=== PATIENT | male | born 1945 | race Caucasian/White ===

== ENCOUNTER 2022-12-10 18:39 | Inpatient (IN) ==
--- NOTE | 2022-12-10 18:48 | ED Triage Note ---
Date of Service December 10, 2022 History of Present Illness This patient was briefly evaluated while in triage. An abbreviated physical exam was performed. This patient is a 77-year-old Male who presents to the ED for evaluation of. neuro symptoms in right arm x 4 weeks-, pain, N/T, weakness. Had cervical spine MRI today showing mass sent for admission, evaluation of primary source had full panel of labs earlier today which are pending chest and abd CTs ordered by PCP Physical Exam GENERAL: NAD CARDIOVASCULAR: RRR RESPIRATORY: CTA ABDOMEN: BS x 4. Nontender to palpation. Labs obtained earlier today are in process, reviewed. PCP wanted admission and CTs, which were ordered. Initial orders for labs and / or imaging were placed and patient was placed in the waiting area until a bed is available. Please see further documentation for the full ED course.
[2022-12-10] MEDS ORDERED: OPTIRAY 350 100ml IV ONE (19:38)
[2022-12-10 19:42] LABS: iSTAT Hemoglobin 16.3 g/dl (14.0-18.0); iSTAT Ionized Calcium 1.18 mmol/l (1.12-1.32); iSTAT Potassium 4.5 mmol/L (3.3-5.0)
--- NOTE | 2022-12-10 20:00 | Emergency Department Note ---
Impression & Plan Pulmonary embolism, Metastatic cancer ED Provider Note NAME: NATALY UNDERWOOD AGE: 77 SEX: M : 1945 ARRIVES VIA: Walk-In INFORMANT: Patient, ED PROVIDER(S): Rene Art DO CHIEF COMPLAINT: Right upper extremity weakness HPI: The patient is a 77-year-old male who presented to the emergency department for an evaluation of right upper extremity weakness. The patient has been experiencing symptoms for approximately 4 weeks. Apparently the patient has a history of prostatectomy in the past for prostate cancer. He had no chemothera py or radiation following this and this was felt to be not metastatic at that time. He started having symptoms of a pinching sensation and dysesthesia in his right upper extremity. He was placed on steroids. He had outpatient studies including an MRI of the neck. The MRI appears to be consistent with possible metastatic disease. He was sent to the emergency department for admission for further work-up for search for a primary cancer. The patient denies having any chest pain. He denies having any difficulty breathing. ROS: See above HPI for pertinent positives & negatives. A total of 10 systems reviewed and were otherwise negative. PAST MEDICAL HISTORY: See Below PAST SURGICAL HISTORY: See Below FAMILY HISTORY: See Below SOCIAL HISTORY: See Below HOME MEDICATIONS: See Below ALLERGIES: See Below VITALS: See Below PHYSICAL EXAMINATION: GENERAL: Patient is awake alert in no acute distress patient is resting comfortably and showing no signs of anxiety EYES: The conjunctivae are clear. The pupils are round and reactive. EARS, NOSE, MOUTH AND THROAT: The nose is without any evidence of any deformity. NECK: The neck is nontender and supple. RESPIRATORY: Normal respiratory effort is noted there is no evidence of wheezing rhonchi or rales CARDIOVASCULAR: Regular rate and rhythm noted there no murmurs rubs or gallops normal S1 normal S2. GASTROINTESTINAL: The abdomen is soft. Abdomen is nontender. MUSCULOSKELETAL/EXTREMITIES: There is no evidence of gross deformity full range of motion is noted in the hips and shoulders. SKIN: There is no obvious evidence of any rash. There are no petechiae, pallor or cyanosis noted. NEUROLOGIC: Patient is awake alert and oriented x3 strength is symmetric patellar reflexes are 2+ bilaterally. Fur Stretcher strength is diminished in the right upper extremity. There was no facial droop. MEDICAL DECISION MAKING: The patient is a 77-year-old male who presented to the emergency department for an evaluation of metastatic cancer without a source. The patient has been having right upper extremity problems over the course the last few weeks. He had an MRI obtained which showed areas of possible metastatic disease to the bone. He was sent to the emergency department for further evaluation as well as possible inpatient work-up to determine the primary carcinoma. The patient has a history of prostate cancer in the past. I discussed the patient's laboratory and radiographic studies with him. He was found to have signs of pulmonary embolism on CT of the chest but also signs of metastatic disease throughout his chest abdomen and pelvis. The patient was started on heparin in the emergency department. I discussed the patient's condition with the on-call [facility]. They have agreed to evaluate the patient in the emergency department for further management and disposition. Triage Nursing notes reviewed. Prior medical records reviewed Vital Signs: reviewed and remarkable for tachycardia. Differential diagnosis: Infection, dehydration, metabolic abnormality, hypo/hyperglycemia, electrolyte disturbance, anemia, hypoxia, cardiac sources, intracerebral event, toxicologic, neurologic, as well as other pathologies. ER treatment provided: See below Diagnostics interpreted by me: ECG: EKG was obtained in the emergency department. My interpretation is normal sinus rhythm at 96 bpm. There was no ectopy. Nonspecific ST segment abnormalities were noted. No previous tracing was available. Cardiac Monitoring: An order was placed for continuous cardiac monitoring. The monitor shows a rate of 100 bpm with sinus rhythm. Laboratory studies: As stated above and show below. Imaging studies: See below. Radiographic imaging was reviewed by myself Consultation(s): Discussed this case with Dr. Sagastume who is on-call for the [facility] group ED COURSE: Procedures: none Critical Care: I have personally spent greater than 40 minutes of critical care time in the direct management of this patient. This includes bedside care, interpretation of diagnostic studies, and testing, discussion with consultants, patient, and family members, and other required patient management activities. This 40 minutes is in excess of all separately billable procedures. Past Med/Surg History Medical History Diabetes mellitus, type 2 DIET CONTROLLED Hearing difficulty History of colon polyps History of prostate cancer 2010--sx only Hyperlipidemia Hypertension Osteoarthritis Restless leg syndrome Sleep apnea BIPAP Temporomandibular joint disorder Trigger finger, left ring finger Surgical History History of carpal tunnel surgery of right wrist History of cataract surgery RT/LEFT Hx of colonoscopy 01/2021 repeat 3 yrs Hx of prostatectomy 2010 - Hx of vasectomy Family History Father Malignant neoplasm of colon Hypertension Family hx of colon cancer Sister Malignant neoplasm of colon Family hx of colon cancer Grandfather Myocardial infarction paternal Lung cancer maternal Other No family history of adverse response to anesthesia Denies family history of Ovarian cancer Prostate cancer Breast cancer Social History Smoking Status: Never smoker Second Hand Exposure: No (father smoked); Hx Alcohol Use: Yes Alcohol type: beer, wine and hard liquor Alcohol Intake Frequency Comment: daily Hx Substance Use: No Preferred Language: Ethiopian Communication Ability: Effective Visual Impairment: Limited Hearing Ability: Use of Hearing Aid Acute Care Registered Nurse Required: No Beliefs That Will Affect Care: None marital status: Current Living Situation: Spouse current occupational status: retired How many Children do You have: 3 Feels Safe at Home: Yes Childhood Exposure to Second-Hand Smoke: Yes caffeine: Yes (rarely; drinks mostly decaf ) Dental Care, Regularly: No Physical Activity Frequency: 1-2 Times per Week Seatbelt Use: always Sunscreen Use: No Assistive Devices: BiPap, Glasses and Hearing Aid - Bilateral Allergies Allergies Allergy/AdvReac Type Severity Reaction Status Date / Time typhoid vaccine Allergy Intermediate shaking Verified 12/10/22 21:07 Home Meds Home Medications Medication Instructions Recorded Confirmed ibuprofen 200 mg capsule 400 - 600 mg PO Q6H PRN Pain 12/05/19 12/10/22 atorvastatin 40 mg tablet 40 mg PO HS 12/10/22 12/10/22 diclofenac sodium 1 % topical gel 4 g topical QID PRN Pain 12/10/22 12/10/22 (Voltaren Arthritis Pain) Previous Rx's Medication Instructions Recorded BiPap Machine #1 ea 02/22/20 BiPap Supplies #1 ea 03/17/22 metformin 1,000 mg tablet 1,000 mg PO BID #180 tabs 07/08/22 tadalafil 20 mg tablet 20 mg PO UD PRN sexual activity 10/27/22 #30 tabs blood sugar diagnostic (OneTouch #100 ea 08/18/22 Verio test strips) lancets 30 gauge (OneTouch Delica #100 ea 08/18/22 Lancets) lisinopril 10 1 tab PO HS #90 tabs 09/02/22 mg-hydrochlorothiazide 12.5 mg tablet duloxetine 30 mg capsule,delayed 30 mg PO DAILY #90 caps 10/08/22 release empagliflozin 25 mg tablet 25 mg PO DAILY #90 tabs 11/17/22 gabapentin 100 mg capsule 100 mg PO TID #90 caps 12/08/22 methocarbamol 750 mg tablet 750 mg PO Q8H PRN back spasm #15 12/08/22 tabs methylprednisolone 4 mg tablets in 4 mg PO DAILY #21 ea 12/08/22 a dose pack (Medrol (Tato)) Results & Data (ED) Vital Signs Vital Signs - 24 hr 12/10/22 18:45 12/10/22 19:54 12/10/22 20:49 Temperature 36.9 C Temperature Source Temporal Artery Scan Pulse Rate 119 H 100 H Respiratory Rate 18 Respiratory Effort / Characteristics Non-Labored Spontaneous Respiratory Depth Normal Respiratory Pattern Regular Blood Pressure 129/81 Blood Pressure Mean 97 Blood Pressure Position Sitting Pulse Oximetry 93 97 Oxygen Delivery Method Room Air Room Air Sepsis Recent Fever Within 48 Hours No Sepsis New/Unexplained Change in Mental Status No Sepsis Action Taken by Nursing No Action Required Home Medications Current Medication List: was personally reviewed by me Laboratory Data Attestation: I reviewed the patient's lab results. 12/10/22 19:27 12/10/22 19:27 Lab Results 12/10/22 12/10/22 12/10/22 Range/Units 19:27 19:27 19:27 WBC 14.09 H (4.8-10.8) K/ul RBC 4.54 L (4.70-6.10) M/uL Hgb 15.2 (14.0-18.0) g/dl POC Hgb (14.0-18.0) g/dl Hct 45.7 (42.0-52.0) % POC Hct (42-52) % MCV 100.7 H (80.0-100.0) fL MCH 33.5 (25.0-34.0) pg MCHC 33.3 (32.0-36.0) g/dL RDW Std Deviation 47.8 H (36.4-46.3) fL RDW Coeff of Micah 12.7 (11.5-14.5) % Plt Count 157 (130-400) K/uL MPV 9.7 (9.4-12.4) fL Immature Gran % (Auto) 0.7 % Neut % (Auto) 78.9 % Lymph % (Auto) 7.4 % [place] % (Auto) 10.8 % Eos % (Auto) 1.8 % Baso % (Auto) 0.4 % Neut # (Auto) 11.11 H (1.40-6.50) K/uL Lymph # (Auto) 1.04 L (1.2-3.4) K/uL [place] # (Auto) 1.52 H (0.11-0.59) K/uL Eos # (Auto) 0.26 (0-0.50) K/uL Baso # (Auto) 0.06 (0-0.2) K/uL Immature Gran # (Auto) 0.10 (0.01-0.20) K/uL PT 15.0 H (9.0-12.0) Seconds INR 1.4 H (0.9-1.1) APTT 26.5 (21.0-31.0) Seconds PTT Ratio 1.0 POC Sodium (135-144) mmol/L Sodium (136-145) mmol/L POC Potassium (3.3-5.0) mmol/L Potassium (3.5-5.1) mmol/L POC Chloride (101-112) mmol/L Chloride (98-107) mmol/L Carbon Dioxide (21-32) mmol/L POC Total CO2 (24-31) mmol/L Anion Gap (3-11) POC Anion Gap (16-25) mmol/L POC BUN (7-18) mg/dl BUN (6-23) mg/dl Creatinine (0.6-1.4) mg/dl POC Creatinine (0.6-1.3) mg/dl Est Cr Clr Drug Dosing ml/min Est GFR ( Amer) ml/min Est GFR (Non-Af Amer) ml/min BUN/Creatinine Ratio (10-20) Glucose (70-99(Fasting)) mg/dl POC Glucose (other) (70-99) mg/dl Calcium (8.5-10.1) mg/dl POC Ioniz Calcium Sheri (1.12-1.32) mmol/l Total Bilirubin (0.2-1.0) mg/dl AST (13-39) U/L ALT (7-52) U/L Alkaline Phosphatase (34-104) U/L Troponin I High Sens (0-20) pg/ml Total Protein (6.0-8.3) gm/dl Albumin (3.4-5.0) gm/dl Globulin (2.5-4.0) gm/dl Albumin/Globulin Ratio (0.9-2) Lipase (11-82) U/L SARS-CoV-2, RNA, NAAT NEGATIVE (NEGATIVE) 12/10/22 12/10/22 Range/Units 19:27 19:29 WBC (4.8-10.8) K/ul RBC (4.70-6.10) M/uL Hgb (14.0-18.0) g/dl POC Hgb 16.3 (14.0-18.0) g/dl Hct (42.0-52.0) % POC Hct 48 (42-52) % MCV (80.0-100.0) fL MCH (25.0-34.0) pg MCHC (32.0-36.0) g/dL RDW Std Deviation (36.4-46.3) fL RDW Coeff of Micah (11.5-14.5) % Plt Count (130-400) K/uL MPV (9.4-12.4) fL Immature Gran % (Auto) % Neut % (Auto) % Lymph % (Auto) % [place] % (Auto) % Eos % (Auto) % Baso % (Auto) % Neut # (Auto) (1.40-6.50) K/uL Lymph # (Auto) (1.2-3.4) K/uL [place] # (Auto) (0.11-0.59) K/uL Eos # (Auto) (0-0.50) K/uL Baso # (Auto) (0-0.2) K/uL Immature Gran # (Auto) (0.01-0.20) K/uL PT (9.0-12.0) Seconds INR (0.9-1.1) APTT (21.0-31.0) Seconds PTT Ratio POC Sodium 139 (135-144) mmol/L Sodium 139 (136-145) mmol/L POC Potassium 4.5 (3.3-5.0) mmol/L Potassium 4.5 (3.5-5.1) mmol/L POC Chloride 104 (101-112) mmol/L Chloride 103 (98-107) mmol/L Carbon Dioxide 23 (21-32) mmol/L POC Total CO2 22 L (24-31) mmol/L Anion Gap 13 H (3-11) POC Anion Gap 19.0 (16-25) mmol/L POC BUN 35 H (7-18) mg/dl BUN 37 H (6-23) mg/dl Creatinine 0.99 (0.6-1.4) mg/dl POC Creatinine 1.0 (0.6-1.3) mg/dl Est Cr Clr Drug Dosing 75.0 ml/min Est GFR ( Amer) 86.0 ml/min Est GFR (Non-Af Amer) 74.2 ml/min BUN/Creatinine Ratio 37.4 H (10-20) Glucose 273 H (70-99(Fasting)) mg/dl POC Glucose (other) 262 H (70-99) mg/dl Calcium 9.6 (8.5-10.1) mg/dl POC Ioniz Calcium Sheri 1.18 (1.12-1.32) mmol/l Total Bilirubin 0.7 (0.2-1.0) mg/dl AST 52 H (13-39) U/L ALT 76 H (7-52) U/L Alkaline Phosphatase 357 H (34-104) U/L Troponin I High Sens 13.3 (0-20) pg/ml Total Protein 8.0 (6.0-8.3) gm/dl Albumin 4.8 (3.4-5.0) gm/dl Globulin 3.2 (2.5-4.0) gm/dl Albumin/Globulin Ratio 1.5 (0.9-2) Lipase 28 (11-82) U/L SARS-CoV-2, RNA, NAAT (NEGATIVE) Administered Medications Heparin Sodium/Dextrose (Heparin Sodium/Dextrose) 25,000 units in 500 mls @ 31 mls/hr IV .[id number] SKIP; Protocol Stop: 01/09/23 20:29 Last Admin: 12/10/22 20:45 Dose: 1,550 units/hr, 31 mls/hr Documented By: DORA Co-signed By: CAMILO Discontinued Medications Ioversol (Optiray 350 100ml) 80 ml IV ONCE ONE Stop: 12/10/22 19:39 Last Admin: 12/10/22 19:39 Dose: 80 ml Documented By: BRIDGETTE Imaging Data Attestation: I personally reviewed and interpreted this imaging study as follows: My Impression: CT of the chest abdomen and pelvis were obtained in the emergency department. My interpretation is no bowel obstruction, no free air, final read is pending. Radiologist's Impression: Abdomen/Pelvis CT 12/10/22 18:[address] WITH CONTRAST, ABDOMEN AND PELVIS CT WITH INTRAVENOUS CONTRAST CT DOSE: 1035.36 mGy.cm HISTORY: ABNORMAL CERVICAL MRI-EVAL MALIGNANCY TECHNIQUE: Multiaxial CT images of the chest, abdomen, and pelvis were performed following the intravenous administration of contrast. A dose lowering technique was utilized adhering to the principles of ALARA. COMPARISON: Cervical spine MRI 12/09/2022. FINDINGS: Chest CT: The central airways are patent. No pneumothorax. No pleural effusions. There are numerable scattered subcentimeter pulmonary nodules which measure up to 8 mm in size. This is highly suspicious for pulmonary metastatic disease. Subtle right paravertebral soft tissue density at the C7 level corresponds to the recent cervical spine MRI. There is also concerning for metastatic disease. Normal esophagus. The thyroid gland enhances normally. Calcified right hilar and subcarinal lymph nodes. No mediastinal or hilar lymphadenopathy. No pericardial effusion. The heart is normal in size. Calcific granuloma within the right lower lobe. Small filling defect seen within the lower lobe subsegmental pulmonary arteries concerning for distal pulmonary emboli. The main pulmonary arteries are patent. There are a few subtle lytic lesions noted within the thoracic spine. Abdomen/pelvis CT: No pneumoperitoneum. No pneumatosis. A few subtle small lytic lesions seen within the lumbar spine and right iliac bone. Small fat-containing umbilical hernia. Small fat-containing right inguinal hernia. Innumerable scattered hypodense lesions seen throughout the liver consistent with metastatic disease. This includes a dominant hypodense lesion measuring 11 cm. The gallbladder is contracted. The main portal vein is patent. Partially necrotic and mildly enlarged periportal lymph nodes likely representing metastatic disease. Dominant lymph node measures 18 mm. The spleen and adrenal glands unremarkable. There is a 4 cm left renal cyst. No hydronephrosis. A cluster of hypodense/cystic lesions within the uncinate process of the pancreas measuring up to 5.2 cm. There is an additional multiloculated solid and cystic lesion within the tail the pancreas measuring 6 cm. The bladder is unremarkable. There is a single mildly enlarged right external iliac lymph node on image 316 measuring 10 mm. A few colonic diverticula. No evidence for acute diverticulitis. No bowel wall thickening or obstruction. Normal appendix. IMPRESSION: 1. Multiple scattered subcentimeter pulmonary nodules consistent with metastatic disease. 2. Multiple hypodense lesions seen throughout the liver with the largest measuring 11 cm. This also likely represents metastatic disease. 3. Subcentimeter scattered lytic lesions within the spine and pelvis which may represent metastatic disease. 4. Subtle right paravertebral soft tissue density at the C7 level which likely corresponds to the MRI finding and is concerning for metastatic disease. 5. Mildly enlarged and partially necrotic periportal and a right external iliac lymph node consistent with residual disease. 6. Cystic lesions within the uncinate process and tail of the pancreas . These are indeterminate but may represent separate cystic neoplasms of the pancreas rather than metastatic disease. 7. Probable small subsegmental bilateral lower lobe pulmonary emboli. ACT 112: Negative or not required by law. Electronically signed by: Garret Peters M.D. 12/10/2022 8:[address] 12/10/22 18:[address] WITH CONTRAST, ABDOMEN AND PELVIS CT WITH INTRAVENOUS CONTRAST CT DOSE: 1035.36 mGy.cm HISTORY: ABNORMAL CERVICAL MRI-EVAL MALIGNANCY TECHNIQUE: Multiaxial CT images of the chest, abdomen, and pelvis were performed following the intravenous administration of contrast. A dose lowering technique was utilized adhering to the principles of ALARA. COMPARISON: Cervical spine MRI 12/09/2022. FINDINGS: Chest CT: The central airways are patent. No pneumothorax. No pleural effusions. There are numerable scattered subcentimeter pulmonary nodules which measure up to 8 mm in size. This is highly suspicious for pulmonary metastatic disease. Subtle right paravertebral soft tissue density at the C7 level corresponds to the recent cervical spine MRI. There is also concerning for metastatic disease. Normal esophagus. The thyroid gland enhances normally. Calcified right hilar and subcarinal lymph nodes. No mediastinal or hilar lymphadenopathy. No pericardial effusion. The heart is normal in size. Calcific granuloma within the right lower lobe. Small filling defect seen within the lower lobe subsegmental pulmonary arteries concerning for distal pulmonary emboli. The main pulmonary arteries are patent. There are a few subtle lytic lesions noted within the thoracic spine. Abdomen/pelvis CT: No pneumoperitoneum. No pneumatosis. A few subtle small lytic lesions seen within the lumbar spine and right iliac bone. Small fat-containing umbilical hernia. Small fat-containing right inguinal hernia. Innumerable scattered hypodense lesions seen throughout the liver consistent with metastatic disease. This includes a dominant hypodense lesion measuring 11 cm. The gallbladder is contracted. The main portal vein is patent. Partially necrotic and mildly enlarged periportal lymph nodes likely representing metastatic disea se. Dominant lymph node measures 18 mm. The spleen and adrenal glands unremarkable. There is a 4 cm left renal cyst. No hydronephrosis. A cluster of hypodense/cystic lesions within the uncinate process of the pancreas measuring up to 5.2 cm. There is an additional multiloculated solid and cystic lesion within the tail the pancreas measuring 6 cm. The bladder is unremarkable. There is a single mildly enlarged right external iliac lymph node on image 316 measuring 10 mm. A few colonic diverticula. No evidence for acute diverticulitis. No bowel wall thickening or obstruction. Normal appendix. IMPRESSION: 1. Multiple scattered subcentimeter pulmonary nodules consistent with metastatic disease. 2. Multiple hypodense lesions seen throughout the liver with the largest measuring 11 cm. This also likely represents metastatic disease. 3. Subcentimeter scattered lytic lesions within the spine and pelvis which may represent metastatic disease. 4. Subtle right paravertebral soft tissue density at the C7 level which likely corresponds to the MRI finding and is concerning for metastatic disease. 5. Mildly enlarged and partially necrotic periportal and a right external iliac lymph node consistent with residual disease. 6. Cystic lesions within the uncinate process and tail of the pancreas . These are indeterminate but may represent separate cystic neoplasms of the pancreas rather than metastatic disease. 7. Probable small subsegmental bilateral lower lobe pulmonary emboli. ACT 112: Negative or not required by law. Electronically signed by: Garret Peters M.D. 12/10/2022 8:04 PM Discharge Plan Visit Data Chief Complaint: Referred by Doctor Stated Complaint: CT SCAN TO BE DONE IN THE MORNING, REF BY DOC ED Provider: Rene Art Discharge Problem: Pulmonary embolism, Metastatic cancer Patient Disposition: Being Evaluated by Hospitalist
--- NOTE | 2022-12-10 20:06 | CT Scan Report ---
CHEST CT WITH CONTRAST, ABDOMEN AND PELVIS CT WITH INTRAVENOUS CONTRAST CT DOSE: 1035.36 mGy.cm HISTORY: ABNORMAL CERVICAL MRI-EVAL MALIGNANCY TECHNIQUE: Multiaxial CT images of the chest, abdomen, and pelvis were performed following the intrav enous administration of contrast. A dose lowering technique was utilized adhering to the principles of ALARA. COMPARISON: Cervical spine MRI 12/09/2022. FINDINGS: Chest CT: The central airways are patent. No pneumothorax. No pleural effusions. There are numerable scattered subcentimeter pulmonary nodules which measure up to 8 mm in size. This is highly suspicious for pulmonary metastatic disease. Subtle right paravertebral soft tissue density at the C7 level cor responds to the recent cervical spine MRI. There is also concerning for metastatic disease. Normal es ophagus. The thyroid gland enhances normally. Calcified right hilar and subcarinal lymph nodes. No me diastinal or hilar lymphadenopathy. No pericardial effusion. The heart is normal in size. Calcific gr anuloma within the right lower lobe. Small filling defect seen within the lower lobe subsegmental pul monary arteries concerning for distal pulmonary emboli. The main pulmonary arteries are patent. There are a few subtle lytic lesions noted within the thoracic spine. Abdomen/pelvis CT: No pneumoperitoneum. No pneumatosis. A few subtle small lytic lesions seen within the lumbar spine and right iliac bone. Small fat-containing umbilical hernia. Small fat-containing ri ght inguinal hernia. Innumerable scattered hypodense lesions seen throughout the liver consistent wit h metastatic disease. This includes a dominant hypodense lesion measuring 11 cm. The gallbladder is c ontracted. The main portal vein is patent. Partially necrotic and mildly enlarged periportal lymph no melissa likely representing metastatic disease. Dominant lymph node measures 18 mm. The spleen and adrena l glands unremarkable. There is a 4 cm left renal cyst. No hydronephrosis. A cluster of hypodense/cys tic lesions within the uncinate process of the pancreas measuring up to 5.2 cm. There is an additiona l multiloculated solid and cystic lesion within the tail the pancreas measuring 6 cm. The bladder is unremarkable. There is a single mildly enlarged right external iliac lymph node on image 316 measurin g 10 mm. A few colonic diverticula. No evidence for acute diverticulitis. No bowel wall thickening or obstruction. Normal appendix. IMPRESSION: 1. Multiple scattered subcentimeter pulmonary nodules consistent with metastatic disease. 2. Multiple hypodense lesions seen throughout the liver with the largest measuring 11 cm. This also l ikely represents metastatic disease. 3. Subcentimeter scattered lytic lesions within the spine and pelvis which may represent metastatic d isease. 4. Subtle right paravertebral soft tissue density at the C7 level which likely corresponds to the MRI finding and is concerning for metastatic disease. 5. Mildly enlarged and partially necrotic periportal and a right external iliac lymph node consistent with residual disease. 6. Cystic lesions within the uncinate process and tail of the pancreas . These are indeterminate but may represent separate cystic neoplasms of the pancreas rather than metastatic disease. 7. Probable small subsegmental bilateral lower lobe pulmonary emboli. ACT 112: Negative or not required by law. Electronically signed by: Garret Peters M.D. 12/10/2022 8:04 PM
[2022-12-10] MEDS ORDERED: Heparin IV Adult Wt-Based Standard *NO* Bolus Protocol IV ONE (20:11)
[2022-12-10 20:29] LABS: Basophils # (auto) 0.06 K/uL (0-0.2); Basophils % (auto) 0.4 %; Eosinophils # (auto) 0.26 K/uL (0-0.50); Eosinophils % (auto) 1.8 %; Hematocrit (blood only) 45.7 % (42.0-52.0); Hemoglobin 15.2 g/dl (14.0-18.0); Immature Granulocytes % (auto) 0.7 %; Lymphocytes # (auto) 1.04 K/uL (1.2-3.4); Lymphocytes % (auto) 7.4 %; Mean Corpuscular Hemoglobin 33.5 pg (25.0-34.0); Mean Corpuscular Hgb Conc 33.3 g/dL (32.0-36.0); Mean Corpuscular Volume 100.7 fL (80.0-100.0); Mean Platelet Volume 9.7 fL (9.4-12.4); Monocytes # (auto) 1.52 K/uL (0.11-0.59); Monocytes % (auto) 10.8 %; Neutrophils # (auto) 11.11 K/uL (1.40-6.50); Neutrophils % (auto) 78.9 %; Platelet Count 157 K/uL (130-400); RDW Coefficient of Variation 12.7 % (11.5-14.5); RDW Standard Deviation 47.8 fL (36.4-46.3); Red Blood Count 4.54 M/uL (4.70-6.10); White Blood Count 14.09 K/ul (4.8-10.8)
[2022-12-10 20:44] LABS: Albumin Globulin Ratio 1.5 (0.9-2); Albumin Level 4.8 gm/dl (3.4-5.0); BUN Creatinine Ratio 37.4 (10-20); Bilirubin,Total 0.7 mg/dl (0.2-1.0); Calcium 9.6 mg/dl (8.5-10.1); Est GFR (Non-African American) 74.2 ml/min; Globulin 3.2 gm/dl (2.5-4.0); Potassium 4.5 mmol/L (3.5-5.1)
[2022-12-10] MEDS: HEPARIN SODIUM/DEXTROSE 25,000 UNITS/500 ML BAG IV SCH (20:45)
[2022-12-10 20:48] LABS: Troponin I High Sensitivity 13.3 pg/ml (0-20)
[2022-12-10 20:53] LABS: INR 1.4 (0.9-1.1); Partial Thromboplastin Time 26.5 Seconds (21.0-31.0)
--- NOTE | 2022-12-10 22:08 | History & Physical Report ---
Date of Service December 10, 2022 Assessment & Plan (1) Metastatic cancer: Plan: -Metastatic cancer of unknown source but potentially pancreas -Cervical spine MRI- marrow replacement of C7 and T3 concerning for metastatic disease, soft tissue density at C6-C7 with narrowing of right C6-C7 and C7-T1 neural foramen, epidural extension of tumor without significant central stenosis -CTAP and chest CT- evidence of metastatic disease to lungs, liver, lytic lesions of spine/pelvis, cystic lesions of pancreas concerning for potential separate neoplasms rather than metastatic disease -Outpatient SPEP/immunofixation studies pending -Pt is unsure about treatment goals at this time. I did have a long discussion with him and he is in agreement with continuing workup at this time. Unfortunately he does appear to have a poor prognosis but we are deferring palliative care consultation until further workup and goals of care discussion. -Oncology consulted. [facility] Dr. Manuel is aware of the case -Heparin infusion at present for cancer hypercoagulability. We are maintaining heparin at this time in anticipation of potential biopsy once evaluated by oncology. He would benefit from Lovenox -Pain management with morphine, Dilaudid PRN given extensive metastasis (2) Pulmonary embolism: Plan: -Chest CT with evidence of b/l subsegmental multiple pulmonary emboli -Currently saturating well on RA -Heparin infusion initiated. As above, he would ultimately benefit from Lovenox given his malignancy and can consider transition pending his clinical course and potential biopsy. -Venous duplex b/l ordered to r/o DVT (3) Right arm pain: Plan: -Cervical spine MRI results as above -Continue gabapentin, duloxetine for neuropathy -Dexamethasone 4mg IV x1 given for pain relief in setting of metastatic disease (4) Leukocytosis: Plan: -WBC 14 on admission -Low suspicion for infection, suspect leukocytosis due to malignancy -Trend CBC (5) History of prostate cancer: Plan: Patient noted to have AdenoCA of prostate GS (4+3=7) in 1/6 cores involving 10% in 2010 s/p Robotic Radical Prostatectomy and pelvic lymphadenectomy on 12/20/2010 at [facility]. Pathology reviewed from 12/20/22. Soft tissue and pelvic lymph nodes were negative for malignancy. Staged at T2aN0. No bone scan available for review in old records noted. He was followed by Dr. Chris Ar[facility], last office note from 12/2017. Here it was noted that his pre-treatment PSA 9.2. He reports that since 2018 he's been following with annual PSA which have been undetectable, last checked 12/2021. (6) Diabetes mellitus, type 2: Plan: -BSG 273 on admission -Holding home regimen of metformin and Jardiance -Given pt's weight loss in background of metastatic malignancy, regular diet ordered -SSI to be ordered if pt persistently hyperglycemic (7) Severe obstructive sleep apnea: Plan: BIPAP Hs (8) Hypertension: Plan: -BP stable -Holding lisinopril/HCTZ at present, resume if BP elevated during hospital course (9) Transaminitis: Plan: -AST/ALT elevations likely secondary to metastatic disease. Also noted elevations of coagulation studies including INR -Trend CMP Plan FENGI: Regular Code status: Pt is full code at present but he does express desire to possibly change this to DNR/DNI after formal goals of care discussion DVT ppx: Heparin Isolation: None Dispo: Telemetry History of Present Illness Chief Complaint: R arm pain Primary Care Provider: Kiel Rome, DO 77 yo M with PMH ZAID, HTN, DM2, prostate adenocarcinoma s/p prostatectomy with pelvic lymphadenectomy in 2010 presenting with RUE weakness. Pt notes for past 4 weeks he has had progressive pain of R neck with radiation to hand. Weakness, numbness and tingling have occurred as of last week and he is unable to extend his R 4th/5th fingers. Pt was prescribed gabapentin 100 mg TID for neuropathy but denies any relief. He did have some initial relief from NSAIDs but this waned. Flexeril also did not help and 2 PT sessions did not help either. He does report 20 lbs weight loss over last 6 months but states this was unintentional. He also reports intermittent chills/hot flashes and gradually worsening fatigue over past month along with exertional dyspnea. He was given oral steroid treatment for the pain and was ordered an MRI of cervical spine on 12/09. After the MRI result appeared to indicate possible metastatic cancer, he was sent to the ED for admission for workup. Several outpatient labs were drawn today as well as part of his cancer evaluation. In the ED, pt arrived tachycardic in 100s but otherwise stable. WBC 14, PT 15, INR 1.4, glucose 273, AST 52, ALT 76, ALP 357. CBC, CMP, UA, troponin, TSH otherwise unremarkable. CTAP and chest CT with findings of metastatic disease and b/l pulmonary emboli. Pt was started on heparin infusion in the ER. On my evaluation, I did inform the patient of his workup and evaluation thus far. He denies any new symptoms and continues to endorse unchanged RUE pain and tingling. He is admittedly shocked by this diagnosis and states his son in November 2022 from pancreatic cancer. He supposes he may want "fairly a ggressive" treatment but is understandably unsure about his treatment goals at this time in the immediacy of his diagnosis. Allergies Allergy/AdvReac Type Severity Reaction Status Date / Time typhoid vaccine Allergy Intermediate shaking Verified 12/10/22 21:07 Home Medications Medication Instructions Recorded Confirmed Type ibuprofen 200 mg capsule 400 - 600 mg PO Q6H PRN Pain 12/05/19 12/10/22 History BiPap Machine #1 ea 02/22/20 12/10/22 Rx BiPap Supplies #1 ea 03/17/22 12/10/22 Rx metformin 1,000 mg tablet 1,000 mg PO BID #180 tabs 07/08/22 12/10/22 Rx tadalafil 20 mg tablet 20 mg PO UD PRN sexual activity 08/07/22 12/10/22 Rx #30 tabs blood sugar diagnostic (OneTouch #100 ea 08/18/22 12/10/22 Rx Verio test strips) lancets 30 gauge (OneTouch Delica #100 ea 08/18/22 12/10/22 Rx Lancets) lisinopril 10 1 tab PO HS #90 tabs 09/02/22 12/10/22 Rx mg-hydrochlorothiazide 12.5 mg tablet duloxetine 30 mg capsule,delayed 30 mg PO DAILY #90 caps 10/08/22 12/10/22 Rx release empagliflozin 25 mg tablet 25 mg PO DAILY #90 tabs 11/17/22 12/10/22 Rx gabapentin 100 mg capsule 100 mg PO TID #90 caps 12/08/22 12/10/22 Rx methocarbamol 750 mg tablet 750 mg PO Q8H PRN back spasm #15 12/08/22 12/10/22 Rx tabs methylprednisolone 4 mg tablets in 4 mg PO DAILY #21 ea 12/08/22 12/10/22 Rx a dose pack (Medrol (Tato)) atorvastatin 40 mg tablet 40 mg PO HS 12/10/22 12/10/22 History diclofenac sodium 1 % topical gel 4 g topical QID PRN Pain 12/10/22 12/10/22 History (Voltaren Arthritis Pain) Past Med/Surg History Medical History Diabetes mellitus, type 2 DIET CONTROLLED Hearing difficulty History of colon polyps History of prostate cancer 2010--sx only Hyperlipidemia Hypertension Osteoarthritis Restless leg syndrome Sleep apnea BIPAP Temporomandibular joint disorder Trigger finger, left ring finger Surgical History History of carpal tunnel surgery of right wrist History of cataract surgery RT/LEFT Hx of colonoscopy 01/2021 repeat 3 yrs Hx of prostatectomy 2010 - Hx of vasectomy Family History Father Malignant neoplasm of colon Hypertension Family hx of colon cancer Sister Malignant neoplasm of colon Family hx of colon cancer Grandfather Myocardial infarction paternal Lung cancer maternal Other No family history of adverse response to anesthesia Denies family history of Ovarian cancer Prostate cancer Breast cancer Social History Smoking Status: Never smoker Second Hand Exposure: No (father smoked); Hx Alcohol Use: Yes Alcohol type: beer, wine and hard liquor Alcohol Intake Frequency Comment: daily Hx Substance Use: No Preferred Language: Welsh Communication Ability: Effective Visual Impairment: Limited Hearing Ability: Use of Hearing Aid Castings Trimmer Required: No Beliefs That Will Affect Care: None marital status: Current Living Situation: Spouse current occupational status: retired How many Children do You have: 3 Feels Safe at Home: Yes Safety Concerns: Feels Safe At This Time Childhood Exposure to Second-Hand Smoke: Yes caffeine: Yes (rarely; drinks mostly decaf ) Dental Care, Regularly: No Physical Activity Frequency: 1-2 Times per Week Seatbelt Use: always Sunscreen Use: No Assistive Devices: Glasses Review of Systems Review of Systems: Per HPI Physical Exam Physical Exam: Constitutional: Patient is pleasant, alert, answering questions appropriately and appears to be in no distress. EYES: PERRLA, EOMI, no conjunctivitis ENT: Head is NC/AT THROAT: Pharynx is pink, without exudate or erythema Neck: No cervical adenopathy. Trachea midline. There is an area of firmness beneath the skin along R neck, approximately 2x1 cm. Respiratory: CTAB, unlabored respirations Cardiovascular: RRR, normal S1 and S2, no murmurs Gastrointestinal: Normoactive bowel sounds x4, soft, non-distended, non-tender. Musculoskeletal: Reduced bulk of RUE compared to LUE. No cyanosis or clubbing is appreciated. No peripheral edema. No focal tenderness of spine or paraspinal musculature. No focal calf swelling or tenderness b/l Neuro: CN 2-12 intact. Noted decreased door manager strength of RUE, ROM limitation with inability to extend 4th/5th fingers of R hand. Strained ROM testing with RUE due to pain. Hyporeflexia of brachioradialis and triceps reflex. Mild decreased sensation to light touch along RUE compared to LUE. Vascular: No carotid bruits. No JVD. Skin: Warm, dry and intact. Psych: Pleasant affect. Speech fluent, organized, non-tangential. Well-groomed. Results & Data Results & Data ([facility]) Vital Signs (Past 12 Hours) Vital Signs Temp Pulse Resp BP Pulse Ox O2 Del Method 12/10/22 19:54 100 H 12/10/22 18:45 36.9 C 119 H 18 129/81 93 Room Air Supervising Physician Co-Signing Physician Notes Attending addendum: I have physically seen this patient, have supervised the medical residents activities, and agree with the H&P unless as otherwise noted. Assessment and Plan: Metastatic cancer of unknown primary to lung, liver and bone- Outpatient SPEP/immunofixation studies pending Consult medical oncology Dr. Manuel Anticipate radiation oncology consult as well Pulmonary embolism- Multiple segmental pulmonary emboli bilaterally noted on chest CTA Starting heparin infusion overnight, however, patient will do best with Lovenox subcu going forward Order bilateral lower extremity venous Dopplers Right arm and neck pain- On gabapentin and duloxetine for neuropathic pain Give dexamethasone 4 mg IV as noted this evening May benefit from radiation oncology Diabetes mellitus- Hold metformin Jardiance is being used for diabetic control as opposed to diabetic/CHF control, so it will be held Placed on Accu-Cheks with NovoLog SSI Remaining orders and notations as noted Resident Activity Tracking Resident Involvement: Resident Care Provided Care Provided: [facility] (1) Metastatic cancer Area of secondary neoplastic involvement: unspecified site Qualified Code(s): C79.9 - Secondary malignant neoplasm of unspecified site (8) Hypertension Hypertension type: essential hypertension Qualified Code(s): I10 - Essential (primary) hypertension
[2022-12-10] MEDS ORDERED: ONDANSETRON INJ 2 MG/ML 2 ML VIAL IV PRN (23:41)
[2022-12-10] MEDS ORDERED: GLUCAGON FOR INJ 1 MG VIAL SQ PRN (23:41)
[2022-12-10] MEDS ORDERED: MoRPHine SULFATE 4 MG/ML 1 ML CARP\\VIAL IV PRN (23:41)
[2022-12-10] MEDS ORDERED: GLUCOSE 10 TAB/TUBE PO PRN (23:41)
[2022-12-10] MEDS ORDERED: DEXTROSE 50% 50 ML SYRINGE IV PRN (23:41)
[2022-12-10] MEDS ORDERED: CARBOHYDRATES FOR HYPOGLYCEMIA PO PRN (23:41)
[2022-12-10] MEDS ORDERED: POLYETHYLENE (MIRALAX) 17 GM PACK PO PRN (23:41)
[2022-12-10] MEDS ORDERED: GLUCOSE 40% GEL 15 GM TUBE PO PRN (23:41)
[2022-12-11] MEDS ORDERED: dexAMETHasone 4 MG in SYRINGE 0 ML IV ONE
--- NOTE | 2022-12-11 00:02 | Ultrasound Report ---
Exam(s): US VENOUS BILATERAL LOWER EXTREMITIES EXAM: US Duplex Bilateral Lower Extremities Veins CLINICAL HISTORY: Reason for exam: b/l PE. TECHNIQUE: Real-time duplex ultrasound scan of the bilateral lower extremity veins integrating B-mode two-dimensional vascular structure, Doppler spectral analysis, color flow Doppler imaging and compression. COMPARISON: No relevant prior studies available. FINDINGS: Right deep veins: Positive for DVT in the right posterior tibial vein. Right superficial veins: Unremarkable. No thrombus in the visualized right great saphenous vein. Left deep veins: Positive for DVT in the left popliteal vein, anterior tibial vein, and posterior tibial vein. Left superficial veins: Unremarkable. No thrombus in the visualized left great saphenous vein. Soft tissues: Left knee Ortega cyst measures 3.6 x 4.0 cm. IMPRESSION: 1. Positive for DVT in the right posterior tibial vein. 2. Positive for DVT in the left popliteal vein, anterior tibial vein, and posterior tibial vein. Electronically signed by: Jens Raygoza MD 12/11/22 00:01 AM
[2022-12-11] MEDS: ACETAMINOPHEN 325 MG TAB PO PRN ×2 (00:49→07:52)
[2022-12-11 03:14] LABS: Basophils # (auto) 0.06 K/uL (0-0.2); Basophils % (auto) 0.5 %; Eosinophils # (auto) 0.44 K/uL (0-0.50); Eosinophils % (auto) 3.5 %; Hematocrit (blood only) 41.5 % (42.0-52.0); Hemoglobin 13.9 g/dl (14.0-18.0); Immature Granulocytes # (auto) 0.12 K/uL (0.01-0.20); Immature Granulocytes % (auto) 0.9 %; Lymphocytes # (auto) 0.77 K/uL (1.2-3.4); Lymphocytes % (auto) 6.1 %; Mean Corpuscular Hemoglobin 33.7 pg (25.0-34.0); Mean Corpuscular Hgb Conc 33.5 g/dL (32.0-36.0); Mean Corpuscular Volume 100.7 fL (80.0-100.0); Mean Platelet Volume 9.5 fL (9.4-12.4); Monocytes # (auto) 0.99 K/uL (0.11-0.59); Monocytes % (auto) 7.8 %; Neutrophils # (auto) 10.34 K/uL (1.40-6.50); Neutrophils % (auto) 81.2 %; Platelet Count 136 K/uL (130-400); RDW Coefficient of Variation 12.7 % (11.5-14.5); RDW Standard Deviation 47.5 fL (36.4-46.3); Red Blood Count 4.12 M/uL (4.70-6.10); White Blood Count 12.72 K/ul (4.8-10.8)
[2022-12-11 03:27] LABS: Albumin Globulin Ratio 1.6 (0.9-2); Albumin Level 4.4 gm/dl (3.4-5.0); BUN Creatinine Ratio 43.2 (10-20); Bilirubin,Total 0.7 mg/dl (0.2-1.0); Calcium 9.1 mg/dl (8.5-10.1); Creatinine Clr Calc Pharmacy 84.3 ml/min; Est GFR (African American) 97.4 ml/min; Globulin 2.7 gm/dl (2.5-4.0); Potassium 4.4 mmol/L (3.5-5.1); Total Protein 7.1 gm/dl (6.0-8.3)
[2022-12-11 04:03] LABS: INR 1.4 (0.9-1.1); Partial Thromboplastin Ratio 2.1; Prothrombin Time 15.1 Seconds (9.0-12.0)
[2022-12-11 04:07] LABS: Partial Thromboplastin Time 57.8 Seconds (21.0-31.0)
--- NOTE | 2022-12-11 07:33 | Consultation ---
Date of Consultation December 11, 2022 Assessment & Plan (1) Metastatic cancer: Although he has a history of prostate cancer, it seems unlikely that that is part of his current process. There is some discussion in the interpretation of the CT of the abdomen/pelvis and admission history physical about the possibility for metachronous primaries particularly with respect to the lesions in the pancreas. There is a family history of pancreas cancer in son but son had Peutz-Jeghers syndrome, a condition shared with our patient's , and thus it is unlikely that our patient has a particular predilection to pancreatic cancer indicated by his son's diagnosis. However patient does have a cluster of colon cancer in the family and certainly might have a Hanks syndrome or other process that could have some pancreas cancer risk as well. Nevertheless, Occam's Razor would suggest that the widespread metastatic process is most likely to have a unitary diagnosis and whether or not the specific lesions in the pancreas are part of that are not is probably not of immediate practical significance Should be able to get a good core biopsy of one of the liver lesions which should yield a soft tissue and generous sample giving us ample opportunity for making a diagnosis and for performing NGS studies. This would set the stage for appropriate prognosis and treatment option discussions. Radiology is reviewing those films to see if we can proceed with that here, we might usually wait for some time before proceeding with interventions requiring interruption of anticoagulation but getting an early diagnosis is paramount here so we will have to coordinate biopsy as soon as we can even though that will require brief interruption of his anticoagulation While this process will almost certainly not be curable, depending on the histology it may be very treatable. We frankly discussed that at this point he continues to have a very broad prognosis spectrum. We did discuss that there may be some diseases for which we cannot even find effective treatment and survival could be quite short especially given what has been an accelerated path of progression by symptoms just over the last several weeks. At the same time, aggressively dividing malignancies can sometimes be even more susceptible to chemotherapy and at least show good intermediate term response to treatment. All will hinge on the biopsy and NGS studies and he certainly wants to proceed with those though he is appropriately weighing the pros and cons of aggressive treatment longer-term in terms of quality of life and what is important him to achieve. 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 I would be hopeful that steroids and radiation will adequately stabilize that and we could certainly proceed empirically even before tissue diagnosis is made since we have plenty of other sites to accomplish the latter objective (2) Pulmonary embolism: Certainly could be a Trousseau's-like presentation with malignancy induced hypercoagulability. Absolutely need to proceed with anticoagulation, may be worthwhile to do an MRI of the brain to be sure there are no occult lesions there that might be at risk for bleeding. While we would usually defer any elective or semielective procedures until at least 6 weeks of anticoagulation, there is a tremendous urgency to making a tissue diagnosis here for both prognosis and potential treatment discussions and thus we will have to be prepared to briefly interrupt the anticoagulation at the time of biopsy can be performed. Anticipate indefinite anticoagulation given that he has an incurable process, once he is stabilized we can discuss appropriate options for transition to oral anticoagulation (3) History of prostate cancer: PSA was undetectable a year ago and barely registers currently. This would be a very unusual pattern for prostate cancer recurrence especially in the absence of rising PSA in this late after initial diagnosis without interim indications of relapse. Await tissue diagnosis but more likely we are dealing with a metachronous malignancy Plan 1. Continue anticoagulation but be prepared to briefly interrupt for liver biopsy. Agree with the hospitalist team that heparin makes the most sense for now 2. May want to consider an MRI of the brain without and with contrast to be keenan e there are no metastases therapeutically as we continue anticoagulation 3. I have messaged radiology to review for image guided core biopsy of one of the liver lesions 4. Would suggest dexamethasone 4 mg 4 times daily for now, can be given orally but will need to watch his blood sugar 5. Urgent consult to radiation oncology for palliative radiation to the cervical spine as we are making a diagnosis and discussing his broader prognosis and treatment options 6. He has a reasonable performance status and certainly would be a potential candidate for systemic therapy, options and there potential efficacy will be discussed once we have a biopsy. Palliaitive care consultation, however, would be completely appropriate in conjunction with the above to make sure we are addressing ongoing optimizing his physical and psychological comfort and as well aiding in best defining his parameters of care 7. While his son's pancreatic cancer more likely reflects the patient's 's genetics and not his, our patient does have a cluster of colon cancer in the family. Microsatellite stability assessment of his liver biopsy will be a start to determination as to whether there may be germline predilection's for cancer and depending on the ultimate tissue diagnosis we may want to extend that to broader germline testing as well but that would not impact immediate management decisions beyond any evidence of microsatellite instability suggesting a potential role for immune therapy as part of his systemic treatment possibilities History of Present Illness Reason for Consultation: Patient presenting with a radiology picture of widespread metastatic disease including a compression of neuropathy of the right upper extremity due to low cervical/upper thoracic spine metastasis. Attending Physician: Memo Sagastume MD History of Present Illness Patient was treated in 2010 for a localized prostate cancer with prostatectomy and pelvic lymphadenectomy but has been in PSA remission since that time. He was without major symptoms prior to the beginning of this calendar year the retrospectively he has had a 20 pound weight loss over several months. That was in part volitional as he started treatment for diabetes and was more cautious about his diet but the loss was probably out of proportion to his effort. He has had particular problems with right neck pain and involving neuropathy/weakness in the right upper extremity. C-spine imaging showed widespread metastasis and given the urgency of the right upper extremity dysfunction he has been admitted for full work-up. Other than the prostate cancer, he has himself had no history of malignancy. His son in November after an approximate 8-month kaiser with pancreatic cancer but his son had Peutz-Jeghers syndrome which he shared with his mother. And Mr. Wood's family itself there is a history of colon cancer in his father, sister, and several other relatives on his father side but all were apparently 50-year-old her at diagnosis. He has maternal grandfather had lung cancer but was a smoker. There is no other family history of cancer Mr. Wood is a never smoker and only modest alcohol drinker. 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 He did serve in the [employer] but this was after [place] and before the [place] conflicts. He served in [employer] to his knowledge had either radiation or other toxic exposures during the time of his service. He has had no workplace exposures subsequent to that as an junior staff accountant Other than the weakness in his right arm he continues with good strength in the left arm and both legs. He reports bowel and bladder function have been stable. Allergies Allergy/AdvReac Type Severity Reaction Status Date / Time typhoid vaccine Allergy Intermediate shaking Verified 12/10/22 21:07 Home Medications Medication Instructions Recorded Confirmed Type ibuprofen 200 mg capsule 400 - 600 mg PO Q6H PRN Pain 12/05/19 12/10/22 History BiPap Machine #1 ea 02/22/20 12/10/22 Rx BiPap Supplies #1 ea 03/17/22 12/10/22 Rx metformin 1,000 mg tablet 1,000 mg PO BID #180 tabs 07/08/22 12/10/22 Rx tadalafil 20 mg tablet 20 mg PO UD PRN sexual activity 08/07/22 12/10/22 Rx #30 tabs blood sugar diagnostic (OneTouch #100 ea 08/18/22 12/10/22 Rx Verio test strips) lancets 30 gauge (OneTouch Delica #100 ea 08/18/22 12/10/22 Rx Lancets) lisinopril 10 1 tab PO HS #90 tabs 09/02/22 12/10/22 Rx mg-hydrochlorothiazide 12.5 mg tablet duloxetine 30 mg capsule,delayed 30 mg PO DAILY #90 caps 10/08/22 12/10/22 Rx release empagliflozin 25 mg tablet 25 mg PO DAILY #90 tabs 11/17/22 12/10/22 Rx gabapentin 100 mg capsule 100 mg PO TID #90 caps 12/08/22 12/10/22 Rx methocarbamol 750 mg tablet 750 mg PO Q8H PRN back spasm #15 12/08/22 12/10/22 Rx tabs methylprednisolone 4 mg tablets in 4 mg PO DAILY #21 ea 12/08/22 12/10/22 Rx a dose pack (Medrol (Tato)) atorvastatin 40 mg tablet 40 mg PO HS 12/10/22 12/10/22 History diclofenac sodium 1 % topical gel 4 g topical QID PRN Pain 12/10/22 12/10/22 History (Voltaren Arthritis Pain) Patient History Medical History Diabetes mellitus, type 2 DIET CONTROLLED Hearing difficulty History of colon polyps History of prostate cancer 2010--sx only Hyperlipidemia Hypertension Osteoarthritis Restless leg syndrome Sleep apnea BIPAP Temporomandibular joint disorder Trigger finger, left ring finger Surgical History History of carpal tunnel surgery of right wrist History of cataract surgery RT/LEFT Hx of colonoscopy 01/2021 repeat 3 yrs Hx of prostatectomy 2010 - Hx of vasectomy Family History Father Malignant neoplasm of colon Hypertension Family hx of colon cancer Sister Malignant neoplasm of colon Family hx of colon cancer Grandfather Myocardial infarction paternal Lung cancer maternal Other No family history of adverse response to anesthesia Denies family history of Ovarian cancer Prostate cancer Breast cancer Social History Smoking Status: Never smoker Second Hand Exposure: No (father smoked); Hx Alcohol Use: Yes Alcohol type: beer, wine and hard liquor Alcohol Intake Frequency Comment: daily Hx Substance Use: No Preferred Language: Hungarian Communication Ability: Effective Visual Impairment: Limited Hearing Ability: Use of Hearing Aid Customer Sales Representative Required: No Beliefs That Will Affect Care: None marital status: Current Living Situation: Spouse current occupational status: retired How many Children do You have: 3 Feels Safe at Home: Yes Safety Concerns: Feels Safe At This Time Childhood Exposure to Second-Hand Smoke: Yes caffeine: Yes (rarely; drinks mostly decaf ) Dental Care, Regularly: No Physical Activity Frequency: 1-2 Times per Week Seatbelt Use: always Sunscreen Use: No Assistive Devices: BiPap Physical Exam Physical Exam: VSS He is alert, appropriate, and does not seem in any acute distress. There is no pathologic adenopathy in the submandibular, cervical, supraclavicular, or axillary region Neck seems supple without gross mass or bony deformity Lungs seem currently clear Cardiac rhythm is regular without gross rubs His abdomen is soft without mass. There is only minimal tenderness in the right upper quadrant. 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 He is able to lift against gravity with the right arm. Mental status is intact in the seems to have complete capacity for medical decision making Results & Data ([facility]) Vital Signs (Past 12 Hours) Vital Signs Temp Pulse Pulse Resp BP Pulse Ox O2 Del Method 12/11/22 04:00 35.8 C L 84 20 119/70 95 CPAP 12/11/22 01:38 94 H 12/11/22 01:38 94 H 12/11/22 00:13 36.6 C 92 H 16 151/87 H 96 Room Air 12/10/22 20:49 97 Room Air 12/10/22 19:54 100 H Laboratory Results Laboratory Results - last 24 hr 12/10/22 12/10/22 12/10/22 19:27 19:27 19:27 WBC 14.09 H RBC 4.54 L Hgb 15.2 POC Hgb Hct 45.7 POC Hct MCV 100.7 H MCH 33.5 MCHC 33.3 RDW Std Deviation 47.8 H RDW Coeff of Micah 12.7 Plt Count 157 MPV 9.7 Immature Gran % (Auto) 0.7 Neut % (Auto) 78.9 Lymph % (Auto) 7.4 [place] % (Auto) 10.8 Eos % (Auto) 1.8 Baso % (Auto) 0.4 Neut # (Auto) 11.11 H Lymph # (Auto) 1.04 L [place] # (Auto) 1.52 H Eos # (Auto) 0.26 Baso # (Auto) 0.06 Immature Gran # (Auto) 0.10 PT 15.0 H INR 1.4 H APTT 26.5 PTT Ratio 1.0 POC Sodium Sodium POC Potassium Potassium POC Chloride Chloride Carbon Dioxide POC Total CO2 Anion Gap POC Anion Gap POC BUN BUN Creatinine POC Creatinine Est Cr Clr Drug Dosing Est GFR ( Amer) Est GFR (Non-Af Amer) BUN/Creatinine Ratio Glucose POC Glucose POC Glucose (other) Calcium POC Ioniz Calcium Sheri Total Bilirubin AST ALT Alkaline Phosphatase Troponin I High Sens Total Protein Albumin Globulin Albumin/Globulin Ratio Lipase SARS-CoV-2, RNA, NAAT NEGATIVE 12/10/22 12/10/22 12/11/22 19:27 19:29 00:05 WBC RBC Hgb POC Hgb 16.3 Hct POC Hct 48 MCV MCH MCHC RDW Std Deviation RDW Coeff of Miach Plt Count MPV Immature Gran % (Auto) Neut % (Auto) Lymph % (Auto) [place] % (Auto) Eos % (Auto) Baso % (Auto) Neut # (Auto) Lymph # (Auto) [place] # (Auto) Eos # (Auto) Baso # (Auto) Immature Gran # (Auto) PT INR APTT PTT Ratio POC Sodium 139 Sodium 139 POC Potassium 4.5 Potassium 4.5 POC Chloride 104 Chloride 103 Carbon Dioxide 23 POC Total CO2 22 L Anion Gap 13 H POC Anion Gap 19.0 POC BUN 35 H BUN 37 H Creatinine 0.99 POC Creatinine 1.0 Est Cr Clr Drug Dosing 75.0 Est GFR ( Amer) 86.0 Est GFR (Non-Af Amer) 74.2 BUN/Creatinine Ratio 37.4 H Glucose 273 H POC Glucose 183 H POC Glucose (other) 262 H Calcium 9.6 POC Ioniz Calcium Sheri 1.18 Total Bilirubin 0.7 AST 52 H ALT 76 H Alkaline Phosphatase 357 H Troponin I High Sens 13.3 Total Protein 8.0 Albumin 4.8 Globulin 3.2 Albumin/Globulin Ratio 1.5 Lipase 28 SARS-CoV-2, RNA, NAAT 12/11/22 12/11/22 12/11/22 02:42 02:42 02:42 WBC 12.72 H RBC 4.12 L Hgb 13.9 L POC Hgb Hct 41.5 L POC Hct MCV 100.7 H MCH 33.7 MCHC 33.5 RDW Std Deviation 47.5 H RDW Coeff of Micah 12.7 Plt Count 136 MPV 9.5 Immature Gran % (Auto) 0.9 Neut % (Auto) 81.2 Lymph % (Auto) 6.1 [place] % (Auto) 7.8 Eos % (Auto) 3.5 Baso % (Auto) 0.5 Neut # (Auto) 10.34 H Lymph # (Auto) 0.77 L [place] # (Auto) 0.99 H Eos # (Auto) 0.44 Baso # (Auto) 0.06 Immature Gran # (Auto) 0.12 PT 15.1 H INR 1.4 H APTT 57.8 H* PTT Ratio 2.1 POC Sodium Sodium 138 POC Potassium Potassium 4.4 POC Chloride Chloride 104 Carbon Dioxide 23 POC Total CO2 Anion Gap 11 POC Anion Gap POC BUN BUN 38 H Creatinine 0.88 POC Creatinine Est Cr Clr Drug Dosing 84.3 Est GFR ( Amer) 97.4 Est GFR (Non-Af Amer) 84.0 BUN/Creatinine Ratio 43.2 H Glucose 227 H POC Glucose POC Glucose (other) Calcium 9.1 POC Ioniz Calcium Sheri Total Bilirubin 0.7 AST 46 H ALT 68 H Alkaline Phosphatase 312 H Troponin I High Sens Total Protein 7.1 Albumin 4.4 Globulin 2.7 Albumin/Globulin Ratio 1.6 Lipase SARS-CoV-2, RNA, NAAT 12/11/22 12/11/22 06:47 07:28 WBC RBC Hgb POC Hgb Hct POC Hct MCV MCH MCHC RDW Std Deviation RDW Coeff of Micah Plt Count MPV Immature Gran % (Auto) Neut % (Auto) Lymph % (Auto) [place] % (Auto) Eos % (Auto) Baso % (Auto) Neut # (Auto) Lymph # (Auto) [place] # (Auto) Eos # (Auto) Baso # (Auto) Immature Gran # (Auto) PT INR APTT Pending PTT Ratio Pending POC Sodium Sodium POC Potassium Potassium POC Chloride Chloride Carbon Dioxide POC Total CO2 Anion Gap POC Anion Gap POC BUN BUN Creatinine POC Creatinine Est Cr Clr Drug Dosing Est GFR ( Amer) Est GFR (Non-Af Amer) BUN/Creatinine Ratio Glucose POC Glucose 238 H POC Glucose (other) Calcium POC Ioniz Calcium Sheri Total Bilirubin AST ALT Alkaline Phosphatase Troponin I High Sens Total Protein Albumin Globulin Albumin/Globulin Ratio Lipase SARS-CoV-2, RNA, NAAT PSA undetectable 12/2021, 0.009 12/10/2022 Diagnostic Findings 12/09/2022 MR C-spine wo/w FINDINGS: Alignment of the cervical spine is anatomic. No cervical spine fracture is noted. Note is made of marrow replacement involving the right aspect of the C7 vertebral body and the left aspect of the T3 vertebral body. Specifically, T1 hypointensity and T2 hyperintensity is noted. Increased fluid signal within the C6-C7 disc. Associated right paravertebral enhancing soft tissue is noted at the C6-C7 level. This results in narrowing of the right C6 and to a lesser extent the right C7-T1 neural foramen. There is also minimal epidural extension of soft tissue. Cervical cord signal is normal. Visualized portions of the posterior fossa are unremarkable. C2-C3: The central canal and the neural foramen are patent. C3-C4: The central canal and left neural foramen are patent. There is moderate to severe narrowing of the right neural foramen due to uncovertebral hypertrophy and facet arthrosis. C4-C5: Posterior disc osteophyte complex with central distribution is noted. This contacts the ventral aspect of the cord. There is mild central canal stenosis. There is moderate bilateral neural foraminal stenosis. C5-C6: Mild posterior disc osteophyte complex effaces the ventral thecal sac. There is mild central canal stenosis. There is severe right and moderate to severe left neural foraminal stenosis due to uncovertebral hypertrophy and facet arthrosis. C6-C7: Enhancing soft tissue within the right neural foramen is noted. There is suspected severe narrowing of the right neural foramen due to the enhancing soft tissue with superimposed degenerative changes. There is also minimal enhancing epidural soft tissue within the right anterior epidural space. This does not result in significant central canal stenosis. Left neural foramen is patent. C7-T1: Central canal is patent. There is moderate to narrowing of the right neural foramen. Left neural foramen is patent. IMPRESSION: 1. Marrow replacement within the C7 and T3 vertebral bodies, as described above. This is suggestive of a neoplastic process and worrisome for metastatic disease. Multiple myeloma could appear similar although is considered less likely. Onc ology consultation is recommended. This finding will be called/faxed to the ordering provider at time of dictation. 2. Associated right vertebral soft tissue at the C6-C7 level results in severe narrowing of the right C6-C7 and to a lesser extent C7-T1 neural foramen and likely accounts for the patient's symptoms. Minimal epidural extension of suspected tumor at this level without significant central canal stenosis. 3. Multilevel degenerative changes, as described above. Abdomen/Pelvis CT 12/10/22 18:[address] WITH CONTRAST, ABDOMEN AND PELVIS CT WITH INTRAVENOUS CONTRAST CT DOSE: 1035.36 mGy.cm HISTORY: ABNORMAL CERVICAL MRI-EVAL MALIGNANCY TECHNIQUE: Multiaxial CT images of the chest, abdomen, and pelvis were performed following the intravenous administration of contrast. A dose lowering technique was utilized adhering to the principles of ALARA. COMPARISON: Cervical spine MRI 12/09/2022. FINDINGS: Chest CT: The central airways are patent. No pneumothorax. No pleural effusions. There are numerable scattered subcentimeter pulmonary nodules which measure up to 8 mm in size. This is highly suspicious for pulmonary metastatic disease. Subtle right paravertebral soft tissue density at the C7 level corresponds to the recent cervical spine MRI. There is also concerning for metastatic disease. Normal esophagus. The thyroid gland enhances normally. Calcified right hilar and subcarinal lymph nodes. No mediastinal or hilar lymphadenopathy. No pericardial effusion. The heart is normal in size. Calcific granuloma within the right lower lobe. Small filling defect seen within the lower lobe subsegmental pulmonary arteries concerning for distal pulmonary emboli. The main pulmonary arteries are patent. There are a few subtle lytic lesions noted within the thoracic spine. Abdomen/pelvis CT: No pneumoperitoneum. No pneumatosis. A few subtle small lytic lesions seen within the lumbar spine and right iliac bone. Small fat-containing umbilical hernia. Small fat-containing right inguinal hernia. Innumerable scattered hypodense lesions seen throughout the liver consistent with metastatic disease. This includes a dominant hypodense lesion measuring 11 cm. The gallbladder is contracted. The main portal vein is patent. Partially necrotic and mildly enlarged periportal lymph nodes likely representing metastatic disease. Dominant lymph node measures 18 mm. The spleen and adrenal glands unremarkable. There is a 4 cm left renal cyst. No hydronephrosis. A cluster of hypodense/cystic lesions within the uncinate process of the pancreas measuring up to 5.2 cm. There is an additional multiloculated solid and cystic lesion within the tail the pancreas measuring 6 cm. The bladder is unremarkable. There is a single mildly enlarged right external iliac lymph node on image 316 measuring 10 mm. A few colonic diverticula. No evidence for acute diverticulitis. No bowel wall thickening or obstruction. Normal appendix. IMPRESSION: 1. Multiple scattered subcentimeter pulmonary nodules consistent with metastatic disease. 2. Multiple hypodense lesions seen throughout the liver with the largest measuring 11 cm. This also likely represents metastatic disease. 3. Subcentimeter scattered lytic lesions within the spine and pelvis which may represent metastatic disease. 4. Subtle right paravertebral soft tissue density at the C7 level which likely corresponds to the MRI finding and is concerning for metastatic disease. 5. Mildly enlarged and partially necrotic periportal and a right external iliac lymph node consistent with residual disease. 6. Cystic lesions within the uncinate process and tail of the pancreas . These are indeterminate but may represent separate cystic neoplasms of the pancreas rather than metastatic disease. 7. Probable small subsegmental bilateral lower lobe pulmonary emboli. ACT 112: Negative or not required by law. Electronically signed by: Garret Peters M.D. 12/10/2022 8:[address] 12/10/22 18:[address] WITH CONTRAST, ABDOMEN AND PELVIS CT WITH INTRAVENOUS CONTRAST CT DOSE: 1035.36 mGy.cm HISTORY: ABNORMAL CERVICAL MRI-EVAL MALIGNANCY TECHNIQUE: Multiaxial CT images of the chest, abdomen, and pelvis were performed following the intravenous administration of contrast. A dose lowering technique was utilized adhering to the principles of ALARA. COMPARISON: Cervical spine MRI 12/09/2022. FINDINGS: Chest CT: The central airways are patent. No pneumothorax. No pleural effusions. There are numerable scattered subcentimeter pulmonary nodules which measure up to 8 mm in size. This is highly suspicious for pulmonary metastatic disease. Subtle right paravertebral soft tissue density at the C7 level corresponds to the recent cervical spine MRI. There is also concerning for metastatic disease. Normal esophagus. The thyroid gland enhances normally. Calcified right hilar and subcarinal lymph nodes. No mediastinal or hilar lymphadenopathy. No pericardial effusion. The heart is normal in size. Calcific granuloma within the right lower lobe. Small filling defect seen within the lower lobe subsegmental pulmonary arteries concerning for distal pulmonary emboli. The main pulmonary arteries are patent. There are a few subtle lytic lesions noted within the thoracic spine. Abdomen/pelvis CT: No pneumoperitoneum. No pneumatosis. A few subtle small lytic lesions seen within the lumbar spine and right iliac bone. Small fat-containing umbilical hernia. Small fat-containing right inguinal hernia. Innumerable scattered hypodense lesions seen throughout the liver consistent with metastatic disease. This includes a dominant hypodense lesion measuring 11 cm. The gallbladder is contracted. The main portal vein is patent. Partially necrotic and mildly enlarged periportal lymph nodes likely representing metastatic disease. Dominant lymph node measures 18 mm. The spleen and adrenal glands unremarkable. There is a 4 cm left renal cyst. No hydronephrosis. A cluster of hypodense/cystic lesions within the uncinate process of the pancreas measuring up to 5.2 cm. There is an additional multiloculated solid and cystic lesion wi thin the tail the pancreas measuring 6 cm. The bladder is unremarkable. There is a single mildly enlarged right external iliac lymph node on image 316 measuring 10 mm. A few colonic diverticula. No evidence for acute diverticulitis. No bowel wall thickening or obstruction. Normal appendix. IMPRESSION: 1. Multiple scattered subcentimeter pulmonary nodules consistent with metastatic disease. 2. Multiple hypodense lesions seen throughout the liver with the largest measuring 11 cm. This also likely represents metastatic disease. 3. Subcentimeter scattered lytic lesions within the spine and pelvis which may represent metastatic disease. 4. Subtle right paravertebral soft tissue density at the C7 level which likely corresponds to the MRI finding and is concerning for metastatic disease. 5. Mildly enlarged and partially necrotic periportal and a right external iliac lymph node consistent with residual disease. 6. Cystic lesions within the uncinate process and tail of the pancreas . These are indeterminate but may represent separate cystic neoplasms of the pancreas rather than metastatic disease. 7. Probable small subsegmental bilateral lower lobe pulmonary emboli. ACT 112: Negative or not required by law. Electronically signed by: Garret Peters M.D. 12/10/2022 8:04 PM Venous Doppler Study 12/10/22 21:24 Exam(s): US VENOUS BILATERAL LOWER EXTREMITIES EXAM: US Duplex Bilateral Lower Extremities Veins CLINICAL HISTORY: Reason for exam: b/l PE. TECHNIQUE: Real-time duplex ultrasound scan of the bilateral lower extremity veins integrating B-mode two-dimensional vascular structure, Doppler spectral analysis, color flow Doppler imaging and compression. COMPARISON: No relevant prior studies available. FINDINGS: Right deep veins: Positive for DVT in the right posterior tibial vein. Right superficial veins: Unremarkable. No thrombus in the visualized right great saphenous vein. Left deep veins: Positive for DVT in the left popliteal vein, anterior tibial vein, and posterior tibial vein. Left superficial veins: Unremarkable. No thrombus in the visualized left great saphenous vein. Soft tissues: Left knee Ortega cyst measures 3.6 x 4.0 cm. IMPRESSION: 1. Positive for DVT in the right posterior tibial vein. 2. Positive for DVT in the left popliteal vein, anterior tibial vein, and posterior tibial vein. Electronically signed by: Jens Raygoza MD 12/11/22 00:01 AM PG Care Time/CCT Total # of Minutes Spent Total Time Spent with Patient: Total time spent is greater than 50% in coordination of care (as documented) at patient's floor/unit and/or counseling patient: [place] [address] IN/OBS CONSULT LVL 5,80M Patient Type New History Expanded Problem Focused Exam Expanded Problem Focused Medical Decision Making High Complexity Diagnoses Metastatic cancer C79.9 Area of secondary neoplastic involvement: unspecified site Pulmonary embolism I26.99 Acute cor pulmonale presence: unspecified Chronicity: acute Pulmonary embolism type: unspecified History of prostate cancer Z85.46 (1) Metastatic cancer Area of secondary neoplastic involvement: unspecified site Qualified Code(s): C79.9 - Secondary malignant neoplasm of unspecified site (2) Pulmonary embolism Acute cor pulmonale presence: unspecified Chronicity: acute Pulmonary embolism type: unspecified Qualified Code(s): I26.99 - Other pulmonary embolism without acute cor pulmonale
--- NOTE | 2022-12-11 07:55 | Consultation ---
Date of Consultation December 11, 2022 History of Present Illness Attending Physician: Memo Sagastume MD Allergies Allergy/AdvReac Type Severity Reaction Status Date / Time typhoid vaccine Allergy Intermediate shaking Verified 12/10/22 21:07 Home Medications Medication Instructions Recorded Confirmed Type ibuprofen 200 mg capsule 400 - 600 mg PO Q6H PRN Pain 12/05/19 12/10/22 History BiPap Machine #1 ea 02/22/20 12/10/22 Rx BiPap Supplies #1 ea 03/17/22 12/10/22 Rx metformin 1,000 mg tablet 1,000 mg PO BID #180 tabs 07/08/22 12/10/22 Rx tadalafil 20 mg tablet 20 mg PO UD PRN sexual activity 08/07/22 12/10/22 Rx #30 tabs blood sugar diagnostic (OneTouch #100 ea 08/18/22 12/10/22 Rx Verio test strips) lancets 30 gauge (OneTouch Delica #100 ea 08/18/22 12/10/22 Rx Lancets) lisinopril 10 1 tab PO HS #90 tabs 09/02/22 12/10/22 Rx mg-hydrochlorothiazide 12.5 mg tablet duloxetine 30 mg capsule,delayed 30 mg PO DAILY #90 caps 10/08/22 12/10/22 Rx release empagliflozin 25 mg tablet 25 mg PO DAILY #90 tabs 11/17/22 12/10/22 Rx gabapentin 100 mg capsule 100 mg PO TID #90 caps 12/08/22 12/10/22 Rx methocarbamol 750 mg tablet 750 mg PO Q8H PRN back spasm #15 12/08/22 12/10/22 Rx tabs methylprednisolone 4 mg tablets in 4 mg PO DAILY #21 ea 12/08/22 12/10/22 Rx a dose pack (Medrol (Tato)) atorvastatin 40 mg tablet 40 mg PO HS 12/10/22 12/10/22 History diclofenac sodium 1 % topical gel 4 g topical QID PRN Pain 12/10/22 12/10/22 History (Voltaren Arthritis Pain) Patient History Medical History Diabetes mellitus, type 2 DIET CONTROLLED Hearing difficulty History of colon polyps History of prostate cancer 2010--sx only Hyperlipidemia Hypertension Osteoarthritis Restless leg syndrome Sleep apnea BIPAP Temporomandibular joint disorder Trigger finger, left ring finger Surgical History History of carpal tunnel surgery of right wrist History of cataract surgery RT/LEFT Hx of colonoscopy 01/2021 repeat 3 yrs Hx of prostatectomy 2010 - Hx of vasectomy Family History Father Malignant neoplasm of colon Hypertension Family hx of colon cancer Sister Malignant neoplasm of colon Family hx of colon cancer Grandfather Myocardial infarction paternal Lung cancer maternal Other No family history of adverse response to anesthesia Denies family history of Ovarian cancer Prostate cancer Breast cancer Social History Smoking Status: Never smoker Second Hand Exposure: No (father smoked); Hx Alcohol Use: Yes Alcohol type: beer, wine and hard liquor Alcohol Intake Frequency Comment: daily Hx Substance Use: No Preferred Language: Bengali Communication Ability: Effective Visual Impairment: Limited Hearing Ability: Use of Hearing Aid Lamp Assembler Required: No Beliefs That Will Affect Care: None marital status: Current Living Situation: Spouse current occupational status: retired How many Children do You have: 3 Feels Safe at Home: Yes Safety Concerns: Feels Safe At This Time Childhood Exposure to Second-Hand Smoke: Yes caffeine: Yes (rarely; drinks mostly decaf ) Dental Care, Regularly: No Physical Activity Frequency: 1-2 Times per Week Seatbelt Use: always Sunscreen Use: No Assistive Devices: BiPap Results & Data ([facility]) Vital Signs (Past 12 Hours) Vital Signs Temp Pulse Pulse Resp BP Pulse Ox O2 Del Method 12/11/22 04:00 35.8 C L 84 20 119/70 95 CPAP 12/11/22 01:38 94 H 12/11/22 01:38 94 H 12/11/22 00:13 36.6 C 92 H 16 151/87 H 96 Room Air 12/10/22 20:49 97 Room Air 12/10/22 19:54 100 H PG Care Time/CCT Total # of Minutes Spent Total Time Spent with Patient: Total time spent is greater than 50% in coordination of care (as documented) at patient's floor/unit and/or counseling patient: Coding Level of Care Code 34163 IN/OBS CONSULT LVL 5,80M Diagnoses
[2022-12-11] MEDS: DULoxetine HCL 30 MG CAP PO SCH (08:08)
[2022-12-11] MEDS: GABAPENTIN 100 MG CAP PO SCH ×3 (08:09→20:17)
[2022-12-11 08:23] LABS: Partial Thromboplastin Ratio 3.3
[2022-12-11] MEDS: INSULIN ASPART PER UNIT CHARGE SC SCH ×4 (08:24→20:17)
[2022-12-11] MEDS: dexAMETHasone 4 MG TAB PO SCH ×4 (08:52→20:17)
--- NOTE | 2022-12-11 09:38 | Radiation OncologyConsultation ---
Date of Consultation December 11, 2022 Assessment & Plan (1) Metastatic cancer: Area of secondary neoplastic involvement: unspecified site Qualified Code(s): C79.9 - Secondary malignant neoplasm of unspecified site Plan Assessment: Mr. Wood is a 77-year-old gentleman with a history of prostate cancer treated with radical prostatectomy in 2010 who now presents with a new diagnosis of metastatic cancer of unknown primary to multiple areas including bone, lung and liver. The patient currently presents with lower neck pain and right upper extremity weakness and numbness. The patient was admitted to the hospital for further work-up and evaluation. The patient was seen by Dr. Manuel from medical oncology who is recommending treatment for his multiple pulmonary emboli and a CT-guided biopsy of the liver to establish a tissue diagnosis. Dr. Manuel has also requested radiation oncology consultation for consideration of palliative radiation therapy to the cervical spine given the patient's current symptoms. The patient has been started on dexamethasone 4 mg 4 times a day. The patient continues to have pain at this point. I am now seeing the patient in consultation to discuss the role of radiation therapy. Recommendation: Palliative external beam radiation therapy to cervical spine. Plan for 10 fractions. Plan: 1. CT simulation for treatment planning for radiation therapy. Plan to start radiation therapy tomorrow. Consent obtained. 2. Continue patient on dexamethasone as per Dr. Manuel. 3. Continue current pain regimen as per primary medical team. 4. CT-guided liver biopsy is being potentially planned. 5. Palliative care consultation could be beneficial. 6. Appreciate further medical oncology input. 7. Patient and family encouraged to call us with any further questions or concerns. Rationale/Explanation of Treatment: I have explained the indications, alternatives, benefits, risks and side effects of radiation therapy. I have explained the most common side effects including but are not limited to skin erythema, skin break down, hair loss, fibrosis, adhesion development, heart failure and heart disease, esophagitis, esophageal stenosis, bowel obstruction, urinary symptoms, thyroid disorders, mucositis, nausea, vomiting, diarrhea, anemia, fatigue, carotid artery stenosis and development of secondary malignancy. Additionally, patients suffer may have xerostomia, stomatitis, glossitis, dysphagia, aspiration, mandibular osteoradionecrosis, mucocutaneous fistula formation, lymphedema in the neck, pharyngeal edema, mucositis, loss of taste. I have explained the CT simulation process and treatment planning. I explained what to expect before, during and after treatment on a regular basis. The patient had multiple questions which were answered to his full satisfaction. Thank you for allowing us to participate in the care of this patient. This chart was completed in part utilizing [employer] Speech Voice Recognition software. Attempts were made to minimize the grammatical errors, random word insertions, pronoun errors and incomplete sentences. Any formal questions or concerns about the content, text or information contained within the body of this dictation should be directly addressed to the provider for clarification. Luis Webster MD Department of Radiation Oncology [facility] History of Present Illness Reason for Consultation: Metastatic cancer Requesting Physician: Dr. Manuel Attending Physician: Addison Duff DO History of Present Illness 2010. History of radical prostatectomy at [facility]. Patient states he had continued surveillance by his primary care provider. 11/2022. Patient complains of increasing low neck pain. Patient also started to notice increased weakness involving right upper extremity and some numbness. 12/09/2022. MRI cervical spine. 1. Marrow replacement within the C7 and T3 vertebral bodies, as described above. This is suggestive of a neoplastic process and worrisome for metastatic disease. Multiple myeloma could appear similar although is considered less likely. Oncology consultation is recommended. This finding will be called/faxed to the ordering provider at time of dictation. 2. Associated right vertebral soft tissue at the C6-C7 level results in severe narrowing of the right C6-C7 and to a lesser extent C7-T1 neural foramen and likely accounts for the patient's symptoms. Minimal epidural extension of suspected tumor at this level without significant central canal stenosis. 3. Multilevel degenerative changes, as described above. Patient instructed to come to emergency room due to concerning symptoms and fin dings on MRI. 12/10/2022. Patient admitted to hospital. 12/10/2022. CT chest. 1. Multiple scattered subcentimeter pulmonary nodules consistent with metastatic disease. 2. Multiple hypodense lesions seen throughout the liver with the largest measuring 11 cm. This also likely represents metastatic disease. 3. Subcentimeter scattered lytic lesions within the spine and pelvis which may represent metastatic disease. 4. Subtle right paravertebral soft tissue density at the C7 level which likely corresponds to the MRI finding and is concerning for metastatic disease. 5. Mildly enlarged and partially necrotic periportal and a right external iliac lymph node consistent with residual disease. 6. Cystic lesions within the uncinate process and tail of the pancreas . These are indeterminate but may represent separate cystic neoplasms of the pancreas rather than metastatic disease. 7. Probable small subsegmental bilateral lower lobe pulmonary emboli. 12/10/2022. CT abdomen/pelvis. 1. Multiple scattered subcentimeter pulmonary nodules consistent with metastatic disease. 2. Multiple hypodense lesions seen throughout the liver with the largest measuring 11 cm. This also likely represents metastatic disease. 3. Subcentimeter scattered lytic lesions within the spine and pelvis which may represent metastatic disease. 4. Subtle right paravertebral soft tissue density at the C7 level which likely corresponds to the MRI finding and is concerning for metastatic disease. 5. Mildly enlarged and partially necrotic periportal and a right external iliac lymph node consistent with residual disease. 6. Cystic lesions within the uncinate process and tail of the pancreas . These are indeterminate but may represent separate cystic neoplasms of the pancreas rather than metastatic disease. 7. Probable small subsegmental bilateral lower lobe pulmonary emboli. 12/10/2022. PSA. 0.0090. 12/11/2022. Medical oncology consultation with Dr. Manuel. Inpatient setting. Recommendations include MRI of brain. Dexamethasone 4 mg 4 times a day. Radiation oncology consultation. Consideration for systemic therapy after tissue diagnosis. Allergies Allergy/AdvReac Type Severity Reaction Status Date / Time typhoid vaccine Allergy Intermediate shaking Verified 12/10/22 21:07 Home Medications Medication Instructions Recorded Confirmed Type ibuprofen 200 mg capsule 400 - 600 mg PO Q6H PRN Pain 12/05/19 12/10/22 History BiPap Machine #1 ea 02/22/20 12/10/22 Rx BiPap Supplies #1 ea 03/17/22 12/10/22 Rx metformin 1,000 mg tablet 1,000 mg PO BID #180 tabs 07/08/22 12/10/22 Rx tadalafil 20 mg tablet 20 mg PO UD PRN sexual activity 08/07/22 12/10/22 Rx #30 tabs blood sugar diagnostic (OneTouch #100 ea 08/18/22 12/10/22 Rx Verio test strips) lancets 30 gauge (OneTouch Delica #100 ea 08/18/22 12/10/22 Rx Lancets) lisinopril 10 1 tab PO HS #90 tabs 09/02/22 12/10/22 Rx mg-hydrochlorothiazide 12.5 mg tablet duloxetine 30 mg capsule,delayed 30 mg PO DAILY #90 caps 10/08/22 12/10/22 Rx release empagliflozin 25 mg tablet 25 mg PO DAILY #90 tabs 11/17/22 12/10/22 Rx gabapentin 100 mg capsule 100 mg PO TID #90 caps 12/08/22 12/10/22 Rx methocarbamol 750 mg tablet 750 mg PO Q8H PRN back spasm #15 12/08/22 12/10/22 Rx tabs methylprednisolone 4 mg tablets in 4 mg PO DAILY #21 ea 12/08/22 12/10/22 Rx a dose pack (Medrol (Tato)) atorvastatin 40 mg tablet 40 mg PO HS 12/10/22 12/10/22 History diclofenac sodium 1 % topical gel 4 g topical QID PRN Pain 12/10/22 12/10/22 History (Voltaren Arthritis Pain) Patient History Medical History Diabetes mellitus, type 2 DIET CONTROLLED Hearing difficulty History of colon polyps History of prostate cancer 2010--sx only Hyperlipidemia Hypertension Osteoarthritis Restless leg syndrome Sleep apnea BIPAP Temporomandibular joint disorder Trigger finger, left ring finger Surgical History History of carpal tunnel surgery of right wrist History of cataract surgery RT/LEFT Hx of colonoscopy 01/2021 repeat 3 yrs Hx of prostatectomy 2010 - Hx of vasectomy Family History Father Malignant neoplasm of colon Hypertension Family hx of colon cancer Sister Malignant neoplasm of colon Family hx of colon cancer Grandfather Myocardial infarction paternal Lung cancer maternal Other No family history of adverse response to anesthesia Denies family history of Ovarian cancer Prostate cancer Breast cancer Social History Smoking Status: Never smoker Second Hand Exposure: No (father smoked); Hx Alcohol Use: Yes Alcohol type: beer, wine and hard liquor Alcohol Intake Frequency Comment: daily Hx Substance Use: No Preferred Language: Spanish Communication Ability: Effective Visual Impairment: Limited Hearing Ability: Use of Hearing Aid Elementary Librarian Required: No Beliefs That Will Affect Care: None marital status: Current Living Situation: Spouse current occupational status: retired How many Children do You have: 3 Feels Safe at Home: Yes Safety Concerns: Feels Safe At This Time Childhood Exposure to Second-Hand Smoke: Yes caffeine: Yes (rarely; drinks mostly decaf ) Dental Care, Regularly: No Physical Activity Frequency: 1-2 Times per Week Seatbelt Use: always Sunscreen Use: No Assistive Devices: BiPap Physical Exam Constitutional: WD/WN, vitals as above Musculoskeletal: Discomfort involving the lower cervical spine and upper thoracic spine towards the right side. Neurologic: Weakness of the right upper extremity. 3 out of 5. Psychiatric: A+Ox3, euthymic affect
--- NOTE | 2022-12-11 10:18 | Hospitalist Progress Note ---
Date of Service December 11, 2022 Assessment & Plan (1) Metastatic cancer: (2) Pulmonary embolism: (3) Right arm pain: (4) Malignant neoplasm of spine: (5) Leukocytosis: (6) Severe obstructive sleep apnea: (7) Diabetes mellitus, type 2: (8) Hypertension: (9) Transaminitis: (10) History of prostate cancer: Plan 77 yo M with PMH of prostate cancer s/p prostatectomy, DM2, AZID, mixed incontinence, and HTN with 4 weeks of RUE numbness/weakness found to have metastatic cancer. Metastatic cancer without known primary tumor -Cervical spine MRI- marrow replacement of C7 and T3 concerning for metastatic disease, soft tissue density at C6-C7 with narrowing of right C6-C7 and C7-T1 neural foramen, epidural extension of tumor without significant central stenosis -CTAP and Chest CT- evidence of metastatic disease to lungs, liver, lytic lesions of spine/pelvis, cystic lesions of pancreas concerning for potential separate neoplasms rather than metastatic disease -Outpatient SPEP/immunofixation studies pending -Oncology consulted; appreciate recs from Dr. Manuel regarding biopsy and dexamethasone -/ Liver biopsy - Radiation Oncology consulted; appreciate recs for treatment with palliative external beam radiation to cervical spine. -Heparin infusion for cancer hypercoagulability -Pain management with morphine, Dilaudid PRN given extensive metastasis Pulmonary Embolism -Chest CT with evidence of b/l subsegmental multiple pulmonary emboli -Normal oxygen saturation on room air -Venous duplex b/l- "Positive for DVT in the right posterior tibial vein. Positive for DVT in the left popliteal vein, anterior tibial vein, and posterior tibial vein" -Continue Heparin infusion Right arm/hand pain and weakness -Cervical spine MRI as above -Continue gabapentin, duloxetine for neuropathy -Dexamethasone 4mg IV x1 given for pain relief in setting of metastatic disease Leukocytosis -WBC 14 on admission, decreased to 12.72 (3/2) -Low suspicion for infection, suspect leukocytosis due to malignancy -Trend RBC DM 2 -BSG 273 on admission -Holding home regimen of metformin and Jardiance -Given pt's weight loss in background of metastatic malignancy, regular diet ordered -SSI to be ordered if pt persistently hyperglycemic Severe ZAID - BIPAP Hs Hypertension -BP stable -Holding lisinopril/HCTZ at present, BP in the hospital has been 120-149 systolic over 78-89. Transaminitis -AST/ALT elevations likely secondary to metastatic disease. Also noted elevations of coagulation studies including INR -Trend CMP Plan FENGI: Regular Code status: Full Code DVT ppx: Heparin Isolation: None Dispo: Telemetry Admission and Anticipated Discharge Date Admission Date: December 10, 2022 Supervising Physician Co-Signing Physician Notes I personally examined the patient and verified all rivera points of history and exam, discussed case, and agree with decision making with Brent Robertson MS4 and Dr Raj chamberlain feeling OK. updated pt and family to the best of my ability and to their satisfaction vitals noted nad heent nc at mmm breathing unlabored no accessory muscles good effort skin no rashes no pallor or icterus neuro no focal deficits new metastatic malignancy - biopsy, start XRT, heme/onc input appreciated bilateral LE DVTs causing PE in setting of malignant primary metastatic neoplasms - anticoagulation severe calorie malnutrition - weight loss over last 6 months. likely from malignancy. will work on nutrition otheriwse as above Subjective Mr. Wood is feeling pretty good today. He says that his pain has decreased to about 4-5/10 and he is comfortable. He is not having any sob, chest pain, abd pain. Continues to have the numbness/weakness in his right hand and arm, but this has been about the same the past 4 weeks. Review of Systems Constitutional: no fever, chills, night sweats Respiratory: no sob Cardiovascular: Additional Comments: no chest pain, palpitations Gastrointestinal: +diarrhea recently, no hematochezia, melena Musculoskeletal: no hematuria, + mixed incontinence (stable) Neurologic: no other UE, LE weakness, +tingling intermittently in his feet b/l Physical Exam Constitutional: Gen- WN/WD, sitting comfortably in bed HEENT- NC/AT, PERRL. no scleral icterus. oral and pharyngeal mucosa moist. Pulm- CTABL, spontaneous non-labored breathing CV- normal s1 and s2, no m/r/g. brachial pulses symmetric. no JVD, LE edema Abd- normal-hyperactive bowel sounds. non-tender to palptation in all 4 quadrants, no rebound or guarding Neuro- CN II-XII grossly intact. Motor: 4/5 weakness in R arm with flexion. RUE extension, and abduction 5/5. R finger abduction 4/5. 5/5 L arm flexion, exten [place], abduction, L finger abduction 5/5. 5/5 strength LE b/l. Sensation grossly intact b/l UE and LE. Results & Data Results & Data ([facility]) Vital Signs (Past 12 Hours) Vital Signs Temp Pulse Pulse Resp BP Pulse Ox O2 Del Method 12/11/22 07:44 36.5 C 84 18 122/79 95 Room Air 12/11/22 04:00 35.8 C L 84 20 119/70 95 CPAP 12/11/22 01:38 94 H 12/11/22 01:38 94 H 12/11/22 00:13 36.6 C 92 H 16 151/87 H 96 Room Air (1) Metastatic cancer Area of secondary neoplastic involvement: unspecified site Qualified Code(s): C79.9 - Secondary malignant neoplasm of unspecified site (2) Pulmonary embolism Acute cor pulmonale presence: unspecified Chronicity: acute Pulmonary embolism type: unspecified Qualified Code(s): I26.99 - Other pulmonary embolism without acute cor pulmonale (8) Hypertension Hypertension type: essential hypertension Qualified Code(s): I10 - Essential (primary) hypertension
[2022-12-11] MEDS ORDERED: fentaNYL citrate PF 100 MCG/2 ML VIAL ONE (13:09)
[2022-12-11] MEDS ORDERED: GELATIN SPONGE 12-7MM ONE (13:09)
[2022-12-11] MEDS ORDERED: XYLOCAINE 1%/SOD BICARB 20 ML VIAL INFIL ONE (13:09)
--- NOTE | 2022-12-11 15:10 | Ultrasound Report ---
Ultrasound-guided right lobe liver lesion core biopsy INDICATION: Multiple hepatic lesions PROCEDURE: Procedure and risks were explained. Informed consent was obtained. A final timeout was com pleted. The right upper quadrant was prepped and draped in sterile fashion. 1% buffered lidocaine was utilized for skin anesthesia. Utilizing ultrasound guidance, a 17-gauge coaxial needle was advanced down to the level of the right lobe liver lesion. Ultrasound images were obtained. An 18-gauge core biopsy needle was then advanced, and 2 core samples were obtained and given to the pathologist. The coaxial needle was removed and Ba nd-Aid applied. The patient tolerated the procedure well. Vital signs will be monitored on the floor postprocedure. IMPRESSION: Right lobe liver lesion core biopsy as above. Performed, dictated, and signed by Nasim Shaw PA-C; to be co-signed by Dr. Maxim Kitchen. Electronically signed by: Maxim Kitchen M.D. 12/11/2022 4:21 PM
[2022-12-11 16:36] LABS: Partial Thromboplastin Ratio 0.9; Partial Thromboplastin Time 25.6 Seconds (21.0-31.0)
[2022-12-11] MEDS ORDERED: GADOBUTROL 65ML VIAL IV ONE (16:42)
--- NOTE | 2022-12-11 18:09 | Billing Data ---
Date of Service December 11, 2022 Coding Level of Care Code 04131 SUB INP/OBS CARE
--- NOTE | 2022-12-11 20:37 | Magnetic Resonance Report ---
MR brain wo/w con CLINICAL HISTORY: Metastatic Cancer TECHNIQUE: Multiplanar and multisequence MR images of the brain were obtained prior to and following administration of gadolinium contrast. Comparison: None available at the time of this dictation. FINDINGS: No abnormal restricted diffusion is identified. Foci of T2 and FLAIR hyperintensity are noted in the paraventricular areas consistent with chronic small vessel ischemic disease. Ex vacuo ventriculomegal y and sulcal enlargement is noted compatible with diffuse encephalomalacia. No mass or abnormal enhan cement is seen. There is no mass effect or midline shift. There is no evidence of acute intraparenchy mal hemorrhage. No extra axial fluid collections are seen. The corpus callosum, pituitary gland, and cerebellar tonsils appear grossly unremarkable. Flow voids of the major intracranial arterial vessels are identified. The imaged portions of the para nasal sinuses, mastoid air cells, and orbits are unremarkable. IMPRESSION: No acute abnormalities. ACT 112: Negative or not required by law. Electronically signed by: Ramirez Rojas M.D. 12/11/2022 8:34 PM
[2022-12-11] MEDS: HEPARIN SODIUM/DEXTROSE 25,000 UNITS/500 ML BAG IV SCH (21:08)
[2022-12-12 00:08] LABS: Partial Thromboplastin Ratio 1.8
[2022-12-12 00:10] LABS: Partial Thromboplastin Time 49.8 Seconds (21.0-31.0)
--- NOTE | 2022-12-12 04:22 | Billing Data ---
Date of Service December 12, 2022 Coding Level of Care Code 28277 INT INP/OBS CARE
--- NOTE | 2022-12-12 04:46 | Electrocardiogram Report ---
Test Reason : Blood Pressure : / mmHG Vent. Rate : 096 BPM Atrial Rate : 096 BPM P-R Int : 170 ms QRS Dur : 110 ms QT Int : 372 ms P-R-T Axes : 067 -65 011 degrees QTc Int : 469 ms Normal sinus rhythm Left axis deviation Incomplete right bundle branch block Possible Anterior infarct , age undetermined Abnormal ECG No previous ECGs available Confirmed by Imtiaz Ruiz ([id number]) on 12/12/2022 4:45:35 AM Referred By: Kiel Rome Confirmed By:Imtiaz Ruiz
[2022-12-12 07:08] LABS: Basophils # (auto) 0.01 K/uL (0-0.2); Basophils % (auto) 0.1 %; Eosinophils # (auto) 0.01 K/uL (0-0.50); Eosinophils % (auto) 0.1 %; Hemoglobin 14.2 g/dl (14.0-18.0); Immature Granulocytes # (auto) 0.12 K/uL (0.01-0.20); Immature Granulocytes % (auto) 1.1 %; Lymphocytes # (auto) 0.92 K/uL (1.2-3.4); Lymphocytes % (auto) 8.2 %; Mean Corpuscular Hemoglobin 33.3 pg (25.0-34.0); Mean Corpuscular Hgb Conc 33.8 g/dL (32.0-36.0); Mean Corpuscular Volume 98.4 fL (80.0-100.0); Mean Platelet Volume 9.9 fL (9.4-12.4); Monocytes # (auto) 1.11 K/uL (0.11-0.59); Monocytes % (auto) 9.9 %; Neutrophils # (auto) 9.02 K/uL (1.40-6.50); Neutrophils % (auto) 80.6 %; Platelet Count 146 K/uL (130-400); RDW Coefficient of Variation 12.6 % (11.5-14.5); RDW Standard Deviation 45.9 fL (36.4-46.3); Red Blood Count 4.27 M/uL (4.70-6.10); White Blood Count 11.19 K/ul (4.8-10.8)
[2022-12-12 07:49] LABS: Albumin Globulin Ratio 1.5 (0.9-2); Albumin Level 4.2 gm/dl (3.4-5.0); BUN Creatinine Ratio 44.4 (10-20); Bilirubin,Total 0.6 mg/dl (0.2-1.0); Calcium 9.3 mg/dl (8.5-10.1); Creatinine Clr Calc Pharmacy 82.5 ml/min; Est GFR (African American) 96.5 ml/min; Est GFR (Non-African American) 83.3 ml/min; Globulin 2.8 gm/dl (2.5-4.0); Partial Thromboplastin Ratio 2.7; Potassium 4.5 mmol/L (3.5-5.1)
[2022-12-12 08:01] LABS: Partial Thromboplastin Time 74.2 Seconds (21.0-31.0)
--- NOTE | 2022-12-12 08:06 | Hospitalist Progress Note ---
Date of Service December 12, 2022 Assessment & Plan (1) Pulmonary embolism: Plan: Only additional anticipated invasive procedure from an oncology standpoint in the foreseeable future would be potential placement of the Port-A-Cath. We should really await confirmation of his diagnosis and that he does want to proceed with treatment before placing that so we will defer until at least sometime next week if not later. If from the hospitalist team perspective no other invasive procedures are required, he could be converted to apixaban. With only 2 days of heparin on board, I would be tempted to give just 5 mg as the initial dose during the overlap with the tailing off of the heparin effect but then revert to a "loading" dose of 10 mg twice daily for 5 more days before going to the long-term 5 mg twice daily dose thereafter. (2) Metastatic cancer: Plan: Note that there were no lesions in the [employer] on MRI scan. Liver biopsy yielded a good tissue specimen that should give us a diagnosis by early next week. Immediate management will be focused on the radiation which is to start today to thecervical spine lesion. Anticipate that he will continue on the current dexamethasone dose during the initial phases of radiation but as we see clinical stability that can be tapered off. With the results of the biopsy next week will set up a discussion of prognosis and treatment options thereafter but those would likely more follow sequentially only after the radiation is complete. These can all be accomplished as an outpatient Plan If no other invasive procedures are anticipated, could convert to apixaban as above. Radiation is to start today, he should continue on the current dexamethasone doses for now but those can be tapered as we see hoped-for clinical stabilization I will plan to meet with him as an outpatient next week to review the biopsy results and determine our broader plan Once on apixaban and if otherwise stable he can be discharged for outpatient follow-up and ongoing radiation Admission and Anticipated Discharge Date Admission Date: December 10, 2022 Subjective Arm does feel somewhat better today after starting high-dose dexamethasone. No other new complaints Physical Exam Physical Exam: VSS Alert, cooperative, stable neurologic exam except for the right arm. That does seem to be somewhat stronger. No other new focal neurological changes Lungs heart and abdominal examination seem stable Results & Data Results & Data ([facility]) Vital Signs (Past 12 Hours) Vital Signs Temp Pulse Pulse Resp BP Pulse Ox O2 Del Method 12/12/22 03:35 36.6 C 92 H 18 116/71 96 Room Air, BiPAP 12/12/22 03:07 82 12/11/22 23:35 36.5 C 73 18 142/87 H 97 Room Air Laboratory Results Abnormal lab results 12/11/22 12/11/22 12/11/22 Range/Units 06:47 11:35 17:14 WBC (4.8-10.8) K/ul RBC (4.70-6.10) M/uL Neut # (Auto) (1.40-6.50) K/uL Lymph # (Auto) (1.2-3.4) K/uL [place] # (Auto) (0.11-0.59) K/uL APTT 90.0 H* (21.0-31.0) Seconds BUN (6-23) mg/dl BUN/Creatinine Ratio (10-20) Glucose (70-99(Fasting)) mg/dl POC Glucose 170 H 231 H (70-99) mg/dl AST (13-39) U/L ALT (7-52) U/L Alkaline Phosphatase (34-104) U/L 12/11/22 12/11/22 12/12/22 Range/Units 20:05 22:46 06:17 WBC (4.8-10.8) K/ul RBC (4.70-6.10) M/uL Neut # (Auto) (1.40-6.50) K/uL Lymph # (Auto) (1.2-3.4) K/uL [place] # (Auto) (0.11-0.59) K/uL APTT 49.8 H* 74.2 H* (21.0-31.0) Seconds BUN (6-23) mg/dl BUN/Creatinine Ratio (10-20) Glucose (70-99(Fasting)) mg/dl POC Glucose 273 H (70-99) mg/dl AST (13-39) U/L ALT (7-52) U/L Alkaline Phosphatase (34-104) U/L 12/12/22 12/12/22 12/12/22 Range/Units 06:17 06:17 07:47 WBC 11.19 H (4.8-10.8) K/ul RBC 4.27 L (4.70-6.10) M/uL Neut # (Auto) 9.02 H (1.40-6.50) K/uL Lymph # (Auto) 0.92 L (1.2-3.4) K/uL [place] # (Auto) 1.11 H (0.11-0.59) K/uL APTT (21.0-31.0) Seconds BUN 40 H (6-23) mg/dl BUN/Creatinine Ratio 44.4 H (10-20) Glucose 247 H (70-99(Fasting)) mg/dl POC Glucose 229 H (70-99) mg/dl AST 49 H (13-39) U/L ALT 72 H (7-52) U/L Alkaline Phosphatase 286 H (34-104) U/L Diagnostic Findings Brain MRI 12/11/22 13:02 MR brain wo/w con CLINICAL HISTORY: Metastatic Cancer TECHNIQUE: Multiplanar and multisequence MR images of the brain were obtained prior to and following administration of gadolinium contrast. Comparison: None available at the time of this dictation. FINDINGS: No abnormal restricted diffusion is identified. Foci of T2 and FLAIR hyperintensity are noted in the paraventricular areas consistent with chronic small vessel ischemic disease. Ex vacuo ventriculomegaly and sulcal enlargement is noted compatible with diffuse encephalomalacia. No mass or abnormal enhancement is seen. There is no mass effect or midline shift. There is no evidence of acute intraparenchymal hemorrhage. No extra axial fluid collections are seen. The corpus callosum, pituitary gland, and cerebellar tonsils appear grossly unremarkable. Flow voids of the major intracranial arterial vessels are identified. The imaged portions of the paranasal sinuses, mastoid air cells, and orbits are unremarkable. IMPRESSION: No acute abnormalities. ACT 112: Negative or not required by law. Electronically signed by: Ramirez Rojas M.D. 12/11/2022 8:34 PM PG Care Time/CCT Total # of Minutes Spent Total Time Spent with Patient: Total time spent is greater than 50% in coordination of care (as documented) at patient's floor/unit and/or counseling patient: C[place] [address] SUB INP/OBS CARE 2/35MIN Patient Type Established Medical Decision Making Moderate Complexity Diagnoses Pulmonary embolism I26.99 Acute cor pulmonale presence: unspecified Chronicity: acute Pulmonary embolism type: unspecified Metastatic cancer C79.9 Area of secondary neoplastic involvement: unspecified site (1) Pulmonary embolism Acute cor pulmonale presence: unspecified Chronicity: acute Pulmonary embolism type: unspecified Qualified Code(s): I26.99 - Other pulmonary embolism without acute cor pulmonale (2) Metastatic cancer Area of secondary neoplastic involvement: unspecified site Qualified Code(s): C79.9 - Secondary malignant neoplasm of unspecified site
[2022-12-12] MEDS: ACETAMINOPHEN 325 MG TAB PO PRN (08:22)
[2022-12-12] MEDS: dexAMETHasone 4 MG TAB PO SCH ×3 (08:23→18:17)
[2022-12-12] MEDS: GABAPENTIN 100 MG CAP PO SCH ×2 (08:23→12:39)
[2022-12-12] MEDS: INSULIN ASPART PER UNIT CHARGE SC SCH ×3 (08:23→17:41)
[2022-12-12] MEDS: DULoxetine HCL 30 MG CAP PO SCH (08:24)
--- NOTE | 2022-12-12 08:45 | Hospitalist Progress Note ---
Date of Service December 12, 2022 Assessment & Plan (1) Metastatic cancer: (2) Pulmonary embolism: (3) Right arm pain: (4) Malignant neoplasm of spine: (5) Leukocytosis: (6) Severe obstructive sleep apnea: (7) Diabetes mellitus, type 2: (8) Hypertension: (9) Transaminitis: (10) History of prostate cancer: Plan 77 yo M with PMH of prostate cancer s/p prostatectomy, DM2, ZAID, mixed incontinence, and HTN with 4 weeks of RUE numbness/weakness found to have metastatic cancer. Metastatic cancer without known primary tumor -Cervical spine MRI- marrow replacement of C7 and T3 concerning for metastatic disease, soft tissue density at C6-C7 with narrowing of right C6-C7 and C7-T1 neural foramen, epidural extension of tumor without significant central stenosis -CTAP and Chest CT- evidence of metastatic disease to lungs, liver, lytic lesions of spine/pelvis, cystic lesions of pancreas concerning for potential separate neoplasms rather than metastatic disease -Outpatient SPEP/immunofixation studies pending -Oncology consulted; appreciate recs from Dr. Manuel regarding biopsy and dexamethasone -/ Liver biopsy - Radiation Oncology consulted; appreciate recs for treatment with palliative external beam radiation to cervical spine. -Heparin infusion for cancer hypercoagulability -Pain management with morphine, Dilaudid PRN given extensive metastasis Pulmonary Embolism -Chest CT with evidence of b/l subsegmental multiple pulmonary emboli -Normal oxygen saturation on room air -Venous duplex b/l- "Positive for DVT in the right posterior tibial vein. Positive for DVT in the left popliteal vein, anterior tibial vein, and posterior tibial vein" -Continue Heparin infusion Right arm/hand pain and weakness -Cervical spine MRI as above -Continue gabapentin, duloxetine for neuropathy -Dexamethasone 4mg IV x1 given for pain relief in setting of metastatic disease Leukocytosis -WBC 14 on admission, decreased to 12.72 (3/2) -Low suspicion for infection, suspect leukocytosis due to malignancy -Trend RBC DM 2 -BSG 273 on admission -Holding home regimen of metformin and Jardiance -Given pt's weight loss in background of metastatic malignancy, regular diet ordered -SSI to be ordered if pt persistently hyperglycemic Severe ZAID - BIPAP Hs Hypertension -BP stable -Holding lisinopril/HCTZ at present, BP in the hospital has been 120-149 systolic over 78-89. Transaminitis -AST/ALT elevations likely secondary to metastatic disease. Also noted elevations of coagulation studies including INR -Trend CMP Plan FENGI: Regular Code status: Full Code DVT ppx: Heparin Isolation: None Dispo: Telemetry Admission and Anticipated Discharge Date Admission Date: December 10, 2022 Results & Data Results & Data ([facility]) Vital Signs (Past 12 Hours) Vital Signs Temp Pulse Pulse Resp BP Pulse Ox O2 Del Method 12/12/22 08:34 36.8 C 102 H 20 127/81 97 Room Air 12/12/22 03:35 36.6 C 92 H 18 116/71 96 Room Air, BiPAP 12/12/22 03:07 82 12/11/22 23:35 36.5 C 73 18 142/87 H 97 Room Air (1) Metastatic cancer Area of secondary neoplastic involvement: unspecified site Qualified Code(s): C79.9 - Secondary malignant neoplasm of unspecified site (2) Pulmonary embolism Acute cor pulmonale presence: unspecified Chronicity: acute Pulmonary embolism type: unspecified Qualified Code(s): I26.99 - Other pulmonary embolism without acute cor pulmonale (8) Hypertension Hypertension type: essential hypertension Qualified Code(s): I10 - Essential (primary) hypertension
[2022-12-12] MEDS: HYDROmorphone INJ 0.5 MG/0.5 ML SYR IV PRN ×2 (10:08→13:22)
--- NOTE | 2022-12-12 10:49 | Discharge Summary ---
Date of Service December 12, 2022 Admission HPI Per Admitting Provider 77 yo M with PMH ZAID, HTN, DM2, prostate adenocarcinoma s/p prostatectomy with pelvic lymphadenectomy in 2010 presenting with RUE weakness. Pt notes for past 4 weeks he has had progressive pain of R neck with radiation to hand. Weakness, numbness and tingling have occurred as of last week and he is unable to extend his R 4th/5th fingers. Pt was prescribed gabapentin 100 mg TID for neuropathy but denies any relief. He did have some initial relief from NSAIDs but this waned. Flexeril also did not help and 2 PT sessions did not help either. He does report 20 lbs weight loss over last 6 months but states this was unintentional. He also reports intermittent chills/hot flashes and gradually worsening fatigue over past month along with exertional dyspnea. He was given oral steroid treatment for the pain and was ordered an MRI of cervical spine on 12/09. After the MRI result appeared to indicate possible metastatic cancer, he was sent to the ED for admission for workup. Several outpatient labs were drawn today as well as part of his cancer evaluation. In the ED, pt arrived tachycardic in 100s but otherwise stable. WBC 14, PT 15, INR 1.4, glucose 273, AST 52, ALT 76, ALP 357. CBC, CMP, UA, troponin, TSH other valle unremarkable. CTAP and chest CT with findings of metastatic disease and b/l pulmonary emboli. Pt was started on heparin infusion in the ER. On my evaluation, I did inform the patient of his workup and evaluation thus far. He denies any new symptoms and continues to endorse unchanged RUE pain and tingling. He is admittedly shocked by this diagnosis and states his son in November 2022 from pancreatic cancer. He supposes he may want "fairly aggressive" treatment but is understandably unsure about his treatment goals at this time in the immediacy of his diagnosis. Admission Exam Per Admitting Provider Constitutional: Patient is pleasant, alert, answering questions appropriately and appears to be in no distress. EYES: PERRLA, EOMI, no conjunctivitis ENT: Head is NC/AT THROAT: Pharynx is pink, without exudate or erythema Neck: No cervical adenopathy. Trachea midline. There is an area of firmness beneath the skin along R neck, approximately 2x1 cm. Respiratory: CTAB, unlabored respirations Cardiovascular: RRR, normal S1 and S2, no murmurs Gastrointestinal: Normoactive bowel sounds x4, soft, non-distended, non-tender. Musculoskeletal: Reduced bulk of RUE compared to LUE. No cyanosis or clubbing is appreciated. No peripheral edema. No focal tenderness of spine or paraspinal musculature. No focal calf swelling or tenderness b/l Neuro: CN 2-12 intact. Noted decreased psychiatry physician strength of RUE, ROM limitation with inability to extend 4th/5th fingers of R hand. Strained ROM testing with RUE due to pain. Hyporeflexia of brachioradialis and triceps reflex. Mild decreased sensation to light touch along RUE compared to LUE. Vascular: No carotid bruits. No JVD. Skin: Warm, dry and intact. Psych: Pleasant affect. Speech fluent, organized, non-tangential. Well-groomed. Principal Diagnosis Metastatic Cancer Discharge Exam Gen- WN/WD, sitting comfortably in bed HEENT- NC/AT, PERRL, oral and pharyngeal mucosa moist Pulm- CTABL in all lung silverman, spontaneous, non-labored breathing CV- mildly tachycardic, no m/r/g, good capillary refill, no LE edema MSK- skin warm and dry, no erythema, rashes seen Neuro- AxOx4. 4/5 strength in R UE flexion, extension, 5/5 abduction. 4/5 strength R finger abduction. 5/5 LUE flexion, extension, abduction, finger abduction. 5/5 strength b/l LE. Sensation to b/l UE and LE intact. Psych- mood and affect appropriate, speech normal rate, goal-direct thinking Discharge Data Allergies Allergy/AdvReac Type Severity Reaction Status Date / Time typhoid vaccine Allergy Intermediate shaking Verified 12/10/22 21:07 Consultations 12/10/22 20:13 ED Decision to Admit Stat 12/10/22 21:24 Consult Oncology Routine 12/11/22 09:33 Consult Radiation Oncology Routine Ordered Studies 12/10/22 18:51 CT abd pelvis IV con only Stat CT chest diagnostic w con Stat 12/10/22 21:24 US venous doppler LE BI Routine 12/11/22 10:42 CT guide rad therapy neck Routine 12/11/22 12:28 IR biopsy liver US Stat 03/02/23 13:02 MRI Brain [MR brain wo/w con] Routine Hospital Course (1) Metastatic cancer: 77 yo M with PMH of prostate cancer s/p prostatectomy, DM2, ZAID, mixed incontinence, and HTN with 4 weeks of RUE numbness/weakness found to have metastatic cancer. Metastatic cancer without known primary tumor -Cervical spine MRI- marrow replacement of C7 and T3 concerning for metastatic disease, soft tissue density at C6-C7 with narrowing of right C6-C7 and C7-T1 neural foramen, epidural extension of tumor without significant central stenosis -CTAP and Chest CT- evidence of metastatic disease to lungs, liver, lytic lesions of spine/pelvis, cystic lesions of pancreas concerning for potential separate neoplasms rather than metastatic disease -Outpatient SPEP/immunofixation studies pending -Oncology consulted; appreciate recs from Dr. Manuel regarding biopsy, dexamethasone, and DVT treatment. Follow-up with Oncology outpt next week -12/11 Liver biopsy -Heparin infusion for cancer hypercoagulability -12/11 Discontinued heparin infusion for liver biopsy. 12/12: Per Oncology, transition from heparin to Eliquis beginning this PM - Radiation Oncology consulted; Palliative external beam radiation to cervical spine (starting 12/12) - 12/11 MRI brain w/wo contrast did not show any acute abnormalities -Pain management with morphine, Dilaudid PRN given extensive metastasis Pulmonary Embolism -Chest CT with evidence of b/l subsegmental multiple pulmonary emboli -Normal oxygen saturation on room air -Venous duplex b/l- "Positive for DVT in the right posterior tibial vein. Positive for DVT in the left popliteal vein, anterior tibial vein, and posterior tibial vein" -Heparin infusion; 12/12 transitioning to Eliquis indefinitely Right arm/hand pain and weakness -Cervical spine MRI as above -Continued gabapentin, duloxetine for neuropathy -Dexamethasone 4mg IV x1 given for pain relief in setting of metastatic disease Leukocytosis -WBC 14 on admission, decreased to 12.72 (12/11) -Low suspicion for infection, suspect leukocytosis due to malignancy DM 2 -BSG 273 on admission -Held home regimen of metformin and Jardiance while in hospital -Given pt's weight loss in background of metastatic malignancy, regular diet was ordered Severe ZAID - BIPAP Hs Hypertension -BP stable -Held lisinopril/HCTZ while in hospital, BP in the hospital has been 120-149 systolic over 78-89. Transaminitis -AST/ALT elevations likely secondary to metastatic disease. Also noted elevations of coagulation studies including INR (2) Pulmonary embolism: (3) Right arm pain: (4) Malignant neoplasm of spine: (5) Leukocytosis: (6) Severe obstructive sleep apnea: (7) Diabetes mellitus, type 2: (8) Hypertension: (9) Transaminitis: (10) History of prostate cancer: Total Time Total Time Spent Total Time Spent (In Minutes): >30 Discharge Plan Discharge Items Patient Disposition: Home - Self-Care Reason For Visit: CT SCAN TO BE DONE IN THE MORNING, REF BY DOC Discharge Diagnosis: Metatstatic cancer Activity: Per Instructions section Non-emergency contact: Primary Care Provider and Oncologist Call non-emergency contact if: you have any medication questions, your symptoms worsen, your pain is not controlled, your pain is worsening, your pain is concerning for you and your temperature is above 101 Follow-up/Referrals: Richard Manuel MD [Physician] - 12/17/22 4:00 pm Kiel Rome DO [Primary Care Provider] - 12/19/22 2:45 pm Diet: Heart Healthy Addtl Attending Provider Instructions: During your admission we did testing to try and figure out what the primary source of the metastatic disease. You had a liver biopsy. You will see Dr. Manuel in the office on 12/17/2022 at 4pm. He will follow up on those results with you and work on getting a plan moving forward. We saw evidence of a pulmonary embolism on your imaging. We starting you on anticoagulation. We sent a prescription to the pharmacy for Eliquis. Tomorrow morning we would like you to start taking 10mg twice a day for a total of 5 days. After 5 days (starting 12/18) you should take to take 5mg twice a day. You 'll want to take the Eliquis doses about 12 hours a part. We also starting you on dexamethasone, a steroid to help with inflammation. You should take this 4 times a day until you see Dr. Manuel next week. We sent a prescription for oxycodone to your pharmacy, you can take this need for severe pain. You also have an appointment scheduled with Dr. Rome on 12/29/2022 at 2:45pm. Pending Studies at Discharge: No Stand-Alone Forms: My [facility] Medications and DC Order Prescriptions: New dexamethasone 4 mg tablet 4 mg PO QID Qty: 120 0RF oxycodone 5 mg tablet 5 mg PO Q6H PRN (Reason: pain, severe) Qty: 30 0RF Eliquis 5 mg tablet 5 mg PO BID Qty: 70 0RF Rx Instructions: 10mg (2 pills) po bid x 5 days, then 1 po bid Continued (DME) BiPap Machine Misc See Rx Instructions .ROUTE .MEDSUPPLY Qty: 1 0RF Rx Instructions: BIPAP MACHINE AND SUPPLIES; 19/15 CM WATER PRESSURE; DX: G47.33 OBSTRUCTIVE SLEEP APNEA; LENGTH OF NEED: 99YEARS (DME) BiPap Supplies Misc See Rx Instructions .Route Qty: 1 0RF Rx Instructions: As directed with Bi pap machine tadalafil 20 mg tablet 20 mg PO UD PRN (Reason: sexual activity) Qty: 30 3RF lisinopril-hydrochlorothiazide 10-12.5 mg tablet 1 tab PO HS Qty: 90 3RF empagliflozin 25 mg tablet 25 mg PO DAILY Qty: 90 3RF metformin 1,000 mg tablet 1,000 mg PO BID Qty: 180 3RF duloxetine 30 mg capsule,delayed release(DR/EC) 30 mg PO DAILY Qty: 90 1RF (DME) lancets [OneTouch Delica Lancets] 30 gauge misc See Rx Instructions .Route Qty: 100 3RF Rx Instructions: TEST SUGAR ONCE DAILY; DX: E11.9 (DME) OneTouch Verio test strips Strip See Rx Instructions .Route Qty: 100 3RF Rx Instructions: TEST SUGAR ONCE DAILY; DX: E11.9 methocarbamol 750 mg tablet 750 mg PO Q8H PRN (Reason: back spasm) Qty: 15 1RF gabapentin 100 mg capsule 100 mg PO TID Qty: 90 2RF ibuprofen 200 mg Capsule 400 - 600 mg PO Q6H PRN (Reason: Pain) atorvastatin 40 mg tablet 40 mg PO HS diclofenac sodium [Voltaren Arthritis Pain] 1 % gel 4 g topical QID PRN (Reason: Pain) Discontinued methylprednisolone [Medrol (Tato)] 4 mg tablets,dose pack 4 mg PO DAILY Qty: 21 0RF Rx Instructions: STARTED 12/08/22---take 6 tabs x 1 d, 5 tab x1 , 4 tab x1 day, 3 tab x1 d, 2 tabs x 1 day, 1 tab x1 day Discharge Orders: Discharge Order (Routine); Ordered 12/12/22 Ordered By: Maria Eugenia Pate Admission Data Admit Date/Time: 12/10/22 22:28 Attending Provider: Addison Duff Admit Provider: Alfredo Barrios Primary Care Provider: Kiel Rome Other Providers: Riya Newton ; Memo Sagastume ; Luis Webster Other Interventions: Discharge Summary Assessment (RN) Last Done: 12/12/22 18:28 Supervising Physician Co-Signing Physician Notes I personally examined the patient and verified all rivera points of history and exam, discussed case, and agree with decision making with Brent Robertson MS4 and Dr Clay Feeling okay, after going home. Oncology input greatly appreciated. Updated as well. vitals noted nad heent nc at mmm breathing unlabored no accessory muscles good effort skin no rashes no pallor or icterus neuro no focal deficits new metastatic malignancy - biopsy now done, starting XRT, heme/onc and radiation oncology input appreciatedpipelines for outpatient follow-up bilateral LE DVTs causing PE in setting of malignant primary metastatic neoplasms - anticoagulationheparin drip transition to Eliquis tonight. Home on Eliquis. severe calorie malnutrition - weight loss over last 6 months. likely from malignancy. Extensive discussion on nutrition today Painradiation treatment hopefully will help, oxycodone for now as needed. Decadron as well. Safe/stable for home, otherwise as above
[2022-12-12 16:48] LABS: Partial Thromboplastin Time 54.1 Seconds (21.0-31.0)
[2022-12-12] MEDS: HEPARIN SODIUM/DEXTROSE 25,000 UNITS/500 ML BAG IV SCH (17:42)
[2022-12-12] MEDS ORDERED: APIXABAN 5 MG TABLET PO ONE (19:00)
--- NOTE | 2022-12-12 19:26 | Billing Data ---
Date of Service December 12, 2022 Coding Level of Care Code 29706 INP/OBS DISCH >30 MIN
--- NOTE | 2022-12-31 09:35 | Coding Query ---
PATHOLOGY To promote full compliance with coding requirements relating to patient care, physician participation is requested in all cases of edge plugger uncertainty. Please assist us with the question(s) below: Please review the Pathology report and please document any relevant diagnosis(es) below: Metastatic poorly differentiated carcinoma Diagnosis(es): Thank you Amy DRAKE
== END 2022-12-12 19:27 | disposition home or self-care (01) | DRG 843 ==
LOC: ED 18:39 → SUATTDRO 22:28 → 2N 22:28

== ENCOUNTER 2022-12-17 17:45 | Inpatient (IN) ==
--- NOTE | 2022-12-17 18:24 | Emergency Department Note ---
Impression & Plan Malignant neoplasm of spine, Acute hyperkalemia, DKA (diabetic ketoacidosis), BRIAN (acute kidney injury), Weakness ED Provider Note Provider: Avel Fischer MD DATE OF SERVICE: 12/17/2022 CHIEF COMPLAINT: Unsteady, increased oral intake HISTORY OF PRESENT ILLNESS: Patient is a 77-year-old gentleman history of type 2 diabetes, hypertension, and cervical neoplasm presenting here referred from his oncologist office today. Has been undergoing cervical spinal radiation. Over the last day or so has become increasingly unsteady but has not yet fallen. Reports he has been dizzy and maybe his speech is a little bit off. Denies any other numbness or tingling in the extremities. corroborates this. Was leaving the oncologist office and nearly fell over. Has been drinking a lot of water and states feels very thirsty as well as urinating a lot. States he has some dry mouth. I will just repeat imaging as well as blood work to exclude metabolic/electrolyte abnormality would be warranted and sent to the ER for further evaluation. Denies significant pain at this time with some mild baseline bilateral shoulder pain that been ongoing. PAST MEDICAL HISTORY: As noted above MEDICATIONS: Reviewed home medications includes Eliquis. SOCIAL HISTORY: lives at home PHYSICAL EXAM: GENERAL: alert and oriented in no acute distress on stretcher Head: normocephalic and atraumatic EYES: No injection, discharge or icterus. NECK: Trachea midline. Supple. ENT: Mucous membranes pink and moist. LUNGS: Airway patent. No retractions. Breath sounds clear with good air entry bilaterally. HEART: Regular rate and rhythm. No chest wall tenderness ABDOMEN: Soft and non-tender, without guarding or rebound. SKIN: Acyanotic, warm, dry, without rashes EXTREMITIES: Without swelling, tenderness or deformity NEUROLOGICAL: No focal deficits. No aphasia. No facial droop or slurred speech. Normal strength and tone in the extremities. Sensation to gross touch normal. EK beats. Normal sinus rhythm left axis. No PVC or PAC. No acute ST segment elevation or depression with QTc of 457. CONTINUOUS CARDIAC MONITORING: was ordered and showed a heart rate of 90s-110s bpm in normal sinus rhythm to sinus tachycardia Patient's laboratory studies and imaging reviewed. Differential includes Infection, dehydration, metabolic abnormality, hypo/hyperglycemia, electrolyte disturbance, anemia, hypoxia, cardiac sources, intracerebral event, toxicologic, neurologic, as well as other pathologies. IMPRESSION/MEDICAL DECISION MAKING: Patient reports history of some cervical neoplastic masses under radiation treatment. Currently anticoagulated for history of PE. No trauma. More unsteady possibly with a bit of speech issue but do not see obvious facial droop or significant aphasia at this time. Has been drinking quite a bit of water and feels very thirsty. Electrolytes and basic labs completed to exclude hyponatremia or other metabolic derangement. Does not sound infectious in nature. No trauma history again either. Completed an MRI of the brain as well as an MRI of the cervical spine with and without contrast to look for possible worsening of his cervical pathology as well as exclude stroke. Did have recent MR last week of the brain without evidence of brain mets and no feel we need contrast of the brain at this time given the short course. Is having cervical radiation may be contributing to some of his unsteadiness. Not having active chest pain. EKG without obvious ischemic changes. Troponin minimally elevated compared to previous at 44. Blood work otherwise with significant thrombocytopenia new. No significant anemia. Slight leukocytosis b ut on steroids. Blood sugar also severely elevated in the 800s. Hyperkalemia noted with some hyponatremia (large component of pseudohyponatremia). BRIAN noted. Some elevated uric acid and phosphate is noted as well as some slight elevation of LFTs slightly more than previous. Discussed with his oncologist via phone. In shared decision-making believe this explains why the patient is unsteady not feeling well. Likely dehydrated to some degree exacerbated by steroids and his hyperglycemia/diabetes. Given some insulin and started insulin drip after discussion. Will cancel MRIs at this point as feel this metabolic electrolyte arrangement explains his symptoms as opposed to acute worsening of his oncological masses or a stroke. Not having active bleeding. We will repeat blood work and add smear, B12, folate per oncology recommendations. I doubt this represents tumor lysis. Given some IV calcium and started on some IV fluids does have some pseudohyponatremia however. Discussed with the hospitalist as well as the patient. Discussed with the ICU nurse practitioner on-call tonight. Lactate and VBG ordered. Minimally acidotic. Patient clinically looks very well. DIAGNOSIS: Adenocarcinoma, unsteady/weakness, hyperkalemia, DKA, elevated troponin, dehydration/BRIAN DISPOSITION: Hospitalist will evaluate Patient was agreeable with this plan. Critical Care I have personally spent 55 minutes of critical care time in the direct management of this patient. This includes bedside care, interpretation of diagnostic studies, and testing, discussion with consultants, patient, and family members, and other required patient management activities. These 55 minutes is in excess of all separately billable procedures. Past Med/Surg History Medical History Diabetes mellitus, type 2 DIET CONTROLLED Hearing difficulty History of colon polyps History of prostate cancer 2010--sx only Hyperlipidemia Hypertension Osteoarthritis Restless leg syndrome Sleep apnea BIPAP Temporomandibular joint disorder Trigger finger, left ring finger Surgical History History of carpal tunnel surgery of right wrist History of cataract surgery RT/LEFT Hx of colonoscopy 01/2021 repeat 3 yrs Hx of prostatectomy 2010 - Hx of vasectomy Family History Father Malignant neoplasm of colon Hypertension Family hx of colon cancer Sister Malignant neoplasm of colon Family hx of colon cancer Grandfather Myocardial infarction paternal Lung cancer maternal Other No family history of adverse response to anesthesia Denies family history of Ovarian cancer Prostate cancer Breast cancer Social History Smoking Status: Never smoker Second Hand Exposure: No (father smoked); Hx Alcohol Use: Yes Alcohol type: beer, wine and hard liquor Alcohol Intake Frequency Comment: daily Hx Substance Use: No Preferred Language: Amharic Communication Ability: Effective Visual Impairment: Limited Hearing Ability: Use of Hearing Aid Engine Room Helper Required: No Beliefs That Will Affect Care: None marital status: Current Living Situation: Spouse current occupational status: retired How many Children do You have: 3 Feels Safe at Home: Yes Childhood Exposure to Second-Hand Smoke: Yes caffeine: Yes (rarely; drinks mostly decaf ) Dental Care, Regularly: No Physical Activity Frequency: 1-2 Times per Week Seatbelt Use: always Sunscreen Use: No Assistive Devices: Glasses Allergies Allergies Allergy/AdvReac Type Severity Reaction Status Date / Time typhoid vaccine Allergy Intermediate shaking Verified 12/17/22 18:59 Home Meds Home Medications Medication Instructions Recorded Confirmed ibuprofen 200 mg capsule 400 - 600 mg PO Q6H PRN Pain 02/24/20 03/08/23 atorvastatin 40 mg tablet 40 mg PO HS 12/10/22 12/17/22 diclofenac sodium 1 % topical gel 4 g topical QID PRN Pain 12/10/22 12/17/22 (Voltaren Arthritis Pain) Previous Rx's Medication Instructions Recorded BiPap Machine #1 ea 02/22/20 BiPap Supplies #1 ea 03/17/22 metformin 1,000 mg tablet 1,000 mg PO BID #180 tabs 07/08/22 tadalafil 20 mg tablet 20 mg PO UD PRN sexual activity 08/07/22 #30 tabs blood sugar diagnostic (OneTouch #100 ea 08/18/22 Verio test strips) lancets 30 gauge (OneTouch Delica #100 ea 08/18/22 Lancets) lisinopril 10 1 tab PO HS #90 tabs 09/02/22 mg-hydrochlorothiazide 12.5 mg tablet duloxetine 30 mg capsule,delayed 30 mg PO DAILY #90 caps 10/08/22 release empagliflozin 25 mg tablet 25 mg PO DAILY #90 tabs 11/17/22 gabapentin 100 mg capsule 100 mg PO TID #90 caps 12/08/22 methocarbamol 750 mg tablet 750 mg PO Q8H PRN back spasm #15 12/08/22 tabs apixaban 5 mg tablet (Eliquis) 5 mg PO BID #70 tabs 12/12/22 oxycodone 5 mg tablet 5 mg PO Q6H PRN pain, severe #30 12/12/22 tabs dexamethasone 4 mg tablet 4 mg PO TID #120 tabs 12/15/22 Results & Data (ED) Vital Signs Vital Signs - 24 hr 12/17/22 17:46 12/17/22 18:33 12/17/22 19:55 Temperature 36.8 C Temperature Source Temporal Artery Scan Pulse Rate 93 H 106 H Pulse Rate from SpO2 Sensor Respiratory Rate 20 Respiratory Effort / Characteristics Non-Labored Spontaneous Respiratory Depth Normal Blood Pressure 99/64 L Blood Pressure Mean 75 Pulse Oximetry 98 96 Oxygen Delivery Method Room Air Room Air Sepsis Recent Fever Within 48 Hours No Sepsis New/Unexplained Change in Mental Status No Sepsis Action Taken by Nursing No Action Required 12/17/22 19:44 12/17/22 19:44 12/17/22 19:50 Temperature Temperature Source Pulse Rate 105 H 98 H Pulse Rate from SpO2 Sensor 105 H 98 H Respiratory Rate 20 19 Respiratory Effort / Characteristics Respiratory Depth Blood Pressure 125/78 Blood Pressure Mean 93 Pulse Oximetry 96 94 Oxygen Delivery Method Sepsis Recent Fever Within 48 Hours Sepsis New/Unexplained Change in Mental Status Sepsis Action Taken by Nursing 12/17/22 20:00 12/17/22 20:01 12/17/22 20:01 Temperature Temperature Source Pulse Rate 102 H 107 H Pulse Rate from SpO2 Sensor 103 H 109 H Respiratory Rate 18 20 Respiratory Effort / Characteristics Respiratory Depth Blood Pressure 88/63 L Blood Pressure Mean 71 Pulse Oximetry 95 96 Oxygen Delivery Method Sepsis Recent Fever Within 48 Hours Sepsis New/Unexplained Change in Mental Status Sepsis Action Taken by Nursing 12/17/22 20:10 12/17/22 20:10 12/17/22 20:20 Temperature Temperature Source Pulse Rate 105 H 111 H Pulse Rate from SpO2 Sensor 105 H 110 H Respiratory Rate 21 22 Respiratory Effort / Characteristics Respiratory Depth Blood Pressure 112/66 Blood Pressure Mean 81 Pulse Oximetry 95 95 Oxygen Delivery Method Sepsis Recent Fever Within 48 Hours Sepsis New/Unexplained Change in Mental Status Sepsis Action Taken by Nursing 12/17/22 20:30 12/17/22 20:30 12/17/22 20:40 Temperature Temperature Source Pulse Rate 104 H 110 H Pulse Rate from SpO2 Sensor 105 H 110 H Respiratory Rate 22 11 L Respiratory Effort / Characteristics Respiratory Depth Blood Pressure 125/73 Blood Pressure Mean 90 Pulse Oximetry 96 96 Oxygen Delivery Method Sepsis Recent Fever Within 48 Hours Sepsis New/Unexplained Change in Mental Status Sepsis Action Taken by Nursing 12/17/22 20:50 12/17/22 21:00 12/17/22 21:00 Temperature Temperature Source Pulse Rate 108 H 114 H Pulse Rate from SpO2 Sensor 109 H 115 H Respiratory Rate 16 20 Respiratory Effort / Characteristics Respiratory Depth Blood Pressure 91/64 L Blood Pressure Mean 73 Pulse Oximetry 97 96 Oxygen Delivery Method Sepsis Recent Fever Within 48 Hours Sepsis New/Unexplained Change in Mental Status Sepsis Action Taken by Nursing 12/17/22 21:10 12/17/22 21:20 12/17/22 21:30 Temperature Temperature Source Pulse Rate 113 H 104 H Pulse Rate from SpO2 Sensor 114 H 105 H Respiratory Rate 20 26 H Respiratory Effort / Characteristics Respiratory Depth Blood Pressure 128/85 Blood Pressure Mean 99 Pulse Oximetry 97 97 Oxygen Delivery Method Sepsis Recent Fever Within 48 Hours Sepsis New/Unexplained Change in Mental Status Sepsis Action Taken by Nursing 12/17/22 21:30 12/17/22 21:40 12/17/22 21:50 Temperature Temperature Source Pulse Rate 101 H 103 H 102 H Pulse Rate from SpO2 Sensor 101 H 104 H 103 H Respiratory Rate 19 14 20 Respiratory Effort / Characteristics Respiratory Depth Blood Pressure Blood Pressure Mean Pulse Oximetry 97 96 94 Oxygen Delivery Method Sepsis Recent Fever Within 48 Hours Sepsis New/Unexplained Change in Mental Status Sepsis Action Taken by Nursing Laboratory Data 12/17/22 18:37 12/17/22 18:37 Lab Results 12/17/22 12/17/22 12/17/22 Range/Units 18:37 18:37 18:37 WBC 18.99 H (4.8-10.8) K/ul RBC 4.66 L (4.70-6.10) M/uL Hgb 15.3 (14.0-18.0) g/dl Hct 47.0 (42.0-52.0) % MCV 100.9 H (80.0-100.0) fL MCH 32.8 (25.0-34.0) pg MCHC 32.6 (32.0-36.0) g/dL RDW Std Deviation 49.4 H (36.4-46.3) fL RDW Coeff of Micah 13.2 (11.5-14.5) % Plt Count 14 L* (130-400) K/uL MPV 12.5 H (9.4-12.4) fL Immature Gran % (Auto) 1.7 % Neut % (Auto) 89.0 % Lymph % (Auto) 1.8 % [place] % (Auto) 7.3 % Eos % (Auto) 0.0 % Baso % (Auto) 0.2 % Neut # (Auto) 16.89 H (1.40-6.50) K/uL Lymph # (Auto) 0.34 L (1.2-3.4) K/uL [place] # (Auto) 1.39 H (0.11-0.59) K/uL Eos # (Auto) 0.00 (0-0.50) K/uL Baso # (Auto) 0.04 (0-0.2) K/uL Immature Gran # (Auto) 0.33 H (0.01-0.20) K/uL Absolute Nucleated RBC Nucleated RBC % (auto) Neutrophils % (Manual) Band Neutrophils % Lymphocytes % (Manual) Prolymphocyte % Reactive Lymphs % (Man) Monocytes % (Manual) Eosinophils % (Manual) Basophils % (Manual) Metamyelocytes % (Man) Myelocytes % (Man) Promyelocytes % (Man) Blast Cells % (Manual) Plasma Cell % (Manual) Other Cells % Nucleated RBC % Neutrophils # (Manual) Band Neutrophils # Total Absolute Neuts Lymphocytes # (Manual) Prolymphocyte # Reactive Lymphs # Total Abs Lymphocytes Monocytes # (Manual) Eosinophils # (Manual) Basophils # (Manual) Metamyelocytes # (Man) Myelocytes # (Manual) Promyelocytes # (Man) Blast Cells # (Man) Plasma Cell # (Manual) Other Cells # Nucleated RBCs # (Man) Hypersegmented Neuts Hyposegmented Neuts Hypogranular Neuts Large Granular Lymphs # Lrg Granular Lymphs Hairy Cells Smudge Cells Toxic Granulation Toxic Vacuolation Dohle Bodies Ava Rods Platelet Estimate Signific. Decreased L (Normal) Hypogranular Platelets Giant Platelets Platelet Satelliting RBC Morphology Polychromasia Hypochromasia Poikilocytosis Basophilic Stippling Anisocytosis Microcytosis Macrocytosis Spherocytes Pappenheimer Bodies Sickle Cells Target Cells Tear Drop Cells Ovalocytes Stomatocytes [place] Bodies Echinocytes Acanthocytes (Spur) Rouleaux RBC Agglutinates Schistocytes Peripher Smr Path Cons Sezary Cell VBG pH (7.36-7.41) VBG pCO2 (38-50) mmHg VBG pO2 mmHg VBG HCO3 mmol/L VBG O2 Saturation % VBG Base Excess mEq/L Sodium 123 L (136-145) mmol/L Potassium 6.4 H* (3.5-5.1) mmol/L Chloride 85 L (98-107) mmol/L Carbon Dioxide 16 L (21-32) mmol/L Anion Gap 22 H (3-11) BUN 97 H (6-23) mg/dl Creatinine 1.64 H (0.6-1.4) mg/dl Est Cr Clr Drug Dosing Not Reportable Est GFR ( Amer) 46.7 ml/min Est GFR (Non-Af Amer) 40.3 ml/min BUN/Creatinine Ratio 59.1 H (10-20) Glucose 807 H* (70-99(Fasting)) mg/dl POC Glucose (70-99) mg/dl Osmolality (280-300) mOsm/kg Lactate (0.4-2.0) mmol/L Uric Acid 12.8 H (2.6-7.2) mg/dl Calcium 8.9 (8.5-10.1) mg/dl Phosphorus 7.2 H (2.5-4.9) mg/dl Magnesium 3.9 H (1.7-2.4) mg/dl Total Bilirubin 1.3 H (0.2-1.0) mg/dl AST 65 H (13-39) U/L ALT 124 H (7-52) U/L Alkaline Phosphatase 583 H (34-104) U/L Troponin I High Sens 43.3 H (0-20) pg/ml Total Protein 6.8 (6.0-8.3) gm/dl Albumin 4.3 (3.4-5.0) gm/dl Globulin 2.5 (2.5-4.0) gm/dl Albumin/Globulin Ratio 1.7 (0.9-2) Vitamin B12 (180-914) pg/ml Folate (>5.38) ng/ml TSH 1.259 (0.300-4.500) uIu/ml Urine Color Urine Appearance (Clear) Urine pH (4.5-7.5) Ur Specific [place] (1.000-1.030) Urine Protein (Negative) Urine Glucose (UA) (Negative) Urine Ketones (Negative) Urine Blood (Negative) Urine Nitrite (Negative) Urine Bilirubin (Negative) Urine Urobilinogen (Negative) Ur Leukocyte Esterase (Negative) Urine WBC (Auto) (0-5) /hpf Urine RBC (Auto) (0-4) /hpf U Hyaline Cast (Auto) (0-5) /lpf U Epithel Cells (Auto) (0-5) /lpf Urine Bacteria (Auto) (Negative) Urine Osmolality (500-800) mOsm/kg SARS-CoV-2, RNA, NAAT (NEGATIVE) Blood Parasites ID 12/17/22 12/17/22 12/17/22 Range/Units 18:37 18:37 19:06 WBC (4.8-10.8) K/ul RBC (4.70-6.10) M/uL Hgb (14.0-18.0) g/dl Hct (42.0-52.0) % MCV (80.0-100.0) fL MCH (25.0-34.0) pg MCHC (32.0-36.0) g/dL RDW Std Deviation (36.4-46.3) fL RDW Coeff of Micah (11.5-14.5) % Plt Count (130-400) K/uL MPV (9.4-12.4) fL Immature Gran % (Auto) % Neut % (Auto) % Lymph % (Auto) % [place] % (Auto) % Eos % (Auto) % Baso % (Auto) % Neut # (Auto) (1.40-6.50) K/uL Lymph # (Auto) (1.2-3.4) K/uL [place] # (Auto) (0.11-0.59) K/uL Eos # (Auto) (0-0.50) K/uL Baso # (Auto) (0-0.2) K/uL Immature Gran # (Auto) (0.01-0.20) K/uL Absolute Nucleated RBC Nucleated RBC % (auto) Neutrophils % (Manual) Band Neutrophils % Lymphocytes % (Manual) Prolymphocyte % Reactive Lymphs % (Man) Monocytes % (Manual) Eosinophils % (Manual) Basophils % (Manual) Metamyelocytes % (Man) Myelocytes % (Man) Promyelocytes % (Man) Blast Cells % (Manual) Plasma Cell % (Manual) Other Cells % Nucleated RBC % Neutrophils # (Manual) Band Neutrophils # Total Absolute Neuts Lymphocytes # (Manual) Prolymphocyte # Reactive Lymphs # Total Abs Lymphocytes Monocytes # (Manual) Eosinophils # (Manual) Basophils # (Manual) Metamyelocytes # (Man) Myelocytes # (Manual) Promyelocytes # (Man) Blast Cells # (Man) Plasma Cell # (Manual) Other Cells # Nucleated RBCs # (Man) Hypersegmented Neuts Hyposegmented Neuts Hypogranular Neuts Large Granular Lymphs # Lrg Granular Lymphs Hairy Cells Smudge Cells Toxic Granulation Toxic Vacuolation Dohle Bodies Ava Rods Platelet Estimate (Normal) Hypogranular Platelets Giant Platelets Platelet Satelliting RBC Morphology Polychromasia Hypochromasia Poikilocytosis Basophilic Stippling Anisocytosis Microcytosis Macrocytosis Spherocytes Pappenheimer Bodies Sickle Cells Target Cells Tear Drop Cells Ovalocytes Stomatocytes [place] Bodies Echinocytes Acanthocytes (Spur) Rouleaux RBC Agglutinates Schistocytes Peripher Smr Path Cons Sezary Cell VBG pH (7.36-7.41) VBG pCO2 (38-50) mmHg VBG pO2 mmHg VBG HCO3 mmol/L VBG O2 Saturation % VBG Base Excess mEq/L Sodium (136-145) mmol/L Potassium (3.5-5.1) mmol/L Chloride (98-107) mmol/L Carbon Dioxide (21-32) mmol/L Anion Gap (3-11) BUN (6-23) mg/dl Creatinine (0.6-1.4) mg/dl Est Cr Clr Drug Dosing Est GFR ( Amer) ml/min Est GFR (Non-Af Amer) ml/min BUN/Creatinine Ratio (10-20) Glucose (70-99(Fasting)) mg/dl POC Glucose (70-99) mg/dl Osmolality 347 H (280-300) mOsm/kg Lactate (0.4-2.0) mmol/L Uric Acid (2.6-7.2) mg/dl Calcium (8.5-10.1) mg/dl Phosphorus (2.5-4.9) mg/dl Magnesium (1.7-2.4) mg/dl Total Bilirubin (0.2-1.0) mg/dl AST (13-39) U/L ALT (7-52) U/L Alkaline Phosphatase (34-104) U/L Troponin I High Sens (0-20) pg/ml Total Protein (6.0-8.3) gm/dl Albumin (3.4-5.0) gm/dl Globulin (2.5-4.0) gm/dl Albumin/Globulin Ratio (0.9-2) Vitamin B12 1276 H (180-914) pg/ml Folate 17.50 (>5.38) ng/ml TSH (0.300-4.500) uIu/ml Urine Color Yellow Urine Appearance Clear (Clear) Urine pH 5.0 (4.5-7.5) Ur Specific [place] 1.027 (1.000-1.030) Urine Protein Negative (Negative) Urine Glucose (UA) 3+ H (Negative) Urine Ketones 1+ H (Negative) Urine Blood 1+ H (Negative) Urine Nitrite Negative (Negative) Urine Bilirubin Negative (Negative) Urine Urobilinogen Negative (Negative) Ur Leukocyte Esterase Negative (Negative) Urine WBC (Auto) 1-5 (0-5) /hpf Urine RBC (Auto) 0-4 (0-4) /hpf U Hyaline Cast (Auto) 0 (0-5) /lpf U Epithel Cells (Auto) 0-5 (0-5) /lpf Urine Bacteria (Auto) Negative (Negative) Urine Osmolality (500-800) mOsm/kg SARS-CoV-2, RNA, NAAT (NEGATIVE) Blood Parasites ID 12/17/22 12/17/22 12/17/22 Range/Units 19:06 20:16 20:20 WBC (4.8-10.8) K/ul RBC (4.70-6.10) M/uL Hgb (14.0-18.0) g/dl Hct (42.0-52.0) % MCV (80.0-100.0) fL MCH (25.0-34.0) pg MCHC (32.0-36.0) g/dL RDW Std Deviation (36.4-46.3) fL RDW Coeff of Micah (11.5-14.5) % Plt Count (130-400) K/uL MPV (9.4-12.4) fL Immature Gran % (Auto) % Neut % (Auto) % Lymph % (Auto) % [place] % (Auto) % Eos % (Auto) % Baso % (Auto) % Neut # (Auto) (1.40-6.50) K/uL Lymph # (Auto) (1.2-3.4) K/uL [place] # (Auto) (0.11-0.59) K/uL Eos # (Auto) (0-0.50) K/uL Baso # (Auto) (0-0.2) K/uL Immature Gran # (Auto) (0.01-0.20) K/uL Absolute Nucleated RBC Nucleated RBC % (auto) Neutrophils % (Manual) Band Neutrophils % Lymphocytes % (Manual) Prolymphocyte % Reactive Lymphs % (Man) Monocytes % (Manual) Eosinophils % (Manual) Basophils % (Manual) Metamyelocytes % (Man) Myelocytes % (Man) Promyelocytes % (Man) Blast Cells % (Manual) Plasma Cell % (Manual) Other Cells % Nucleated RBC % Neutrophils # (Manual) Band Neutrophils # Total Absolute Neuts Lymphocytes # (Manual) Prolymphocyte # Reactive Lymphs # Total Abs Lymphocytes Monocytes # (Manual) Eosinophils # (Manual) Basophils # (Manual) Metamyelocytes # (Man) Myelocytes # (Manual) Promyelocytes # (Man) Blast Cells # (Man) Plasma Cell # (Manual) Other Cells # Nucleated RBCs # (Man) Hypersegmented Neuts Hyposegmented Neuts Hypogranular Neuts Large Granular Lymphs # Lrg Granular Lymphs Hairy Cells Smudge Cells Toxic Granulation Toxic Vacuolation Dohle Bodies Ava Rods Platelet Estimate (Normal) Hypogranular Platelets Giant Platelets Platelet Satelliting RBC Morphology Polychromasia Hypochromasia Poikilocytosis Basophilic Stippling Anisocytosis Microcytosis Macrocytosis Spherocytes Pappenheimer Bodies Sickle Cells Target Cells Tear Drop Cells Ovalocytes Stomatocytes [place] Bodies Echinocytes Acanthocytes (Spur) Rouleaux RBC Agglutinates Schistocytes Peripher Smr Path Cons Sezary Cell VBG pH (7.36-7.41) VBG pCO2 (38-50) mmHg VBG pO2 mmHg VBG HCO3 mmol/L VBG O2 Saturation % VBG Base Excess mEq/L Sodium (136-145) mmol/L Potassium (3.5-5.1) mmol/L Chloride (98-107) mmol/L Carbon Dioxide (21-32) mmol/L Anion Gap (3-11) BUN (6-23) mg/dl Creatinine (0.6-1.4) mg/dl Est Cr Clr Drug Dosing Est GFR ( Amer) ml/min Est GFR (Non-Af Amer) ml/min BUN/Creatinine Ratio (10-20) Glucose (70-99(Fasting)) mg/dl POC Glucose > 600 H* (70-99) mg/dl Osmolality (280-300) mOsm/kg Lactate (0.4-2.0) mmol/L Uric Acid (2.6-7.2) mg/dl Calcium (8.5-10.1) mg/dl Phosphorus (2.5-4.9) mg/dl Magnesium (1.7-2.4) mg/dl Total Bilirubin (0.2-1.0) mg/dl AST (13-39) U/L ALT (7-52) U/L Alkaline Phosphatase (34-104) U/L Troponin I High Sens (0-20) pg/ml Total Protein (6.0-8.3) gm/dl Albumin (3.4-5.0) gm/dl Globulin (2.5-4.0) gm/dl Albumin/Globulin Ratio (0.9-2) Vitamin B12 (180-914) pg/ml Folate (>5.38) ng/ml TSH (0.300-4.500) uIu/ml Urine Color Urine Appearance (Clear) Urine pH (4.5-7.5) Ur Specific [place] (1.000-1.030) Urine Protein (Negative) Urine Glucose (UA) (Negative) Urine Ketones (Negative) Urine Blood (Negative) Urine Nitrite (Negative) Urine Bilirubin (Negative) Urine Urobilinogen (Negative) Ur Leukocyte Esterase (Negative) Urine WBC (Auto) (0-5) /hpf Urine RBC (Auto) (0-4) /hpf U Hyaline Cast (Auto) (0-5) /lpf U Epithel Cells (Auto) (0-5) /lpf Urine Bacteria (Auto) (Negative) Urine Osmolality 542 (500-800) mOsm/kg SARS-CoV-2, RNA, NAAT NEGATIVE (NEGATIVE) Blood Parasites ID 12/17/22 12/17/22 12/17/22 Range/Units 20:43 20:43 21:09 WBC Cancelled (4.8-10.8) K/ul RBC Cancelled (4.70-6.10) M/uL Hgb Cancelled (14.0-18.0) g/dl Hct Cancelled (42.0-52.0) % MCV Cancelled (80.0-100.0) fL MCH Cancelled (25.0-34.0) pg MCHC Cancelled (32.0-36.0) g/dL RDW Std Deviation Cancelled (36.4-46.3) fL RDW Coeff of Micah Cancelled (11.5-14.5) % Plt Count Cancelled (130-400) K/uL MPV Cancelled (9.4-12.4) fL Immature Gran % (Auto) Cancelled % Neut % (Auto) Cancelled % Lymph % (Auto) Cancelled % [place] % (Auto) Cancelled % Eos % (Auto) Cancelled % Baso % (Auto) Cancelled % Neut # (Auto) Cancelled (1.40-6.50) K/uL Lymph # (Auto) Cancelled (1.2-3.4) K/uL [place] # (Auto) Cancelled (0.11-0.59) K/uL Eos # (Auto) Cancelled (0-0.50) K/uL Baso # (Auto) Cancelled (0-0.2) K/uL Immature Gran # (Auto) Cancelled (0.01-0.20) K/uL Absolute Nucleated RBC Cancelled Nucleated RBC % (auto) Cancelled Neutrophils % (Manual) Cancelled Band Neutrophils % Cancelled Lymphocytes % (Manual) Cancelled Prolymphocyte % Cancelled Reactive Lymphs % (Man) Cancelled Monocytes % (Manual) Cancelled Eosinophils % (Manual) Cancelled Basophils % (Manual) Cancelled Metamyelocytes % (Man) Cancelled Myelocytes % (Man) Cancelled Promyelocytes % (Man) Cancelled Blast Cells % (Manual) Cancelled Plasma Cell % (Manual) Cancelled Other Cells % Cancelled Nucleated RBC % Cancelled Neutrophils # (Manual) Cancelled Band Neutrophils # Cancelled Total Absolute Neuts Cancelled Lymphocytes # (Manual) Cancelled Prolymphocyte # Cancelled Reactive Lymphs # Cancelled Total Abs Lymphocytes Cancelled Monocytes # (Manual) Cancelled Eosinophils # (Manual) Cancelled Basophils # (Manual) Cancelled Metamyelocytes # (Man) Cancelled Myelocytes # (Manual) Cancelled Promyelocytes # (Man) Cancelled Blast Cells # (Man) Cancelled Plasma Cell # (Manual) Cancelled Other Cells # Cancelled Nucleated RBCs # (Man) Cancelled Hypersegmented Neuts Cancelled Hyposegmented Neuts Cancelled Hypogranular Neuts Cancelled Large Granular Lymphs Cancelled # Lrg Granular Lymphs Cancelled Hairy Cells Cancelled Smudge Cells Cancelled Toxic Granulation Cancelled Toxic Vacuolation Cancelled Dohle Bodies Cancelled Ava Rods Cancelled Platelet Estimate Cancelled (Normal) Hypogranular Platelets Cancelled Giant Platelets Cancelled Platelet Satelliting Cancelled RBC Morphology Cancelled Polychromasia Cancelled Hypochromasia Cancelled Poikilocytosis Cancelled Basophilic Stippling Cancelled Anisocytosis Cancelled Microcytosis Cancelled Macrocytosis Cancelled Spherocytes Cancelled Pappenheimer Bodies Cancelled Sickle Cells Cancelled Target Cells Cancelled Tear Drop Cells Cancelled Ovalocytes Cancelled Stomatocytes Cancelled [place] Bodies Cancelled Echinocytes Cancelled Acanthocytes (Spur) Cancelled Rouleaux Cancelled RBC Agglutinates Cancelled Schistocytes Cancelled Peripher Smr Path Cons Cancelled Sezary Cell Cancelled VBG pH (7.36-7.41) VBG pCO2 (38-50) mmHg VBG pO2 mmHg VBG HCO3 mmol/L VBG O2 Saturation % VBG Base Excess mEq/L Sodium 127 L (136-145) mmol/L Potassium 5.6 H (3.5-5.1) mmol/L Chloride 92 L (98-107) mmol/L Carbon Dioxide 14 L (21-32) mmol/L Anion Gap 21 H (3-11) BUN 97 H (6-23) mg/dl Creatinine 1.45 H (0.6-1.4) mg/dl Est Cr Clr Drug Dosing 51.2 Est GFR ( Amer) 54.2 ml/min Est GFR (Non-Af Amer) 46.8 ml/min BUN/Creatinine Ratio 66.9 H (10-20) Glucose 673 H* (70-99(Fasting)) mg/dl POC Glucose (70-99) mg/dl Osmolality (280-300) mOsm/kg Lactate 2.4 H* (0.4-2.0) mmol/L Uric Acid (2.6-7.2) mg/dl Calcium 9.1 (8.5-10.1) mg/dl Phosphorus (2.5-4.9) mg/dl Magnesium (1.7-2.4) mg/dl Total Bilirubin (0.2-1.0) mg/dl AST (13-39) U/L ALT (7-52) U/L Alkaline Phosphatase (34-104) U/L Troponin I High Sens (0-20) pg/ml Total Protein (6.0-8.3) gm/dl Albumin (3.4-5.0) gm/dl Globulin (2.5-4.0) gm/dl Albumin/Globulin Ratio (0.9-2) Vitamin B12 (180-914) pg/ml Folate (>5.38) ng/ml TSH (0.300-4.500) uIu/ml Urine Color Urine Appearance (Clear) Urine pH (4.5-7.5) Ur Specific Codorus (1.000-1.030) Urine Protein (Negative) Urine Glucose (UA) (Negative) Urine Ketones (Negative) Urine Blood (Negative) Urine Nitrite (Negative) Urine Bilirubin (Negative) Urine Urobilinogen (Negative) Ur Leukocyte Esterase (Negative) Urine WBC (Auto) (0-5) /hpf Urine RBC (Auto) (0-4) /hpf U Hyaline Cast (Auto) (0-5) /lpf U Epithel Cells (Auto) (0-5) /lpf Urine Bacteria (Auto) (Negative) Urine Osmolality (500-800) mOsm/kg SARS-CoV-2, RNA, NAAT (NEGATIVE) Blood Parasites ID Cancelled 12/17/22 12/17/22 Range/Units 21:09 21:30 WBC (4.8-10.8) K/ul RBC (4.70-6.10) M/uL Hgb (14.0-18.0) g/dl Hct (42.0-52.0) % MCV (80.0-100.0) fL MCH (25.0-34.0) pg MCHC (32.0-36.0) g/dL RDW Std Deviation (36.4-46.3) fL RDW Coeff of Micah (11.5-14.5) % Plt Count (130-400) K/uL MPV (9.4-12.4) fL Immature Gran % (Auto) % Neut % (Auto) % Lymph % (Auto) % [place] % (Auto) % Eos % (Auto) % Baso % (Auto) % Neut # (Auto) (1.40-6.50) K/uL Lymph # (Auto) (1.2-3.4) K/uL [place] # (Auto) (0.11-0.59) K/uL Eos # (Auto) (0-0.50) K/uL Baso # (Auto) (0-0.2) K/uL Immature Gran # (Auto) (0.01-0.20) K/uL Absolute Nucleated RBC Nucleated RBC % (auto) Neutrophils % (Manual) Band Neutrophils % Lymphocytes % (Manual) Prolymphocyte % Reactive Lymphs % (Man) Monocytes % (Manual) Eosinophils % (Manual) Basophils % (Manual) Metamyelocytes % (Man) Myelocytes % (Man) Promyelocytes % (Man) Blast Cells % (Manual) Plasma Cell % (Manual) Other Cells % Nucleated RBC % Neutrophils # (Manual) Band Neutrophils # Total Absolute Neuts Lymphocytes # (Manual) Prolymphocyte # Reactive Lymphs # Total Abs Lymphocytes Monocytes # (Manual) Eosinophils # (Manual) Basophils # (Manual) Metamyelocytes # (Man) Myelocytes # (Manual) Promyelocytes # (Man) Blast Cells # (Man) Plasma Cell # (Manual) Other Cells # Nucleated RBCs # (Man) Hypersegmented Neuts Hyposegmented Neuts Hypogranular Neuts Large Granular Lymphs # Lrg Granular Lymphs Hairy Cells Smudge Cells Toxic Granulation Toxic Vacuolation Dohle Bodies Ava Rods Platelet Estimate (Normal) Hypogranular Platelets Giant Platelets Platelet Satelliting RBC Morphology Polychromasia Hypochromasia Poikilocytosis Basophilic Stippling Anisocytosis Microcytosis Macrocytosis Spherocytes Pappenheimer Bodies Sickle Cells Target Cells Tear Drop Cells Ovalocytes Stomatocytes [place] Bodies Echinocytes Acanthocytes (Spur) Rouleaux RBC Agglutinates Schistocytes Peripher Smr Path Cons Sezary Cell VBG pH 7.32 L (7.36-7.41) VBG pCO2 32 L (38-50) mmHg VBG pO2 45 mmHg VBG HCO3 17 mmol/L VBG O2 Saturation 77.4 % VBG Base Excess -8.5 mEq/L Sodium (136-145) mmol/L Potassium (3.5-5.1) mmol/L Chloride (98-107) mmol/L Carbon Dioxide (21-32) mmol/L Anion Gap (3-11) BUN (6-23) mg/dl Creatinine (0.6-1.4) mg/dl Est Cr Clr Drug Dosing Est GFR ( Amer) ml/min Est GFR (Non-Af Amer) ml/min BUN/Creatinine Ratio (10-20) Glucose (70-99(Fasting)) mg/dl POC Glucose 526 H* (70-99) mg/dl Osmolality (280-300) mOsm/kg Lactate (0.4-2.0) mmol/L Uric Acid (2.6-7.2) mg/dl Calcium (8.5-10.1) mg/dl Phosphorus (2.5-4.9) mg/dl Magnesium (1.7-2.4) mg/dl Total Bilirubin (0.2-1.0) mg/dl AST (13-39) U/L ALT (7-52) U/L Alkaline Phosphatase (34-104) U/L Troponin I High Sens (0-20) pg/ml Total Protein (6.0-8.3) gm/dl Albumin (3.4-5.0) gm/dl Globulin (2.5-4.0) gm/dl Albumin/Globulin Ratio (0.9-2) Vitamin B12 (180-914) pg/ml Folate (>5.38) ng/ml TSH (0.300-4.500) uIu/ml Urine Color Urine Appearance (Clear) Urine pH (4.5-7.5) Ur Specific Codorus (1.000-1.030) Urine Protein (Negative) Urine Glucose (UA) (Negative) Urine Ketones (Negative) Urine Blood (Negative) Urine Nitrite (Negative) Urine Bilirubin (Negative) Urine Urobilinogen (Negative) Ur Leukocyte Esterase (Negative) Urine WBC (Auto) (0-5) /hpf Urine RBC (Auto) (0-4) /hpf U Hyaline Cast (Auto) (0-5) /lpf U Epithel Cells (Auto) (0-5) /lpf Urine Bacteria (Auto) (Negative) Urine Osmolality (500-800) mOsm/kg SARS-CoV-2, RNA, NAAT (NEGATIVE) Blood Parasites ID Administered Medications Sodium Chloride (Nss) 500 mls @ 80 mls/hr IV .Q6H15M [facility] Stop: 01/16/23 20:14 Last Infusion: 12/17/22 21:02 Dose: 0 mls/hr Documented By: Admin: 12/17/22 20:33 Dose: 80 mls/hr Documented By: RSL Insulin Human Regular 250 (units/ Sodium Chloride) 250 mls @ 9 mls/hr IV .Q24H [facility]; Protocol Stop: 01/16/23 20:14 Last Admin: 12/17/22 20:33 Dose: 9 unit/hr, 9 mls/hr Documented By: AZAR Co-signed By: CARL Insulin Aspart (Insulin Aspart Per Unit) 0 units SC ACHS SKIP Stop: 01/16/23 20:59 Last Admin: 12/17/22 21:04 Dose: Not Given Documented By: RSKirstin Discontinued Medications Calcium Gluconate () 1,000 mg in 60 mls @ 240 mls/hr IV NOW STA Stop: 12/17/22 19:50 Last Infusion: 12/17/22 20:20 Dose: 0 mls/hr Documented By: RSKirstin Admin: 12/17/22 20:01 Dose: 240 mls/hr Documented By: AZAR Sodium Chloride (Nss 1000ml) 250 mls @ 999 mls/hr IV .Q16M ONE Stop: 12/17/22 20:09 Last Infusion: 12/17/22 20:26 Dose: 0 mls/hr Documented By: Admin: 12/17/22 20:02 Dose: 999 mls/hr Documented By: AZAR Lactated Ringer's (Lr) 1,000 mls @ 999 mls/hr IV .Q1H1M ONE Stop: 12/17/22 21:41 Last Infusion: 12/17/22 21:56 Dose: 0 mls/hr Documented By: Admin: 12/17/22 21:02 Dose: 999 mls/hr Documented By: AZAR Lactated Ringer's (Lr) 1,000 mls @ 999 mls/hr IV .Q1H1M ONE Stop: 12/17/22 21:42 Last Admin: 12/17/22 21:56 Dose: 999 mls/hr Documented By: AZAR Insulin Human Regular (Novolin-R Insulin Per Unit Charge) 10 units IV NOW STA Stop: 12/17/22 19:37 Last Admin: 12/17/22 20:01 Dose: 10 units Documented By: AZAR Co-signed By: CARL Miscellaneous (Dka Goal Range 150-250 Mg/Dl) 1 each N/A ONE ONE Stop: 12/17/22 20:16 Last Admin: 12/17/22 21:03 Dose: Not Given Documented By: AZAR Discharge Plan Visit Data Chief Complaint: Leg Weakness, Bilateral Stated Complaint: LOSS OF BALANCE ED Provider: Avel Fischer Discharge Problem: Malignant neoplasm of spine, Acute hyperkalemia, DKA (diabetic ketoacidosis), BRIAN (acute kidney injury), Weakness Patient Disposition: Being Evaluated by Hospitalist Discharge Instructions Interventions: ED Discharge Assessment Last Done: 12/17/22 22:20 DKA (diabetic ketoacidosis) Qualifiers: Diabetes mellitus type: other specified (including SAL) Diabetes mellitus complication detail: without coma Qualified Code(s): E13.10 - Other specified diabetes mellitus with ketoacidosis without coma
[2022-12-17 19:24] LABS: Appearance Urine Clear (Clear); Bacteria Urine Automated Negative (Negative); Bilirubin Urine Negative (Negative); Blood Urine 1+ (Negative); Cast Urine Automated 0 /lpf (0-5); Color Urine Yellow; Epithelial Cell Urine Auto 0-5 /lpf (0-5); Glucose Urine UA 3+ (Negative); Ketones Urine 1+ (Negative); Leukocyte Esterase Urine Negative (Negative); Nitrite Urine Negative (Negative); Protein Urine Negative (Negative); RBC Urine Automated 0-4 /hpf (0-4); Specific Gravity Urine 1.027 (1.000-1.030); Urobilinogen Urine Negative (Negative)
[2022-12-17 19:26] LABS: Troponin I High Sensitivity 43.3 pg/ml (0-20)
[2022-12-17 19:35] LABS: Alanine Aminotransferase 124 U/L (7-52); Albumin Globulin Ratio 1.7 (0.9-2); Albumin Level 4.3 gm/dl (3.4-5.0); Alkaline Phosphatase 583 U/L (34-104); Anion Gap 22 (3-11); Aspartate Aminotransferase 65 U/L (13-39); BUN Creatinine Ratio 59.1 (10-20); Bilirubin,Total 1.3 mg/dl (0.2-1.0); Blood Urea Nitrogen 97 mg/dl (6-23); Calcium 8.9 mg/dl (8.5-10.1); Carbon Dioxide 16 mmol/L (21-32); Chloride 85 mmol/L (98-107); Est GFR (African American) 46.7 ml/min; Est GFR (Non-African American) 40.3 ml/min; Globulin 2.5 gm/dl (2.5-4.0); Glucose 807 mg/dl (70-99(Fasting)); Magnesium 3.9 mg/dl (1.7-2.4); Potassium 6.4 mmol/L (3.5-5.1); Sodium 123 mmol/L (136-145); Total Protein 6.8 gm/dl (6.0-8.3)
[2022-12-17] MEDS ORDERED: CALCIUM GLUCONATE 1,000 MG/60 ML BAG IV STA (19:36)
[2022-12-17] MEDS ORDERED: NovoLIN-R INSULIN PER UNIT CHARGE IV STA (19:36)
[2022-12-17 19:46] LABS: Basophils # (auto) 0.04 K/uL (0-0.2); Basophils % (auto) 0.2 %; Hemoglobin 15.3 g/dl (14.0-18.0); Immature Granulocytes # (auto) 0.33 K/uL (0.01-0.20); Immature Granulocytes % (auto) 1.7 %; Lymphocytes # (auto) 0.34 K/uL (1.2-3.4); Lymphocytes % (auto) 1.8 %; Mean Corpuscular Hemoglobin 32.8 pg (25.0-34.0); Mean Corpuscular Hgb Conc 32.6 g/dL (32.0-36.0); Mean Corpuscular Volume 100.9 fL (80.0-100.0); Mean Platelet Volume 12.5 fL (9.4-12.4); Monocytes # (auto) 1.39 K/uL (0.11-0.59); Monocytes % (auto) 7.3 %; Neutrophils # (auto) 16.89 K/uL (1.40-6.50); Platelet Count 14 K/uL (130-400); Platelet Estimate Signific. Decreased (Normal); RDW Coefficient of Variation 13.2 % (11.5-14.5); RDW Standard Deviation 49.4 fL (36.4-46.3); Red Blood Count 4.66 M/uL (4.70-6.10); White Blood Count 18.99 K/ul (4.8-10.8)
[2022-12-17] MEDS ORDERED: SODIUM CHLORIDE 0.9% 1000ML 250 ML IV ONE (19:54)
[2022-12-17 20:05] LABS: Phosphorus 7.2 mg/dl (2.5-4.9); Uric Acid 12.8 mg/dl (2.6-7.2)
[2022-12-17] MEDS ORDERED: DKA GOAL RANGE 150-250 mg/dl ONE (20:15)
[2022-12-17] MEDS ORDERED: SODIUM CHLORIDE 0.9% 500 ML IV SCH (20:15)
[2022-12-17] MEDS ORDERED: CARBOHYDRATES FOR HYPOGLYCEMIA PO PRN (20:15)
[2022-12-17] MEDS ORDERED: GLUCOSE 10 TAB/TUBE PO PRN (20:15)
[2022-12-17] MEDS ORDERED: GLUCAGON FOR INJ 1 MG VIAL SQ PRN (20:15)
[2022-12-17] MEDS ORDERED: GLUCOSE 40% GEL 15 GM TUBE PO PRN (20:15)
[2022-12-17] MEDS ORDERED: DEXTROSE 50% 50 ML SYRINGE IV PRN (20:15)
[2022-12-17] MEDS ORDERED: INSULIN REGULAR 250 UNITS in SODIUM CHLORIDE 0.9% 247.5 ML IV SCH (20:15)
[2022-12-17] MEDS ORDERED: Patient's HEIGHT &/or WEIGHT Needed SCH (20:30)
[2022-12-17] MEDS ORDERED: LACTATED RINGER'S 1,000 ML IV ONE ×2 (20:41→20:42)
[2022-12-17] MEDS: INSULIN ASPART PER UNIT CHARGE SC SCH (21:04)
--- NOTE | 2022-12-17 21:14 | History & Physical Report ---
Patient seen and examined. I agree with the history and physical and the plan as outlined in the resident's note. Date of Service December 17, 2022 Assessment & Plan (1) DKA (diabetic ketoacidosis): Plan: -Admission labs and clinical history consistent with DKA/HHS, likely triggered by steroid-induced hyperglycemia from recent IV + oral steroid therapy for metastatic cancer -Holding home steroid at present -Continue NSS IVF repletion, insulin infusion -BMP q4h -Glucose 800+ on admission, downtrending to 500s -NPO for now, initiate diet as BSG continues to downtrend -Switch IVF to D5+1/2 NSS once BSG < 250 -Transition to SQ insulin with AG gap closure- 22 on admission -Admitted to ICU (2) BRIAN (acute kidney injury): Plan: -Cr 1.64 on admission -Likely pre-renal cause- excessive volume depletion from urination 2/2 DKA -Continue IVF repletion -Trend BMP (3) Acute hyperkalemia: Plan: -K 6.4 on admission -EKG without significant ST change or arrhythmia- remains sinus on monitor -Likely secondary to DKA/HHS -Calcium gluconate given for cardioprotection in ER -Continue IVF + insulin as above -Trend BMP (4) Thrombocytopenia: Plan: -Plt 14 on admission -Coagulation panel including fibrinogen pending -Pt VSS with no signs of bleeding on exam- low suspicion for DIC. No associated anemia noted on ER labs -Peripheral smear, B12, folate and repeat CBC pending -Transfuse Plts < 10 -Hematology/oncology consult placed (5) Hyperphosphatemia: Plan: -Phosphorus 7.2 on admission -Likely secondary to DKA/HHS with associated BRIAN -Trend phosphorus (6) Hypermagnesemia: Plan: -Mg 3.9 on admission -Likely secondary to DKA/HHS with associated BRIAN -Pt currently without clinical signs of Mg toxicity -Trend Mg (7) Elevated troponin: Plan: -Troponin 43 on admission -EKG without acute ST change, pt without ACS symptoms -Likely demand ischemia from acute illness -Trend to peak (8) Hyponatremia: Plan: -Na 123 on admission -Likely pseudohyponatremia from hyperglycemia, serum osmolality 326 -Continue IVF repletion -Trend BMP (9) Leukocytosis: Plan: -WBC 19 on admission -Low suspicion for active infection at present as pt is afebrile. WBC elevation may be demargination from acute DKA/HHS in background of known cancer -MRSA nares, lactate pending -Trend CBC (10) Pulmonary embolism: Plan: -Noted evidence of b/l PE with LE DVTs on last admission, currently on Eliquis -Holding blood thinners in setting of profound thrombocytopenia (11) Metastatic cancer: Plan: -Extensive metastasis to liver and spine with unknown primary source though potentially pancreas per previous imaging from last hospitalization -Following with [facility] oncology- receiving radiation and chemotherapy as outpatient -Oncology consulted (12) Weakness: Plan: -Weakness in setting of extensive metastasis -PT/OT ordered (13) Severe obstructive sleep apnea: Plan: -BIPAP Hs (14) Hypertension: Plan: -Holding home antihypertensives for hypotension -Resume as able as BP tolerates (15) Diabetes mellitus, type 2: Plan: -A1c 7.3% in 09/2022 -As above, exacerbation from steroid therapy leading to DKA/HHS and treatment as above (16) Hyperlipidemia: Plan: -Holding home statin given thrombocytopenia (17) Transaminitis: Plan: -AST 65, ALT 124 on admission -Likely reactive to current acute illness/DKA in setting of known liver metastasis -Trend CMP Plan FENGI: NPO, IVF Code status: Full DVT ppx: SCDs, defer chemoprophylaxis in setting of thrombocytopenia Isolation: None Dispo: ICU History of Present Illness Chief Complaint: Ambulatory dysfunction Primary Care Provider: Kiel Rome, DO 77 yo M with PMH DM2, HTN, HLD, ZAID on CPAP, rostate cancer, pulmonary emboli with b/l LE DVTs on apixaban, recent diagnosis of 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 Pt was admitted at [facility] from 12/10 to 12/12 for workup of suspected metastatic cancer. He was started on IV steroids and treatment initiated with palliative radiation of cervical spine. Since discharge, pt has continued oral steroids. Over past few days he reports more frequent urination, thirst and increased water intake along with progressive ambulatory dysfunction and dizziness starting yesterday, denies falls. Earlier today after chemotherapy appointment he was leaving the office and nearly fell to the ground due to sudden dizziness. He was then referred to the ER. Pt arrived to ER with BP 90s-120s/60s-70s, HR 100s-110s, afebrile. Initial labs significant for WBC 19, Plts 14, Na 123, K 6.4, AG 22, BUN 97, Cr 1.64, glucose 807, serum osmolality 347, phosphate 7.2, magnesium 3.9, AST 65, ALT 124, ALP 583, troponin 43, UA with ketones and glucose. ER MD discussed case with oncologist who recommended repeat CBC, peripheral smear and B12, folate. ER interventions include IVF repletion, calcium gluconate, insulin infusion. On my evaluation, pt notes feeling thirsty and states he has had progressive fatigue over past few days. He is hoarse of voice and says this began after his radiation treatments. Currently denies abdominal pain, chest pain, dyspnea or dizziness, blurry vision, or other acute complaints. Allergies Allergy/AdvReac Type Severity Reaction Status Date / Time typhoid vaccine Allergy Intermediate shaking Verified 12/17/22 18:59 Home Medications Medication Instructions Recorded Confirmed Type ibuprofen 200 mg capsule 400 - 600 mg PO Q6H PRN Pain 12/05/19 12/17/22 History BiPap Machine #1 ea 02/22/20 12/17/22 Rx BiPap Supplies #1 ea 03/17/22 12/17/22 Rx metformin 1,000 mg tablet 1,000 mg PO BID #180 tabs 07/08/22 12/17/22 Rx tadalafil 20 mg tablet 20 mg PO UD PRN sexual activity 08/07/22 12/17/22 Rx #30 tabs blood sugar diagnostic ([employer] #100 ea 08/18/22 12/17/22 Rx Verio test strips) lancets 30 gauge ([employer] #100 ea 08/18/22 12/17/22 Rx Lancets) lisinopril 10 1 tab PO HS #90 tabs 09/02/22 12/17/22 Rx mg-hydrochlorothiazide 12.5 mg tablet duloxetine 30 mg capsule,delayed 30 mg PO DAILY #90 caps 10/08/22 12/17/22 Rx release empagliflozin 25 mg tablet 25 mg PO DAILY #90 tabs 11/17/22 12/17/22 Rx gabapentin 100 mg capsule 100 mg PO TID #90 caps 12/08/22 12/17/22 Rx methocarbamol 750 mg tablet 750 mg PO Q8H PRN back spasm #15 12/08/22 12/17/22 Rx tabs atorvastatin 40 mg tablet 40 mg PO HS 12/10/22 12/17/22 History diclofenac sodium 1 % topical gel 4 g topical QID PRN Pain 12/10/22 12/17/22 History (Voltaren Arthritis Pain) apixaban 5 mg tablet (Eliquis) 5 mg PO BID #70 tabs 12/12/22 12/17/22 Rx oxycodone 5 mg tablet 5 mg PO Q6H PRN pain, severe #30 12/12/22 12/17/22 Rx tabs dexamethasone 4 mg tablet 4 mg PO TID #120 tabs 12/15/22 12/17/22 Rx Past Med/Surg History Medical History Diabetes mellitus, type 2 DIET CONTROLLED Hearing difficulty History of colon polyps History of prostate cancer 2010--sx only Hyperlipidemia Hypertension Osteoarthritis Restless leg syndrome Sleep apnea BIPAP Temporomandibular joint disorder Trigger finger, left ring finger Surgical History History of carpal tunnel surgery of right wrist History of cataract surgery RT/LEFT Hx of colonoscopy 01/2021 repeat 3 yrs Hx of prostatectomy 2010 - Hx of vasectomy Family History Father Malignant neoplasm of colon Hypertension Family hx of colon cancer Sister Malignant neoplasm of colon Family hx of colon cancer Grandfather Myocardial infarction paternal Lung cancer maternal Other No family history of adverse response to anesthesia Denies family history of Ovarian cancer Prostate cancer Breast cancer Social History Smoking Status: Never smoker Second Hand Exposure: No (father smoked); Hx Alcohol Use: Yes Alcohol type: beer, wine and hard liquor Alcohol Intake Frequency Comment: daily Hx Substance Use: No Preferred Language: [place]serratian Communication Ability: Effective Visual Impairment: Limited Hearing Ability: Use of Hearing Aid Grant Administrator Required: No Beliefs That Will Affect Care: None marital status: Current Living Situation: Spouse current occupational status: retired How many Children do You have: 3 Feels Safe at Home: Yes Childhood Exposure to Second-Hand Smoke: Yes caffeine: Yes (rarely; drinks mostly decaf ) Dental Care, Regularly: No Physical Activity Frequency: 1-2 Times per Week Seatbelt Use: always Sunscreen Use: No Assistive Devices: Glasses Review of Systems Review of Systems: Per HPI Physical Exam Physical Exam: General: frail, tired-appearing elderly male, no acute distress, hoarse voice HEENT: PERRLA, EOMI, no JVD, dry mucous membranes, no conjunctival injection CV: Regular rhythm, tachycardic, normal S1 and S2, no murmurs Resp: CTAB, unlabored respirations Abd: soft, nontender, nondistended, no rebound or guarding MSK: frail, reduced muscle bulk of b/l UE and LE Neuro: AOx3, no focal motor or sensory deficits beyond baseline of RUE Skin: no rashes, warm and dry, no ecchymoses or easy bruising noted Ext: no peripheral edema, intact pedal pulses b/l Results & Data Results & Data ([facility]) Vital Signs (Past 12 Hours) Vital Signs Temp Pulse Resp BP Pulse Ox O2 Del Method 12/17/22 21:00 114 H 20 96 12/17/22 21:00 91/64 L 12/17/22 20:50 108 H 16 97 12/17/22 20:40 110 H 11 L 96 12/17/22 20:30 104 H 22 96 12/17/22 20:30 125/73 12/17/22 20:20 111 H 22 95 12/17/22 20:10 105 H 21 95 12/17/22 20:10 112/66 12/17/22 20:01 107 H 20 96 12/17/22 20:01 88/63 L 12/17/22 20:00 102 H 18 95 12/17/22 19:50 98 H 19 94 12/17/22 19:44 105 H 20 96 12/17/22 19:44 125/78 12/17/22 19:55 106 H 12/17/22 18:33 96 Room Air 12/17/22 17:46 36.8 C 93 H 20 99/64 L 98 Room Air Resident Activity Tracking Resident Involvement: Resident Care Provided Care Provided: Adult Hospital Medicine (1) DKA (diabetic ketoacidosis) Diabetes mellitus complication detail: without coma Diabetes mellitus type: other specified (including SAL) Qualified Code(s): E13.10 - Other specified diabetes mellitus with ketoacidosis without coma (10) Pulmonary embolism Acute cor pulmonale presence: unspecified Chronicity: acute Pulmonary embolism type: unspecified Qualified Code(s): I26.99 - Other pulmonary embolism without acute cor pulmonale (11) Metastatic cancer Area of secondary neoplastic involvement: unspecified site Qualified Code(s): C79.9 - Secondary malignant neoplasm of unspecified site (14) Hypertension Hypertension type: essential hypertension Qualified Code(s): I10 - Essential (primary) hypertension (16) Hyperlipidemia Hyperlipidemia type: pure hypercholesterolemia Qualified Code(s): E78.00 - Pure hypercholesterolemia, unspecified; E78.0 - Pure hypercholesterolemia
[2022-12-17 21:37] LABS: BUN Creatinine Ratio 66.9 (10-20); Calcium 9.1 mg/dl (8.5-10.1); Creatinine Clr Calc Pharmacy 51.2 ml/min; Est GFR (African American) 54.2 ml/min; Est GFR (Non-African American) 46.8 ml/min; Potassium 5.6 mmol/L (3.5-5.1)
--- NOTE | 2022-12-17 21:41 | Critical Care Consultation ---
Date of Consultation December 17, 2022 Assessment & Plan (1) DKA (diabetic ketoacidosis): (2) Elevated troponin: (3) Hypermagnesemia: (4) Thrombocytopenia: (5) Hyperphosphatemia: (6) Acute hyperkalemia: (7) Transaminitis: (8) Leukocytosis: (9) Pulmonary embolism: (10) Metastatic cancer: (11) Malignant neoplasm of spine: (12) Severe obstructive sleep apnea: (13) History of prostate cancer: Plan Reason Critically Ill: Patient presents with multiple electrolyte derrangments, mild DKA, and thrombocytopenia. Correct electrolyte derangements, Insulin infusion for DKA, volume replete. Neuro - Metastatic cervical cancer [facility] ICU: Negative - noted contraction of fingers- chronic- likely related to cervical lesions - MRI perfored earlier this month noteablly negative for metastatic disease - No nuerological deficits at this time and without headache- although platelet count is low will hold on head CT Cardiac -Hypovolemia, elevated HScTNI, Tachycardia - hypovolemia secondary to increased glucose level - tachycardia resolved following 2 liter crystalloid - continue with ringers solution - no acute ischemic changes- likely type II demand trend ECG and HScTNI - no ECG changes with hyperkalemia - supportive care Respiratory - Severe ZAID, HX of PE - Continue home BIPAP - CXR reviewed no opacities, no fevers, no sputum and afebrile- don't feel at this time any infectious pulmonary process - hold DOAC GI - Metastatic carcinoma- liver, poss. pancreas - unknown primary - defer to hematology/oncology RENAL/LYTES - AGAP Metabolic Acidosis, BRIAN, multiple electrolyte derangements - AGAP acidosis secondary to DKA- trend lactate - Electrolytes with hyperkalemia, hyper mag, hyperphosphatemia, and normal calcium- as calcium is normal unlikely any component of TLS- follow with volume resuscitation - Metabolic acidosis - IVF, Insulin infusion - correction of this will lower potassium- patient making urine - Renal function improving following his hydration - Elevated LFTS, HX of prostate adenocarcinoma - no hematuria, follow strict MILLIE - Liver metas known had biopsy- may indicate worsening of disease vs. acute phase reactant- resuscitate and follow- consider RUQUS in am if needed ENDO - DKA - DKA in the setting of likely steroid use- Hold Decadron - Mild at this time- likely will correct with IVF resuscitation and minimal insulin requirement - no infectious cause noted at this time - replace intravascular volume, replete electrolytes, add glucose to IVF when BG at 250 - q4 hour BMP and PH HEME - Luekocytosis, Thrombocytopenia, Chronic anticoagulation - Leukocytosis has been present since his discharge last week- likely with some component of hypovolemia as well- follow - Thrombocytopenia- unsure of etiology at this time- however he is without a nemia making MAHA unlikely, no shcistos reported on manual- peripheral smear pending - INR is elevated to 1.4- with history of Liver mets - Fibrinogen- low- likely at this time a picture of possibly chronic DIC in setting of cancer- as he is actively not bleeding will not administer any cryo or platelets- if further decrease in am admin 6pack of platelets ID - No acute needs LINES/IV ACCESS - PIV Continue use of these lines DVT PROPHYLAXIS - SCDS - hold DOAC and other agents in setting of thrombocytopenia DISPO - ICU until GAP closes and insulin drip off I have personally spent 45 minutes of critical care time in the direct management of this patient. This is a life/limb threatening event. This includes time spent evaluating patient, direct bedside care, chart review, placing order s, interpretation of diagnostic studies, discussion with consultants, patient, and family members, as well as other required patient management activities. This time is exclusive of all separately billable procedures, and separate from and in addition to any other critical care service time. Thank you for allowing us to participate in the care of this patient. Please refer to my attending physician's documentation for any further recommendations. History of Present Illness Reason for Consultation: DKA, thrombocytopenia Requesting Physician: Juan Miguel Beavers Attending Physician: Juan Miguel Beavers History of Present Illness 77 YOM with medical history of: DMII, HLD, HTN, RLS, ZAID, PE (on Apixaban), prostate cancer. Patient is currently undergoing workup and palliative radiation to cervical for metastatic cancer with unknown primary. Metastatic disease to spine and liver. MRI brain 12/11/22 Patient was initiated on Decadron therapy during previous admission this week. Patient presents to EMD today following oncology appointment where he was noted to be having difficulty ambulating. Patient states that he has been urinating allot over the past few days and trying to keep hydrated but was just too much to keep up with. He also notes that yesterday into today he was walking like "he was drunk". He reports that he has been feeling well other than the weakness and urination. Denies any fevers/chills or cough with sputum production. No abdominal pain or n/v. His urine is negative for infection in [facility]. In the [facility] the patient had routine labs drawn which reveal hyperglycemia, multiple electrolyte derangements, AGAP, and HCO3 16, as well as thrombocytopenia. He was initially given 250ml of saline and initiated on insulin infusion. [facility] Dr. Fischer did discuss case with his Oncologist regarding his thrombocytopenia, no current recs to transfuse, repeat and send peripheral smear. His electrolyte derangements are notable however he is with normal calcium, so unlikely any TLS. His Thrombocytopenia is without anemia so as well unlikely any component of a MAHA. Awaiting COAGS as well as PH and lactate. Discussed case with [facility] phsyician and admitting Medicine team. Will admit to ICU for electrolyte derangements and hyperglycemia/DKA therapy. Requested 2L of crystalloid and recheck labs. COVID: NEGATIVE on admission Patient is Full CODE. CONSULTATIONS: HEME/ONC Allergies Allergy/AdvReac Type Severity Reaction Status Date / Time typhoid vaccine Allergy Intermediate shaking Verified 12/17/22 18:59 Home Medications Medication Instructions Recorded Confirmed Type ibuprofen 200 mg capsule 400 - 600 mg PO Q6H PRN Pain 12/05/19 12/17/22 History BiPap Machine #1 ea 02/22/20 12/17/22 Rx BiPap Supplies #1 ea 03/17/22 12/17/22 Rx metformin 1,000 mg tablet 1,000 mg PO BID #180 tabs 07/08/22 12/17/22 Rx tadalafil 20 mg tablet 20 mg PO UD PRN sexual activity 08/07/22 12/17/22 Rx #30 tabs blood sugar diagnostic (OneTouch #100 ea 08/18/22 12/17/22 Rx Verio test strips) lancets 30 gauge (OneTouch Delica #100 ea 08/18/22 12/17/22 Rx Lancets) lisinopril 10 1 tab PO HS #90 tabs 09/02/22 12/17/22 Rx mg-hydrochlorothiazide 12.5 mg tablet duloxetine 30 mg capsule,delayed 30 mg PO DAILY #90 caps 10/08/22 12/17/22 Rx release empagliflozin 25 mg tablet 25 mg PO DAILY #90 tabs 11/17/22 12/17/22 Rx gabapentin 100 mg capsule 100 mg PO TID #90 caps 12/08/22 12/17/22 Rx methocarbamol 750 mg tablet 750 mg PO Q8H PRN back spasm #15 12/08/22 12/17/22 Rx tabs atorvastatin 40 mg tablet 40 mg PO HS 12/10/22 12/17/22 History diclofenac sodium 1 % topical gel 4 g topical QID PRN Pain 12/10/22 12/17/22 History (Voltaren Arthritis Pain) apixaban 5 mg tablet (Eliquis) 5 mg PO BID #70 tabs 12/12/22 12/17/22 Rx oxycodone 5 mg tablet 5 mg PO Q6H PRN pain, severe #30 12/12/22 12/17/22 Rx tabs dexamethasone 4 mg tablet 4 mg PO TID #120 tabs 12/15/22 12/17/22 Rx Patient History Medical History Diabetes mellitus, type 2 DIET CONTROLLED Hearing difficulty History of colon polyps History of prostate cancer 2010--sx only Hyperlipidemia Hypertension Osteoarthritis Restless leg syndrome Sleep apnea BIPAP Temporomandibular joint disorder Trigger finger, left ring finger Surgical History History of carpal tunnel surgery of right wrist History of cataract surgery RT/LEFT Hx of colonoscopy 01/2021 repeat 3 yrs Hx of prostatectomy 2010 - Hx of vasectomy Family History Father Malignant neoplasm of colon Hypertension Family hx of colon cancer Sister Malignant neoplasm of colon Family hx of colon cancer Grandfather Myocardial infarction paternal Lung cancer maternal Other No family history of adverse response to anesthesia Denies family history of Ovarian cancer Prostate cancer Breast cancer Social History Smoking Status: Never smoker Second Hand Exposure: No (father smoked); Hx Alcohol Use: Yes Alcohol type: beer, wine and hard liquor Alcohol Intake Frequency Comment: daily Hx Substance Use: No Preferred Language: Yemeni Communication Ability: Effective Visual Impairment: Limited Hearing Ability: Use of Hearing Aid 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 Beliefs That Will Affect Care: None marital status: Current Living Situation: Spouse current occupational status: retired How many Children do You have: 3 Feels Safe at Home: Yes Safety Concerns: Feels Safe At This Time Childhood Exposure to Second-Hand Smoke: Yes caffeine: Yes (rarely; drinks mostly decaf ) Dental Care, Regularly: No Physical Activity Frequency: 1-2 Times per Week Seatbelt Use: always Sunscreen Use: No Assistive Devices: BiPap Review of Systems Review of Systems: REVIEW OF SYSTEMS: Constitutional: No fever, sweats or chills Eyes: No diplopia, no worsening or blurred vision ENT: normal hearing, no trouble swallowing Respiratory: No cough, sputum, dyspnea at rest or on exertion Cardiovascular: No chest pain, tightness or palpitations Abdomen: (+) urinary frequency, No pain, nausea, vomiting, diarrhea or constipation, Denies any dark stools, bleeding gums, easy bruising, or hematuria Musculoskeletal: (+) joint pain, abnormal flexion of fingers, calf pain, swelling Neurologic: (+) weakness, and balance problems, Psychiatric: No anxiety or depression Skin: No rash or itch Physical Exam Physical Exam: PHYSICAL EXAM: General: awake, alert, no apparent distress Head: Normocephalic, atraumatic ENT: PERRLA, EOMI, no pharyngeal exudate, mucous membranes dry Neuro: AAO x 3, speech clear and appropriate, strength intact bilaterally 5/5, sensation intact and equal all extremities and dermatomes, no pronator drift, has to manually extend his 4th/5th fingers which has been ongoing prior to admission 12/12, Chest: equal rise and fall of the chest, no accessory muscle use, no heaves or thrills, Clear to auscultation, on room air, Cardiac: Regular rate and rhythm, telemetry reviewed- sinus tachycardia, skin warm dry, cap refill <3 seconds, peripheral pulses +2 no JVD, no murmur, no edema GI: NABS x 4 quadrants, soft, nontender to palpation, no rebound, guarding or tenderness : Spontaneously voiding, no pain, no CVA tenderness, Extremities: Normal inspection, no peripheral edema or erythema, calfs nontender to palpation Psych: Normal mood and affect Skin: no rash or erythema Results & Data Results & Data ([facility]) Vital Signs (Past 12 Hours) Vital Signs Temp Pulse Resp BP Pulse Ox O2 Del Method 12/17/22 21:00 114 H 20 96 12/17/22 21:00 91/64 L 12/17/22 20:50 108 H 16 97 12/17/22 20:40 110 H 11 L 96 12/17/22 20:30 104 H 22 96 12/17/22 20:30 125/73 12/17/22 20:20 111 H 22 95 12/17/22 20:10 105 H 21 95 12/17/22 20:10 112/66 12/17/22 20:01 107 H 20 96 12/17/22 20:01 88/63 L 12/17/22 20:00 102 H 18 95 12/17/22 19:50 98 H 19 94 12/17/22 19:44 105 H 20 96 12/17/22 19:44 125/78 12/17/22 19:55 106 H 12/17/22 18:33 96 Room Air 12/17/22 17:46 36.8 C 93 H 20 99/64 L 98 Room Air Laboratory Results Abnormal lab results 12/17/22 12/17/22 12/17/22 Range/Units 18:37 18:37 18:37 WBC 18.99 H (4.8-10.8) K/ul RBC 4.66 L (4.70-6.10) M/uL MCV 100.9 H (80.0-100.0) fL RDW Std Deviation 49.4 H (36.4-46.3) fL Plt Count 14 L* (130-400) K/uL MPV 12.5 H (9.4-12.4) fL Neut # (Auto) 16.89 H (1.40-6.50) K/uL Lymph # (Auto) 0.34 L (1.2-3.4) K/uL [place] # (Auto) 1.39 H (0.11-0.59) K/uL Immature Gran # (Auto) 0.33 H (0.01-0.20) K/uL Platelet Estimate Signific. Decreased L (Normal) VBG pH (7.36-7.41) VBG pCO2 (38-50) mmHg Sodium 123 L (136-145) mmol/L Potassium 6.4 H* (3.5-5.1) mmol/L Chloride 85 L (98-107) mmol/L Carbon Dioxide 16 L (21-32) mmol/L Anion Gap 22 H (3-11) BUN 97 H (6-23) mg/dl Creatinine 1.64 H (0.6-1.4) mg/dl BUN/Creatinine Ratio 59.1 H (10-20) Glucose 807 H* (70-99(Fasting)) mg/dl POC Glucose (70-99) mg/dl Osmolality 347 H (280-300) mOsm/kg Lactate (0.4-2.0) mmol/L Uric Acid 12.8 H (2.6-7.2) mg/dl Phosphorus 7.2 H (2.5-4.9) mg/dl Magnesium 3.9 H (1.7-2.4) mg/dl Total Bilirubin 1.3 H (0.2-1.0) mg/dl AST 65 H (13-39) U/L ALT 124 H (7-52) U/L Alkaline Phosphatase 583 H (34-104) U/L Troponin I High Sens 43.3 H (0-20) pg/ml Vitamin B12 (180-914) pg/ml Urine Glucose (UA) (Negative) Urine Ketones (Negative) Urine Blood (Negative) 12/17/22 12/17/22 12/17/22 Range/Units 18:37 19:06 20:20 WBC (4.8-10.8) K/ul RBC (4.70-6.10) M/uL MCV (80.0-100.0) fL RDW Std Deviation (36.4-46.3) fL Plt Count (130-400) K/uL MPV (9.4-12.4) fL Neut # (Auto) (1.40-6.50) K/uL Lymph # (Auto) (1.2-3.4) K/uL [place] # (Auto) (0.11-0.59) K/uL Immature Gran # (Auto) (0.01-0.20) K/uL Platelet Estimate (Normal) VBG pH (7.36-7.41) VBG pCO2 (38-50) mmHg Sodium (136-145) mmol/L Potassium (3.5-5.1) mmol/L Chloride (98-107) mmol/L Carbon Dioxide (21-32) mmol/L Anion Gap (3-11) BUN (6-23) mg/dl Creatinine (0.6-1.4) mg/dl BUN/Creatinine Ratio (10-20) Glucose (70-99(Fasting)) mg/dl POC Glucose > 600 H* (70-99) mg/dl Osmolality (280-300) mOsm/kg Lactate (0.4-2.0) mmol/L Uric Acid (2.6-7.2) mg/dl Phosphorus (2.5-4.9) mg/dl Magnesium (1.7-2.4) mg/dl Total Bilirubin (0.2-1.0) mg/dl AST (13-39) U/L ALT (7-52) U/L Alkaline Phosphatase (34-104) U/L Troponin I High Sens (0-20) pg/ml Vitamin B12 1276 H (180-914) pg/ml Urine Glucose (UA) 3+ H (Negative) Urine Ketones 1+ H (Negative) Urine Blood 1+ H (Negative) 12/17/22 12/17/22 12/17/22 Range/Units 20:43 21:09 21:09 WBC (4.8-10.8) K/ul RBC (4.70-6.10) M/uL MCV (80.0-100.0) fL RDW Std Deviation (36.4-46.3) fL Plt Count (130-400) K/uL MPV (9.4-12.4) fL Neut # (Auto) (1.40-6.50) K/uL Lymph # (Auto) (1.2-3.4) K/uL [place] # (Auto) (0.11-0.59) K/uL Immature Gran # (Auto) (0.01-0.20) K/uL Platelet Estimate (Normal) VBG pH 7.32 L (7.36-7.41) VBG pCO2 32 L (38-50) mmHg Sodium 127 L (136-145) mmol/L Potassium 5.6 H (3.5-5.1) mmol/L Chloride 92 L (98-107) mmol/L Carbon Dioxide 14 L (21-32) mmol/L Anion Gap 21 H (3-11) BUN 97 H (6-23) mg/dl Creatinine 1.45 H (0.6-1.4) mg/dl BUN/Creatinine Ratio 66.9 H (10-20) Glucose 673 H* (70-99(Fasting)) mg/dl POC Glucose (70-99) mg/dl Osmolality (280-300) mOsm/kg Lactate 2.4 H* (0.4-2.0) mmol/L Uric Acid (2.6-7.2) mg/dl Phosphorus (2.5-4.9) mg/dl Magnesium (1.7-2.4) mg/dl Total Bilirubin (0.2-1.0) mg/dl AST (13-39) U/L ALT (7-52) U/L Alkaline Phosphatase (34-104) U/L Troponin I High Sens (0-20) pg/ml Vitamin B12 (180-914) pg/ml Urine Glucose (UA) (Negative) Urine Ketones (Negative) Urine Blood (Negative) 12/17/22 Range/Units 21:30 WBC (4.8-10.8) K/ul RBC (4.70-6.10) M/uL MCV (80.0-100.0) fL RDW Std Deviation (36.4-46.3) fL Plt Count (130-400) K/uL MPV (9.4-12.4) fL Neut # (Auto) (1.40-6.50) K/uL Lymph # (Auto) (1.2-3.4) K/uL [place] # (Auto) (0.11-0.59) K/uL Immature Gran # (Auto) (0.01-0.20) K/uL Platelet Estimate (Normal) VBG pH (7.36-7.41) VBG pCO2 (38-50) mmHg Sodium (136-145) mmol/L Potassium (3.5-5.1) mmol/L Chloride (98-107) mmol/L Carbon Dioxide (21-32) mmol/L Anion Gap (3-11) BUN (6-23) mg/dl Creatinine (0.6-1.4) mg/dl BUN/Creatinine Ratio (10-20) Glucose (70-99(Fasting)) mg/dl POC Glucose 526 H* (70-99) mg/dl Osmolality (280-300) mOsm/kg Lactate (0.4-2.0) mmol/L Uric Acid (2.6-7.2) mg/dl Phosphorus (2.5-4.9) mg/dl Magnesium (1.7-2.4) mg/dl Total Bilirubin (0.2-1.0) mg/dl AST (13-39) U/L ALT (7-52) U/L Alkaline Phosphatase (34-104) U/L Troponin I High Sens (0-20) pg/ml Vitamin B12 (180-914) pg/ml Urine Glucose (UA) (Negative) Urine Ketones (Negative) Urine Blood (Negative) Medications Administered Sodium Chloride (Nss) 500 mls @ 80 mls/hr IV .Q6H15M [facility] Stop: 01/16/23 20:14 Last Infusion: 12/17/22 21:02 Dose: 0 mls/hr Documented By: Admin: 12/17/22 20:33 Dose: 80 mls/hr Documented By: AZAR Insulin Human Regular 250 (units/ Sodium Chloride) 250 mls @ 9 mls/hr IV .Q24H [facility]; Protocol Stop: 01/16/23 20:14 Last Admin: 12/17/22 20:33 Dose: 9 unit/hr, 9 mls/hr Documented By: AZAR Co-signed By: CARL Insulin Aspart (Insulin Aspart Per Unit) 0 units SC ACHS [facility] Stop: 01/16/23 20:59 Last Admin: 12/17/22 21:04 Dose: Not Given Documented By: AZAR Discontinued Medications Calcium Gluconate () 1,000 mg in 60 mls @ 240 mls/hr IV NOW STA Stop: 12/17/22 19:50 Last Infusion: 12/17/22 20:20 Dose: 0 mls/hr Documented By: Admin: 12/17/22 20:01 Dose: 240 mls/hr Documented By: AZAR Sodium Chloride (Nss 1000ml) 250 mls @ 999 mls/hr IV .Q16M ONE Stop: 12/17/22 20:09 Last Infusion: 12/17/22 20:26 Dose: 0 mls/hr Documented By: Admin: 12/17/22 20:02 Dose: 999 mls/hr Documented By: AZAR Lactated Ringer's (Lr) 1,000 mls @ 999 mls/hr IV .Q1H1M ONE Stop: 12/17/22 21:41 Last Infusion: 12/17/22 21:56 Dose: 0 mls/hr Documented By: Admin: 12/17/22 21:02 Dose: 999 mls/hr Documented By: AZAR Lactated Ringer's (Lr) 1,000 mls @ 999 mls/hr IV .Q1H1M ONE Stop: 12/17/22 21:42 Last Admin: 12/17/22 21:56 Dose: 999 mls/hr Documented By: AZAR Insulin Human Regular (Novolin-R Insulin Per Unit Charge) 10 units IV NOW STA Stop: 12/17/22 19:37 Last Admin: 12/17/22 20:01 Dose: 10 units Documented By: AZAR Co-signed By: CARL Miscellaneous (Dka Goal Range 150-250 Mg/Dl) 1 each N/A ONE ONE Stop: 12/17/22 20:16 Last Admin: 12/17/22 21:03 Dose: Not Given Documented By: AZAR ECG Additional Comments: Normal sinus rhythm Left axis deviation Pulmonary disease pattern Abnormal ECG When compared with ECG of 10-DEC-2022 20:39, Right bundle branch block is no longer Present Borderline criteria for Anterior infarct are no longer Present Coding Level of Care Code 59500 CRITICAL CARE 1ST 30-74M Diagnoses DKA (diabetic ketoacidosis) E13.10 Diabetes mellitus complication detail: without coma Diabetes mellitus type: other specified (including SAL) Elevated troponin R77.8 Hypermagnesemia E83.41 Thrombocytopenia D69.6 Hyperphosphatemia E83.39 Acute hyperkalemia E87.5 Transaminitis R74.01 Leukocytosis D72.829 Pulmonary embolism I26.99 Acute cor pulmonale presence: unspecified Chronicity: acute Pulmonary embolism type: unspecified Metastatic cancer C79.9 Area of secondary neoplastic involvement: unspecified site Malignant neoplasm of spine C41.2 Severe obstructive sleep apnea G47.33 History of prostate cancer Z85.46 (1) DKA (diabetic ketoacidosis) Diabetes mellitus complication detail: without coma Diabetes mellitus type: other specified (including SAL) Qualified Code(s): E13.10 - Other specified diabetes mellitus with ketoacidosis without coma (9) Pulmonary embolism Acute cor pulmonale presence: unspecified Chronicity: acute Pulmonary embolism type: unspecified Qualified Code(s): I26.99 - Other pulmonary embolism without acute cor pulmonale (10) Metastatic cancer Area of secondary neoplastic involvement: unspecified site Qualified Code(s): C79.9 - Secondary malignant neoplasm of unspecified site
[2022-12-17 21:52] LABS: Base Excess VBG -8.5 mEq/L; HCO3 VBG 17 mmol/L; Oxygen Saturation VBG 77.4 %; PCO2 VBG 32 mmHg (38-50); PO2 VBG 45 mmHg; pH VBG 7.32 (7.36-7.41)
[2022-12-17] MEDS ORDERED: SODIUM CHLORIDE 0.9% 1000ML 1,000 ML IV SCH (22:42)
[2022-12-17] MEDS ORDERED: PHARMACY GLYCEMIC MGMT CONSULT PRN (22:58)
[2022-12-17] MEDS ORDERED: LACTATED RINGER'S 1,000 ML IV SCH (23:00)
[2022-12-17 23:34] LABS: Fibrinogen 136 mg/dl (184-400); INR 1.4 (0.9-1.1); Partial Thromboplastin Ratio 0.9; Partial Thromboplastin Time 25.5 Seconds (21.0-31.0); Prothrombin Time 14.6 Seconds (9.0-12.0)
[2022-12-18] MEDS: D5W AND 1/2NSS + 20MEQ KCL 20 MEQ/1,000 ML BAG IV SCH ×2 (00:24→12:44)
[2022-12-18 00:40] LABS: Base Excess VBG 0.5 mEq/L; HCO3 VBG 25 mmol/L; Oxygen Saturation VBG 77.4 %; PCO2 VBG 37 mmHg (38-50); PO2 VBG 42 mmHg; pH VBG 7.43 (7.36-7.41)
[2022-12-18 01:02] LABS: BUN Creatinine Ratio 70.1 (10-20); Calcium 8.9 mg/dl (8.5-10.1); Creatinine Clr Calc Pharmacy 63.4 ml/min; Est GFR (African American) 70.3 ml/min; Est GFR (Non-African American) 60.6 ml/min; Magnesium 3.3 mg/dl (1.7-2.4); Phosphorus 4.3 mg/dl (2.5-4.9); Potassium 4.9 mmol/L (3.5-5.1)
[2022-12-18 01:08] LABS: Fibrinogen 138 mg/dl (184-400)
[2022-12-18 01:26] LABS: Basophils # (auto) 0.03 K/uL (0-0.2); Basophils % (auto) 0.2 %; Eosinophils # (auto) 0.02 K/uL (0-0.50); Eosinophils % (auto) 0.1 %; Hematocrit (blood only) 39.5 % (42.0-52.0); Hemoglobin 14.1 g/dl (14.0-18.0); Immature Granulocytes # (auto) 0.28 K/uL (0.01-0.20); Immature Granulocytes % (auto) 1.5 %; Lymphocytes # (auto) 0.48 K/uL (1.2-3.4); Lymphocytes % (auto) 2.6 %; Mean Corpuscular Hemoglobin 34.2 pg (25.0-34.0); Mean Corpuscular Hgb Conc 35.7 g/dL (32.0-36.0); Mean Corpuscular Volume 95.9 fL (80.0-100.0); Monocytes # (auto) 1.99 K/uL (0.11-0.59); Neutrophils # (auto) 15.34 K/uL (1.40-6.50); Neutrophils % (auto) 84.6 %; Platelet Count 11 K/uL (130-400); Platelet Estimate Signific. Decreased (Normal); RDW Coefficient of Variation 12.8 % (11.5-14.5); RDW Standard Deviation 44.8 fL (36.4-46.3); Red Blood Count 4.12 M/uL (4.70-6.10); White Blood Count 18.14 K/ul (4.8-10.8)
[2022-12-18] MEDS ORDERED: PENDING D5 1/2NS+20mEq KCL IVF SCH (02:00)
--- NOTE | 2022-12-18 05:56 | Consultation ---
Date of Consultation December 18, 2022 Assessment & Plan (1) Thrombocytopenia: Abrupt onset of thrombocytopenia suggests against marrow infiltration with his malignancy. Folate B12 levels are stable and he still has more than adequate red cell and white cell production and thus no suggestions of any long marrow dysfunction. He does not appear to be septic though certainly has some potential indicators of DIC like picture. Primary differential would be between a malignancy induced TTP/DIC like picture versus heparin-induced thrombocytopenia. The improvement in renal function is quite encouraging and while it does not exclude a TTP like microangiopathic process, certainly moves this little bit further down on the differential. I would also wonder why with a malignancy that has almost certainly been present for some weeks we are only just now seeing this occur and in such abrupt fashion if there is a specific [id number] relationship. With regards to the possibility of heparin-induced thrombocytopenia, he is 7 days out from the administration of that agent and certainly within the appropr iate time window, the fall in platelet count is more than what we would typically see but does not exclude the diagnosis, he has no new thrombosis so far as we can see, but there is only an intermediate alternative suggestion of other possibilities. This would give him 2 points based on the timing, one- point based on the degree of fall, and one-point on the equivocal presence of another cause with an overall "4T" score of 4. This does put him in the intermediate range of probability. Usual approach for 4T score of 4 above would be empiric nonheparin anticoagulation pending laboratory confirmation. Obviously that is somewhat problematic with a platelet count of less than 20,000. We also generally avoid platelet transfusions in the specific context of HIT although BLADE guidelines suggest that platelets may be considered "with active bleeding or at high bleeding risk." While I cannot offer that it is strictly evidence-based, I would suggest we consider very low-dose argatroban (initial dose 0.25 mcg/kg/min) monitoring his PTT and targeting only a modest bump from his baseline to approximately 30. I do not believe that we have in-house capability for HIT testing but will see if we can facilitate rapid turnaround. If he does develop any signs of bleeding, would give platelet transfusions try to get platelet counts up to 20-25,000 at least, if platelet transfusions are given it would be critical to check a platelet count 30 to 45 minutes after the infusion to assess immediate response. I explicitly and at length spoke with the patient about his current situation. I discussed that there may be several possibilities for the following platelet counts in the pursuing the strategy of anticoagulation even at low-dose could result in life-threatening bleeding. 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 Even if he does not have HIT, low-dose argatroban suggested with respect to that potential diagnosis at least gives us some hedge against additional episodes of thrombosis albeit with a not insignificant bleeding risk concomitantly. We will need to reassess and update our approach to pulmonary embolism treatment as we see what his platelet counts do and get results back with regards to the poss ible HIT (3) Metastatic cancer: Await formal more specific definition of the origin of his cancer. At this time supportive therapy to improve his acute hyperglycemia/BRIAN and as well to specifically approach the above issues will take precedence. As soon as he is recently clinically stable it would be important to resume the radiation to his spine so that we can complete that in anticipation of transition to systemic treatment Plan 1. Suggest starting low-dose argatroban for potential diagnosis of HIT pending laboratory confirmation. Dose of 0.25 mcg/kg/min with a target PTT of approximately 30-35 for now. Agatroban has rapid offset and if there is any bleeding can suspend infusion and consider platelet transfusions for support. Severe bleeding might also warrant cryoprecipitate and fresh frozen plasma infusion. 2. We will work with the laboratory to see if we can facilitate a rapid turnaround HIT screen 3. Ongoing acute management of BRIAN and hyperglycemia as per the hospitalist and intensive care teams 4. As his acute situation stabilizes can hopefully resume his palliative cervical spine radiation 5. May be worthwhile to modulate the steroid dosing down further to lessen the exacerbation of his hyperglycemia but we will need to watch for rebound inflammation and discomfort in his right upper extremity/cervical spine areas. 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 This led to a 12/10/2022 admission where he was found to have widespread skeletal, pulmonary, and liver metastases and pulmonary emboli. 12/09/2022 MR C-spine 1. Marrow replacement within the C7 and T3 vertebral bodies, as described above. This is suggestive of a neoplastic process and worrisome for metastatic disease. Multiple myeloma could appear similar although is considered less likely. Oncology consultation is recommended. This finding will be called/faxed to the ordering provider at time of dictation. 2. Associated right vertebral soft tissue at the C6-C7 level results in severe narrowing of the right C6-C7 and to a lesser extent C7-T1 neural foramen and likely accounts for the patient's symptoms. Minimal epidural extension of suspected tumor at this level without significant central canal stenosis. 3. Multilevel degenerative changes, as described above. 12/10/2022 CT C/A/P 1. Multiple scattered subcentimeter pulmonary nodules [up to 8 mm] consistent with metastatic disease. 2. Multiple hypodense lesions seen throughout the liver with the largest measuring 11 cm. This also likely represents metastatic disease. 3. Subcentimeter scattered lytic lesions within the spine and pelvis which may represent metastatic disease. 4. Subtle right paravertebral soft tissue density at the C7 level which likely corresponds to the MRI finding and is concerning for metastatic disease. 5. Mildly enlarged and partially necrotic periportal and a right external iliac lymph node [18 mm]consistent with residual disease. 6. Cystic lesions within the uncinate process and tail of the pancreas [cluster 5.2 cm]. These are indeterminate but may represent separate cystic neoplasms of the pancreas rather than metastatic disease. 7. Probable small subsegmental bilateral lower lobe pulmonary emboli. 12/11/2022 MR brain No acute abnormalities. He was treated with heparin transitioning to apixaban during that hospitalization. He was discharged on Decadron 4 mg 4 times daily which had been decreased to 3 times daily by radiation oncology earlier this week. Liver biopsy was performed on 12/11/2022 with final report pending but preliminary report does indicate an aggressive adenocarcinoma, not prostate cancer, most consistent with gastric, biliary, or pancreatic origin. He has been receiving acute radiation to the cervical spine lesion with some stabilization of his discomfort and function in that arm We note that his platelet count was normal during the previous admission Allergies Allergy/AdvReac Type Severity Reaction Status Date / Time typhoid vaccine Allergy Intermediate shaking Verified 12/17/22 18:59 Home Medications Medication Instructions Recorded Confirmed Type ibuprofen 200 mg capsule 400 - 600 mg PO Q6H PRN Pain 12/05/19 12/17/22 History BiPap Machine #1 ea 02/22/20 12/17/22 Rx BiPap Supplies #1 ea 03/17/22 12/17/22 Rx metformin 1,000 mg tablet 1,000 mg PO BID #180 tabs 07/08/22 12/17/22 Rx tadalafil 20 mg tablet 20 mg PO UD PRN sexual activity 08/07/22 12/17/22 Rx #30 tabs blood sugar diagnostic (OneTouch #100 ea 08/18/22 12/17/22 Rx Verio test strips) lancets 30 gauge (OneTouch Delica #100 ea 08/18/22 12/17/22 Rx Lancets) lisinopril 10 1 tab PO HS #90 tabs 09/02/22 12/17/22 Rx mg-hydrochlorothiazide 12.5 mg tablet duloxetine 30 mg capsule,delayed 30 mg PO DAILY #90 caps 10/08/22 12/17/22 Rx release empagliflozin 25 mg tablet 25 mg PO DAILY #90 tabs 11/17/22 12/17/22 Rx gabapentin 100 mg capsule 100 mg PO TID #90 caps 12/08/22 12/17/22 Rx methocarbamol 750 mg tablet 750 mg PO Q8H PRN back spasm #15 12/08/22 12/17/22 Rx tabs atorvastatin 40 mg tablet 40 mg PO HS 12/10/22 12/17/22 History diclofenac sodium 1 % topical gel 4 g topical QID PRN Pain 12/10/22 12/17/22 History (Voltaren Arthritis Pain) apixaban 5 mg tablet (Eliquis) 5 mg PO BID #70 tabs 12/12/22 12/17/22 Rx oxycodone 5 mg tablet 5 mg PO Q6H PRN pain, severe #30 12/12/22 12/17/22 Rx tabs dexamethasone 4 mg tablet 4 mg PO TID #120 tabs 12/15/22 12/17/22 Rx Patient History Medical History Diabetes mellitus, type 2 DIET CONTROLLED Hearing difficulty History of colon polyps History of prostate cancer 2010--sx only Hyperlipidemia Hypertension Osteoarthritis Restless leg syndrome Sleep apnea BIPAP Temporomandibular joint disorder Trigger finger, left ring finger Surgical History History of carpal tunnel surgery of right wrist History of cataract surgery RT/LEFT Hx of colonoscopy 01/2021 repeat 3 yrs Hx of prostatectomy 2010 - Hx of vasectomy Family History Father Malignant neoplasm of colon Hypertension Family hx of colon cancer Sister Malignant neoplasm of colon Family hx of colon cancer Grandfather Myocardial infarction paternal Lung cancer maternal Other No family history of adverse response to anesthesia Denies family history of Ovarian cancer Prostate cancer Breast cancer Social History Smoking Status: Never smoker Second Hand Exposure: No (father smoked); Hx Alcohol Use: Yes Alcohol type: beer, wine and hard liquor Alcohol Intake Frequency Comment: daily Hx Substance Use: No Preferred Language: [place]an Communication Ability: Effective Visual Impairment: Limited Hearing Ability: Use of Hearing Aid Mortgage Accounting Clerk Required: No Beliefs That Will Affect Care: None marital status: Current Living Situation: Spouse current occupational status: retired How many Children do You have: 3 Feels Safe at Home: Yes Safety Concerns: Feels Safe At This Time Childhood Exposure to Second-Hand Smoke: Yes caffeine: Yes (rarely; drinks mostly decaf ) Dental Care, Regularly: No Physical Activity Frequency: 1-2 Times per Week Seatbelt Use: always Sunscreen Use: No Assistive Devices: BiPap Physical Exam Physical Exam: VSS Patient is alert and appropriate. Speech is fluent, cognitive function seems completely intact and he is capable of good medical decision-making No icterus, no dramatic peripheral pathologic adenopathy Lungs seem currently clear Heart rhythm is regular and not tachycardic, he has no pathological murmur Abdomen is soft with minimal epigastric tenderness but no clear mass organomegaly. No dramatic bruising or petechiae Neurologic status seems stable. He has some mild persistent weakness in all 4 extremities somewhat more marked in the right upper extremity but still with good community health specialist strength there. No dramatic cerebellar signs, cranial nerves seem intact. There is no meningismus Results & Data ([facility]) Vital Signs (Past 12 Hours) Vital Signs Temp Pulse Pulse Resp BP BP Pulse Ox 12/18/22 03:50 92 H 18 12/18/22 03:40 93 H 20 12/18/22 03:30 91 H 0 L 12/18/22 03:20 87 0 L 12/18/22 03:10 89 22 12/18/22 03:00 90 21 12/18/22 03:00 107/58 L 12/18/22 02:50 90 21 12/18/22 02:40 90 22 12/18/22 02:30 115 H 17 12/18/22 02:20 104 H 18 12/18/22 02:10 101 H 28 H 12/18/22 02:00 100 H 20 12/18/22 01:50 96 H 19 12/18/22 01:40 102 H 19 12/18/22 01:30 100 H 17 12/18/22 01:20 99 H 19 12/18/22 01:10 96 H 20 12/18/22 01:00 93 H 18 12/18/22 00:50 90 21 12/18/22 00:40 88 14 12/18/22 00:30 101 H 11 L 12/18/22 00:20 100 H 21 12/18/22 00:10 93 H 15 12/18/22 00:00 91 H 26 H 12/18/22 00:00 123/64 12/17/22 23:50 89 19 12/17/22 23:40 86 12 12/17/22 23:30 89 15 97 12/17/22 23:20 85 14 94 12/17/22 23:10 91 H 23 96 12/17/22 23:00 90 17 96 12/17/22 23:00 112/81 12/18/22 03:00 36.6 C 12/18/22 02:44 22 98 12/17/22 22:42 99 H 12/18/22 00:45 93 H 21 97 12/17/22 23:00 36.6 C 87 16 112/81 96 12/17/22 23:01 12/17/22 22:50 92 H 15 90 12/17/22 22:40 86 13 92 12/17/22 22:39 123/64 12/17/22 22:39 86 14 92 12/17/22 22:10 91 H 17 98 12/17/22 22:00 88 22 99 12/17/22 21:50 102 H 20 94 12/17/22 21:40 103 H 14 96 12/17/22 21:30 101 H 19 97 12/17/22 21:30 128/85 12/17/22 21:20 104 H 26 H 97 12/17/22 21:10 113 H 20 97 12/17/22 21:00 114 H 20 96 12/17/22 21:00 91/64 L 12/17/22 20:50 108 H 16 97 12/17/22 20:40 110 H 11 L 96 12/17/22 20:30 104 H 22 96 12/17/22 20:30 125/73 12/17/22 20:20 111 H 22 95 12/17/22 20:10 105 H 21 95 12/17/22 20:10 112/66 12/17/22 20:01 107 H 20 96 12/17/22 20:01 88/63 L 12/17/22 20:00 102 H 18 95 12/17/22 19:50 98 H 19 94 12/17/22 19:44 105 H 20 96 12/17/22 19:44 125/78 12/17/22 19:55 106 H 12/17/22 18:33 96 O2 Del Method FiO2 12/18/22 03:50 12/18/22 03:40 12/18/22 03:30 12/18/22 03:20 12/18/22 03:10 12/18/22 03:00 12/18/22 03:00 12/18/22 02:50 12/18/22 02:40 12/18/22 02:30 12/18/22 02:20 12/18/22 02:10 12/18/22 02:00 12/18/22 01:50 12/18/22 01:40 12/18/22 01:30 12/18/22 01:20 12/18/22 01:10 12/18/22 01:00 12/18/22 00:50 12/18/22 00:40 12/18/22 00:30 12/18/22 00:20 12/18/22 00:10 12/18/22 00:00 12/18/22 00:00 12/17/22 23:50 12/17/22 23:40 12/17/22 23:30 12/17/22 23:20 12/17/22 23:10 12/17/22 23:00 12/17/22 23:00 12/18/22 03:00 12/18/22 02:44 30 12/17/22 22:42 12/18/22 00:45 30 12/17/22 23:00 Room Air 12/17/22 23:01 30 12/17/22 22:50 12/17/22 22:40 12/17/22 22:39 12/17/22 22:39 12/17/22 22:10 12/17/22 22:00 12/17/22 21:50 12/17/22 21:40 12/17/22 21:30 12/17/22 21:30 12/17/22 21:20 12/17/22 21:10 12/17/22 21:00 12/17/22 21:00 12/17/22 20:50 12/17/22 20:40 12/17/22 20:30 12/17/22 20:30 12/17/22 20:20 12/17/22 20:10 12/17/22 20:10 12/17/22 20:01 12/17/22 20:01 12/17/22 20:00 12/17/22 19:50 12/17/22 19:44 12/17/22 19:44 12/17/22 19:55 12/17/22 18:33 Room Air Laboratory Results Laboratory Results - last 24 hr 12/17/22 12/17/22 12/17/22 18:37 18:37 18:37 WBC 18.99 H RBC 4.66 L Hgb 15.3 Hct 47.0 MCV 100.9 H MCH 32.8 MCHC 32.6 RDW Std Deviation 49.4 H RDW Coeff of Micah 13.2 Plt Count 14 L* MPV 12.5 H Immature Gran % (Auto) 1.7 Neut % (Auto) 89.0 Lymph % (Auto) 1.8 [place] % (Auto) 7.3 Eos % (Auto) 0.0 Baso % (Auto) 0.2 Neut # (Auto) 16.89 H Lymph # (Auto) 0.34 L [place] # (Auto) 1.39 H Eos # (Auto) 0.00 Baso # (Auto) 0.04 Immature Gran # (Auto) 0.33 H Absolute Nucleated RBC Nucleated RBC % (auto) Neutrophils % (Manual) Band Neutrophils % Lymphocytes % (Manual) Prolymphocyte % Reactive Lymphs % (Man) Monocytes % (Manual) Eosinophils % (Manual) Basophils % (Manual) Metamyelocytes % (Man) Myelocytes % (Man) Promyelocytes % (Man) Blast Cells % (Manual) Plasma Cell % (Manual) Other Cells % Nucleated RBC % Neutrophils # (Manual) Band Neutrophils # Total Absolute Neuts Lymphocytes # (Manual) Prolymphocyte # Reactive Lymphs # Total Abs Lymphocytes Monocytes # (Manual) Eosinophils # (Manual) Basophils # (Manual) Metamyelocytes # (Man) Myelocytes # (Manual) Promyelocytes # (Man) Blast Cells # (Man) Plasma Cell # (Manual) Other Cells # Nucleated RBCs # (Man) Hypersegmented Neuts Hyposegmented Neuts Hypogranular Neuts Large Granular Lymphs # Lrg Granular Lymphs Hairy Cells Smudge Cells Toxic Granulation Toxic Vacuolation Dohle Bodies Ava Rods Platelet Estimate Signific. Decreased L Hypogranular Platelets Giant Platelets Platelet Satelliting RBC Morphology Polychromasia Hypochromasia Poikilocytosis Basophilic Stippling Anisocytosis Microcytosis Macrocytosis Spherocytes Pappenheimer Bodies Sickle Cells Target Cells Tear Drop Cells Ovalocytes Stomatocytes De Souza-[place] Bodies Echinocytes Acanthocytes (Spur) Rouleaux RBC Agglutinates Schistocytes Peripher Smr Path Cons Pending Sezary Cell PT INR APTT PTT Ratio Fibrinogen VBG pH VBG pCO2 VBG pO2 VBG HCO3 VBG O2 Saturation VBG Base Excess Sodium 123 L Potassium 6.4 H* Chloride 85 L Carbon Dioxide 16 L Anion Gap 22 H BUN 97 H Creatinine 1.64 H Est Cr Clr Drug Dosing Not Reportable Est GFR ( Amer) 46.7 Est GFR (Non-Af Amer) 40.3 BUN/Creatinine Ratio 59.1 H Glucose 807 H* POC Glucose Osmolality Lactate Uric Acid 12.8 H Calcium 8.9 Phosphorus 7.2 H Magnesium 3.9 H Total Bilirubin 1.3 H AST 65 H ALT 124 H Alkaline Phosphatase 583 H Troponin I High Sens 43.3 H Total Protein 6.8 Albumin 4.3 Globulin 2.5 Albumin/Globulin Ratio 1.7 Vitamin B12 Folate TSH 1.259 Urine Color Urine Appearance Urine pH Ur Specific [place] Urine Protein Urine Glucose (UA) Urine Ketones Urine Blood Urine Nitrite Urine Bilirubin Urine Urobilinogen Ur Leukocyte Esterase Urine WBC (Auto) Urine RBC (Auto) U Hyaline Cast (Auto) U Epithel Cells (Auto) Urine Bacteria (Auto) Urine Osmolality Nasal Screen MRSA (PCR) SARS-CoV-2, RNA, NAAT Blood Parasites ID 12/17/22 12/17/22 12/17/22 18:37 18:37 19:06 WBC RBC Hgb Hct MCV MCH MCHC RDW Std Deviation RDW Coeff of Micah Plt Count MPV Immature Gran % (Auto) Neut % (Auto) Lymph % (Auto) [place] % (Auto) Eos % (Auto) Baso % (Auto) Neut # (Auto) Lymph # (Auto) [place] # (Auto) Eos # (Auto) Baso # (Auto) Immature Gran # (Auto) Absolute Nucleated RBC Nucleated RBC % (auto) Neutrophils % (Manual) Band Neutrophils % Lymphocytes % (Manual) Prolymphocyte % Reactive Lymphs % (Man) Monocytes % (Manual) Eosinophils % (Manual) Basophils % (Manual) Metamyelocytes % (Man) Myelocytes % (Man) Promyelocytes % (Man) Blast Cells % (Manual) Plasma Cell % (Manual) Other Cells % Nucleated RBC % Neutrophils # (Manual) Band Neutrophils # Total Absolute Neuts Lymphocytes # (Manual) Prolymphocyte # Reactive Lymphs # Total Abs Lymphocytes Monocytes # (Manual) Eosinophils # (Manual) Basophils # (Manual) Metamyelocytes # (Man) Myelocytes # (Manual) Promyelocytes # (Man) Blast Cells # (Man) Plasma Cell # (Manual) Other Cells # Nucleated RBCs # (Man) Hypersegmented Neuts Hyposegmented Neuts Hypogranular Neuts Large Granular Lymphs # Lrg Granular Lymphs Hairy Cells Smudge Cells Toxic Granulation Toxic Vacuolation Dohle Bodies Ava Rods Platelet Estimate Hypogranular Platelets Giant Platelets Platelet Satelliting RBC Morphology Polychromasia Hypochromasia Poikilocytosis Basophilic Stippling Anisocytosis Microcytosis Macrocytosis Spherocytes Pappenheimer Bodies Sickle Cells Target Cells Tear Drop Cells Ovalocytes Stomatocytes De Souza-[place] Bodies Echinocytes Acanthocytes (Spur) Rouleaux RBC Agglutinates Schistocytes Peripher Smr Path Cons Sezary Cell PT INR APTT PTT Ratio Fibrinogen VBG pH VBG pCO2 VBG pO2 VBG HCO3 VBG O2 Saturation VBG Base Excess Sodium Potassium Chloride Carbon Dioxide Anion Gap BUN Creatinine Est Cr Clr Drug Dosing Est GFR ( Amer) Est GFR (Non-Af Amer) BUN/Creatinine Ratio Glucose POC Glucose Osmolality 347 H Lactate Uric Acid Calcium Phosphorus Magnesium Total Bilirubin AST ALT Alkaline Phosphatase Troponin I High Sens Total Protein Albumin Globulin Albumin/Globulin Ratio Vitamin B12 1276 H Folate 17.50 TSH Urine Color Yellow Urine Appearance Clear Urine pH 5.0 Ur Specific [place] 1.027 Urine Protein Negative Urine Glucose (UA) 3+ H Urine Ketones 1+ H Urine Blood 1+ H Urine Nitrite Negative Urine Bilirubin Negative Urine Urobilinogen Negative Ur Leukocyte Esterase Negative Urine WBC (Auto) 1-5 Urine RBC (Auto) 0-4 U Hyaline Cast (Auto) 0 U Epithel Cells (Auto) 0-5 Urine Bacteria (Auto) Negative Urine Osmolality Nasal Screen MRSA (PCR) SARS-CoV-2, RNA, NAAT Blood Parasites ID 12/17/22 12/17/22 12/17/22 19:06 20:16 20:20 WBC RBC Hgb Hct MCV MCH MCHC RDW Std Deviation RDW Coeff of Micah Plt Count MPV Immature Gran % (Auto) Neut % (Auto) Lymph % (Auto) [place] % (Auto) Eos % (Auto) Baso % (Auto) Neut # (Auto) Lymph # (Auto) [place] # (Auto) Eos # (Auto) Baso # (Auto) Immature Gran # (Auto) Absolute Nucleated RBC Nucleated RBC % (auto) Neutrophils % (Manual) Band Neutrophils % Lymphocytes % (Manual) Prolymphocyte % Reactive Lymphs % (Man) Monocytes % (Manual) Eosinophils % (Manual) Basophils % (Manual) Metamyelocytes % (Man) Myelocytes % (Man) Promyelocytes % (Man) Blast Cells % (Manual) Plasma Cell % (Manual) Other Cells % Nucleated RBC % Neutrophils # (Manual) Band Neutrophils # Total Absolute Neuts Lymphocytes # (Manual) Prolymphocyte # Reactive Lymphs # Total Abs Lymphocytes Monocytes # (Manual) Eosinophils # (Manual) Basophils # (Manual) Metamyelocytes # (Man) Myelocytes # (Manual) Promyelocytes # (Man) Blast Cells # (Man) Plasma Cell # (Manual) Other Cells # Nucleated RBCs # (Man) Hypersegmented Neuts Hyposegmented Neuts Hypogranular Neuts Large Granular Lymphs # Lrg Granular Lymphs Hairy Cells Smudge Cells Toxic Granulation Toxic Vacuolation Dohle Bodies Ava Rods Platelet Estimate Hypogranular Platelets Giant Platelets Platelet Satelliting RBC Morphology Polychromasia Hypochromasia Poikilocytosis Basophilic Stippling Anisocytosis Microcytosis Macrocytosis Spherocytes Pappenheimer Bodies Sickle Cells Target Cells Tear Drop Cells Ovalocytes Stomatocytes De Souza-[place] Bodies Echinocytes Acanthocytes (Spur) Rouleaux RBC Agglutinates Schistocytes Peripher Smr Path Cons Sezary Cell PT INR APTT PTT Ratio Fibrinogen VBG pH VBG pCO2 VBG pO2 VBG HCO3 VBG O2 Saturation VBG Base Excess Sodium Potassium Chloride Carbon Dioxide Anion Gap BUN Creatinine Est Cr Clr Drug Dosing Est GFR ( Amer) Est GFR (Non-Af Amer) BUN/Creatinine Ratio Glucose POC Glucose > 600 H* Osmolality Lactate Uric Acid Calcium Phosphorus Magnesium Total Bilirubin AST ALT Alkaline Phosphatase Troponin I High Sens Total Protein Albumin Globulin Albumin/Globulin Ratio Vitamin B12 Folate TSH Urine Color Urine Appearance Urine pH Ur Specific [place] Urine Protein Urine Glucose (UA) Urine Ketones Urine Blood Urine Nitrite Urine Bilirubin Urine Urobilinogen Ur Leukocyte Esterase Urine WBC (Auto) Urine RBC (Auto) U Hyaline Cast (Auto) U Epithel Cells (Auto) Urine Bacteria (Auto) Urine Osmolality 542 Nasal Screen MRSA (PCR) SARS-CoV-2, RNA, NAAT NEGATIVE Blood Parasites ID 12/17/22 12/17/22 12/17/22 20:43 20:43 21:09 WBC Cancelled RBC Cancelled Hgb Cancelled Hct Cancelled MCV Cancelled MCH Cancelled MCHC Cancelled RDW Std Deviation Cancelled RDW Coeff of Micah Cancelled Plt Count Cancelled MPV Cancelled Immature Gran % (Auto) Cancelled Neut % (Auto) Cancelled Lymph % (Auto) Cancelled [place] % (Auto) Cancelled Eos % (Auto) Cancelled Baso % (Auto) Cancelled Neut # (Auto) Cancelled Lymph # (Auto) Cancelled [place] # (Auto) Cancelled Eos # (Auto) Cancelled Baso # (Auto) Cancelled Immature Gran # (Auto) Cancelled Absolute Nucleated RBC Cancelled Nucleated RBC % (auto) Cancelled Neutrophils % (Manual) Cancelled Band Neutrophils % Cancelled Lymphocytes % (Manual) Cancelled Prolymphocyte % Cancelled Reactive Lymphs % (Man) Cancelled Monocytes % (Manual) Cancelled Eosinophils % (Manual) Cancelled Basophils % (Manual) Cancelled Metamyelocytes % (Man) Cancelled Myelocytes % (Man) Cancelled Promyelocytes % (Man) Cancelled Blast Cells % (Manual) Cancelled Plasma Cell % (Manual) Cancelled Other Cells % Cancelled Nucleated RBC % Cancelled Neutrophils # (Manual) Cancelled Band Neutrophils # Cancelled Total Absolute Neuts Cancelled Lymphocytes # (Manual) Cancelled Prolymphocyte # Cancelled Reactive Lymphs # Cancelled Total Abs Lymphocytes Cancelled Monocytes # (Manual) Cancelled Eosinophils # (Manual) Cancelled Basophils # (Manual) Cancelled Metamyelocytes # (Man) Cancelled Myelocytes # (Manual) Cancelled Promyelocytes # (Man) Cancelled Blast Cells # (Man) Cancelled Plasma Cell # (Manual) Cancelled Other Cells # Cancelled Nucleated RBCs # (Man) Cancelled Hypersegmented Neuts Cancelled Hyposegmented Neuts Cancelled Hypogranular Neuts Cancelled Large Granular Lymphs Cancelled # Lrg Granular Lymphs Cancelled Hairy Cells Cancelled Smudge Cells Cancelled Toxic Granulation Cancelled Toxic Vacuolation Cancelled Dohle Bodies Cancelled Ava Rods Cancelled Platelet Estimate Cancelled Hypogranular Platelets Cancelled Giant Platelets Cancelled Platelet Satelliting Cancelled RBC Morphology Cancelled Polychromasia Cancelled Hypochromasia Cancelled Poikilocytosis Cancelled Basophilic Stippling Cancelled Anisocytosis Cancelled Microcytosis Cancelled Macrocytosis Cancelled Spherocytes Cancelled Pappenheimer Bodies Cancelled Sickle Cells Cancelled Target Cells Cancelled Tear Drop Cells Cancelled Ovalocytes Cancelled Stomatocytes Cancelled [place] Bodies Cancelled Echinocytes Cancelled Acanthocytes (Spur) Cancelled Rouleaux Cancelled RBC Agglutinates Cancelled Schistocytes Cancelled Peripher Smr Path Cons Cancelled Sezary Cell Cancelled PT INR APTT PTT Ratio Fibrinogen VBG pH VBG pCO2 VBG pO2 VBG HCO3 VBG O2 Saturation VBG Base Excess Sodium 127 L Potassium 5.6 H Chloride 92 L Carbon Dioxide 14 L Anion Gap 21 H BUN 97 H Creatinine 1.45 H Est Cr Clr Drug Dosing 51.2 Est GFR ( Amer) 54.2 Est GFR (Non-Af Amer) 46.8 BUN/Creatinine Ratio 66.9 H Glucose 673 H* POC Glucose Osmolality Lactate 2.4 H* Uric Acid Calcium 9.1 Phosphorus Magnesium Total Bilirubin AST ALT Alkaline Phosphatase Troponin I High Sens Total Protein Albumin Globulin Albumin/Globulin Ratio Vitamin B12 Folate TSH Urine Color Urine Appearance Urine pH Ur Specific [place] Urine Protein Urine Glucose (UA) Urine Ketones Urine Blood Urine Nitrite Urine Bilirubin Urine Urobilinogen Ur Leukocyte Esterase Urine WBC (Auto) Urine RBC (Auto) U Hyaline Cast (Auto) U Epithel Cells (Auto) Urine Bacteria (Auto) Urine Osmolality Nasal Screen MRSA (PCR) SARS-CoV-2, RNA, NAAT Blood Parasites ID Cancelled 12/17/22 12/17/22 12/17/22 21:09 21:30 22:52 WBC RBC Hgb Hct MCV MCH MCHC RDW Std Deviation RDW Coeff of Micah Plt Count MPV Immature Gran % (Auto) Neut % (Auto) Lymph % (Auto) [place] % (Auto) Eos % (Auto) Baso % (Auto) Neut # (Auto) Lymph # (Auto) [place] # (Auto) Eos # (Auto) Baso # (Auto) Immature Gran # (Auto) Absolute Nucleated RBC Nucleated RBC % (auto) Neutrophils % (Manual) Band Neutrophils % Lymphocytes % (Manual) Prolymphocyte % Reactive Lymphs % (Man) Monocytes % (Manual) Eosinophils % (Manual) Basophils % (Manual) Metamyelocytes % (Man) Myelocytes % (Man) Promyelocytes % (Man) Blast Cells % (Manual) Plasma Cell % (Manual) Other Cells % Nucleated RBC % Neutrophils # (Manual) Band Neutrophils # Total Absolute Neuts Lymphocytes # (Manual) Prolymphocyte # Reactive Lymphs # Total Abs Lymphocytes Monocytes # (Manual) Eosinophils # (Manual) Basophils # (Manual) Metamyelocytes # (Man) Myelocytes # (Manual) Promyelocytes # (Man) Blast Cells # (Man) Plasma Cell # (Manual) Other Cells # Nucleated RBCs # (Man) Hypersegmented Neuts Hyposegmented Neuts Hypogranular Neuts Large Granular Lymphs # Lrg Granular Lymphs Hairy Cells Smudge Cells Toxic Granulation Toxic Vacuolation Dohle Bodies Ava Rods Platelet Estimate Hypogranular Platelets Giant Platelets Platelet Satelliting RBC Morphology Polychromasia Hypochromasia Poikilocytosis Basophilic Stippling Anisocytosis Microcytosis Macrocytosis Spherocytes Pappenheimer Bodies Sickle Cells Target Cells Tear Drop Cells Ovalocytes Stomatocytes [place] Bodies Echinocytes Acanthocytes (Spur) Rouleaux RBC Agglutinates Schistocytes Peripher Smr Path Cons Sezary Cell PT INR APTT PTT Ratio Fibrinogen VBG pH 7.32 L VBG pCO2 32 L VBG pO2 45 VBG HCO3 17 VBG O2 Saturation 77.4 VBG Base Excess -8.5 Sodium Potassium Chloride Carbon Dioxide Anion Gap BUN Creatinine Est Cr Clr Drug Dosing Est GFR ( Amer) Est GFR (Non-Af Amer) BUN/Creatinine Ratio Glucose POC Glucose 526 H* 455 H* Osmolality Lactate Uric Acid Calcium Phosphorus Magnesium Total Bilirubin AST ALT Alkaline Phosphatase Troponin I High Sens Total Protein Albumin Globulin Albumin/Globulin Ratio Vitamin B12 Folate TSH Urine Color Urine Appearance Urine pH Ur Specific [place] Urine Protein Urine Glucose (UA) Urine Ketones Urine Blood Urine Nitrite Urine Bilirubin Urine Urobilinogen Ur Leukocyte Esterase Urine WBC (Auto) Urine RBC (Auto) U Hyaline Cast (Auto) U Epithel Cells (Auto) Urine Bacteria (Auto) Urine Osmolality Nasal Screen MRSA (PCR) SARS-CoV-2, RNA, NAAT Blood Parasites ID 12/17/22 12/17/22 12/17/22 22:53 22:53 Unknown WBC RBC Hgb Hct MCV MCH MCHC RDW Std Deviation RDW Coeff of Micah Plt Count MPV Immature Gran % (Auto) Neut % (Auto) Lymph % (Auto) [place] % (Auto) Eos % (Auto) Baso % (Auto) Neut # (Auto) Lymph # (Auto) [place] # (Auto) Eos # (Auto) Baso # (Auto) Immature Gran # (Auto) Absolute Nucleated RBC Nucleated RBC % (auto) Neutrophils % (Manual) Band Neutrophils % Lymphocytes % (Manual) Prolymphocyte % Reactive Lymphs % (Man) Monocytes % (Manual) Eosinophils % (Manual) Basophils % (Manual) Metamyelocytes % (Man) Myelocytes % (Man) Promyelocytes % (Man) Blast Cells % (Manual) Plasma Cell % (Manual) Other Cells % Nucleated RBC % Neutrophils # (Manual) Band Neutrophils # Total Absolute Neuts Lymphocytes # (Manual) Prolymphocyte # Reactive Lymphs # Total Abs Lymphocytes Monocytes # (Manual) Eosinophils # (Manual) Basophils # (Manual) Metamyelocytes # (Man) Myelocytes # (Manual) Promyelocytes # (Man) Blast Cells # (Man) Plasma Cell # (Manual) Other Cells # Nucleated RBCs # (Man) Hypersegmented Neuts Hyposegmented Neuts Hypogranular Neuts Large Granular Lymphs # Lrg Granular Lymphs Hairy Cells Smudge Cells Toxic Granulation Toxic Vacuolation Dohle Bodies Ava Rods Platelet Estimate Hypogranular Platelets Giant Platelets Platelet Satelliting RBC Morphology Polychromasia Hypochromasia Poikilocytosis Basophilic Stippling Anisocytosis Microcytosis Macrocytosis Spherocytes Pappenheimer Bodies Sickle Cells Target Cells Tear Drop Cells Ovalocytes Stomatocytes [place] Bodies Echinocytes Acanthocytes (Spur) Rouleaux RBC Agglutinates Schistocytes Peripher Smr Path Cons Sezary Cell PT 14.6 H INR 1.4 H APTT 25.5 PTT Ratio 0.9 Fibrinogen 136 L VBG pH VBG pCO2 VBG pO2 VBG HCO3 VBG O2 Saturation VBG Base Excess Sodium Potassium Chloride Carbon Dioxide Anion Gap BUN Creatinine Est Cr Clr Drug Dosing Est GFR ( Amer) Est GFR (Non-Af Amer) BUN/Creatinine Ratio Glucose POC Glucose Osmolality Lactate Uric Acid Calcium Phosphorus Magnesium Total Bilirubin AST ALT Alkaline Phosphatase Troponin I High Sens 39.3 H Total Protein Albumin Globulin Albumin/Globulin Ratio Vitamin B12 Folate TSH Urine Color Urine Appearance Urine pH Ur Specific [place] Urine Protein Urine Glucose (UA) Urine Ketones Urine Blood Urine Nitrite Urine Bilirubin Urine Urobilinogen Ur Leukocyte Esterase Urine WBC (Auto) Urine RBC (Auto) U Hyaline Cast (Auto) U Epithel Cells (Auto) Urine Bacteria (Auto) Urine Osmolality Nasal Screen MRSA (PCR) Negative SARS-CoV-2, RNA, NAAT Blood Parasites ID 12/18/22 12/18/22 12/18/22 00:05 00:27 00:27 WBC RBC Hgb Hct MCV MCH MCHC RDW Std Deviation RDW Coeff of Micah Plt Count MPV Immature Gran % (Auto) Neut % (Auto) Lymph % (Auto) [place] % (Auto) Eos % (Auto) Baso % (Auto) Neut # (Auto) Lymph # (Auto) [place] # (Auto) Eos # (Auto) Baso # (Auto) Immature Gran # (Auto) Absolute Nucleated RBC Nucleated RBC % (auto) Neutrophils % (Manual) Band Neutrophils % Lymphocytes % (Manual) Prolymphocyte % Reactive Lymphs % (Man) Monocytes % (Manual) Eosinophils % (Manual) Basophils % (Manual) Metamyelocytes % (Man) Myelocytes % (Man) Promyelocytes % (Man) Blast Cells % (Manual) Plasma Cell % (Manual) Other Cells % Nucleated RBC % Neutrophils # (Manual) Band Neutrophils # Total Absolute Neuts Lymphocytes # (Manual) Prolymphocyte # Reactive Lymphs # Total Abs Lymphocytes Monocytes # (Manual) Eosinophils # (Manual) Basophils # (Manual) Metamyelocytes # (Man) Myelocytes # (Manual) Promyelocytes # (Man) Blast Cells # (Man) Plasma Cell # (Manual) Other Cells # Nucleated RBCs # (Man) Hypersegmented Neuts Hyposegmented Neuts Hypogranular Neuts Large Granular Lymphs # Lrg Granular Lymphs Hairy Cells Smudge Cells Toxic Granulation Toxic Vacuolation Dohle Bodies Ava Rods Platelet Estimate Hypogranular Platelets Giant Platelets Platelet Satelliting RBC Morphology Polychromasia Hypochromasia Poikilocytosis Basophilic Stippling Anisocytosis Microcytosis Macrocytosis Spherocytes Pappenheimer Bodies Sickle Cells Target Cells Tear Drop Cells Ovalocytes Stomatocytes [place] Bodies Echinocytes Acanthocytes (Spur) Rouleaux RBC Agglutinates Schistocytes Peripher Smr Path Cons Sezary Cell PT INR APTT PTT Ratio Fibrinogen VBG pH 7.43 H VBG pCO2 37 L VBG pO2 42 VBG HCO3 25 VBG O2 Saturation 77.4 VBG Base Excess 0.5 Sodium 132 L Potassium 4.9 Chloride 97 L Carbon Dioxide 24 Anion Gap 11 BUN 82 H Creatinine 1.17 Est Cr Clr Drug Dosing 63.4 Est GFR ( Amer) 70.3 Est GFR (Non-Af Amer) 60.6 BUN/Creatinine Ratio 70.1 H Glucose 296 H POC Glucose 287 H Osmolality Lactate Uric Acid Calcium 8.9 Phosphorus 4.3 D Magnesium 3.3 H Total Bilirubin AST ALT Alkaline Phosphatase Troponin I High Sens Total Protein Albumin Globulin Albumin/Globulin Ratio Vitamin B12 Folate TSH Urine Color Urine Appearance Urine pH Ur Specific [place] Urine Protein Urine Glucose (UA) Urine Ketones Urine Blood Urine Nitrite Urine Bilirubin Urine Urobilinogen Ur Leukocyte Esterase Urine WBC (Auto) Urine RBC (Auto) U Hyaline Cast (Auto) U Epithel Cells (Auto) Urine Bacteria (Auto) Urine Osmolality Nasal Screen MRSA (PCR) SARS-CoV-2, RNA, NAAT Blood Parasites ID 12/18/22 12/18/22 12/18/22 00:27 00:27 01:06 WBC 18.14 H RBC 4.12 L Hgb 14.1 Hct 39.5 L MCV 95.9 MCH 34.2 H MCHC 35.7 RDW Std Deviation 44.8 RDW Coeff of Micah 12.8 Plt Count 11 L* MPV Immature Gran % (Auto) 1.5 Neut % (Auto) 84.6 Lymph % (Auto) 2.6 [place] % (Auto) 11.0 Eos % (Auto) 0.1 Baso % (Auto) 0.2 Neut # (Auto) 15.34 H Lymph # (Auto) 0.48 L [place] # (Auto) 1.99 H Eos # (Auto) 0.02 Baso # (Auto) 0.03 Immature Gran # (Auto) 0.28 H Absolute Nucleated RBC Nucleated RBC % (auto) Neutrophils % (Manual) Band Neutrophils % Lymphocytes % (Manual) Prolymphocyte % Reactive Lymphs % (Man) Monocytes % (Manual) Eosinophils % (Manual) Basophils % (Manual) Metamyelocytes % (Man) Myelocytes % (Man) Promyelocytes % (Man) Blast Cells % (Manual) Plasma Cell % (Manual) Other Cells % Nucleated RBC % Neutrophils # (Manual) Band Neutrophils # Total Absolute Neuts Lymphocytes # (Manual) Prolymphocyte # Reactive Lymphs # Total Abs Lymphocytes Monocytes # (Manual) Eosinophils # (Manual) Basophils # (Manual) Metamyelocytes # (Man) Myelocytes # (Manual) Promyelocytes # (Man) Blast Cells # (Man) Plasma Cell # (Manual) Other Cells # Nucleated RBCs # (Man) Hypersegmented Neuts Hyposegmented Neuts Hypogranular Neuts Large Granular Lymphs # Lrg Granular Lymphs Hairy Cells Smudge Cells Toxic Granulation Toxic Vacuolation Dohle Bodies Ava Rods Platelet Estimate Signific. Decreased L Hypogranular Platelets Giant Platelets Platelet Satelliting RBC Morphology Polychromasia Hypochromasia Poikilocytosis Basophilic Stippling Anisocytosis Microcytosis Macrocytosis Spherocytes Pappenheimer Bodies Sickle Cells Target Cells Tear Drop Cells Ovalocytes Stomatocytes [place] Bodies Echinocytes Acanthocytes (Spur) Rouleaux RBC Agglutinates Schistocytes Peripher Smr Path Cons Sezary Cell PT INR APTT PTT Ratio Fibrinogen 138 L VBG pH VBG pCO2 VBG pO2 VBG HCO3 VBG O2 Saturation VBG Base Excess Sodium Potassium Chloride Carbon Dioxide Anion Gap BUN Creatinine Est Cr Clr Drug Dosing Est GFR ( Amer) Est GFR (Non-Af Amer) BUN/Creatinine Ratio Glucose POC Glucose 292 H Osmolality Lactate Uric Acid Calcium Phosphorus Magnesium Total Bilirubin AST ALT Alkaline Phosphatase Troponin I High Sens Total Protein Albumin Globulin Albumin/Globulin Ratio Vitamin B12 Folate TSH Urine Color Urine Appearance Urine pH Ur Specific [place] Urine Protein Urine Glucose (UA) Urine Ketones Urine Blood Urine Nitrite Urine Bilirubin Urine Urobilinogen Ur Leukocyte Esterase Urine WBC (Auto) Urine RBC (Auto) U Hyaline Cast (Auto) U Epithel Cells (Auto) Urine Bacteria (Auto) Urine Osmolality Nasal Screen MRSA (PCR) SARS-CoV-2, RNA, NAAT Blood Parasites ID 12/18/22 12/18/22 12/18/22 02:04 03:04 04:00 WBC RBC Hgb Hct MCV MCH MCHC RDW Std Deviation RDW Coeff of Micah Plt Count MPV Immature Gran % (Auto) Neut % (Auto) Lymph % (Auto) [place] % (Auto) Eos % (Auto) Baso % (Auto) Neut # (Auto) Lymph # (Auto) [place] # (Auto) Eos # (Auto) Baso # (Auto) Immature Gran # (Auto) Absolute Nucleated RBC Nucleated RBC % (auto) Neutrophils % (Manual) Band Neutrophils % Lymphocytes % (Manual) Prolymphocyte % Reactive Lymphs % (Man) Monocytes % (Manual) Eosinophils % (Manual) Basophils % (Manual) Metamyelocytes % (Man) Myelocytes % (Man) Promyelocytes % (Man) Blast Cells % (Manual) Plasma Cell % (Manual) Other Cells % Nucleated RBC % Neutrophils # (Manual) Band Neutrophils # Total Absolute Neuts Lymphocytes # (Manual) Prolymphocyte # Reactive Lymphs # Total Abs Lymphocytes Monocytes # (Manual) Eosinophils # (Manual) Basophils # (Manual) Metamyelocytes # (Man) Myelocytes # (Manual) Promyelocytes # (Man) Blast Cells # (Man) Plasma Cell # (Manual) Other Cells # Nucleated RBCs # (Man) Hypersegmented Neuts Hyposegmented Neuts Hypogranular Neuts Large Granular Lymphs # Lrg Granular Lymphs Hairy Cells Smudge Cells Toxic Granulation Toxic Vacuolation Dohle Bodies Ava Rods Platelet Estimate Hypogranular Platelets Giant Platelets Platelet Satelliting RBC Morphology Polychromasia Hypochromasia Poikilocytosis Basophilic Stippling Anisocytosis Microcytosis Macrocytosis Spherocytes Pappenheimer Bodies Sickle Cells Target Cells Tear Drop Cells Ovalocytes Stomatocytes [place] Bodies Echinocytes Acanthocytes (Spur) Rouleaux RBC Agglutinates Schistocytes Peripher Smr Path Cons Sezary Cell PT INR APTT PTT Ratio Fibrinogen VBG pH VBG pCO2 VBG pO2 VBG HCO3 VBG O2 Saturation VBG Base Excess Sodium Potassium Chloride Carbon Dioxide Anion Gap BUN Creatinine Est Cr Clr Drug Dosing Est GFR ( Amer) Est GFR (Non-Af Amer) BUN/Creatinine Ratio Glucose POC Glucose 253 H 251 H 223 H Osmolality Lactate Uric Acid Calcium Phosphorus Magnesium Total Bilirubin AST ALT Alkaline Phosphatase Troponin I High Sens Total Protein Albumin Globulin Albumin/Globulin Ratio Vitamin B12 Folate TSH Urine Color Urine Appearance Urine pH Ur Specific [place] Urine Protein Urine Glucose (UA) Urine Ketones Urine Blood Urine Nitrite Urine Bilirubin Urine Urobilinogen Ur Leukocyte Esterase Urine WBC (Auto) Urine RBC (Auto) U Hyaline Cast (Auto) U Epithel Cells (Auto) Urine Bacteria (Auto) Urine Osmolality Nasal Screen MRSA (PCR) SARS-CoV-2, RNA, NAAT Blood Parasites ID 12/18/22 12/18/22 05:19 05:19 WBC RBC Hgb Hct MCV MCH MCHC RDW Std Deviation RDW Coeff of Micah Plt Count MPV Immature Gran % (Auto) Neut % (Auto) Lymph % (Auto) [place] % (Auto) Eos % (Auto) Baso % (Auto) Neut # (Auto) Lymph # (Auto) [place] # (Auto) Eos # (Auto) Baso # (Auto) Immature Gran # (Auto) Absolute Nucleated RBC Nucleated RBC % (auto) Neutrophils % (Manual) Band Neutrophils % Lymphocytes % (Manual) Prolymphocyte % Reactive Lymphs % (Man) Monocytes % (Manual) Eosinophils % (Manual) Basophils % (Manual) Metamyelocytes % (Man) Myelocytes % (Man) Promyelocytes % (Man) Blast Cells % (Manual) Plasma Cell % (Manual) Other Cells % Nucleated RBC % Neutrophils # (Manual) Band Neutrophils # Total Absolute Neuts Lymphocytes # (Manual) Prolymphocyte # Reactive Lymphs # Total Abs Lymphocytes Monocytes # (Manual) Eosinophils # (Manual) Basophils # (Manual) Metamyelocytes # (Man) Myelocytes # (Manual) Promyelocytes # (Man) Blast Cells # (Man) Plasma Cell # (Manual) Other Cells # Nucleated RBCs # (Man) Hypersegmented Neuts Hyposegmented Neuts Hypogranular Neuts Large Granular Lymphs # Lrg Granular Lymphs Hairy Cells Smudge Cells Toxic Granulation Toxic Vacuolation Dohle Bodies Ava Rods Platelet Estimate Hypogranular Platelets Giant Platelets Platelet Satelliting RBC Morphology Polychromasia Hypochromasia Poikilocytosis Basophilic Stippling Anisocytosis Microcytosis Macrocytosis Spherocytes Pappenheimer Bodies Sickle Cells Target Cells Tear Drop Cells Ovalocytes Stomatocytes [place] Bodies Echinocytes Acanthocytes (Spur) Rouleaux RBC Agglutinates Schistocytes Peripher Smr Path Cons Sezary Cell PT Pending INR Pending APTT Pending PTT Ratio Pending Fibrinogen VBG pH VBG pCO2 VBG pO2 VBG HCO3 VBG O2 Saturation VBG Base Excess Sodium Potassium Chloride Carbon Dioxide Anion Gap BUN Creatinine Est Cr Clr Drug Dosing Est GFR ( Amer) Est GFR (Non-Af Amer) BUN/Creatinine Ratio Glucose POC Glucose Osmolality Lactate Uric Acid Calcium Phosphorus Magnesium Total Bilirubin AST ALT Alkaline Phosphatase Troponin I High Sens Cancelled Total Protein Albumin Globulin Albumin/Globulin Ratio Vitamin B12 Folate TSH Urine Color Urine Appearance Urine pH Ur Specific [place] Urine Protein Urine Glucose (UA) Urine Ketones Urine Blood Urine Nitrite Urine Bilirubin Urine Urobilinogen Ur Leukocyte Esterase Urine WBC (Auto) Urine RBC (Auto) U Hyaline Cast (Auto) U Epithel Cells (Auto) Urine Bacteria (Auto) Urine Osmolality Nasal Screen MRSA (PCR) SARS-CoV-2, RNA, NAAT Blood Parasites ID PG Care Time/CCT Total # of Minutes Spent Total Time Spent with Patient: Total time spent is greater than 50% in coordination of care (as documented) at patient's floor/unit and/or counseling patient: Coding Level of Care Code 87884 IN/OBS CONSULT LVL 5,80M History Expanded Problem Focused Exam Expanded Problem Focused Medical Decision Making High Complexity Diagnoses Thrombocytopenia D69.6 Pulmonary embolism I26.99 Acute cor pulmonale presence: unspecified Chronicity: acute Pulmonary embolism type: unspecified Metastatic cancer C79.9 Area of secondary neoplastic involvement: unspecified site (2) Pulmonary embolism Acute cor pulmonale presence: unspecified Chronicity: acute Pulmonary embolism type: unspecified Qualified Code(s): I26.99 - Other pulmonary embolism without acute cor pulmonale (3) Metastatic cancer Area of secondary neoplastic involvement: unspecified site Qualified Code(s): C79.9 - Secondary malignant neoplasm of unspecified site
[2022-12-18] MEDS ORDERED: ICU ELECTROLYTE REPLACEMENT PROTOCOL SCH (06:00)
[2022-12-18 06:34] LABS: Troponin I High Sensitivity 44.7 pg/ml (0-20)
[2022-12-18 06:36] LABS: Albumin Globulin Ratio 1.6 (0.9-2); Albumin Level 3.6 gm/dl (3.4-5.0); BUN Creatinine Ratio 74.2 (10-20); Bilirubin,Total 1.1 mg/dl (0.2-1.0); Calcium 8.7 mg/dl (8.5-10.1); Creatinine Clr Calc Pharmacy 79.8 ml/min; Est GFR (African American) 92.7 ml/min; Globulin 2.2 gm/dl (2.5-4.0); Phosphorus 3.7 mg/dl (2.5-4.9); Potassium 4.4 mmol/L (3.5-5.1); Total Protein 5.8 gm/dl (6.0-8.3)
[2022-12-18 06:45] LABS: Bilirubin Direct 0.3 mg/dl (0-0.2)
[2022-12-18 06:47] LABS: INR 1.4 (0.9-1.1); Partial Thromboplastin Time 26.2 Seconds (21.0-31.0); Prothrombin Time 14.7 Seconds (9.0-12.0)
[2022-12-18 06:47] LABS: Hematocrit (blood only) 39.2 % (42.0-52.0); Hemoglobin 13.9 g/dl (14.0-18.0); Mean Corpuscular Hemoglobin 33.7 pg (25.0-34.0); Mean Corpuscular Hgb Conc 35.5 g/dL (32.0-36.0); Mean Corpuscular Volume 95.1 fL (80.0-100.0); Mean Platelet Volume 12.4 fL (9.4-12.4); Platelet Count 10 K/uL (130-400); RDW Coefficient of Variation 12.6 % (11.5-14.5); RDW Standard Deviation 43.5 fL (36.4-46.3); Red Blood Count 4.12 M/uL (4.70-6.10); White Blood Count 15.94 K/ul (4.8-10.8)
[2022-12-18 07:13] LABS: Basophils # (auto) 0.02 K/uL (0-0.2); Basophils % (auto) 0.1 %; Eosinophils # (auto) 0.01 K/uL (0-0.50); Eosinophils % (auto) 0.1 %; Immature Granulocytes # (auto) 0.16 K/uL (0.01-0.20); Lymphocytes # (auto) 0.51 K/uL (1.2-3.4); Lymphocytes % (auto) 3.2 %; Monocytes # (auto) 1.21 K/uL (0.11-0.59); Monocytes % (auto) 7.6 %; Neutrophils # (auto) 14.03 K/uL (1.40-6.50); Platelet Estimate Signific. Decreased (Normal); RBC Morphology Unremarkable
[2022-12-18] MEDS ORDERED: ICU Protocol for HYPERglycemia SCH (07:30)
--- NOTE | 2022-12-18 07:33 | XRay Report ---
SINGLE VIEW CHEST CLINICAL HISTORY: Infection. FINDINGS: An AP, portable, upright chest radiograph is correlated with chest CT dated 12/10/2022. The c ardiomediastinal silhouette is top normal for projection. There are numerous tiny pulmonary nodules c onsistent with the patient's known metastatic disease. This was much better assessed on the recent est CT. Scarring/atelectasis is noted at the lung bases. No airspace consolidation or large pleural e ffusion is identified. No pneumothorax is seen. The skeletal structures are osteopenic. The bony thor ax is grossly intact. Arthritic change is noted in the shoulders and spine. IMPRESSION: 1. No acute cardiopulmonary abnormality. 2. Numerous tiny pulmonary nodules are consistent with the patient's known metastatic disease. This w as much better assessed on the recent chest CT. ACT 112: Negative or not required by law. Electronically signed by: Steve Leos M.D. 12/18/2022 7:32 AM
[2022-12-18] MEDS ORDERED: INSULIN ASPART PER UNIT CHARGE SC STA (08:08)
[2022-12-18] MEDS: DULoxetine HCL 30 MG CAP PO SCH (08:30)
--- NOTE | 2022-12-18 09:09 | Critical Care Progress Note ---
Date of Service December 18, 2022 Assessment & Plan (1) DKA (diabetic ketoacidosis): (2) BRIAN (acute kidney injury): (3) Thrombocytopenia: Plan Transition insulin drip to subcutaneous insulin. Anion gap closed. Appreciate pharmacy assistance. Appreciate hematology assistance with thrombocytopenia. Concern for HIT. Will initiate low-dose argatroban drip as suggested by hematology. Stable for downgrade out of ICU. Admission and Anticipated Discharge Date Admission Date: December 17, 2022 Subjective Patient seen and examined. In good spirits. Some mild abdominal pain which she notes is unchanged compared to yesterday. No fevers. Currently on low-dose insulin drip. Review of Systems Review of Systems: All systems reviewed & are unremarkable except as noted in HPI & below Physical Exam Physical Exam: PHYSICAL EXAM: General: awake, alert, no apparent distress Head: Normocephalic, atraumatic ENT: PERRLA, EOMI, no pharyngeal exudate, mucous membranes dry Neuro: AAO x 3, speech clear and appropriate, strength intact bilaterally 5/5, sensation intact and equal all extremities and dermatomes, no pronator drift, has to manually extend his 4th/5th fingers which has been ongoing prior to admission 12/12, Chest: equal rise and fall of the chest, no accessory muscle use, no heaves or thrills, Clear to auscultation, on room air, Cardiac: Regular rate and rhythm, telemetry reviewed- sinus tachycardia, skin warm dry, cap refill <3 seconds, peripheral pulses +2 no JVD, no murmur, no edema GI: NABS x 4 quadrants, soft, nontender to palpation, no rebound, guarding or tenderness : Spontaneously voiding, no pain, no CVA tenderness, Extremities: Normal inspection, no peripheral edema or erythema, calfs nontender to palpation Psych: Normal mood and affect Skin: no rash or erythema Results & Data Results & Data ([facility]) Vital Signs (Past 12 Hours) Vital Signs Temp Pulse Pulse Resp BP BP Pulse Ox 12/18/22 07:37 12/18/22 03:50 92 H 18 12/18/22 03:40 93 H 20 12/18/22 03:30 91 H 0 L 12/18/22 03:20 87 0 L 12/18/22 03:10 89 22 12/18/22 03:00 90 21 12/18/22 03:00 107/58 L 12/18/22 02:50 90 21 12/18/22 02:40 90 22 12/18/22 02:30 115 H 17 12/18/22 02:20 104 H 18 12/18/22 02:10 101 H 28 H 12/18/22 02:00 100 H 20 12/18/22 01:50 96 H 19 12/18/22 01:40 102 H 19 12/18/22 01:30 100 H 17 12/18/22 01:20 99 H 19 12/18/22 01:10 96 H 20 12/18/22 01:00 93 H 18 12/18/22 00:50 90 21 12/18/22 00:40 88 14 12/18/22 00:30 101 H 11 L 12/18/22 00:20 100 H 21 12/18/22 00:10 93 H 15 12/18/22 00:00 91 H 26 H 12/18/22 00:00 123/64 12/17/22 23:50 89 19 12/17/22 23:40 86 12 12/17/22 23:30 89 15 97 12/17/22 23:20 85 14 94 12/17/22 23:10 91 H 23 96 12/17/22 23:00 90 17 96 12/17/22 23:00 112/81 12/18/22 03:00 36.6 C 12/18/22 02:44 22 98 12/17/22 22:42 99 H 12/18/22 00:45 93 H 21 97 12/17/22 23:00 36.6 C 87 16 112/81 96 12/17/22 23:01 12/17/22 22:50 92 H 15 90 12/17/22 22:40 86 13 92 12/17/22 22:39 123/64 12/17/22 22:39 86 14 92 12/17/22 22:10 91 H 17 98 12/17/22 22:00 88 22 99 12/17/22 21:50 102 H 20 94 12/17/22 21:40 103 H 14 96 12/17/22 21:30 101 H 19 97 12/17/22 21:30 128/85 12/17/22 21:20 104 H 26 H 97 12/17/22 21:10 113 H 20 97 O2 Del Method FiO2 12/18/22 07:37 Room Air 12/18/22 03:50 12/18/22 03:40 12/18/22 03:30 12/18/22 03:20 12/18/22 03:10 12/18/22 03:00 12/18/22 03:00 12/18/22 02:50 12/18/22 02:40 12/18/22 02:30 12/18/22 02:20 12/18/22 02:10 12/18/22 02:00 12/18/22 01:50 12/18/22 01:40 12/18/22 01:30 12/18/22 01:20 12/18/22 01:10 12/18/22 01:00 12/18/22 00:50 12/18/22 00:40 12/18/22 00:30 12/18/22 00:20 12/18/22 00:10 12/18/22 00:00 12/18/22 00:00 12/17/22 23:50 12/17/22 23:40 12/17/22 23:30 12/17/22 23:20 12/17/22 23:10 12/17/22 23:00 12/17/22 23:00 12/18/22 03:00 12/18/22 02:44 30 12/17/22 22:42 12/18/22 00:45 30 12/17/22 23:00 Room Air 12/17/22 23:01 30 12/17/22 22:50 12/17/22 22:40 12/17/22 22:39 12/17/22 22:39 12/17/22 22:10 12/17/22 22:00 12/17/22 21:50 12/17/22 21:40 12/17/22 21:30 12/17/22 21:30 12/17/22 21:20 12/17/22 21:10 Coding Level of Care Code 54097 SUB INP/OBS CARE MIN Diagnoses DKA (diabetic ketoacidosis) E13.10 Diabetes mellitus complication detail: without coma Diabetes mellitus type: other specified (including SAL) BRIAN (acute kidney injury) N17.9 Thrombocytopenia D69.6 (1) DKA (diabetic ketoacidosis) Diabetes mellitus complication detail: without coma Diabetes mellitus type: other specified (including SAL) Qualified Code(s): E13.10 - Other specified diabetes mellitus with ketoacidosis without coma
[2022-12-18] MEDS ORDERED: ARGATROBAN CONSULT ACTIVE SCH (09:56)
[2022-12-18] MEDS ORDERED: STAT IV Infusion **Titration per Protocol STA (09:56)
[2022-12-18] MEDS ORDERED: LANTUS PER UNIT CHARGE SQ ONE (10:00)
[2022-12-18] MEDS ORDERED: PANTOprazole 40 MG TAB PO ONE (10:00)
[2022-12-18 10:03] LABS: BUN Creatinine Ratio 83.3 (10-20); Calcium 8.4 mg/dl (8.5-10.1); Creatinine Clr Calc Pharmacy 95.1 ml/min; Est GFR (African American) 102.3 ml/min; Est GFR (Non-African American) 88.3 ml/min; Potassium 4.5 mmol/L (3.5-5.1)
[2022-12-18] MEDS: oxyCODONE HCL IR 5 MG TAB (IMMEDIATE RELEASE) PO PRN ×2 (10:04→22:53)
--- NOTE | 2022-12-18 11:07 | Hospitalist Progress Note ---
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 marrow failure with increased imm. platelet fraction, abrupt onset thrombocytopenia, and adequate red cell/white cell production. -Coagulation panel revealed: 14.6 PT, 1.4 INR, Fibrinogen 136 -Pt VSS with no signs of bleeding on exam- lower suspicion for DIC. No associated anemia, peripheral smear negative for schistocytes -Peripheral smear revealed: "anisopoikilocytosis. No schistocytes, tear drop cells. Neutrophilic predominant leukocytosis. Platelets decreased in number without clumping. Consistent with non-specific leukocytosis and thrombocytopenia." -Initially suspected HIT with peripheral destruction of platelets and initiated low-dose Argatroban however heparin dependent platelet antibody resulted negative so it was discontinued. pending CALVIN UFH low dose, high dose, and unfract. heparin values. -Appreciate hematology/oncology recs: - If signs of bleeding, transfuse platelets to 25-30k -IVIG initiated for suspected ITP 1mg/kg -Consider marrow biopsy DKA- resolved -Admission labs and clinical history consistent with DKA/HHS, likely triggered by steroid-induced hyperglycemia from recent IV + oral steroid therapy for metastatic cancer. Given urine ketones, more likely DKA than HHS -Holding home steroid at present; per Dr. Manuel may consider low dose Dexamethasone to prevent rebound inflammation considering recent steroid course -NSS IVF repletion and Insulin drip in the ICU. -12/18 AM: switched to subQ insulin with BSG <250, discontinued NSS IVF repletion -BMP q4h -Glucose 800+ on admission, now 200-250s -NPO on admission, initiated diet 12/18 am -IVF switched to D5+1/2 NSS once BSG < 250 -AG gap 22-> transitioned to SQ insulin with AG gap closure- 22 on admission, 12/18 AM 11-->12/18 PM 7 - 12/18 downgraded from ICU to Med/Tele - Trend Lactate - Electrolytes with hyperkalemia, hyper mag, hyperphosphatemia, and low calcium on admission- potentially component of TLS with heavy tumor burden- following electrolytes with volume resuscitation - Metabolic acidosis corrected - Renal function improved following hydration (Cr 1.64->1.45->1.17->.87) Severe electrolyte abnormalities, secondary to DKA vs. TLS - Mg 3.9 on admission; on admission no clinical signs of Mg toxicity; Mg decreased to 3.0. Trend Mg - Phosphorus 7.9 on admission; normalized to 3.7 3/9 am - K+ 6.4 on admission; EKG without significant ST change or arrhythmia, has remained sinus. Calcium gluconate on admission. K normalized 3/9 am - Na 123 on admission; likely pseudohyponatremia from hyperglycemia, serum osmolality 326 - Ca on admission 8.5 low- normal-> 8.4 - LDH 1911 - Given electrolyte abnormalities (hyperMg, hyperK, hypocalcemia, elevated LDH) and heavy tumor burden, initiated Allopurinol for tumor lysis syndrome Metastatic cancer, heavy tumor burden -Extensive metastasis to liver and spine with unknown primary source though potentially pancreas per previous imaging from last hospitalization -Following with [facility] oncology- receiving radiation and chemotherapy as outpatient -Appreciate Oncology recs Pulmonary embolism -Noted evidence of b/l PE with LE DVTs on last admission, at home on Eliquis -Holding blood thinners in setting of profound thrombocytopenia -CXR reviewed no opacities, no fevers, no sputum and afebrile, do not suspect infxn -Holding DOAC Elevated troponin -Troponin 43 on admission->39->44.7. Stopped trending -EKG without acute ST change, or peaked T waves, pt without ACS symptoms -Likely demand ischemia from acute illness -Hypovolemia secondary to increased glucose level -Fluid resuscitation completed with LR solution Leukocytosis -WBC 19 on admission, 12/18 15 -Low suspicion for active infection at present as pt is afebrile. WBC elevation may be demargination from acute DKA/HHS in background of known cancer. -MRSA nares negative -lactate 2.4 -Trend CBC Transaminitis -AST 65, ALT 124 on admission; 12/18 AST 63, ALT 104 -Likely reactive to current acute illness/DKA in setting of known liver metastasis -Trend CMP BRIAN-resolved -Cr 1.64 on admission--> 3/9 PM .87 -Likely pre-renal cause- excessive volume depletion from urination 2/2 DKA; fluid resuscitation complete -Trend BMP Severe ZAID on CPAP -BIPAP Hs Weakness -Weakness in setting of extensive metastasis -PT/OT ordered Hypertension -Holding home antihypertensives for hypotension -Resume as able as BP tolerates DM2 -A1c 7.3% in 09/2022 -As above, exacerbation from steroid therapy leading to DKA/HHS and treatment as above HLD -Holding home statin given thrombocytopenia FEN: normal diet LINES/IV ACCESS - PIV DVT prophylaxis: SCDs, due to severe thrombocytopenia, anticoag contraindicated due to risk of bleeding Dispo: ICU downgraded to Med/Tele (2) Thrombocytopenia: (3) Metastatic cancer: (4) Pulmonary embolism: (5) Hypermagnesemia: (6) Elevated troponin: (7) BRIAN (acute kidney injury): (8) Hyperphosphatemia: (9) Acute hyperkalemia: (10) Transaminitis: (11) Leukocytosis: (12) Malignant neoplasm of spine: (13) Severe obstructive sleep apnea: (14) History of prostate cancer: (15) Hyponatremia: (16) Weakness: (17) Hypertension: (18) Diabetes mellitus, type 2: (19) Hyperlipidemia: Admission and Anticipated Discharge Date Admission Date: December 17, 2022 Supervising Physician Co-Signing Physician Notes Medical Student Supervision Note: I was personally present during medical student patient encounter and independently interviewed and examined the patient and verified the rivera history and physical, reviewed labs and image studies, discussed the case with Isela Robertson and agree with the findings and care plan. 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 on day of admission he was feeling weak dizzi and almost fell on the ground. He has had increased thirst and urination for few days. He was then referred to ED. In ED he was noted to be in DKA and multiple electrolyte abnormality, thrombocytopenia and elevated uric acid. He received multiple bags of IVF and was started on IV insulin drip. This morning he reports feeling better. His pain in the neck continues. No chest pain, shortness of breath, o/e - general - comfortable in bed, heart - regular, no resp distress, AAOx3. a/p Severe thrombocytopenia -oncology consulted. Considering the presentation - HIT ab ordered and started on argatroban. HIT ab- negative. argatroban d/geremias. -For possible ITP - IVIg dose given. -possible marrow biopsy in am -if bleeds - transfuse platelets to 25-30k -Communicated with oncology DKA - resolved with IV insulin drip. started back on SQ insulin. Presentation likely from being on steroids started for metastatic ds Metastatic ds with heavy tumor burden -elevated uric acid and LDH with other multiple electrolyte abnormality -started on allopurinol Multiple Electrolyte abnormalities - K and Phos normalized. Na - improved. Mag - still at 3. will follow. Metastatic ds to liver and bones and unknown primary - per oncology. Pain control with oxycodone. PE from recent admission - eliquis put on hold due to platelet counts. will discuss with oncology about treating with argatroban. Elevated troponin - likely demand ischemia. no further trending Brian - resolved Transaminitis - improving. Likely reactive and from liver mets SCD Subjective Mr. Wood was seen lying down at the bedside today. He said he was feeling a little better after some pain medication. He had pain in his right shoulder/scapula and down his arm. He still feels thirsty and says he has a dry mouth. He does not report any dizziness, lightheadedness, shrotness of breath, chest pain, abdominal pain. He has not had any muscle spasms or blurry vision. Review of Systems Review of Systems: see HPI Physical Exam Physical Exam: Gen- WN/WD, non-toxic appearing, lying comfortably in no acute distress HEENT- NC/AT, PERRL, prominent posterior cervical lymph node/lymphadenopathy, pre-cervical lymphadenopathy, no supraclavicular lymphadenopathy. oral and pharyngeal mucosa dry. (-) Chvostek's sign Pulm- anterior lung silverman CTABL, decreased breath sounds lower lobes. no accessory muscle use, normal spontaneous breathing CV- normal S1 and S2, no m/r/g. no clubbing, no LE edema. Abd- normal bowel sounds, non-tender to palpation in all 4 quadrants MSK/Derm- skin is warm and dry. no petechiae seen, no oozing from IV site, no other rashes, bruising, erythema, LE purpura. Neuro/Psych- CN II-XII intact. sensation grossly intact b/l UE/LE. Results & Data Results & Data ([facility]) Vital Signs (Past 12 Hours) Vital Signs Temp Pulse Resp BP Pulse Ox O2 Del Method FiO2 12/18/22 08:00 85 12/18/22 07:37 Room Air 12/18/22 03:50 92 H 18 12/18/22 03:40 93 H 20 12/18/22 03:30 91 H 0 L 12/18/22 03:20 87 0 L 12/18/22 03:10 89 22 12/18/22 03:00 90 21 12/18/22 03:00 107/58 L 12/18/22 02:50 90 21 12/18/22 02:40 90 22 12/18/22 02:30 115 H 17 12/18/22 02:20 104 H 18 12/18/22 02:10 101 H 28 H 12/18/22 02:00 100 H 20 12/18/22 01:50 96 H 19 12/18/22 01:40 102 H 19 12/18/22 01:30 100 H 17 12/18/22 01:20 99 H 19 12/18/22 01:10 96 H 20 12/18/22 01:00 93 H 18 12/18/22 00:50 90 21 12/18/22 00:40 88 14 12/18/22 00:30 101 H 11 L 12/18/22 00:20 100 H 21 12/18/22 00:10 93 H 15 12/18/22 00:00 91 H 26 H 12/18/22 00:00 123/64 12/17/22 23:50 89 19 12/17/22 23:40 86 12 12/17/22 23:30 89 15 97 12/17/22 23:20 85 14 94 12/17/22 23:10 91 H 23 96 12/18/22 03:00 36.6 C 12/18/22 02:44 22 98 30 12/18/22 00:45 93 H 21 97 30 (1) DKA (diabetic ketoacidosis) Diabetes mellitus complication detail: without coma Diabetes mellitus type: other specified (including SAL) Qualified Code(s): E13.10 - Other specified diabetes mellitus with ketoacidosis without coma (3) Metastatic cancer Area of secondary neoplastic involvement: unspecified site Qualified Code(s): C79.9 - Secondary malignant neoplasm of unspecified site (4) Pulmonary embolism Acute cor pulmonale presence: unspecified Chronicity: acute Pulmonary embolism type: unspecified Qualified Code(s): I26.99 - Other pulmonary embolism without acute cor pulmonale (17) Hypertension Hypertension type: essential hypertension Qualified Code(s): I10 - Essential (primary) hypertension (19) Hyperlipidemia Hyperlipidemia type: pure hypercholesterolemia Qualified Code(s): E78.00 - Pure hypercholesterolemia, unspecified; E78.0 - Pure hypercholesterolemia
[2022-12-18] MEDS: INSULIN ASPART PER UNIT CHARGE SC SCH ×4 (12:09→20:55)
--- NOTE | 2022-12-18 12:26 | Pharmacy Report ---
Pharmacy Glycemic Short Note 2 - Date of Service December 18, 2022 - Glycemic Short BSG Results (Last 24 hours): 12/17/22 12/17/22 12/17/22 18:37 20:20 20:43 Glucose 807 H* 673 H* POC Glucose > 600 H* 12/17/22 12/17/22 12/18/22 21:30 22:52 00:05 Glucose POC Glucose 526 H* 455 H* 287 H 12/18/22 12/18/22 12/18/22 00:27 01:06 02:04 Glucose 296 H POC Glucose 292 H 253 H 12/18/22 12/18/22 12/18/22 03:04 04:00 05:19 Glucose 199 H POC Glucose 251 H 223 H 12/18/22 12/18/22 12/18/22 05:57 07:13 08:01 Glucose POC Glucose 180 H 123 H 165 H 12/18/22 12/18/22 12/18/22 09:12 09:23 10:08 Glucose 241 H POC Glucose 222 H 201 H 12/18/22 11:21 Glucose POC Glucose 170 H OUTPATIENT ANTIDIABETIC REGIMEN: * Empagliflozin 25mg daily * Metformin 1gm BID * A1c = 7.3% 10/08/22 ASSESSMENT: * Type 2 diabetic admitted with HAGMA, DKA, BRIAN, profound thrombocytopenia. Acute stressors in addition to outpt dexamethasone likely contributing change in glycemic control. * Initial chemistry: AG 22, Bicarb 16, GLU 807, Na 123 (corrected ~135) * Patient received fluid resuscitation as well as IV insulin infusion per DKA pr otocol * This AM AG acidosis has resolved, patient is tolerating diet. Per ICU rounds discussion, pt ready to transition to SQ at this time PLAN FOR INPATIENT GLYCEMIC CONTROL: * Hold outpatient oral diabetes medications * Basal insulin * Lantus 30 units SQ x 1 now, DC insulin drip ~ 2 hrs afterwards * May need an additional dose of Lantus at HS. Will monitor overall trend off drip. Reassess daily needs tomorrow AM * Bolus insulin * NovoLog per scale ACHS and at 0000 + 0400 initially * Goal Range: Low 110 mg/dL - High 140 mg/dL * Correction Factor: 20 mg/dL/unit * Nutritional / Prandial insulin per carb ratio of 1 unit per 7 grams CHO consumed
--- NOTE | 2022-12-18 12:39 | Electrocardiogram Report ---
Test Reason : Blood Pressure : / mmHG Vent. Rate : 098 BPM Atrial Rate : 098 BPM P-R Int : 168 ms QRS Dur : 100 ms QT Int : 358 ms P-R-T Axes : 078 -86 053 degrees QTc Int : 457 ms Normal sinus rhythm Left axis deviation Pulmonary disease pattern Abnormal ECG When compared with ECG of 10-DEC-2022 20:39, Right bundle branch block is no longer Present Borderline criteria for Anterior infarct are no longer Present Confirmed by Abhishek Reyna ([id number]) on 12/18/2022 12:38:48 PM Referred By: Richard Manuel Confirmed By:Abhishek Reyna
--- NOTE | 2022-12-18 12:42 | Pharmacy Report ---
Pharmacy Argatroban Consult - Date of Service December 18, 2022 - Pharmacy Dosing Scope Pharmacy is consulted to initiate the use of Argatroban-IV dosing therapy in the setting of possible HIT/PAOLA pending work-up, order appropriate labs and adjust drug dose/frequency. - Subjective Start Argatroban-IV for possible HIT Goal PTT as determined by provider (Dr Manuel): PTT of 30-35 seconds (due to patient's profound thrombocytopenia) for prophylactic indication Pertinent PMH: metastatic CA to liver and cervical spine - unknown primary but does have h/o prostate CA (prior prostatectomy) B/L subsegmental PEs with B/L lower ext DVTs - on apixaban prior to admit T2DM HTN transaminitis likely from liver mets h/o colon polyps sleep apnea hyperlipidemia osteoarthritis TMJ - Objective Laboratory Results:: Last 24 Hours 12/17/22 12/17/22 12/17/22 18:37 18:37 20:43 Hgb 15.3 Cancelled Hct 47.0 Cancelled Plt Count 14 L* Cancelled APTT PTT Ratio BUN 97 H Creatinine 1.64 H 12/17/22 12/17/22 12/18/22 20:43 22:53 00:27 Hgb Hct Plt Count APTT 25.5 PTT Ratio 0.9 BUN 97 H 82 H Creatinine 1.45 H 1.17 12/18/22 12/18/22 12/18/22 00:27 05:19 05:19 Hgb 14.1 Hct 39.5 L Plt Count 11 L* APTT 26.2 PTT Ratio 1.0 BUN 69 H Creatinine 0.93 12/18/22 12/18/22 05:24 09:23 Hgb 13.9 L Hct 39.2 L Plt Count 10 L* APTT PTT Ratio BUN 65 H Creatinine 0.78 Last 72 Hours 12/17/22 12/17/22 12/17/22 18:37 18:37 20:43 Plt Count 14 L* Cancelled INR Total Bilirubin 1.3 H Direct Bilirubin AST 65 H ALT 124 H 12/17/22 12/18/22 12/18/22 22:53 00:27 05:19 Plt Count 11 L* INR 1.4 H Total Bilirubin 1.1 H Direct Bilirubin 0.3 H AST 63 H ALT 104 H 12/18/22 12/18/22 05:19 05:24 Plt Count 10 L* INR 1.4 H Total Bilirubin Direct Bilirubin AST ALT - Recent Anticoagulant Meds Eliquis 5mg BID - last dose 3/8 AM Received Heparin IV infusion on last admission, this drip was d/cd on 12/12 - Assessment & Plan Argatroban-IV initiated in order to provide a low degree of anticoagulation in a patient with significant risk factors for bleeding but also with acute venous thromboemboli Argatroban dosing adjustments will be managed per the [facility] Direct Thrombin Inhibitor Usage Guidelines II.E.13.01(j). HIT panel has been ordered - results are pending Start Argatroban-IV infusion at 0.25mcg/kg/min per recs of heme/onc consult Goal PTT also determined by hem/onc: 30 -- 35 (seconds) Monitoring: Steady state achieved in 1-3 hours in most patients without hepatic dysfunction. Clearance is reduced up to 4-fold in patients with hepatic impairment (i.e., steady- state may not be achieved for 4-12hrs). Will check 1st PTT 4 hrs after start of infusion given underlying hepatic issues Further dosage adjustments per Clinical Pharmacy & the [facility] Direct Thrombin Inhibitor Usage Guidelines II.E.13.01. Adverse Effects: As there is no specific antidote for DTIs or DTI therapy, careful attention is paid to the achievement of optimal dosing without overdosing. Any DTI therapy should be discontinued should a major clinical bleeding episode take place. Contraindications to DTI Therapy: Overt, major bleeding, hypersensitivity to the medication or any component. Labs: Baseline/Ongoing Labs: Per P&T approved Anticoagulation Safety, Laboratory Test for Anticoagulants We will continue to monitor this patient and make adjustments as needed. Thank you.
[2022-12-18] MEDS ORDERED: [UNRECOGNIZED DRUG - REMARK] ONE (13:00)
[2022-12-18 13:28] LABS: BUN Creatinine Ratio 65.2 (10-20); Calcium 8.4 mg/dl (8.5-10.1); Creatinine Clr Calc Pharmacy 83.4 ml/min; Est GFR (African American) 96.9 ml/min; Est GFR (Non-African American) 83.6 ml/min; Potassium 4.8 mmol/L (3.5-5.1)
[2022-12-18] MEDS: GABAPENTIN 100 MG CAP PO SCH ×2 (13:54→20:59)
[2022-12-18] MEDS ORDERED: oxyCODONE HCL IR 5 MG TAB (IMMEDIATE RELEASE) PO STA (14:21)
[2022-12-18 14:25] LABS: Partial Thromboplastin Ratio 1.5; Partial Thromboplastin Time 42.1 Seconds (21.0-31.0)
[2022-12-18] MEDS: allopurinoL 300 MG TAB PO SCH (15:17)
[2022-12-18] MEDS ORDERED: IMMUNE GLOBULIN (HUMAN) SOLN IV ONE (15:27)
[2022-12-18] MEDS ORDERED: [UNRECOGNIZED DRUG - OTHER] IV ONE (16:00)
[2022-12-18] MEDS ORDERED: IMMUNE GLOBULIN IV ONE (16:00)
[2022-12-18] MEDS: IMMUNE GLOB-GAMUNEX HUMAN 200 ML IV SCH ×4 (16:14→20:52)
[2022-12-18 17:53] LABS: BUN Creatinine Ratio 65.4 (10-20); Calcium 8.2 mg/dl (8.5-10.1); Creatinine Clr Calc Pharmacy 91.6 ml/min; Est GFR (African American) 100.8 ml/min; Est GFR (Non-African American) 86.9 ml/min; Potassium 4.6 mmol/L (3.5-5.1)
[2022-12-18 22:17] LABS: Calcium 8.1 mg/dl (8.5-10.1); Potassium 4.6 mmol/L (3.5-5.1)
[2022-12-18 22:23] LABS: Creatinine Clr Calc Pharmacy 86.3 ml/min; Est GFR (African American) 98.3 ml/min; Est GFR (Non-African American) 84.8 ml/min
[2022-12-19] MEDS: INSULIN ASPART PER UNIT CHARGE SC SCH ×6 (00:29→20:19)
[2022-12-19 06:21] LABS: Bilirubin Direct 0.4 mg/dl (0-0.2); Bilirubin,Total 1.4 mg/dl (0.2-1.0); Creatinine Clr Calc Pharmacy 103.1 ml/min; Est GFR (African American) 105.8 ml/min; Est GFR (Non-African American) 91.3 ml/min; Magnesium 2.2 mg/dl (1.7-2.4); Phosphorus 2.5 mg/dl (2.5-4.9); Total Protein 6.8 gm/dl (6.0-8.3)
[2022-12-19 06:22] LABS: Hematocrit (blood only) 35.9 % (42.0-52.0); Hemoglobin 12.6 g/dl (14.0-18.0); Mean Corpuscular Hemoglobin 33.5 pg (25.0-34.0); Mean Corpuscular Hgb Conc 35.1 g/dL (32.0-36.0); Mean Corpuscular Volume 95.5 fL (80.0-100.0); Platelet Count 7 K/uL (130-400); RDW Coefficient of Variation 12.6 % (11.5-14.5); RDW Standard Deviation 43.9 fL (36.4-46.3); Red Blood Count 3.76 M/uL (4.70-6.10); White Blood Count 10.44 K/ul (4.8-10.8)
[2022-12-19] MEDS ORDERED: SODIUM CHLORIDE 0.9% 250 ML IV PRN (07:21)
--- NOTE | 2022-12-19 08:25 | Hospitalist Progress Note ---
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 marrow failure with increased imm. platelet fraction, abrupt onset thrombocytopenia, and adequate red cell/white cell production. -Coagulation panel revealed: 14.6 PT, 1.4 INR, Fibrinogen 136 -Pt VSS with no signs of bleeding on exam- lower suspicion for DIC. No associated anemia, peripheral smear negative for schistocytes -Peripheral smear revealed: "anisopoikilocytosis. No schistocytes, tear drop cells. Neutrophilic predominant leukocytosis. Platelets decreased in number without clumping. Consistent with non-specific leukocytosis and thrombocytopenia." -Initially suspected HIT with peripheral destruction of platelets and initiated low-dose Argatroban however heparin dependent platelet antibody resulted negative so it was discontinued. pending CALVIN UFH low dose, high dose, and unfract. heparin values. -Appreciate hematology/oncology recs: - If signs of bleeding, transfuse platelets to 25-30k -(12/19) Plts 7, transfused. repeat Plts: 30 - Check platelets again this evening -IVIG initiated for suspected ITP 1mg/kg -Marrow biopsy 12/19 DKA- resolved -Admission labs and clinical history consistent with DKA/HHS, likely triggered by steroid-induced hyperglycemia from recent IV + oral steroid therapy for metastatic cancer. Given urine ketones, more likely DKA than HHS -Holding home steroid at present; per Dr. Manuel may consider low dose Dexamethasone to prevent rebound inflammation considering recent steroid course -12/19: restarted Dexamethasone 4 mg PO daily. Will prophylactically initiate insulin drip for resultant hyperglycemia -NSS IVF repletion and Insulin drip in the ICU. -12/18 AM: switched to subQ insulin with BSG <250, discontinued NSS IVF repletion -BMP q4h -Glucose 800+ on admission, now 200-250s -NPO on admission, initiated diet 12/18 am -IVF switched to D5+1/2 NSS once BSG < 250 -AG gap 22-> transitioned to SQ insulin with AG gap closure- 22 on admission, 12/18 AM 11-->12/18 PM 7 - 12/18 downgraded from ICU to Med/Tele - Trend Lactate - Electrolytes with hyperkalemia, hyper mag, hyperphosphatemia, and low calcium on admission- potentially component of TLS with heavy tumor burden- following electrolytes with volume resuscitation - Metabolic acidosis corrected - Renal function improved following hydration (Cr 1.64->1.45->1.17->.87) Severe electrolyte abnormalities, secondary to DKA vs. TLS - Mg 3.9 on admission; on admission no clinical signs of Mg toxicity; Mg decreased to 3.0. Trend Mg - Phosphorus 7.9 on admission; normalized to 3.7 12/18 am - K+ 6.4 on admission; EKG without significant ST change or arrhythmia, has remained sinus. Calcium gluconate on admission. K normalized 12/18 am - Na 123 on admission; likely pseudohyponatremia from hyperglycemia, serum osmolality 326 - Ca on admission 8.5 low- normal-> 8.4 - LDH 1911 - Given electrolyte abnormalities (hyperMg, hyperK, hypocalcemia, elevated LDH) and heavy tumor burden, initiated Allopurinol for tumor lysis syndrome Metastatic cancer, heavy tumor burden -Extensive metastasis to liver and spine with unknown primary source though potentially pancreas per previous imaging from last hospitalization -Following with [facility] oncology- receiving radiation and chemotherapy as outpatient -Pt reports significant pain/discomfort particularly in R UE -Appreciate Oncology recs -restart dexamethasone 4 mg PO daily; continue insulin subq and monitor glucose Pulmonary embolism -Noted evidence of b/l PE with LE DVTs on last admission, at home on Eliquis -Holding blood thinners in setting of profound thrombocytopenia -CXR reviewed no opacities, no fevers, no sputum and afebrile, do not suspect infxn -Holding DOAC Elevated troponin -Troponin 43 on admission->39->44.7. Stopped trending -EKG without acute ST change, or peaked T waves, pt without ACS symptoms -Likely demand ischemia from acute illness -Hypovolemia secondary to increased glucose level -Fluid resuscitation completed with LR solution Leukocytosis -WBC 19 on admission, 12/18 15 -Low suspicion for active infection at present as pt is afebrile. WBC elevation may be demargination from acute DKA/HHS in background of known cancer. -MRSA nares negative -lactate 2.4 -Trend CBC Transaminitis -AST 65, ALT 124 on admission; 12/18 AST 63, ALT 104 -Likely reactive to current acute illness/DKA in setting of known liver metastasis -Trend CMP BRIAN-resolved -Cr 1.64 on admission--> 12/18 PM .87 -Likely pre-renal cause- excessive volume depletion from urination 2/ DKA; fluid resuscitation complete -Trend BMP Severe ZAID on CPAP -BIPAP Hs Weakness -Weakness in setting of extensive metastasis -PT/OT ordered Hypertension -Holding home antihypertensives for hypotension -Resume as able as BP tolerates DM2 -A1c 7.3% in 09/2022 -As above, exacerbation from steroid therapy leading to DKA/HHS and treatment as above HLD -Holding home statin given thrombocytopenia FEN: normal diet LINES/IV ACCESS - PIV DVT prophylaxis: SCDs, due to severe thrombocytopenia, one-time dose of Enoxaparin 40 mg Dispo: ICU downgraded to Med/Tele (2) Thrombocytopenia: (3) Metastatic cancer: (4) Pulmonary embolism: (5) Hypermagnesemia: (6) Elevated troponin: (7) BRIAN (acute kidney injury): (8) Hyperphosphatemia: (9) Acute hyperkalemia: (10) Transaminitis: (11) Leukocytosis: (12) Malignant neoplasm of spine: (13) Severe obstructive sleep apnea: (14) History of prostate cancer: (15) Hyponatremia: (16) Weakness: (17) Hypertension: (18) Diabetes mellitus, type 2: (19) Hyperlipidemia: Admission and Anticipated Discharge Date Admission Date: December 17, 2022 Supervising Physician Co-Signing Physician Notes Medical Student Supervision Note: I was personally present during medical student patient encounter and independently interviewed and examined the patient and verified the rivera history and physical, reviewed labs and image studies, discussed the case with Isela Robertson and agree with the findings and care plan. 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 on day of admission he was feeling weak dizzi and almost fell on the ground. He has had increased thirst and urination for few days. He was then referred to ED. In ED he was noted to be in DKA and multiple electrolyte abnormality, thrombocytopenia and elevated uric acid. He received multiple bags of IVF and was started on IV insulin drip. Denied any new concerns. Feeling well except the pain is still there. Denied chest pain, shortness of breath o/e - general - comfortable in bed, heart - regular, no resp distress, AAOx3. a/p Severe thrombocytopenia -oncology consulted. Considering the presentation - HIT ab ordered and started on argatroban. HIT ab- negative. argatroban d/geremias. -For possible ITP - IVIg dose given- another dose today -marrow biopsy with no sign of marrow suppression. -transfused platelet with recheck at 30k. another recheck this evening- transfuse per results. -if bleeds - transfuse platelets to 25-30k -Communicated with oncology DKA - resolved with IV insulin drip. started back on SQ insulin. Presentation likely from being on steroids started for metastatic ds Metastatic ds with heavy tumor burden -elevated uric acid and LDH with other multiple electrolyte abnormality -started on allopurinol Multiple Electrolyte abnormalities - resolved Metastatic ds to liver and bones and unknown primary - per oncology. Pain control with oxycodone. PE from recent admission - eliquis put on hold due to platelet counts. discussed with oncology - given dose of lovenox 40mgs. follow platelet count closely. Elevated troponin - likely demand ischemia. no further trending Brian - resolved Transaminitis - improving. Likely reactive and from liver mets SCD Subjective Mr. Wood was seen sitting up at the bedside today. He said he was feeling okay today. He said he's still pretty uncomfortable and has pain both in his back and in his right shoulder/scapula and down his arm. He still feels thirsty and says he has a dry mouth. He does not report any dizziness, lightheadedness, shortness of breath, chest pain, abdominal pain. He has not had any muscle spasms or blurry vision. Review of Systems Review of Systems: see HPI Physical Exam Physical Exam: Gen- WN/WD, non-toxic appearing, lying comfortably in no acute distress HEENT- NC/AT, PERRL, prominent posterior cervical lymph node/lymphadenopathy, pre-cervical lymphadenopathy, no supraclavicular lymphadenopathy. oral and pharyngeal mucosa dry Pulm- anterior lung silverman CTABL, decreased breath sounds lower lobes. no accessory muscle use, normal spontaneous breathing CV- normal S1 and S2, no m/r/g. no clubbing, no LE edema. Abd- normal bowel sounds, non-tender to palpation in all 4 quadrants MSK/Derm- skin is warm and dry. no petechiae seen, no oozing from IV site, no other rashes, bruising, erythema, or LE purpura. Neuro/Psych- CN II-XII intact. sensation grossly intact b/l UE/LE. Results & Data Results & Data ([facility]) Vital Signs (Past 12 Hours) Vital Signs Temp Pulse Resp BP Pulse Ox 12/19/22 08:23 37 C 106 H 22 126/71 95 12/19/22 01:59 99 H 12/18/22 21:00 36.6 C 12/19/22 01:34 36.6 C 12/19/22 01:30 97 H 20 12/19/22 01:20 99 H 21 12/19/22 01:10 100 H 20 12/19/22 01:00 101 H 19 12/19/22 01:00 124/70 12/19/22 00:50 100 H 20 12/19/22 00:40 100 H 20 12/19/22 00:30 101 H 21 12/19/22 00:20 101 H 21 12/19/22 00:10 100 H 21 12/19/22 00:00 101 H 22 12/18/22 23:50 105 H 20 12/18/22 23:40 102 H 31 H 12/18/22 23:30 109 H 19 12/18/22 23:20 99 H 24 12/18/22 23:10 102 H 26 H 12/18/22 23:00 96 H 24 12/18/22 23:00 138/66 12/18/22 22:50 112 H 18 12/18/22 22:40 99 H 25 H 12/18/22 22:30 106 H 21 12/18/22 22:20 100 H 23 12/18/22 22:10 101 H 24 03/09/23 22:00 97 H 24 12/18/22 22:00 110/69 12/18/22 21:50 94 H 31 H 12/18/22 21:40 108 H 15 12/18/22 21:30 91 H 21 12/18/22 21:20 91 H 13 12/18/22 21:10 104 H 20 12/18/22 21:00 100 H 17 12/18/22 20:50 100 H 23 12/18/22 20:40 99 H 20 12/18/22 20:30 104 H 20 (1) DKA (diabetic ketoacidosis) Diabetes mellitus complication detail: without coma Diabetes mellitus type: other specified (including SAL) Qualified Code(s): E13.10 - Other specified diabetes mellitus with ketoacidosis without coma (3) Metastatic cancer Area of secondary neoplastic involvement: unspecified site Qualified Code(s): C79.9 - Secondary malignant neoplasm of unspecified site (4) Pulmonary embolism Acute cor pulmonale presence: unspecified Chronicity: acute Pulmonary embolism type: unspecified Qualified Code(s): I26.99 - Other pulmonary embolism without acute cor pulmonale (17) Hypertension Hypertension type: essential hypertension Qualified Code(s): I10 - Essential (primary) hypertension (19) Hyperlipidemia Hyperlipidemia type: pure hypercholesterolemia Qualified Code(s): E78.00 - Pure hypercholesterolemia, unspecified; E78.0 - Pure hypercholesterolemia
[2022-12-19] MEDS: oxyCODONE HCL IR 5 MG TAB (IMMEDIATE RELEASE) PO PRN ×2 (08:27→20:19)
[2022-12-19] MEDS: allopurinoL 300 MG TAB PO SCH (08:29)
[2022-12-19] MEDS: DULoxetine HCL 30 MG CAP PO SCH (08:29)
[2022-12-19] MEDS: PANTOprazole 40 MG TAB PO SCH (08:29)
[2022-12-19] MEDS: GABAPENTIN 100 MG CAP PO SCH ×3 (08:30→20:19)
[2022-12-19] MEDS ORDERED: XYLOCAINE 1%/SOD BICARB 20 ML VIAL INFIL ONE (09:22)
[2022-12-19] MEDS ORDERED: HEPARIN SOD (PORCINE) 1000 UNIT/ML ONE (09:35)
[2022-12-19] MEDS ORDERED: Octagam 10% IVIG 5 gram bottle IV SCH (10:00)
[2022-12-19 10:06] LABS: Eosinophils # (auto) 0.23 K/uL (0-0.50); Eosinophils % (auto) 2.3 %; Lymphocytes # (auto) 0.45 K/uL (1.2-3.4); Lymphocytes % (auto) 4.4 %; Monocytes # (auto) 0.77 K/uL (0.11-0.59); Monocytes % (auto) 7.6 %; Neutrophils # (auto) 8.63 K/uL (1.40-6.50); Neutrophils % (auto) 84.7 %
--- NOTE | 2022-12-19 10:20 | Pharmacy Report ---
Pharmacy Glycemic Short Note 2 - Date of Service December 19, 2022 - Glycemic Short BSG Results (Last 24 hours): 12/18/22 12/18/22 12/18/22 10:08 11:21 12:48 Glucose 197 H POC Glucose 201 H 170 H 12/18/22 12/18/22 12/18/22 16:25 16:48 20:35 Glucose 195 H 197 H POC Glucose 169 H 12/18/22 12/19/22 12/19/22 20:50 00:12 04:20 Glucose POC Glucose 195 H 126 H 161 H 12/19/22 12/19/22 05:32 08:42 Glucose Cancelled POC Glucose 130 H OUTPATIENT ANTIDIABETIC REGIMEN: * Empagliflozin 25mg daily * Metformin 1gm BID * A1c = 7.3% 10/08/22 ASSESSMENT: 12/19 * Patient successfully transitioned off insulin drip yesterday * 56 units SQ insulin given in last 24 hrs while tolerating a diet * Fasting BSG 130 this AM with 30 units basal on board and after receipt of 5 units correctional insulin overnight * Patient will begin 4 day course of Dexamethasone PO 40mg daily for suspected ITP. Given patient's presentation with DKA possibly associated with outpt dexamethasone use will need to monitor patient closely and treat aggressively with SQ. Will escalate Novolog CF and CR doses to "high stress" and will possibly provide small dose of NPH with lunch today depending on the result 12/18 * Type 2 diabetic admitted with HAGMA, DKA, BRIAN, profound thrombocytopenia. Acute stressors in addition to outpt dexamethasone likely contributing change in glycemic control. * Initial chemistry: AG 22, Bicarb 16, GLU 807, Na 123 (corrected ~135) * Patient received fluid resuscitation as well as IV insulin infusion per DKA protocol * This AM AG acidosis has resolved, patient is tolerating diet. Per ICU rounds discussion, pt ready to transition to SQ at this time PLAN FOR INPATIENT GLYCEMIC CONTROL: * Hold outpatient oral diabetes medications * Basal insulin * Lantus 32 units SQ Q AM * Consider adding small dose of NPH with lunch s/p receipt of PO dexamethasone * Consider use of NPH each AM dexamethasone given * Bolus insulin * NovoLog per scale ACHS and continue 0000 + 0400 given risk for worsening glycemic control while on steroid * Goal Range: Low 110 mg/dL - High 140 mg/dL * Correction Factor: 18 mg/dL/unit * Nutritional / Prandial insulin per carb ratio of 1 unit per 6 grams CHO consumed
[2022-12-19 10:29] LABS: BUN Creatinine Ratio 51.4 (10-20); Calcium 7.7 mg/dl (8.5-10.1); Potassium 4.3 mmol/L (3.5-5.1)
[2022-12-19] MEDS: LANTUS PER UNIT CHARGE SQ SCH (10:32)
[2022-12-19 10:45] LABS: Platelet Count 30 K/uL (130-400)
[2022-12-19] MEDS: dexAMETHasone 4 MG TAB PO SCH (11:25)
[2022-12-19] MEDS: IMMUN GLOBG(IGG)/MALT/IGA OV50 200 ML IV SCH ×3 (12:09→20:23)
[2022-12-19] MEDS ORDERED: ENOXAPARIN INJ 40 MG/0.4 ML SYR SQ ONE (12:35)
--- NOTE | 2022-12-19 14:59 | CT Scan Report ---
CT-guided bone marrow biopsy INDICATION: Thrombocytopenia PROCEDURE: Procedure and risks were explained. Informed consent was obtained. A final timeout was com pleted. The patient was placed prone on the CT exam table. The left gluteal region was prepped and dr aped in sterile fashion. 1% buffered lidocaine was utilized for skin anesthesia. Utilizing CT guidance, an 11-gauge bone biopsy needle was advanced into the left iliac bone. Multiple aspirates and one 11-gauge bone core was obtained and given to the lab. The needle was removed and B and-Aid applied. The patient tolerated the procedure well. Vital signs will be monitored on the floor . IMPRESSION: Bone marrow biopsy as above. Performed, dictated, and signed by Nasim Shaw PA-C; to be co-signed by Dr. Ramirez Rojas. Electronically signed by: Ramirez Rojas M.D. 12/19/2022 4:08 PM
[2022-12-19] MEDS ORDERED: IMMUNE GLOBULIN (HUMAN) SOLN IV ONE (16:00)
[2022-12-19 19:07] LABS: Platelet Count 20 K/uL (130-400)
[2022-12-20] MEDS: INSULIN ASPART PER UNIT CHARGE SC SCH ×6 (00:03→21:23)
[2022-12-20] MEDS: IMMUN GLOBG(IGG)/MALT/IGA OV50 200 ML IV SCH (00:06)
--- NOTE | 2022-12-20 06:52 | Hospitalist Progress Note ---
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 marrow failure, abrupt onset thrombocytopenia, and adequate red cell/white cell production. -Coagulation panel revealed: 14.6 PT, 1.4 INR, Fibrinogen 136 -Pt VSS with no signs of bleeding on exam- lower suspicion for DIC. No associated anemia, peripheral smear negative for schistocytes -Peripheral smear revealed: "anisopoikilocytosis. No schistocytes, tear drop cells. Neutrophilic predominant leukocytosis. Platelets decreased in number without clumping. Consistent with non-specific leukocytosis and thrombocytopenia." -Initially suspected HIT with peripheral destruction of platelets and initiated low-dose Argatroban however heparin dependent platelet antibody resulted negative so it was discontinued. pending CALVIN UFH low dose, high dose, and unfract. heparin values. Note: with further data, still considering PAOLA as possible etiology. Per Dr. Manuel, enoxaparin/fondaparinux/heparin now listed as possible allergies. -Appreciate hematology/oncology recs: -Completed 2 days of IVIG, no further doses indicated -Dexamethasone 40mg x4 days (currently day 2 of 4) -If signs of bleeding, transfuse platelets to 25-30k -(12/19) Plts 7, transfused. repeat Plts (12/19): 30 -(12/20) Plts 23, will recheck again this evening -Restarted low dose argatroban today (12/20), if platelets reach 40-50k can increase to full dose argatroban -Marrow biopsy 12/19: "no intrinsic hematologic abnormalities nor infiltration by his adenocarcinoma", suggestive of immunologic destruction of platelets as the mechanism for his thrombocytopenia DKA- resolved -Admission labs and clinical history consistent with DKA/HHS, likely triggered by steroid-induced hyperglycemia from recent IV + oral steroid therapy for metastatic cancer. Given urine ketones, more likely DKA than HHS -Held steroids and started on IV insulin drip. -Once AG normalized - Transitioned to SC insulin Severe electrolyte abnormalities, secondary to DKA vs. TLS - Mg 3.9 on admission; on admission no clinical signs of Mg toxicity; Mg decreased to 3.0. Trend Mg - Phosphorus 7.9 on admission; normalized to 3.7 3/9 am - K+ 6.4 on admission; EKG without significant ST change or arrhythmia, has remained sinus. Calcium gluconate on admission. K normalized 3/9 am - Na 123 on admission; likely pseudohyponatremia from hyperglycemia, serum osmolality 326 - Ca on admission 8.5 low- normal-> 8.4 - LDH 1911 - Given electrolyte abnormalities (hyperMg, hyperK, hypocalcemia, elevated LDH) and hyperuricemia and heavy tumor burden, initiated Allopurinol for tumor lysis Metastatic cancer, heavy tumor burden -Extensive metastasis to liver and spine with unknown primary source though potentially pancreas per previous imaging from last hospitalization -Following with [facility] oncology- receiving radiation and chemotherapy as outpatient -Pt reports significant pain/discomfort particularly in R UE -Appreciate Oncology recs -restarted dexamethasone at 40 mg PO daily for total 4 days (on day2); Pharmacy following DM management. Pulmonary embolism -Noted evidence of b/l PE with LE DVTs on last admission, at home on Eliquis -Held anticoagulation in setting of profound thrombocytopenia -Did receive dose of lovenox but none further due to persistent concern of heparin associated thrombocytopenia -Holding DOAC until platelet count rises and stays stable. Elevated troponin -Troponin 43 on admission->39->44.7. Stopped trending -EKG without acute ST change, or peaked T waves, pt without ACS symptoms -Likely demand ischemia from acute illness Transaminitis -AST 65, ALT 124 on admission; 12/18 AST 63, ALT 104 -Likely reactive to current acute illness/DKA in setting of known liver metastasis -Trend CMP BRIAN-resolved -Cr 1.64 on admission--> 3/9 PM .87 -Likely pre-renal cause- excessive volume depletion from urination 2/2 DKA; fluid resuscitation complete -Trend BMP Severe ZAID on CPAP -BIPAP Hs Hypertension -Holding home antihypertensives for hypotension -Resume as able as BP tolerates DM2 -A1c 7.3% in 09/2022 -As above, exacerbation from steroid therapy leading to DKA/HHS and treatment as above HLD -Holding home statin given thrombocytopenia FEN: normal diet LINES/IV ACCESS - PIV DVT prophylaxis: SCDs, due to severe thrombocytopenia, argatroban Dispo: ICU downgraded to Med/Tele (2) Thrombocytopenia: (3) Metastatic cancer: (4) Pulmonary embolism: (5) Hypermagnesemia: (6) Elevated troponin: (7) BRIAN (acute kidney injury): (8) Hyperphosphatemia: (9) Acute hyperkalemia: (10) Transaminitis: (11) Leukocytosis: (12) Malignant neoplasm of spine: (13) Severe obstructive sleep apnea: (14) History of prostate cancer: (15) Hyponatremia: (16) Weakness: (17) Hypertension: (18) Diabetes mellitus, type 2: (19) Hyperlipidemia: Admission and Anticipated Discharge Date Admission Date: December 17, 2022 Supervising Physician Co-Signing Physician Notes Resident Physician Supervision Note: I independently interviewed and examined the patient and verified the rivera history and physical, reviewed labs and image studies and agree with resident findings and care plan. 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 12/20: Patient was seen and examined at bedside. No acute events overnight. Josh states that he is doing well today, feels that his back pain is lessened today. He has been eating and drinking without issue. Denies dizziness/weakness, chest pain, shortness of breath, abdominal pain. Review of Systems Review of Systems: As per HPI Physical Exam Constitutional: WD/WN, vitals as above Eyes: Anicteric sclerae ENMT: Moist mucous membranes Respiratory: normal respiratory effort, lungs clear to auscultation No increased work of breathing Cardiovascular: RRR, no murmur, no edema +2 radial pulses bilaterally, no lower extremity edema Gastrointestinal (Abdomen): normal bowel sounds, soft, nontender, no hepatosplenomegaly Psychiatric: A+Ox3, euthymic affect Results & Data Results & Data ([place]) Vital Signs (Past 12 Hours) Vital Signs Temp Pulse Pulse Resp BP Pulse Ox O2 Del Method 12/20/22 02:56 36.5 C 82 18 107/67 97 CPAP 12/19/22 23:15 88 12/19/22 22:55 36.4 C L 84 18 100/59 L 95 CPAP 12/19/22 19:16 36.4 C L 89 18 116/68 94 Room Air Resident Activity Tracking Resident Involvement: Resident Care Provided Care Provided: Adult Hospital Medicine (1) DKA (diabetic ketoacidosis) Diabetes mellitus complication detail: without coma Diabetes mellitus type: other specified (including SAL) Qualified Code(s): E13.10 - Other specified diabetes mellitus with ketoacidosis without coma (3) Metastatic cancer Area of secondary neoplastic involvement: unspecified site Qualified Code(s): C79.9 - Secondary malignant neoplasm of unspecified site (4) Pulmonary embolism Acute cor pulmonale presence: unspecified Chronicity: acute Pulmonary emboli sm type: unspecified Qualified Code(s): I26.99 - Other pulmonary embolism without acute cor pulmonale (17) Hypertension Hypertension type: essential hypertension Qualified Code(s): I10 - Essential (primary) hypertension (19) Hyperlipidemia Hyperlipidemia type: pure hypercholesterolemia Qualified Code(s): E78.00 - Pure hypercholesterolemia, unspecified; E78.0 - Pure hypercholesterolemia
[2022-12-20 07:09] LABS: Hematocrit (blood only) 34.4 % (42.0-52.0); Hemoglobin 11.8 g/dl (14.0-18.0); Mean Corpuscular Hemoglobin 33.4 pg (25.0-34.0); Mean Corpuscular Hgb Conc 34.3 g/dL (32.0-36.0); Mean Corpuscular Volume 97.5 fL (80.0-100.0); Mean Platelet Volume 12.4 fL (9.4-12.4); Platelet Count 23 K/uL (130-400); RDW Coefficient of Variation 12.9 % (11.5-14.5); RDW Standard Deviation 45.5 fL (36.4-46.3); Red Blood Count 3.53 M/uL (4.70-6.10); White Blood Count 8.76 K/ul (4.8-10.8)
[2022-12-20 07:37] LABS: Albumin Globulin Ratio 0.5 (0.9-2); Albumin Level 2.8 gm/dl (3.4-5.0); Bilirubin,Total 0.9 mg/dl (0.2-1.0); Calcium 7.7 mg/dl (8.5-10.1); Creatinine Clr Calc Pharmacy 103.1 ml/min; Est GFR (African American) 105.8 ml/min; Est GFR (Non-African American) 91.3 ml/min; Globulin 5.3 gm/dl (2.5-4.0); Magnesium 2.4 mg/dl (1.7-2.4); Phosphorus 3.5 mg/dl (2.5-4.9); Potassium 4.7 mmol/L (3.5-5.1); Total Protein 8.1 gm/dl (6.0-8.3)
[2022-12-20] MEDS: LANTUS PER UNIT CHARGE SQ SCH (08:18)
[2022-12-20] MEDS: PANTOprazole 40 MG TAB PO SCH (08:23)
[2022-12-20] MEDS: DULoxetine HCL 30 MG CAP PO SCH (08:23)
[2022-12-20] MEDS: GABAPENTIN 100 MG CAP PO SCH ×3 (08:23→21:22)
[2022-12-20] MEDS: allopurinoL 300 MG TAB PO SCH (08:23)
[2022-12-20] MEDS: dexAMETHasone 4 MG TAB PO SCH (08:23)
--- NOTE | 2022-12-20 08:29 | Hospitalist Progress Note ---
Date of Service December 20, 2022 Assessment & Plan (1) Thrombocytopenia: Plan: Persistent thrombocytopenia though there was an encouraging response to transfusion yesterday and he has held platelets at a steady level overnight suggesting some at least moderate endogenous stabilization. Marrow aspiration and biopsy yesterday showed no intrinsic hematologic abnormalities nor infiltration by his adenocarcinoma. Importantly he had increased numbers of relatively normal-appearing platelets. That would strongly suggest that we are indeed dealing with an immunologic destruction of platelets as the mechanism for his thrombocytopenia. He has received a total of 2 g/kg of IVIG and today will be his second dose of high-dose dexamethasone. "Idiopathic" immune thrombocytopenia is a diagnosis of exclusion. Some sort of malignancy induced process might be conceivable but its later onset in the natural history of his disease which must of been present for at least a number of weeks if not months makes this no more than a tenuous possibility. The specific screen for PAOLA was negative but I still have to be very concerned about a strong circumstantial association between the administration of that drug and the abrupt onset of a dramatic and apparently immune associated thrombocytopenia just 5 days later. The situation is particularly concerning for the potential that if there is a heparin associated thrombocytopenia that itself creates risk for threatening thrombosis in conjunction with the ongoing concern with the already noted pulmonary embolism suggesting a Trousseau's like hypercoagulability. In reviewing the literature regarding PAOLA, there certainly is a spectrum of degree of thrombocytopenia that would include dramatically low platelet counts as we see here. There are a certain proportion of patients where there is not additional overt thrombosis with its onset. Interestingly, there are reported cases where not only enoxaparin but also fondaparinux have been seemingly vehicles for further perpetuation/exacerbation of an PAOLA syndrome. Challenge is to balance the desire to obviously avoid hemorrhage with the institution of anticoagulation and yet protect him from those thrombosis risks. I think we have to be prudently avoiding the use of heparin or heparin like agents given the above concerns. Spoke at length with the patient and his regarding my perspectives here and the need to balance prudent conservatism with regards to anticoagulation to avoid bleeding and yet the awareness of an already established episode of pulmonary embolism and the potential ongoing threat of further clot due to the malignancy and possibly due to heparin related pathologic thrombocytopenia. They are aware that we are proceeding in somewhat creative fashion given the lack of firm basis for making unequivocal decisions about treatment and are fully supportive of that. I have spoken on several occasions over the last 7 days with the patient specifically regarding the need to be at least intermediately aggressive with anticoagulation. There is a well-established specific precedent for using Lovenox 0.5 mg/kg subq bid for treating malignancy related thrombosis with platelet counts between 25 and 50,000. I have found additional authors who feel that there can be flexible consideration of anticoagulation for platelets as low as 20,000. While some might use platelet transfusion to raise platelets and further hedge against bleeding associated with anticoagulation and the patient did indeed respond to platelet transfusion yesterday, I remain fundamentally concerned about the fact that there is some reticence about using platelet transfusions in the specific context of PAOLA. We can take some comfort in the fact that we are dealing with an immune thrombocytopenia here and there is well-established perception that in the setting of an ITP-like process, the platelets that are present tend to be the young and most functional platelets and thus bleeding risk is lesser than the low numbers might suggest. This is in contrast to the [facility] study that established the use of enoxaparin in thrombocytopenia where the patient populations were leukemics whose platelets were probably at least modestly dysfunctional and certainly not the robust young platelet population seen in ITP While the well-established approach for anticoagulation for patients with thrombocytopenia has been with the medication enoxaparin, if I do have ongoing concern about heparin I think that medication would be best avoided as above. He did at least briefly well tolerate argatroban used at a low dose on Thursday and I will recommend that we resume that at 0.25 mcg/kg/min with ongoing monitoring and adjustments to maintain the PTT in the 25 to 30-second range. We should continue to monitor his platelets and if they fall below 20,000 may need to suspend the infusion. As the platelets hopefully rise beyond the 40-50,000 range we can consider a transition to more "therapeutic" dosing. I am hoping that the current moderate rise in platelets reflects either therapeutic impact of the immunoglobulin dexamethasone and/or further distance from the actual administration of heparin with the caveat that the dose of enoxaparin he did receive 1 time yesterday may perpetuate any process related to heparin. If we do see a secondary and more consistent fall in platelets we may have to consider rituximab as he is not a good candidate for splenectomy and the use of thrombopoietin receptor agonists would carry some additional concerns over thrombotic risk at least in transition if they must be instituted at a time that we cannot give more effective anticoagulation There should be a reflex serotonin release assay to further address the concern over possible heparin-induced associated thrombocytopenia. Once those results are available we can further refine our assessment of his (2) Pulmonary embolism: Plan: Proposed treatment approach is incorporated into the thrombocytopenia discussion above. 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 (3) Transaminitis: Plan: Note that the transaminitis, certainly reflects the metastatic involvement of the liver already established on CT (4) Metastatic cancer: Plan: Immediate focus is on the thrombocytopenia and its management as above. Clinically he seems to have stabilized with the steroids and at least initial doses of radiation he has received so far. We await final characterization of his adenocarcinoma but it seems likely a proximal GI origin. If/as we can get the platelets stabilized and with a more consistent approach to his anticoagulation, should be able to resume and complete the radiation to his shoulder. As we are doing so, we will finalize a systemic treatment plan that should be able to begin shortly after the radiation stops Plan Would suggest we avoid further platelet transfusions unless there is immediate concern over bleeding Would suggest cautious initiation of argatroban at 0.25 mcg/kg/min with the rationale as outlined above. Target will be for a PTT that remains in the 25 to 30-second range for now. If platelets continue to rise and especially as they approach the 50,000 threshold can transition to more "full dose" argatroban with the ultimate intention to transition to DOAC once he is fully stabilized Should be considered and listed as allergic to heparin and at least for the time being would include enoxaparin and fondaparinux avoidance Should complete the planned 4 days of high-dose dexamethasone then transition back to just 4 mg once daily. If he remains clinically stable can resume radiation to his shoulder Admission and Anticipated Discharge Date Admission Date: December 17, 2022 Subjective Patient is quite stable. He is having no epistaxis, hematuria, melena, hematochezia no unusual bruising or bleeding. Arm discomfort seems to be minimized currently with at least moderate improvement in strength, he has no other focal complaint Physical Exam Physical Exam: Vital signs are stable. He is alert and comfortable and completely intact cognitive status No peripheral pathologic adenopathy Lungs and heart exam seems stable The abdomen is benign Skin does not show any concerning areas of bruising or petechiae Results & Data Results & Data ([facility]) Vital Signs (Past 12 Hours) Vital Signs Temp Pulse Pulse Resp BP Pulse Ox O2 Del Method 12/20/22 07:16 36.5 C 78 18 113/58 L 99 Room Air 12/20/22 02:56 36.5 C 82 18 107/67 97 CPAP 12/19/22 23:15 88 12/19/22 22:55 36.4 C L 84 18 100/59 L 95 CPAP Laboratory Results Abnormal lab results 12/19/22 12/19/22 12/19/22 Range/Units 05:32 05:32 08:42 RBC 3.76 L (4.70-6.10) M/uL Hgb 12.6 L (14.0-18.0) g/dl Hct 35.9 L (42.0-52.0) % Plt Count 7 L* (130-400) K/uL Neut # (Auto) 8.63 H (1.40-6.50) K/uL Lymph # (Auto) 0.45 L (1.2-3.4) K/uL [place] # (Auto) 0.77 H (0.11-0.59) K/uL Sodium 129 L (136-145) mmol/L BUN 37 H (6-23) mg/dl BUN/Creatinine Ratio 51.4 H (10-20) Glucose 141 H (70-99(Fasting)) mg/dl POC Glucose 130 H (70-99) mg/dl Calcium 7.7 L (8.5-10.1) mg/dl AST (13-39) U/L ALT (7-52) U/L Alkaline Phosphatase (34-104) U/L Albumin (3.4-5.0) gm/dl Globulin (2.5-4.0) gm/dl Albumin/Globulin Ratio (0.9-2) 12/19/22 12/19/22 12/19/22 Range/Units 10:27 10:45 16:42 RBC (4.70-6.10) M/uL Hgb (14.0-18.0) g/dl Hct (42.0-52.0) % Plt Count 30 L D (130-400) K/uL Neut # (Auto) (1.40-6.50) K/uL Lymph # (Auto) (1.2-3.4) K/uL [place] # (Auto) (0.11-0.59) K/uL Sodium (136-145) mmol/L BUN (6-23) mg/dl BUN/Creatinine Ratio (10-20) Glucose (70-99(Fasting)) mg/dl POC Glucose 127 H 202 H (70-99) mg/dl Calcium (8.5-10.1) mg/dl AST (13-39) U/L ALT (7-52) U/L Alkaline Phosphatase (34-104) U/L Albumin (3.4-5.0) gm/dl Globulin (2.5-4.0) gm/dl Albumin/Globulin Ratio (0.9-2) 12/19/22 12/19/22 12/19/22 Range/Units 18:15 20:08 23:48 RBC (4.70-6.10) M/uL Hgb (14.0-18.0) g/dl Hct (42.0-52.0) % Plt Count 20 L* (130-400) K/uL Neut # (Auto) (1.40-6.50) K/uL Lymph # (Auto) (1.2-3.4) K/uL [place] # (Auto) (0.11-0.59) K/uL Sodium (136-145) mmol/L BUN (6-23) mg/dl BUN/Creatinine Ratio (10-20) Glucose (70-99(Fasting)) mg/dl POC Glucose 188 H 182 H (70-99) mg/dl Calcium (8.5-10.1) mg/dl AST (13-39) U/L ALT (7-52) U/L Alkaline Phosphatase (34-104) U/L Albumin (3.4-5.0) gm/dl Globulin (2.5-4.0) gm/dl Albumin/Globulin Ratio (0.9-2) 12/20/22 12/20/22 12/20/22 Range/Units 03:44 03:49 06:40 RBC (4.70-6.10) M/uL Hgb (14.0-18.0) g/dl Hct (42.0-52.0) % Plt Count (130-400) K/uL Neut # (Auto) (1.40-6.50) K/uL Lymph # (Auto) (1.2-3.4) K/uL [place] # (Auto) (0.11-0.59) K/uL Sodium 128 L (136-145) mmol/L BUN 36 H (6-23) mg/dl BUN/Creatinine Ratio 50.0 H (10-20) Glucose 223 H (70-99(Fasting)) mg/dl POC Glucose 275 H 215 H (70-99) mg/dl Calcium 7.7 L (8.5-10.1) mg/dl AST 79 H (13-39) U/L ALT 98 H (7-52) U/L Alkaline Phosphatase 347 H (34-104) U/L Albumin 2.8 L (3.4-5.0) gm/dl Globulin 5.3 H (2.5-4.0) gm/dl Albumin/Globulin Ratio 0.5 L (0.9-2) 12/20/22 12/20/22 Range/Units 06:40 07:14 RBC 3.53 L (4.70-6.10) M/uL Hgb 11.8 L (14.0-18.0) g/dl Hct 34.4 L (42.0-52.0) % Plt Count 23 L* (130-400) K/uL Neut # (Auto) (1.40-6.50) K/uL Lymph # (Auto) (1.2-3.4) K/uL [place] # (Auto) (0.11-0.59) K/uL Sodium (136-145) mmol/L BUN (6-23) mg/dl BUN/Creatinine Ratio (10-20) Glucose (70-99(Fasting)) mg/dl POC Glucose 230 H (70-99) mg/dl Calcium (8.5-10.1) mg/dl AST (13-39) U/L ALT (7-52) U/L Alkaline Phosphatase (34-104) U/L Albumin (3.4-5.0) gm/dl Globulin (2.5-4.0) gm/dl Albumin/Globulin Ratio (0.9-2) Marrow aspiration biopsy 12/19/2022 on preliminary reading shows increased megakaryocytes without atypical forms, some hypercellularity overall, no pathologic hematologic cells and no signs of obvious adenocarcinoma infiltration PG Care Time/CCT Total # of Minutes Spent Total Time Spent with Patient: Total time spent is greater than 50% in coordination of care (as documented) at patient's floor/unit and/or counseling patient: Coding Level of Care Code 82478 SUB INP/OBS CARE 2/35MIN History Expanded Problem Focused Exam Expanded Problem Focused Medical Decision Making High Complexity Diagnoses Thrombocytopenia D69.6 Pulmonary embolism I26.99 Acute cor pulmonale presence: unspecified Chronicity: acute Pulmonary embolism type: unspecified Transaminitis R74.01 Metastatic cancer C79.9 Area of secondary neoplastic involvement: unspecified site (2) Pulmonary embolism Acute cor pulmonale presence: unspecified Chronicity: acute Pulmonary embolism type: unspecified Qualified Code(s): I26.99 - Other pulmonary embolism without acute cor pulmonale (4) Metastatic cancer Area of secondary neoplastic involvement: unspecified site Qualified Code(s): C79.9 - Secondary malignant neoplasm of unspecified site
[2022-12-20] MEDS ORDERED: ARGATROBAN CONSULT ACTIVE PRN (10:51)
[2022-12-20 12:32] LABS: INR 1.2 (0.9-1.1); Partial Thromboplastin Time 28.2 Seconds (21.0-31.0)
--- NOTE | 2022-12-20 13:55 | Pharmacy Report ---
Pharmacy Argatroban Consult - Date of Service December 20, 2022 - Pharmacy Dosing Scope Pharmacy is consulted to initiate the use of Argatroban-IV dosing therapy, order appropriate labs and adjust drug dose/frequency. - Subjective Regarding previous anticoagulation: Patient on day # 1 of PROPHYLACTIC Lovenox 40 mg SQ for DVT prophylaxis (received 12/19 @ 1330). Patient received argatroban on 12/18 Start Argatroban-IV for DVT prophylaxis with low platelets and concern for PAOLA. Goal PTT Ratio as determined by Dr Manuel: 1.2 Pertinent PMH: malignancy, Platelets < 50K - Objective Laboratory Results:: Last 24 Hours 12/19/22 12/20/22 12/20/22 18:15 06:40 06:40 Hgb 11.8 L Hct 34.4 L Plt Count 20 L* 23 L* APTT PTT Ratio BUN 36 H Creatinine 0.72 12/20/22 11:32 Hgb Hct Plt Count APTT 28.2 PTT Ratio 1.0 BUN Creatinine Last 72 Hours 12/17/22 12/17/22 12/17/22 18:37 18:37 20:43 Plt Count 14 L* Cancelled INR Total Bilirubin 1.3 H Direct Bilirubin AST 65 H ALT 124 H 12/17/22 12/18/22 12/18/22 22:53 00:27 05:19 Plt Count 11 L* INR 1.4 H Total Bilirubin 1.1 H Direct Bilirubin 0.3 H AST 63 H ALT 104 H 12/18/22 12/18/22 12/19/22 05:19 05:24 05:32 Plt Count 10 L* INR 1.4 H Total Bilirubin 1.4 H Direct Bilirubin 0.4 H AST 70 H ALT 88 H 12/19/22 12/19/22 12/19/22 05:32 05:32 10:27 Plt Count 7 L* 30 L D INR Total Bilirubin Cancelled Direct Bilirubin AST Cancelled ALT Cancelled 12/19/22 12/20/22 12/20/22 18:15 06:40 06:40 Plt Count 20 L* 23 L* INR Total Bilirubin 0.9 D Direct Bilirubin AST 79 H ALT 98 H 12/20/22 11:32 Plt Count INR 1.2 H Total Bilirubin Direct Bilirubin AST ALT - Recent Anticoagulant Meds argatroban (12/18/22), Lovenox (12/19/22) - Assessment & Plan Regarding PROPHYLACTIC Argatroban-IV for DVT prophylaxis: Managed per the [facility] Direct Thrombin Inhibitor Usage Guidelines II.E.13.01(j). D/C all heparin & low molecular weight heparin (LMWH) products. Start Argatroban-IV infusion at 0.125 mcg/kg/min. o If Active thrombosis, start initial dosage MARIO. o If NO active thrombosis, may consider allowing 3-4 hrs after heparin is stopped or 10 hrs after last therapeutic enoxaparin dose before initiating. Usual starting dose is 0.5-2 mcg/kg/min for HIT or therapeutic anticoagulation. Consider lower starting doses for critical illness, multiple organ dysfunction, heart failure, severe anasarca, or post-cardiac surgery. Usual dose is 0.5mcg/kg/min if Moderate-Severe hepatic impairment (Child-Mcnally Class B/C). If significant hepatic impairment is present, please consider alternative anticoagulation. Goal PTT Ratio as determined by ordering provider: 1.2 Monitoring: Steady state achieved in 1-3 hours in most patients without hepatic dysfunction. Clearance is reduced up to 4-fold in patients with hepatic impairment (i.e., steady- state may not be achieved for 4-12hrs). Further dosage adjustments per Clinical Pharmacy & the [facility] Direct Thrombin Inhibitor Usage Guidelines II.E.13.01(j). Adverse Effects: As there is no specific antidote for DTIs or DTI therapy, careful attention is paid to the achievement of optimal dosing without overdosing. Any DTI therapy should be discontinued should a major clinical bleeding episode take place. Contraindications to DTI Therapy: Overt, major bleeding, hypersensitivity to the medication or any component. Labs: Baseline/Ongoing Labs: Per P&T approved Anticoagulation Safety, Laboratory Test for Anticoagulants We will continue to monitor this patient and make adjustments as needed. Thank you.
[2022-12-20 17:59] LABS: Platelet Count 39 K/uL (130-400)
[2022-12-20 18:35] LABS: Partial Thromboplastin Ratio 1.3; Partial Thromboplastin Time 35.3 Seconds (21.0-31.0)
[2022-12-20] MEDS ORDERED: PHARMACY ARGATROBAN RATE CHANGE ONE ×2 (19:15→19:30)
[2022-12-20 22:22] LABS: Partial Thromboplastin Ratio 1.3; Partial Thromboplastin Time 36.2 Seconds (21.0-31.0)
[2022-12-20] MEDS ORDERED: PHARMACY ARGATROBAN RATE CHANGE STA (22:55)
[2022-12-20] MEDS: oxyCODONE HCL IR 5 MG TAB (IMMEDIATE RELEASE) PO PRN (23:35)
[2022-12-21 03:57] LABS: Hematocrit (blood only) 33.3 % (42.0-52.0); Hemoglobin 11.6 g/dl (14.0-18.0); Mean Corpuscular Hgb Conc 34.8 g/dL (32.0-36.0); Mean Corpuscular Volume 97.7 fL (80.0-100.0); Mean Platelet Volume 12.6 fL (9.4-12.4); Platelet Count 45 K/uL (130-400); RDW Coefficient of Variation 12.9 % (11.5-14.5); RDW Standard Deviation 45.5 fL (36.4-46.3); Red Blood Count 3.41 M/uL (4.70-6.10); White Blood Count 11.73 K/ul (4.8-10.8)
[2022-12-21 04:20] LABS: Albumin Globulin Ratio 0.6 (0.9-2); Albumin Level 2.6 gm/dl (3.4-5.0); BUN Creatinine Ratio 43.4 (10-20); Bilirubin,Total 0.8 mg/dl (0.2-1.0); Calcium 7.3 mg/dl (8.5-10.1); Creatinine Clr Calc Pharmacy 97.6 ml/min; Est GFR (African American) 103.4 ml/min; Est GFR (Non-African American) 89.2 ml/min; Globulin 4.6 gm/dl (2.5-4.0); Magnesium 2.3 mg/dl (1.7-2.4); Partial Thromboplastin Ratio 1.5; Partial Thromboplastin Time 40.5 Seconds (21.0-31.0); Phosphorus 2.5 mg/dl (2.5-4.9); Potassium 4.4 mmol/L (3.5-5.1); Total Protein 7.2 gm/dl (6.0-8.3)
[2022-12-21] MEDS ORDERED: PHARMACY ARGATROBAN RATE CHANGE ONE ×4 (04:45→22:15)
--- NOTE | 2022-12-21 06:53 | Hospitalist Progress Note ---
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 marrow failure, abrupt onset thrombocytopenia, and adequate red cell/white cell production. -Coagulation panel revealed: 14.6 PT, 1.4 INR, Fibrinogen 136 -Pt VSS with no signs of bleeding on exam- lower suspicion for DIC. No associated anemia, peripheral smear negative for schistocytes -Peripheral smear revealed: "anisopoikilocytosis. No schistocytes, tear drop cells. Neutrophilic predominant leukocytosis. Platelets decreased in number without clumping. Consistent with non-specific leukocytosis and thrombocytopenia." -Initially suspected HIT with peripheral destruction of platelets and initiated low-dose Argatroban however heparin dependent platelet antibody resulted negative so it was discontinued. pending CALVIN UFH low dose, high dose, and unfract. heparin values. Note: with further data, still considering PAOLA as possible etiology. Per Dr. Manuel, enoxaparin/fondaparinux/heparin now listed as possible allergies. -Appreciate hematology/oncology recs: -Completed 2 days of IVIG, no further doses indicated -Dexamethasone 40mg x4 days (currently day 2 of 4) -If signs of bleeding, transfuse platelets to 25-30k -(12/19) Plts 7, transfused 1 unit. repeat Plts (12/19) 30 -(12/20) Plts 23, repeat Plts (12/20) 39 -(12/21) Plts 45 -Restarted low dose argatroban (12/20) with target 1.5-2.0 ratio PTT -When platelets >50,000 will increase to target of 2.0-3.0 ratio PTT -Marrow biopsy 12/19: "no intrinsic hematologic abnormalities nor infiltration by his adenocarcinoma", suggestive of immunologic destruction of platelets as the mechanism for his thrombocytopenia Transaminitis -AST 65, ALT 124 on admission; -Likely reactive to current acute illness/DKA in setting of known liver metastasis -numbers higher today 12/21 - follow in am. denies any abdominal pain. consider imaging in am. -Trend CMP Metastatic cancer, heavy tumor burden -Extensive metastasis to liver and spine with unknown primary source though potentially pancreas per previous imaging from last hospitalization -Following with [facility] oncology- receiving radiation and chemotherapy as outpatient -Pt reports significant pain/discomfort particularly in R UE -Appreciate Oncology recs -restarted dexamethasone at 40 mg PO daily for total 4 days (on day 3); Pharmacy following DM management. Pulmonary embolism -Noted evidence of b/l PE with LE DVTs on last admission, at home on Eliquis -Held anticoagulation in setting of profound thrombocytopenia -Did receive dose of lovenox but none further due to persistent concern of heparin associated thrombocytopenia -Holding DOAC until platelet count rises and stays stable. DKA- resolved -Admission labs and clinical history consistent with DKA/HHS, likely triggered by steroid-induced hyperglycemia from recent IV + oral steroid therapy for metastatic cancer. Given urine ketones, more likely DKA than HHS -Held steroids and started on IV insulin drip. -Once AG normalized - Transitioned to SC insulin Severe electrolyte abnormalities, secondary to DKA vs. TLS - Mg 3.9 on admission; on admission no clinical signs of Mg toxicity; Mg decreased to 3.0. Trend Mg - Phosphorus 7.9 on admission; normalized to 3.7 3/9 am - K+ 6.4 on admission; EKG without significant ST change or arrhythmia, has remained sinus. Calcium gluconate on admission. K normalized 3/ am - Na 123 on admission; likely pseudohyponatremia from hyperglycemia, serum osmolality 326 - Ca on admission 8.5 low- normal-> 8.4 - LDH 1911 - Given electrolyte abnormalities (hyperMg, hyperK, hypocalcemia, elevated LDH) and hyperuricemia and heavy tumor burden, initiated Allopurinol for tumor lysis Elevated troponin -Troponin 43 on admission->39->44.7. Stopped trending -EKG without acute ST change, or peaked T waves, pt without ACS symptoms -Likely demand ischemia from acute illness BRIAN-resolved -Cr 1.64 on admission--> 3/9 PM .87 -Likely pre-renal cause- excessive volume depletion from urination 2/2 DKA; fluid resuscitation complete -Trend BMP Severe ZAID on CPAP -BIPAP Hs Hypertension -Holding home antihypertensives for hypotension -Resume as able as BP tolerates DM2 -A1c 7.3% in 09/2022 -As above, exacerbation from steroid therapy leading to DKA/HHS and treatment as above HLD -Holding home statin given thrombocytopenia FEN: normal diet LINES/IV ACCESS - PIV DVT prophylaxis: SCDs, due to severe thrombocytopenia, argatroban Dispo: Med/Tele (2) Thrombocytopenia: (3) Metastatic cancer: (4) Pulmonary embolism: (5) Hypermagnesemia: (6) Elevated troponin: (7) BRIAN (acute kidney injury): (8) Hyperphosphatemia: (9) Acute hyperkalemia: (10) Transaminitis: (11) Leukocytosis: (12) Malignant neoplasm of spine: (13) Severe obstructive sleep apnea: (14) History of prostate cancer: (15) Hyponatremia: (16) Weakness: (17) Hypertension: (18) Diabetes mellitus, type 2: (19) Hyperlipidemia: Admission and Anticipated Discharge Date Admission Date: December 17, 2022 Supervising Physician Co-Signing Physician Notes Resident Physician Supervision Note: I independently interviewed and examined the patient and verified the rivera history and physical, reviewed labs and image studies and agree with resident findings and care plan. 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 12/21: Patient seen and examined at bedside. No acute events overnight. Patient states he has some right shoulder pain this morning, but was just given some pain medication which seems to help. He denies any shortness of breath, chest pain, chills, nausea/vomiting. Review of Systems Review of Systems: As per HPI Physical Exam Constitutional: WD/WN, vitals as above Eyes: Anicteric sclerae ENMT: Moist mucous membranes Respiratory: normal respiratory effort, lungs clear to auscultation Cardiovascular: RRR, no murmur, no edema Gastrointestinal (Abdomen): normal bowel sounds, soft, nontender, no hepatosplenomegaly Musculoskeletal: Tenderness to light palpation of posterior right shoulder Skin: no rashes, warm and dry Psychiatric: A+Ox3, euthymic affect Results & Data Results & Data ([facility]) Vital Signs (Past 12 Hours) Vital Signs Temp Pulse Pulse Resp BP Pulse Ox O2 Del Method 12/21/22 03:23 36.5 C 68 18 117/61 97 Room Air 12/21/22 00:00 70 12/20/22 22:40 36.6 C 77 18 124/62 98 Room Air 12/20/22 19:31 36.6 C 79 18 116/66 96 Room Air Resident Activity Tracking Resident Involvement: Resident Care Provided Care Provided: Adult Hospital Medicine (1) DKA (diabetic ketoacidosis) Diabetes mellitus complication detail: without coma Diabetes mellitus type: other specified (including SAL) Qualified Code(s): E13.10 - Other specified diabetes mellitus with ketoacidosis without coma (3) Metastatic cancer Area of secondary neoplastic involvement: unspecified site Qualified Code(s): C79.9 - Secondary malignant neoplasm of unspecified site (4) Pulmonary embolism Acute cor pulmonale presence: unspecified Chronicity: acute Pulmonary embolism type: unspecified Qualified Code(s): I26.99 - Other pulmonary embolism without acute cor pulmonale (17) Hypertension Hypertension type: essential hypertension Qualified Code(s): I10 - Essential (primary) hypertension (19) Hyperlipidemia Hyperlipidemia type: pure hypercholesterolemia Qualified Code(s): E78.00 - Pure hypercholesterolemia, unspecified; E78.0 - Pure hypercholesterolemia
[2022-12-21] MEDS: allopurinoL 300 MG TAB PO SCH (08:00)
[2022-12-21] MEDS: PANTOprazole 40 MG TAB PO SCH (08:00)
[2022-12-21] MEDS: GABAPENTIN 100 MG CAP PO SCH ×3 (08:00→21:09)
[2022-12-21] MEDS: dexAMETHasone 4 MG TAB PO SCH (08:00)
[2022-12-21] MEDS: DULoxetine HCL 30 MG CAP PO SCH (08:00)
[2022-12-21] MEDS: INSULIN ASPART PER UNIT CHARGE SC SCH ×4 (08:06→21:07)
[2022-12-21] MEDS: oxyCODONE HCL IR 5 MG TAB (IMMEDIATE RELEASE) PO PRN (08:06)
[2022-12-21] MEDS: LANTUS PER UNIT CHARGE SQ SCH (08:07)
[2022-12-21 10:43] LABS: Partial Thromboplastin Ratio 1.4; Partial Thromboplastin Time 38.6 Seconds (21.0-31.0)
[2022-12-21 16:26] LABS: Partial Thromboplastin Ratio 1.4; Partial Thromboplastin Time 39.7 Seconds (21.0-31.0)
[2022-12-21 21:55] LABS: Partial Thromboplastin Ratio 1.6; Partial Thromboplastin Time 44.4 Seconds (21.0-31.0)
[2022-12-21 23:57] LABS: Plt Ab, Heparin Induced Negative (Negative)
[2022-12-22 02:11] LABS: Hemoglobin 11.4 g/dl (14.0-18.0); Mean Corpuscular Hemoglobin 33.6 pg (25.0-34.0); Mean Corpuscular Hgb Conc 33.5 g/dL (32.0-36.0); Mean Corpuscular Volume 100.3 fL (80.0-100.0); Platelet Count 41 K/uL (130-400); RDW Coefficient of Variation 13.1 % (11.5-14.5); Red Blood Count 3.39 M/uL (4.70-6.10); White Blood Count 11.71 K/ul (4.8-10.8)
[2022-12-22 02:25] LABS: Albumin Globulin Ratio 0.7 (0.9-2); Albumin Level 2.6 gm/dl (3.4-5.0); BUN Creatinine Ratio 41.7 (10-20); Bilirubin,Total 0.8 mg/dl (0.2-1.0); Creatinine Clr Calc Pharmacy 88.3 ml/min; Est GFR (African American) 99.3 ml/min; Est GFR (Non-African American) 85.7 ml/min; Magnesium 2.3 mg/dl (1.7-2.4); Phosphorus 2.5 mg/dl (2.5-4.9); Potassium 4.4 mmol/L (3.5-5.1); Total Protein 6.6 gm/dl (6.0-8.3)
[2022-12-22 02:30] LABS: Partial Thromboplastin Ratio 1.7
[2022-12-22 02:58] LABS: Partial Thromboplastin Time 46.1 Seconds (21.0-31.0)
[2022-12-22] MEDS ORDERED: PHARMACY ARGATROBAN RATE CHANGE ONE ×4 (03:15→21:45)
--- NOTE | 2022-12-22 06:17 | Hospitalist Progress Note ---
Date of Service December 22, 2022 Assessment & Plan (1) Pulmonary embolism: Plan: No further clinical VTE, improved platelet count but with resolution of his thrombocytopenia to the point of being able to return to full dose anticoagulation. We will continue with prophylactic dosing of argatroban for now closely monitoring for any new VTE events (2) Metastatic cancer: Plan: Although a fairly unequivocal pathology finding of metastatic poorly differentiated adenocarcinoma, more specific definition of specific site of origin is pending further immunohistochemical and genetic analysis. Premature t o consider starting chemotherapy in any case as we are still defining and treating his thrombocytopenia (3) Thrombocytopenia: Plan: Rise in platelets above 40,000 is encouraging but we also see a plateau from yesterday to today rather than further robust rise. In that context we will need to maintain his anticoagulation in the prophylactic range closely monitoring for both bleeding and thrombosis. At least with platelets in the 25- 50,000 range there is significant increased expert recommendation for at least intermediately aggressive anticoagulation in circumstances that warrant it. Plan Should continue argatroban with PTT ratio target of 1.5-2.0 for now. We will suggest that we recheck the platelet count this evening to assure that there has not been a more consistent turnaround in the platelet recovery. Admission and Anticipated Discharge Date Admission Date: December 17, 2022 Subjective Overall seems stable with some recovery of platelets. Physical Exam Physical Exam: VSS Results & Data Results & Data ([facility]) Vital Signs (Past 12 Hours) Vital Signs Temp Pulse Pulse Resp BP Pulse Ox O2 Del Method 12/22/22 02:32 36.5 C 58 L 18 111/60 97 Room Air 12/22/22 00:00 62 12/21/22 22:12 36.5 C 62 18 118/64 100 Room Air 12/21/22 19:28 36.6 C 65 18 132/66 96 Room Air Laboratory Results Abnormal lab results 12/21/22 12/21/22 12/21/22 Range/Units 07:08 09:50 11:14 WBC (4.8-10.8) K/ul RBC (4.70-6.10) M/uL Hgb (14.0-18.0) g/dl Hct (42.0-52.0) % MCV (80.0-100.0) fL RDW Std Deviation (36.4-46.3) fL Plt Count (130-400) K/uL APTT 38.6 H (21.0-31.0) Seconds Sodium (136-145) mmol/L BUN (6-23) mg/dl BUN/Creatinine Ratio (10-20) Glucose (70-99(Fasting)) mg/dl POC Glucose 155 H 240 H (70-99) mg/dl Calcium (8.5-10.1) mg/dl AST (13-39) U/L ALT (7-52) U/L Alkaline Phosphatase (34-104) U/L Albumin (3.4-5.0) gm/dl Albumin/Globulin Ratio (0.9-2) 12/21/22 12/21/22 12/21/22 Range/Units 15:42 15:55 19:57 WBC (4.8-10.8) K/ul RBC (4.70-6.10) M/uL Hgb (14.0-18.0) g/dl Hct (42.0-52.0) % MCV (80.0-100.0) fL RDW Std Deviation (36.4-46.3) fL Plt Count (130-400) K/uL APTT 39.7 H (21.0-31.0) Seconds Sodium (136-145) mmol/L BUN (6-23) mg/dl BUN/Creatinine Ratio (10-20) Glucose (70-99(Fasting)) mg/dl POC Glucose 100 H 182 H (70-99) mg/dl Calcium (8.5-10.1) mg/dl AST (13-39) U/L ALT (7-52) U/L Alkaline Phosphatase (34-104) U/L Albumin (3.4-5.0) gm/dl Albumin/Globulin Ratio (0.9-2) 12/21/22 12/22/22 12/22/22 Range/Units 20:58 01:49 01:49 WBC 11.71 H (4.8-10.8) K/ul RBC 3.39 L (4.70-6.10) M/uL Hgb 11.4 L (14.0-18.0) g/dl Hct 34.0 L (42.0-52.0) % MCV 100.3 H (80.0-100.0) fL RDW Std Deviation 48.0 H (36.4-46.3) fL Plt Count 41 L (130-400) K/uL APTT 44.4 H (21.0-31.0) Seconds Sodium 132 L (136-145) mmol/L BUN 35 H (6-23) mg/dl BUN/Creatinine Ratio 41.7 H (10-20) Glucose 103 H (70-99(Fasting)) mg/dl POC Glucose (70-99) mg/dl Calcium 7.0 L (8.5-10.1) mg/dl AST 104 H (13-39) U/L ALT 152 H (7-52) U/L Alkaline Phosphatase 413 H (34-104) U/L Albumin 2.6 L (3.4-5.0) gm/dl Albumin/Globulin Ratio 0.7 L (0.9-2) 12/22/22 Range/Units 01:49 WBC (4.8-10.8) K/ul RBC (4.70-6.10) M/uL Hgb (14.0-18.0) g/dl Hct (42.0-52.0) % MCV (80.0-100.0) fL RDW Std Deviation (36.4-46.3) fL Plt Count (130-400) K/uL APTT 46.1 H* (21.0-31.0) Seconds Sodium (136-145) mmol/L BUN (6-23) mg/dl BUN/Creatinine Ratio (10-20) Glucose (70-99(Fasting)) mg/dl POC Glucose (70-99) mg/dl Calcium (8.5-10.1) mg/dl AST (13-39) U/L ALT (7-52) U/L Alkaline Phosphatase (34-104) U/L Albumin (3.4-5.0) gm/dl Albumin/Globulin Ratio (0.9-2) PG Care Time/CCT Total # of Minutes Spent Total Time Spent with Patient: Total time spent is greater than 50% in coordination of care (as documented) at patient's floor/unit and/or counseling patient: Coding Level of Care Code 11116 SUB INP/OBS CARE 11/05MIN Diagnoses Pulmonary embolism I26.99 Acute cor pulmonale presence: unspecified Chronicity: acute Pulmonary embolism type: unspecified Metastatic cancer C79.9 Area of secondary neoplastic involvement: unspecified site Thrombocytopenia D69.6 (1) Pulmonary embolism Acute cor pulmonale presence: unspecified Chronicity: acute Pulmonary embolism type: unspecified Qualified Code(s): I26.99 - Other pulmonary embolism without acute cor pulmonale (2) Metastatic cancer Area of secondary neoplastic involvement: unspecified site Qualified Code(s): C79.9 - Secondary malignant neoplasm of unspecified site
--- NOTE | 2022-12-22 07:04 | Hospitalist Progress Note ---
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 marrow failure, abrupt onset thrombocytopenia, and adequate red cell/white cell production. -Coagulation panel revealed: 14.6 PT, 1.4 INR, Fibrinogen 136 -Pt VSS with no signs of bleeding on exam- lower suspicion for DIC. No associated anemia, peripheral smear negative for schistocytes -Peripheral smear revealed: "anisopoikilocytosis. No schistocytes, tear drop cells. Neutrophilic predominant leukocytosis. Platelets decreased in number without clumping. Consistent with non-specific leukocytosis and thrombocytopenia." -Initially suspected HIT with peripheral destruction of platelets and initiated low-dose Argatroban however heparin dependent platelet antibody resulted negative so it was discontinued. pending CALVIN UFH low dose, high dose, and unfract. heparin values. Note: with further data, still considering PAOLA as possible etiology. Per Dr. Manuel, enoxaparin/fondaparinux/heparin now listed as possible allergies. -Appreciate hematology/oncology recs: -Completed 2 days of IVIG, no further doses indicated -Dexamethasone 40mg x4 days (currently day 4 of 4) -Will transition to 4mg daily x4 days tomorrow -If signs of bleeding, transfuse platelets to 25-30k -(12/19) Plts 7, transfused 1 unit. repeat Plts (12/19) 30 -(12/20) Plts 23, repeat Plts (12/20) 39 -(12/21) Plts 45 -(12/22) Plts 41, repeat Plts (12/22) 39 -Restarted low dose argatroban (12/20) with target 1.5-2.0 ratio PTT -When platelets >50,000 will increase to target of 2.0-3.0 ratio PTT -Marrow biopsy 12/19: "no intrinsic hematologic abnormalities nor infiltration by his adenocarcinoma", suggestive of immunologic destruction of platelets as the mechanism for his thrombocytopenia DKA- resolved -Admission labs and clinical history consistent with DKA/HHS, likely triggered by steroid-induced hyperglycemia from recent IV + oral steroid therapy for metastatic cancer. Given urine ketones, more likely DKA than HHS -Held steroids and started on IV insulin drip. -Once AG normalized - Transitioned to SC insulin Severe electrolyte abnormalities, secondary to DKA vs. TLS - Mg 3.9 on admission; on admission no clinical signs of Mg toxicity; Mg decreased to 3.0. Trend Mg - Phosphorus 7.9 on admission; normalized to 3.7 12/18 am - K+ 6.4 on admission; EKG without significant ST change or arrhythmia, has remained sinus. Calcium gluconate on admission. K normalized 12/18 am - Na 123 on admission; likely pseudohyponatremia from hyperglycemia, serum osmolality 326 - Ca on admission 8.5 low- normal-> 8.4 - LDH 1911 - Given electrolyte abnormalities (hyperMg, hyperK, hypocalcemia, elevated LDH) and hyperuricemia and heavy tumor burden, initiated Allopurinol for tumor lysis Metastatic cancer, heavy tumor burden -Extensive metastasis to liver and spine with unknown primary source though potentially pancreas per previous imaging from last hospitalization -Following with [facility] oncology- receiving radiation and chemotherapy as outpatient -Pt reports significant pain/discomfort particularly in R UE -Appreciate Oncology recs -restarted dexamethasone at 40 mg PO daily for total 4 days (on day 4); Pharmacy following DM management. -Pain currently controlled with q6h oxycodone, if pain worsens will consider switching to extended release formulation of narcotic Pulmonary embolism -Noted evidence of b/l PE with LE DVTs on last admission, at home on Eliquis -Held anticoagulation in setting of profound thrombocytopenia -Did receive dose of lovenox but none further due to persistent concern of heparin associated thrombocytopenia -Holding DOAC until platelet count rises and stays stable. Elevated troponin -Troponin 43 on admission->39->44.7. Stopped trending -EKG without acute ST change, or peaked T waves, pt without ACS symptoms -Likely demand ischemia from acute illness Transaminitis -AST 65, ALT 124 on admission; 12/18 AST 63, ALT 104 -Likely reactive to current acute illness/DKA in setting of known liver metastasis -Trend CMP BRIAN-resolved -Cr 1.64 on admission--> 3/9 PM .87 -Likely pre-renal cause- excessive volume depletion from urination 2/2 DKA; fluid resuscitation complete -Trend BMP Severe ZAID on CPAP -BIPAP Hs Hypertension -Holding home antihypertensives for hypotension -Resume as able as BP tolerates DM2 -A1c 7.3% in 09/2022 -As above, exacerbation from steroid therapy leading to DKA/HHS and treatment as above HLD -Holding home statin given thrombocytopenia FEN: normal diet LINES/IV ACCESS - PIV DVT prophylaxis: SCDs, due to severe thrombocytopenia, argatroban Dispo: Med/Tele (2) Thrombocytopenia: (3) Metastatic cancer: (4) Pulmonary embolism: (5) Hypermagnesemia: (6) Elevated troponin: (7) BRIAN (acute kidney injury): (8) Hyperphosphatemia: (9) Acute hyperkalemia: (10) Transaminitis: (11) Leukocytosis: (12) Malignant neoplasm of spine: (13) Severe obstructive sleep apnea: (14) History of prostate cancer: (15) Hyponatremia: (16) Weakness: (17) Hypertension: (18) Diabetes mellitus, type 2: (19) Hyperlipidemia: Admission and Anticipated Discharge Date Admission Date: December 17, 2022 Supervising Physician Co-Signing Physician Notes I personally examined the patient and verified all rivera points of history and exam, discussed case, and agree with decision making with Dr Polk Pain under pretty good control. Notes that today its mostly been about a 4he missed pain medicines last night, seeing if he can do withoutand noted that he paid for it later. Fortunately, however, his pain was able to get in line fairly quickly with just a dose of oral pain medicine. Did well with radiation treatment. Input from hematology/oncology greatly appreciated as well. Vitals noted, in general he is awake and alert pleasant no distress. HEENT normocephalic atraumatic mucous membranes moist. Breathing unlabored no accessory muscle use good effort. Skin shows no rashes no pallor or icterus. Neuro without focal deficits. Metastatic cancer with biopsy pending to yield source of primarycomplicated by possible ITP and concomitant VTE (PE), along with hyperglycemic dehydration present on admissionfortunately overall stabilizing. Platelets unfortunately do appear to have plateauedcontinue argatroban for nowwe will discuss with hematology/oncology further in regards to balance of anticoagulation for PE versus bleed risk with thrombocytopeniaI wonder as stable as he is if a transition to prophylactic dosing of apixaban may be reasonablebut obviously this will be a "work in progress". In the meantime, continue pain control, continue to follow closely, continue insulinssteroid dosing gets reduced tomorrowfollow for any rebound pain with that. 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 12/22: Patient seen and examined at bedside. No overnight events. He notes he had some increased right shoulder pain today, although improving after getting the oxycodone. He denies shortness of breath, chest pain, nausea/vomiting. Review of Systems Review of Systems: As per above Physical Exam Constitutional: WD/WN, vitals as above Eyes: Anicteric sclera Neck: trachea midline, no thyromegaly Respiratory: normal respiratory effort, lungs clear to auscultation Cardiovascular: RRR, no murmur, no edema Gastrointestinal (Abdomen): normal bowel sounds, soft, nontender, no hepatosplenomegaly Skin: no rashes, warm and dry Psychiatric: A+Ox3, euthymic affect Results & Data Results & Data ([facility]) Vital Signs (Past 12 Hours) Vital Signs Temp Pulse Pulse Resp BP Pulse Ox O2 Del Method 12/22/22 02:32 36.5 C 58 L 18 111/60 97 Room Air 12/22/22 00:00 62 12/21/22 22:12 36.5 C 62 18 118/64 100 Room Air 12/21/22 19:28 36.6 C 65 18 132/66 96 Room Air Resident Activity Tracking Resident Involvement: Resident Care Provided Care Provided: Adult Hospital Medicine (1) DKA (diabetic ketoacidosis) Diabetes mellitus complication detail: without coma Diabetes mellitus type: other specified (including SAL) Qualified Code(s): E13.10 - Other specified diabetes mellitus with ketoacidosis without coma (3) Metastatic cancer Area of secondary neoplastic involvement: unspecified site Qualified Code(s): C79.9 - Secondary malignant neoplasm of unspecified site (4) Pulmonary embolism Acute cor pulmonale presence: unspecified Chronicity: acute Pulmonary embolism type: unspecified Qualified Code(s): I26.99 - Other pulmonary embolism without acute cor pulmonale (17) Hypertension Hypertension type: essential hypertension Qualified Code(s): I10 - Essential (primary) hypertension (19) Hyperlipidemia Hyperlipidemia type: pure hypercholesterolemia Qualified Code(s): E78.00 - Pure hypercholesterolemia, unspecified; E78.0 - Pure hypercholesterolemia
[2022-12-22] MEDS: INSULIN ASPART PER UNIT CHARGE SC SCH ×4 (08:11→20:36)
[2022-12-22] MEDS: LANTUS PER UNIT CHARGE SQ SCH (08:11)
[2022-12-22] MEDS: oxyCODONE HCL IR 5 MG TAB (IMMEDIATE RELEASE) PO PRN ×2 (08:12→21:01)
[2022-12-22] MEDS: allopurinoL 300 MG TAB PO SCH (08:12)
[2022-12-22] MEDS: DULoxetine HCL 30 MG CAP PO SCH (08:12)
[2022-12-22] MEDS: PANTOprazole 40 MG TAB PO SCH (08:12)
[2022-12-22] MEDS: GABAPENTIN 100 MG CAP PO SCH ×3 (08:12→20:27)
[2022-12-22] MEDS: dexAMETHasone 4 MG TAB PO SCH (08:13)
--- NOTE | 2022-12-22 09:01 | Pharmacy Report ---
Pharmacy Glycemic Short Note 2 - Date of Service December 22, 2022 - Glycemic Short BSG Results (Last 24 hours): 12/21/22 12/21/22 12/21/22 11:14 15:55 19:57 Glucose POC Glucose 240 H 100 H 182 H 12/22/22 12/22/22 01:49 07:27 Glucose 103 H POC Glucose 117 H OUTPATIENT ANTIDIABETIC REGIMEN: * Empagliflozin 25mg daily * Metformin 1gm BID * A1c = 7.3% 10/08/22 ASSESSMENT: 12/22: * BSGs largely controlled within the lat 24h ([phone]/dl). Patient received 32 units of basal insulin and 45 units of bolus insulin yesterday. * Continues on dex 40mg PO daily and tolerating diet. * No changes to insulin today- continue 32 units daily of Lantus and Novolog 09/12.5. 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 Given patient's presentation with DKA possibly associated with outpt dexamethasone use will need to monitor patient closely and treat aggressively with SQ. Will escalate Novolog CF and CR doses to "high stress" and will possibly provide small dose of NPH with lunch today depending on the result 12/18 * Type 2 diabetic admitted with HAGMA, DKA, BRIAN, profound thrombocytopenia. Acute stressors in addition to outpt dexamethasone likely contributing change in glycemic control. * Initial chemistry: AG 22, Bicarb 16, GLU 807, Na 123 (corrected ~135) * Patient received fluid resuscitation as well as IV insulin infusion per DKA protocol * This AM AG acidosis has resolved, patient is tolerating diet. Per ICU rounds discussion, pt ready to transition to SQ at this time PLAN FOR INPATIENT GLYCEMIC CONTROL: * Hold outpatient oral diabetes medications * Basal insulin * Lantus 32 units SQ Q AM * Bolus insulin * NovoLog per scale ACHS * Goal Range: Low 110 mg/dL - High 140 mg/dL * Correction Factor: 12 mg/dL/unit * Nutritional / Prandial insulin per carb ratio of 1 unit per 2.5 grams CHO consumed
[2022-12-22 09:02] LABS: Partial Thromboplastin Ratio 1.7
[2022-12-22 09:04] LABS: Partial Thromboplastin Time 46.7 Seconds (21.0-31.0)
--- NOTE | 2022-12-22 09:53 | Pharmacy Report ---
Pharmacy Argatroban Consult - Date of Service December 22, 2022 - Pharmacy Dosing Scope Pharmacy is consulted to initiate the use of Argatroban-IV dosing therapy in the setting of possible HIT/PAOLA pending work-up, order appropriate labs and adjust drug dose/frequency. - Objective Laboratory Results:: Last 24 Hours 12/21/22 12/21/22 12/21/22 09:50 15:42 20:58 Hgb Hct Plt Count APTT 38.6 H 39.7 H 44.4 H PTT Ratio 1.4 1.4 1.6 BUN Creatinine 12/22/22 12/22/22 12/22/22 01:49 01:49 01:49 Hgb 11.4 L Hct 34.0 L Plt Count 41 L APTT 46.1 H* PTT Ratio 1.7 BUN 35 H Creatinine 0.84 12/22/22 07:52 Hgb Hct Plt Count APTT 46.7 H* PTT Ratio 1.7 BUN Creatinine Last 72 Hours 12/18/22 12/18/22 12/19/22 06:14 07:22 05:32 Plt Count INR Total Bilirubin Cancelled AST Cancelled ALT Cancelled Heparin Dep Plt Ab React Negative Heparin Dep Plt Ab OD 0.073 CALVIN UFH Low Dose 0.1 1 CALVIN UFH Low Dose 0.5 1 CALVIN UFH High Dose 3 CALVIN Unfract Heparin Negative 12/19/22 12/19/22 12/20/22 10:27 18:15 06:40 Plt Count 30 L D 20 L* INR Total Bilirubin 0.9 D AST 79 H ALT 98 H Heparin Dep Plt Ab React Heparin Dep Plt Ab OD CALVIN UFH Low Dose 0.1 CALVIN UFH Low Dose 0.5 CALVIN UFH High Dose CALVIN Unfract Heparin 12/20/22 12/20/22 12/20/22 06:40 11:32 17:31 Plt Count 23 L* 39 L D INR 1.2 H Total Bilirubin AST ALT Heparin Dep Plt Ab React Heparin Dep Plt Ab OD CALVIN UFH Low Dose 0.1 CALVIN UFH Low Dose 0.5 CALVIN UFH High Dose CALVIN Unfract Heparin 12/21/22 12/21/22 12/22/22 03:41 03:41 01:49 Plt Count 45 L INR Total Bilirubin 0.8 0.8 AST 122 H 104 H ALT 161 H 152 H Heparin Dep Plt Ab React Heparin Dep Plt Ab OD CALVIN UFH Low Dose 0.1 CALVIN UFH Low Dose 0.5 CALVIN UFH High Dose CALVIN Unfract Heparin 12/22/22 01:49 Plt Count 41 L INR Total Bilirubin AST ALT Heparin Dep Plt Ab React Heparin Dep Plt Ab OD CALVIN UFH Low Dose 0.1 CALVIN UFH Low Dose 0.5 CALVIN UFH High Dose CALVIN Unfract Heparin - Assessment & Plan 12/22: * Day #3 argatroban infusion * Argatroban infusion titrated to 0.375mcg/kg/min. Last 3 PTT ratios within goal range (1.6 (12/21 @2058), 1.7 (12/22 @ 0149), 1.7 (12/22 @0752) with no change to infusion rate since 12/21 @ 1640. Will obtain another aPTT at noon today given hepatic impairment and delayed time to steady state. If PTT ratio continues to be within goal range, will decrease monitoring frequency to q8h. * Goal PTT ratio 1.5-[address] Manuel's documentation this AM. 12/20 @ 1940: Discussed recent PTT ratio 1.3 @[address] Manuel. * With PLT slowing increasing to 39K, OK to change goal PTT Ratio 1.5-2.0 with next lab draw. * He will continue to follow up in the AM to determine if adjustments to goal PTT range are needed again. Original Note: Pharmacy Argatroban Consult - Date of Service December 20, 2022 - Pharmacy Dosing Scope Pharmacy is consulted to initiate the use of Argatroban-IV dosing therapy, order appropriate labs and adjust drug dose/frequency. - Subjective Regarding previous anticoagulation: Patient on day # 1 of PROPHYLACTIC Lovenox 40 mg SQ for DVT prophylaxis (received 12/19 @ 1330). Patient received argatroban on 12/18 Start Argatroban-IV for DVT prophylaxis with low platelets and concern for PAOLA. Goal PTT Ratio as determined by Dr Manuel: 1.2 Pertinent PMH: malignancy, Platelets < 50K We will continue to monitor this patient and make adjustments as needed. Thank you.
[2022-12-22 13:05] LABS: Partial Thromboplastin Ratio 1.6; Partial Thromboplastin Time 43.9 Seconds (21.0-31.0)
[2022-12-22 17:17] LABS: Platelet Count 39 K/uL (130-400)
--- NOTE | 2022-12-22 17:44 | Billing Data ---
Date of Service December 22, 2022 Coding Level of Care Code 56372 SUB INP/OBS CARE MIN
[2022-12-22 21:28] LABS: Partial Thromboplastin Ratio 1.6; Partial Thromboplastin Time 44.6 Seconds (21.0-31.0)
[2022-12-23 06:35] LABS: Hematocrit (blood only) 35.7 % (42.0-52.0); Hemoglobin 12.3 g/dl (14.0-18.0); Mean Corpuscular Hemoglobin 33.4 pg (25.0-34.0); Mean Corpuscular Hgb Conc 34.5 g/dL (32.0-36.0); Mean Platelet Volume 12.6 fL (9.4-12.4); Nucleated RBC # (auto) 0.02 K/uL (0-0.12); Nucleated RBC % (auto) 0.1 %; Platelet Count 40 K/uL (130-400); RDW Coefficient of Variation 12.9 % (11.5-14.5); RDW Standard Deviation 45.9 fL (36.4-46.3); Red Blood Count 3.68 M/uL (4.70-6.10); White Blood Count 14.03 K/ul (4.8-10.8)
[2022-12-23 06:45] LABS: Albumin Globulin Ratio 0.7 (0.9-2); Albumin Level 2.6 gm/dl (3.4-5.0); BUN Creatinine Ratio 43.9 (10-20); Bilirubin,Total 0.9 mg/dl (0.2-1.0); Calcium 7.1 mg/dl (8.5-10.1); Creatinine Clr Calc Pharmacy 112.4 ml/min; Est GFR (African American) 109.6 ml/min; Est GFR (Non-African American) 94.6 ml/min; Globulin 3.7 gm/dl (2.5-4.0); Magnesium 2.1 mg/dl (1.7-2.4); Phosphorus 2.4 mg/dl (2.5-4.9); Potassium 4.4 mmol/L (3.5-5.1); Total Protein 6.3 gm/dl (6.0-8.3)
[2022-12-23 07:02] LABS: Partial Thromboplastin Ratio 1.7
[2022-12-23] MEDS: dexAMETHasone 4 MG TAB PO SCH (07:58)
[2022-12-23] MEDS: GABAPENTIN 100 MG CAP PO SCH ×3 (07:58→20:49)
[2022-12-23] MEDS: DULoxetine HCL 30 MG CAP PO SCH (07:58)
[2022-12-23] MEDS: PANTOprazole 40 MG TAB PO SCH (07:58)
[2022-12-23] MEDS: allopurinoL 300 MG TAB PO SCH (07:58)
[2022-12-23] MEDS ORDERED: PHARMACY ARGATROBAN RATE CHANGE ONE (08:00)
[2022-12-23] MEDS: INSULIN ASPART PER UNIT CHARGE SC SCH ×4 (08:03→20:17)
--- NOTE | 2022-12-23 08:11 | Hospitalist Progress Note ---
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 marrow failure, abrupt onset thrombocytopenia, and adequate red cell/white cell production. -Coagulation panel revealed: 14.6 PT, 1.4 INR, Fibrinogen 136 -Pt VSS with no signs of bleeding on exam- lower suspicion for DIC. No associated anemia, peripheral smear negative for schistocytes -Peripheral smear revealed: "anisopoikilocytosis. No schistocytes, tear drop cells. Neutrophilic predominant leukocytosis. Platelets decreased in number without clumping. Consistent with non-specific leukocytosis and thrombocytopenia." -Initially suspected HIT with peripheral destruction of platelets and initiated low-dose Argatroban however heparin dependent platelet antibody resulted negative so it was discontinued. pending CALVIN UFH low dose, high dose, and unfract. heparin values. Note: with further data, still considering PAOLA as possible etiology. Per Dr. Manuel, enoxaparin/fondaparinux/heparin now listed as possible allergies. -Appreciate hematology/oncology recs: -Completed 2 days of IVIG, no further doses indicated -Dexamethasone 40mg x4 days (currently day 4 of 4) -Will transition to 4mg daily x4 days tomorrow -If signs of bleeding, transfuse platelets to 25-30k -(12/19) Plts 7, transfused 1 unit. repeat Plts (12/19) 30 -(12/20) Plts 23, repeat Plts (12/20) 39 -(12/21) Plts 45 -(12/22) Plts 41, repeat Plts (12/22) 39 -(12/23) Plts 40 -Restarted low dose argatroban (12/20) with target 1.5-2.0 ratio PTT -When platelets >50,000 will increase to target of 2.0-3.0 ratio PTT -Will reevaluate plan for home blood thinner as approaching time of discharge -Marrow biopsy 12/19: "no intrinsic hematologic abnormalities nor infiltration by his adenocarcinoma", suggestive of immunologic destruction of platelets as the mechanism for his thrombocytopenia DKA- resolved -Admission labs and clinical history consistent with DKA/HHS, likely triggered by steroid-induced hyperglycemia from recent IV + oral steroid therapy for metastatic cancer. Given urine ketones, more likely DKA than HHS -Held steroids and started on IV insulin drip. -Once AG normalized - Transitioned to SC insulin Severe electrolyte abnormalities, secondary to DKA vs. TLS - Mg 3.9 on admission; on admission no clinical signs of Mg toxicity; Mg decreased to 3.0. Trend Mg - Phosphorus 7.9 on admission; normalized to 3.7 3/9 am - K+ 6.4 on admission; EKG without significant ST change or arrhythmia, has remained sinus. Calcium gluconate on admission. K normalized 3/9 am - Na 123 on admission; likely pseudohyponatremia from hyperglycemia, serum osmolality 326 - Ca on admission 8.5 low- normal-> 8.4 - LDH 1911 - Given electrolyte abnormalities (hyperMg, hyperK, hypocalcemia, elevated LDH) and hyperuricemia and heavy tumor burden, initiated Allopurinol for tumor lysis Metastatic cancer, heavy tumor burden -Extensive metastasis to liver and spine with unknown primary source though potentially pancreas per previous imaging from last hospitalization -Following with [facility] oncology- receiving radiation and chemotherapy as outpatient -Pt reports significant pain/discomfort particularly in R UE -Appreciate Oncology recs -restarted dexamethasone at 40 mg PO daily for total 4 days (on day 4); Pharmacy following DM management. -Pain currently controlled with q6h oxycodone, if pain worsens will consider switching to extended release formulation of narcotic Pulmonary embolism -Noted evidence of b/l PE with LE DVTs on last admission, at home on Eliquis -Held anticoagulation in setting of profound thrombocytopenia -Did receive dose of lovenox but none further due to persistent concern of heparin associated thrombocytopenia -Holding DOAC until platelet count rises and stays stable. Elevated troponin -Troponin 43 on admission->39->44.7. Stopped trending -EKG without acute ST change, or peaked T waves, pt without ACS symptoms -Likely demand ischemia from acute illness Transaminitis -AST 65, ALT 124 on admission; 12/18 AST 63, ALT 104 -Likely reactive to current acute illness/DKA in setting of known liver metastasis -Trend CMP BRIAN-resolved -Cr 1.64 on admission--> 12/18 PM .87 -Likely pre-renal cause- excessive volume depletion from urination 2/2 DKA; fluid resuscitation complete -Trend BMP Severe ZAID on CPAP -BIPAP Hs Hypertension -Holding home antihypertensives for hypotension -Resume as able as BP tolerates DM2 -A1c 7.3% in 09/2022 -As above, exacerbation from steroid therapy leading to DKA/HHS and treatment as above HLD -Holding home statin given thrombocytopenia FEN: normal diet LINES/IV ACCESS - PIV DVT prophylaxis: SCDs, due to severe thrombocytopenia, argatroban Dispo: Med/Tele (2) Thrombocytopenia: (3) Metastatic cancer: (4) Pulmonary embolism: (5) Hypermagnesemia: (6) Elevated troponin: (7) BRIAN (acute kidney injury): (8) Hyperphosphatemia: (9) Acute hyperkalemia: (10) Transaminitis: (11) Leukocytosis: (12) Malignant neoplasm of spine: (13) Severe obstructive sleep apnea: (14) History of prostate cancer: (15) Hyponatremia: (16) Weakness: (17) Hypertension: (18) Diabetes mellitus, type 2: (19) Hyperlipidemia: Admission and Anticipated Discharge Date Admission Date: December 17, 2022 Supervising Physician Co-Signing Physician Notes I personally examined the patient and verified all rivera points of history and exam, discussed case, and agree with decision making with Dr Polk Pain still under good control. Radiation therapy went well today. Pathology returned. Discussed with patient. He and expressed good understanding. All questions answered to the best of my ability. Vitals noted, in general he is awake and alert pleasant no distress. HEENT normocephalic atraumatic mucous membranes moist. Breathing unlabored no accessory muscle use good effort. Skin shows no rashes no pallor or icterus. Neuro without focal deficits. CBC, BMP, LFTs, PTT noted. Metastatic cancer with biopsy pending to yield source of primarycomplicated by possible ITP and concomitant VTE (PE), along with hyperglycemic dehydration p resent on admissionfortunately overall stabilizing. Platelets unfortunately do appear to have plateauedcontinue argatroban for nowwe will discuss with hematology/oncology further in regards to balance of anticoagulation for PE versus bleed risk with thrombocytopeniaI wonder as stable as he is if a transition to prophylactic dosing of apixaban may be reasonablebut obviously this will be a "work in progress". Fortunately no bleeding thus far. In the meantime, continue pain control, continue to follow closely, continue insulinswith reduced steroid dosing, we should be able to start to see a regimen that fits better for going home. Hopefully home in the next few days as long as the situation continues to stay medically stable. 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 12/23: Patient was seen and examined at bedside. No acute events overnight. Josh states he slept ok, although still has shoulder pain this morning. He notes that he took pain medication this morning and hopes that he can get ahead of the pain. He denies any shortness of breath, chest pain, abdominal pain, nausea/vomiting. Review of Systems Review of Systems: As per above Physical Exam Constitutional: WD/WN, vitals as above Neck: trachea midline, no thyromegaly Respiratory: normal respiratory effort, lungs clear to auscultation Cardiovascular: RRR, no murmur, no edema Gastrointestinal (Abdomen): normal bowel sounds, soft, nontender, no hepatosplenomegaly Skin: no rashes, warm and dry Psychiatric: A+Ox3, euthymic affect Results & Data Results & Data ([facility]) Vital Signs (Past 12 Hours) Vital Signs Temp Pulse Pulse Pulse Resp BP BP 12/23/22 07:51 36.5 C 71 18 148/73 H 12/23/22 03:36 36.6 C 67 18 110/64 12/23/22 00:00 56 L 12/22/22 23:27 36.6 C 61 16 111/70 Pulse Ox O2 Del Method 12/23/22 07:51 98 Room Air 12/23/22 03:36 98 Room Air 12/23/22 00:00 12/22/22 23:27 96 Room Air Resident Activity Tracking Resident Involvement: Resident Care Provided Care Provided: Adult Hospital Medicine (1) DKA (diabetic ketoacidosis) Diabetes mellitus complication detail: without coma Diabetes mellitus type: other specified (including SAL) Qualified Code(s): E13.10 - Other specified diabetes mellitus with ketoacidosis without coma (3) Metastatic cancer Area of secondary neoplastic involvement: unspecified site Qualified Code(s): C79.9 - Secondary malignant neoplasm of unspecified site (4) Pulmonary embolism Acute cor pulmonale presence: unspecified Chronicity: acute Pulmonary embolism type: unspecified Qualified Code(s): I26.99 - Other pulmonary embolism without acute cor pulmonale (17) Hypertension Hypertension type: essential hypertension Qualified Code(s): I10 - Essential (primary) hypertension (19) Hyperlipidemia Hyperlipidemia type: pure hypercholesterolemia Qualified Code(s): E78.00 - Pure hypercholesterolemia, unspecified; E78.0 - Pure hypercholesterolemia
[2022-12-23] MEDS: oxyCODONE HCL IR 5 MG TAB (IMMEDIATE RELEASE) PO PRN ×2 (08:25→19:32)
[2022-12-23] MEDS ORDERED: LANTUS PER UNIT CHARGE SQ SCH ×2 (09:00)
[2022-12-23] MEDS: POLYETHYLENE (MIRALAX) 17 GM PACK PO SCH (09:04)
--- NOTE | 2022-12-23 09:24 | Pharmacy Report ---
Pharmacy Glycemic Short Note 2 - Date of Service December 23, 2022 - Glycemic Short BSG Results (Last 24 hours): 12/22/22 12/22/22 12/22/22 11:27 16:20 20:23 Glucose POC Glucose 155 H 158 H 192 H 12/23/22 12/23/22 06:08 07:06 Glucose 89 POC Glucose 92 OUTPATIENT ANTIDIABETIC REGIMEN: * Empagliflozin 25mg daily * Metformin 1gm BID * A1c = 7.3% 10/08/22 ASSESSMENT: 12/23: * BSGs within goal the last 24h- [phone]/dl. Pt received 32 units of basal and 64 units of bolus insulin yesterday. * Dexamethasone dose decreased from 40mg to 4mg daily starting today. Tolerating diet. * Will empirically reduce basal by ~ 50% this AM due to steroid reduction. Novolog parameters also loosened in anticipation of reduced prandial needs given steroid adjustment. Will reassess basal needs tomorrow. 12/22: * BSGs largely controlled within the lat 24h ([phone]/dl). Patient received 32 units of basal insulin and 45 units of bolus insulin yesterday. * Continues on dex 40mg PO daily and tolerating diet. * No changes to insulin today- continue 32 units daily of Lantus and Novolog 09/12.5. 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 Given patient's presentation with DKA possibly associated with outpt dexamethasone use will need to monitor patient closely and treat aggressively with SQ. Will escalate Novolog CF and CR doses to "high stress" and will possibly provide small dose of NPH with lunch today depending on the result 12/18 * Type 2 diabetic admitted with HAGMA, DKA, BRIAN, profound thrombocytopenia. Acute stressors in addition to outpt dexamethasone likely contributing change in glycemic control. * Initial chemistry: AG 22, Bicarb 16, GLU 807, Na 123 (corrected ~135) * Patient received fluid resuscitation as well as IV insulin infusion per DKA protocol * This AM AG acidosis has resolved, patient is tolerating diet. Per ICU rounds discussion, pt ready to transition to SQ at this time PLAN FOR INPATIENT GLYCEMIC CONTROL: * Hold outpatient oral diabetes medications * Basal insulin * Lantus 15 units SQ X1 * Bolus insulin * NovoLog per scale ACHS * Goal Range: Low 110 mg/dL - High 140 mg/dL * Correction Factor: 20 mg/dL/unit * Nutritional / Prandial insulin per carb ratio of 1 unit per 6 grams CHO consumed
--- NOTE | 2022-12-23 17:38 | Billing Data ---
Date of Service December 23, 2022 Coding Level of Care Code 05457 SUB INP/OBS CARE 3MIN
[2022-12-23 19:19] LABS: Partial Thromboplastin Ratio 1.7
[2022-12-23 19:37] LABS: Partial Thromboplastin Time 46.4 Seconds (21.0-31.0)
[2022-12-24] MEDS: oxyCODONE HCL IR 5 MG TAB (IMMEDIATE RELEASE) PO PRN ×2 (02:25→08:14)
[2022-12-24 06:37] LABS: Hematocrit (blood only) 39.9 % (42.0-52.0); Hemoglobin 13.4 g/dl (14.0-18.0); Mean Corpuscular Hemoglobin 33.3 pg (25.0-34.0); Mean Corpuscular Hgb Conc 33.6 g/dL (32.0-36.0); Mean Corpuscular Volume 99.3 fL (80.0-100.0); Nucleated RBC # (auto) 0.04 K/uL (0-0.12); Nucleated RBC % (auto) 0.3 %; Platelet Count 30 K/uL (130-400); RDW Coefficient of Variation 13.3 % (11.5-14.5); RDW Standard Deviation 48.5 fL (36.4-46.3); Red Blood Count 4.02 M/uL (4.70-6.10); White Blood Count 14.53 K/ul (4.8-10.8)
[2022-12-24 06:51] LABS: Albumin Globulin Ratio 0.8 (0.9-2); Albumin Level 2.7 gm/dl (3.4-5.0); BUN Creatinine Ratio 34.8 (10-20); Bilirubin,Total 1.1 mg/dl (0.2-1.0); Calcium 7.1 mg/dl (8.5-10.1); Creatinine Clr Calc Pharmacy 107.5 ml/min; Est GFR (African American) 107.6 ml/min; Est GFR (Non-African American) 92.9 ml/min; Globulin 3.5 gm/dl (2.5-4.0); Magnesium 2.1 mg/dl (1.7-2.4); Phosphorus 2.4 mg/dl (2.5-4.9); Potassium 4.2 mmol/L (3.5-5.1); Total Protein 6.2 gm/dl (6.0-8.3)
[2022-12-24 07:24] LABS: Partial Thromboplastin Ratio 1.9
--- NOTE | 2022-12-24 07:37 | Hospitalist Progress Note ---
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 marrow failure, abrupt onset thrombocytopenia, and adequate red cell/white cell production. -Coagulation panel revealed: 14.6 PT, 1.4 INR, Fibrinogen 136 -Pt VSS with no signs of bleeding on exam- lower suspicion for DIC. No associated anemia, peripheral smear negative for schistocytes -Peripheral smear revealed: "anisopoikilocytosis. No schistocytes, tear drop cells. Neutrophilic predominant leukocytosis. Platelets decreased in number without clumping. Consistent with non-specific leukocytosis and thrombocytopenia." -Initially suspected HIT with peripheral destruction of platelets and initiated low-dose Argatroban however heparin dependent platelet antibody resulted negative so it was discontinued. pending CALVIN UFH low dose, high dose, and unfract. heparin values. Note: with further data, still considering PAOLA as possible etiology. Per Dr. Manuel, enoxaparin/fondaparinux/heparin now listed as possible allergies. -Appreciate hematology/oncology recs: -Completed 2 prior days of IVIG -Per Mar, ordered additional round of IVIG this afternoon -Dexamethasone 40mg x4 days, transitioned to 4mg daily -If signs of bleeding, transfuse platelets to 25-30k -(12/19) Plts 7, transfused 1 unit. repeat Plts (12/19) 30 -(12/20) Plts 23, repeat Plts (12/20) 39 -(12/21) Plts 45 -(12/22) Plts 41, repeat Plts (12/22) 39 -(12/23) Plts 40 -(12/24) Plts 30 -Restarted low dose argatroban (12/20) with target 1.5-2.0 ratio PTT -Due to increase in DVT, per Dr. Manuel- will increase target to 2.0-2.5 ratio PTT -Due to increased right foot pain this a.m., ordered R LE venous and arterial duplex -Right LE DVT, known from prior study- but appears more advanced on today's study -Per Mar, increased argatroban to 2-2.5 ratio PTT -Will reevaluate plan for home blood thinner as approaching time of discharge -Marrow biopsy 12/19: "no intrinsic hematologic abnormalities nor infiltration by his adenocarcinoma", suggestive of immunologic destruction of platelets as the mechanism for his thrombocytopenia DKA- resolved -Admission labs and clinical history consistent with DKA/HHS, likely triggered by steroid-induced hyperglycemia from recent IV + oral steroid therapy for metastatic cancer. Given urine ketones, more likely DKA than HHS -Held steroids and started on IV insulin drip. -Once AG normalized - Transitioned to SC insulin Severe electrolyte abnormalities, secondary to DKA vs. TLS - Mg 3.9 on admission; on admission no clinical signs of Mg toxicity; Mg decreased to 3.0. Trend Mg - Phosphorus 7.9 on admission; normalized to 3.7 3/9 am - K+ 6.4 on admission; EKG without significant ST change or arrhythmia, has remained sinus. Calcium gluconate on admission. K normalized 3/9 am - Na 123 on admission; likely pseudohyponatremia from hyperglycemia, serum osmolality 326 - Ca on admission 8.5 low- normal-> 8.4 - LDH 1911 - Given electrolyte abnormalities (hyperMg, hyperK, hypocalcemia, elevated LDH) and hyperuricemia and heavy tumor burden, initiated Allopurinol for tumor lysis Metastatic cancer, heavy tumor burden -Extensive metastasis to liver and spine with unknown primary source though potentially pancreas per previous imaging from last hospitalization -Following with [facility] oncology- receiving radiation and chemotherapy as outpatient -Pt reports significant pain/discomfort particularly in R UE -Appreciate Oncology recs -restarted dexamethasone at 40 mg PO daily for total 4 days, transitioned to 4mg -Pain currently controlled with q6h oxycodone, if pain worsens will consider switching to extended release formulation of narcotic Pulmonary embolism -Noted evidence of b/l PE with LE DVTs on last admission, at home on Eliquis -Held anticoagulation in setting of profound thrombocytopenia -Did receive dose of lovenox but none further due to persistent concern of heparin associated thrombocytopenia -Holding DOAC until platelet count rises and stays stable. Elevated troponin -Troponin 43 on admission->39->44.7. Stopped trending -EKG without acute ST change, or peaked T waves, pt without ACS symptoms -Likely demand ischemia from acute illness Transaminitis -AST 65, ALT 124 on admission; 12/18 AST 63, ALT 104 -Likely reactive to current acute illness/DKA in setting of known liver metastasis -Trend CMP BRIAN-resolved -Cr 1.64 on admission--> 12/18 PM .87 -Likely pre-renal cause- excessive volume depletion from urination / DKA; fluid resuscitation complete -Trend BMP Severe ZAID on CPAP -BIPAP Hs Hypertension -Holding home antihypertensives for hypotension -Resume as able as BP tolerates DM2 -A1c 7.3% in 09/2022 -As above, exacerbation from steroid therapy leading to DKA/HHS and treatment as above HLD -Holding home statin given thrombocytopenia FEN: normal diet LINES/IV ACCESS - PIV DVT prophylaxis: SCDs, due to severe thrombocytopenia, argatroban Dispo: Med/Tele (2) Thrombocytopenia: (3) Metastatic cancer: (4) Pulmonary embolism: (5) Hypermagnesemia: (6) Elevated troponin: (7) BRIAN (acute kidney injury): (8) Hyperphosphatemia: (9) Acute hyperkalemia: (10) Transaminitis: (11) Leukocytosis: (12) Malignant neoplasm of spine: (13) Severe obstructive sleep apnea: (14) History of prostate cancer: (15) Hyponatremia: (16) Weakness: (17) Hypertension: (18) Diabetes mellitus, type 2: (19) Hyperlipidemia: Admission and Anticipated Discharge Date Admission Date: December 17, 2022 Supervising Physician Co-Signing Physician Notes I personally examined the patient and verified all rivera points of history and exam, discussed case, and agree with decision making with Dr Polk No new complaints for me. Seen walking with therapy, later revisited at the bedside with patient and . Communicated with hematology/oncology, input greatly appreciated. Reviewed venous and arterial Dopplers with patient and . Vitals noted, in general he is awake and alert pleasant no distress. HEENT normocephalic atraumatic mucous membranes moist. Breathing unlabored no accessory muscle use good effort. Skin shows no rashes no pallor or icterus. Neuro without focal deficits. CBC, BMP, LFTs, PTT noted again. Metastatic cancerpoorly differentiated, primary probably pancreatic versus less likely gastriccomplicated by possible ITP and concomitant VTE (PE), along with hyperglycemic dehydration present on admissionfortunately overall stabilizing. Platelets dropped to 30IVIG todaycontinue argatroban for nowwhile he had DVT 10 days ago, and much of what is seen on ultrasound today probably reflects that, his worsening symptoms and a small degree of what sounds to be progression of clotsfor now will increase argatroban to truly therapeutic dosing and follow closely for bleeding) risk/benefit of this approach discussed with patient and wifeand he agrees. This also allows us to follow him closely for any bleeding on anticoagulation with his thrombocytopenia, which may be able to pave the way for him to feel/be safe for on anticoagulation as an outpatientas he would like to be able to get home as soon as is safe. Fortunately no bleeding thus far. In the meantime, continue pain control, continue to follow closely, continue insulinswith reduced steroid dosing, we should be able to start to see a regimen that fits better for going home (today on pace for about 30 total units). Hopefully home in the next few days as long as the situation continues to stay medically stable. 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 12/24: Patient was seen and examined at bedside. He notes that overnight his right food started to hurt, notes that the pain has been intense and his feet also feel cold. The pain has improved since getting his pain medication. Notes that his shoulder pain is also manageable with the pain med. He denies shortness of breath, chest pain. Review of Systems Review of Systems: As per above Physical Exam Constitutional: WD/WN, vitals as above Eyes: Anicteric sclera Neck: trachea midline, no thyromegaly Respiratory: normal respiratory effort, lungs clear to auscultation Cardiovascular: RRR, no murmur, no edema Right lower extremity +2 pulses Gastrointestinal (Abdomen): normal bowel sounds, soft, nontender, no hepatosplenomegaly Musculoskeletal: Able to move bilateral lower extremities without difficulty Skin: no rashes, warm and dry Psychiatric: A+Ox3, euthymic affect Results & Data Results & Data ([facility]) Vital Signs (Past 12 Hours) Vital Signs Temp Pulse Pulse Resp BP Pulse Ox O2 Del Method 12/24/22 00:00 77 12/23/22 22:54 36.4 C L 83 16 101/49 L 97 Room Air Resident Activity Tracking Resident Involvement: Resident Care Provided Care Provided: Adult [facility] Medicine (1) DKA (diabetic ketoacidosis) Diabetes mellitus complication detail: without coma Diabetes mellitus type: other specified (including SAL) Qualified Code(s): E13.10 - Other specified diabetes mellitus with ketoacidosis without coma (3) Metastatic cancer Area of secondary neoplastic involvement: unspecified site Qualified Code(s): C79.9 - Secondary malignant neoplasm of unspecified site (4) Pulmonary embolism Acute cor pulmonale presence: unspecified Chronicity: acute Pulmonary embolism type: unspecified Qualified Code(s): I26.99 - Other pulmonary embolism without acute cor pulmonale (17) Hypertension Hypertension type: essential hypertension Qualified Code(s): I10 - Essential (primary) hypertension (19) Hyperlipidemia Hyperlipidemia type: pure hypercholesterolemia Qualified Code(s): E78.00 - Pure hypercholesterolemia, unspecified; E78.0 - Pure hypercholesterolemia
[2022-12-24] MEDS: DULoxetine HCL 30 MG CAP PO SCH (08:57)
[2022-12-24] MEDS: allopurinoL 300 MG TAB PO SCH (08:57)
[2022-12-24] MEDS: PANTOprazole 40 MG TAB PO SCH (08:58)
[2022-12-24] MEDS: INSULIN ASPART PER UNIT CHARGE SC SCH ×4 (08:58→21:49)
[2022-12-24] MEDS: GABAPENTIN 100 MG CAP PO SCH ×3 (08:58→20:28)
[2022-12-24] MEDS ORDERED: LANTUS PER UNIT CHARGE SQ SCH (09:00)
[2022-12-24] MEDS: dexAMETHasone 4 MG TAB PO SCH (10:03)
[2022-12-24] MEDS: POLYETHYLENE (MIRALAX) 17 GM PACK PO SCH (10:03)
[2022-12-24] MEDS ORDERED: [UNRECOGNIZED DRUG - REMARK] SQ SCH (12:30)
--- NOTE | 2022-12-24 15:27 | Ultrasound Report ---
RIGHT LOWER EXTREMITY VENOUS DOPPLER HISTORY: right foot pain COMPARISON STUDY: None. FINDINGS: The right common femoral, superficial femoral, popliteal, anterior tibial veins are patent. The posterior tibial and peroneal veins are thrombosed. IMPRESSION: Right lower extremity DVT demonstrated by thrombosed posterior tibial and peroneal veins. ACT 112: Negative or not required by law. Electronically signed by: Garret Peters M.D. 12/24/2022 3:25 PM
--- NOTE | 2022-12-24 15:47 | Ultrasound Report ---
ULTRASOUND OF THE RIGHT LOWER EXTREMITY ARTERIAL CLINICAL HISTORY: Right foot pain. COMPARISON STUDY: No priors. TECHNIQUE: Real-time grayscale and color Doppler sonography of the arteries of the right lower extrem ity is performed from the inguinal crease to the foot. Ankle-brachial indices were not assessed due t o the presence of deep venous thrombosis. FINDINGS: There is mild atherosclerotic plaque and irregularity seen throughout the arteries of the r ight lower extremity. There are triphasic arterial waveforms in the common femoral artery velocities measuring up to 65 cm/s. The profunda femoris artery is patent with velocities measuring up to 49 cm/ s. There are triphasic arterial waveforms seen throughout the superficial, femoral and popliteal lima gely. The velocities within the superficial femoral artery measure up to 82 cm/s and velocities in th e popliteal artery measure up to 49 cm/s. There is three-vessel runoff to the calf. The calf arteries show normal arterial waveforms. Velocities in the calf arteries measure up to 81 cm/s. The dorsalis pedis artery is patent with velocities measuring up to 51 cm/s. IMPRESSION: There is no sonographic evidence of high-grade stenosis or focal vessel cut off throughou t the arteries of the right lower extremity. Dictated: 12/24/2022 3:29 PM Transcribed: 12/24/2022 3:44 PM Boubacar [id number] [email or web address] Electronically signed by: Steve Leos M.D. 12/24/2022 3:46 PM
[2022-12-24] MEDS ORDERED: PHARMACY ARGATROBAN RATE CHANGE ONE ×2 (16:00→23:00)
[2022-12-24] MEDS ORDERED: IMMUNE GLOBULIN (HUMAN) SOLN IV ONE (17:16)
[2022-12-24] MEDS ORDERED: Octagam 10% IVIG 5 gram bottle IV SCH (18:00)
--- NOTE | 2022-12-24 18:21 | Billing Data ---
Date of Service December 24, 2022 Coding Level of Care Code 59613 SUB INP/OBS CARE 3MIN
[2022-12-24] MEDS: Octagam 10% IVIG 20 gram bottle IV SCH ×4 (21:07→23:34)
[2022-12-24 22:52] LABS: Partial Thromboplastin Ratio 2.1
[2022-12-24 22:57] LABS: Partial Thromboplastin Time 57.9 Seconds (21.0-31.0)
[2022-12-25 03:14] LABS: Albumin Globulin Ratio 0.4 (0.9-2); Albumin Level 2.2 gm/dl (3.4-5.0); BUN Creatinine Ratio 29.3 (10-20); Bilirubin,Total 0.9 mg/dl (0.2-1.0); Calcium 6.8 mg/dl (8.5-10.1); Creatinine Clr Calc Pharmacy 90.5 ml/min; Est GFR (African American) 100.3 ml/min; Est GFR (Non-African American) 86.5 ml/min; Potassium 4.5 mmol/L (3.5-5.1); Total Protein 7.2 gm/dl (6.0-8.3); Uric Acid 2.3 mg/dl (2.6-7.2)
[2022-12-25 03:36] LABS: Hematocrit (blood only) 31.8 % (42.0-52.0); Hemoglobin 10.6 g/dl (14.0-18.0); Mean Corpuscular Hemoglobin 33.5 pg (25.0-34.0); Mean Corpuscular Hgb Conc 33.3 g/dL (32.0-36.0); Mean Corpuscular Volume 100.6 fL (80.0-100.0); Mean Platelet Volume 10.6 fL (9.4-12.4); Platelet Count 29 K/uL (130-400); Platelet Estimate Decreased (Normal); RDW Coefficient of Variation 13.7 % (11.5-14.5); RDW Standard Deviation 50.4 fL (36.4-46.3); Red Blood Count 3.16 M/uL (4.70-6.10); White Blood Count 10.96 K/ul (4.8-10.8)
[2022-12-25 03:42] LABS: Partial Thromboplastin Ratio 2.2
[2022-12-25 03:43] LABS: Partial Thromboplastin Time 60.6 Seconds (21.0-31.0)
[2022-12-25] MEDS ORDERED: PHARMACY ARGATROBAN RATE CHANGE ONE ×3 (04:00→14:00)
--- NOTE | 2022-12-25 06:01 | Hospitalist Progress Note ---
Date of Service December 25, 2022 Assessment & Plan (1) Thrombocytopenia: Plan: With increased megakaryocytes of the marrow and no other abnormalities on that study, thrombocytopenia certainly immune. HIT and serotonin release assay were negative seemingly inconsistent with "classic" heparin-induced thrombocytopenia/thrombosis. Unfortunately despite high-dose dexamethasone and initial immunoglobulin, platelets have actually trended back down though they remain above 25,000. 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 I previously expressed concern regarding a thrombopoietin receptor agonist but think we can modulate that with ongoing anticoagulation and it is likely to give us a more consistent and durable platelet response which will be critical to support both needed anticoagulation and anticipated chemotherapy for his metastatic pancreatic cancer. Medication started 12/24/2022 (2) Pulmonary embolism: Plan: Patient had pulmonary embolism on last admission although that was not seen on most recent imaging, he developed a new right leg DVT certainly suggesting ongoing hypercoagulability. While the screens for HIT are negative, the temporal relationship between now and the onset of the thrombocytopenia still makes me favor non-Heparin like anticoagulation as a bridge to hoped for eventual transition to a DOAC Given the new clot on the lower dose I think we do need to increase the intensity to a PTT ratio of 2-2.5. While his platelets remain low, in the setting of ITP they are more hyperfunctional given the bias towards a much younger and more active subset of platelets and it should be reasonably safe to go to the bigger dose anticoagulation particular where the new clot does suggest that overall his hemostasis is still tilted towards thrombosis rather than hemorrhage. 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 Patient is actually quite fit and FOLFIRINOX would be a reasonable induction regimen that would have activity against both with the particularly active against pancreatic cancer. We await NGS studies and if there are opportunities to incorporate ICI or anti-HER2 therapy we may want to alternatively consider FOLFOX with a combination of 1 of those. I provisionally discussed that plan with the patient and hoped actualized soon after discharge. Will need platelet recovery and for that reason we are aggressively approaching his thrombocytopenia as above with the initiation of Romiplostim He can also resume radiation to his shoulder/cervical spine Plan 1. Increase argatroban intensity to PTT ratio 22.5 2. Can resume radiation to his cervical spine 3. Romiplostim initiated 12/24/2022, have given 1 additional dose of IVIG 4. Patient will need Port-A-Cath and if that can be placed during admission that would be helpful 5. Anticipate outpatient initiation of systemic chemotherapy as above Admission and Anticipated Discharge Date Admission Date: December 17, 2022 Subjective Generally doing well. No bruising or bleeding, breathing is stable, right arm pain seems to be improved. Onset of DVT symptoms clearly preceded his first dose of Romiplostim Physical Exam Physical Exam: Vital signs stable, alert, cooperative, comfortable. He is ambulatory. Lung and cardiac exams are stable. Neurologic exam is Results & Data Results & Data Vital Signs (Past 12 Hours) Vital Signs Temp Pulse Pulse Resp BP Pulse Ox O2 Del Method 12/25/22 03:48 36.7 C 62 16 114/69 100 Room Air 12/25/22 00:00 59 L 12/24/22 23:30 36.7 C 79 18 130/75 100 Room Air 12/24/22 20:59 36.4 C L 12/24/22 19:39 36.6 C 80 18 124/76 98 Room Air Laboratory Results Laboratory Results - last 24 hr 12/24/22 12/24/22 12/24/22 06:07 06:07 06:07 WBC 14.53 H RBC 4.02 L Hgb 13.4 L Hct 39.9 L MCV 99.3 MCH 33.3 MCHC 33.6 RDW Std Deviation 48.5 H RDW Coeff of Micah 13.3 Plt Count 30 L MPV 11.0 Absolute Nucleated RBC 0.04 Nucleated RBC % (auto) 0.3 Platelet Estimate APTT 52.0 H* PTT Ratio 1.9 Sodium 136 Potassium 4.2 Chloride 105 Carbon Dioxide 25 Anion Gap 6 BUN 24 H Creatinine 0.69 Est Cr Clr Drug Dosing 107.5 Est GFR ( Amer) 107.6 Est GFR (Non-Af Amer) 92.9 BUN/Creatinine Ratio 34.8 H Glucose 69 L POC Glucose Uric Acid Calcium 7.1 L Phosphorus 2.4 L Magnesium 2.1 Total Bilirubin 1.1 H AST 143 H ALT 195 H Alkaline Phosphatase 542 H Total Protein 6.2 Albumin 2.7 L Globulin 3.5 Albumin/Globulin Ratio 0.8 L Carcinoembryonic Ag CA 19-9 Antigen 12/24/22 12/24/22 12/24/22 07:14 11:24 16:19 WBC RBC Hgb Hct MCV MCH MCHC RDW Std Deviation RDW Coeff of Micah Plt Count MPV Absolute Nucleated RBC Nucleated RBC % (auto) Platelet Estimate APTT PTT Ratio Sodium Potassium Chloride Carbon Dioxide Anion Gap BUN Creatinine Est Cr Clr Drug Dosing Est GFR ( Amer) Est GFR (Non-Af Amer) BUN/Creatinine Ratio Glucose POC Glucose 72 152 H 208 H Uric Acid Calcium Phosphorus Magnesium Total Bilirubin AST ALT Alkaline Phosphatase Total Protein Albumin Globulin Albumin/Globulin Ratio Carcinoembryonic Ag CA 19-9 Antigen 12/24/22 12/24/22 12/25/22 20:52 21:53 02:19 WBC 10.96 H RBC 3.16 L Hgb 10.6 L Hct 31.8 L MCV 100.6 H MCH 33.5 MCHC 33.3 RDW Std Deviation 50.4 H RDW Coeff of Micah 13.7 Plt Count 29 L* MPV 10.6 Absolute Nucleated RBC Nucleated RBC % (auto) Platelet Estimate Decreased L APTT 57.9 H* PTT Ratio 2.1 Sodium Potassium Chloride Carbon Dioxide Anion Gap BUN Creatinine Est Cr Clr Drug Dosing Est GFR ( Amer) Est GFR (Non-Af Amer) BUN/Creatinine Ratio Glucose POC Glucose 147 H Uric Acid Calcium Phosphorus Magnesium Total Bilirubin AST ALT Alkaline Phosphatase Total Protein Albumin Globulin Albumin/Globulin Ratio Carcinoembryonic Ag CA 19-9 Antigen 12/25/22 12/25/22 12/25/22 02:19 02:19 02:19 WBC RBC Hgb Hct MCV MCH MCHC RDW Std Deviation RDW Coeff of Micah Plt Count MPV Absolute Nucleated RBC Nucleated RBC % (auto) Platelet Estimate APTT 60.6 H* PTT Ratio 2.2 Sodium 129 L Potassium 4.5 Chloride 103 Carbon Dioxide 22 Anion Gap 4 BUN 24 H Creatinine 0.82 Est Cr Clr Drug Dosing 90.5 Est GFR ( Amer) 100.3 Est GFR (Non-Af Amer) 86.5 BUN/Creatinine Ratio 29.3 H Glucose 177 H POC Glucose Uric Acid 2.3 L Calcium 6.8 L Phosphorus Magnesium Total Bilirubin 0.9 AST 129 H ALT 172 H Alkaline Phosphatase 450 H Total Protein 7.2 Albumin 2.2 L Globulin 5.0 H Albumin/Globulin Ratio 0.4 L Carcinoembryonic Ag 241.7 H CA 19-9 Antigen 12/25/22 02:19 WBC RBC Hgb Hct MCV MCH MCHC RDW Std Deviation RDW Coeff of Micah Plt Count MPV Absolute Nucleated RBC Nucleated RBC % (auto) Platelet Estimate APTT PTT Ratio Sodium Potassium Chloride Carbon Dioxide Anion Gap BUN Creatinine Est Cr Clr Drug Dosing Est GFR ( Amer) Est GFR (Non-Af Amer) BUN/Creatinine Ratio Glucose POC Glucose Uric Acid Calcium Phosphorus Magnesium Total Bilirubin AST ALT Alkaline Phosphatase Total Protein Albumin Globulin Albumin/Globulin Ratio Carcinoembryonic Ag CA 19-9 Antigen Pending Diagnostic Findings Chest X-Ray 12/17/22 22:01 SINGLE VIEW CHEST CLINICAL HISTORY: Infection. FINDINGS: An AP, portable, upright chest radiograph is correlated with chest CT dated 12/10/2022. The cardiomediastinal silhouette is top normal for projection. There are numerous tiny pulmonary nodules consistent with the patient's known metastatic disease. This was much better assessed on the recent chest CT. Scarring/atelectasis is noted at the lung bases. No airspace consolidation or large pleural effusion is identified. No pneumothorax is seen. The skeletal structures are osteopenic. The bony thorax is grossly intact. Arthritic change is noted in the shoulders and spine. IMPRESSION: 1. No acute cardiopulmonary abnormality. 2. Numerous tiny pulmonary nodules are consistent with the patient's known metastatic disease. This was much better assessed on the recent chest CT. ACT 112: Negative or not required by law. Electronically signed by: Steve Leos M.D. 12/18/2022 7:32 AM Bone Marrow Biopsy w/ CT 12/19/22 08:30 CT-guided bone marrow biopsy INDICATION: Thrombocytopenia PROCEDURE: Procedure and risks were explained. Informed consent was obtained. A final timeout was completed. The patient was placed prone on the CT exam table. The left gluteal region was prepped and draped in sterile fashion. 1% buffered lidocaine was utilized for skin anesthesia. Utilizing CT guidance, an 11-gauge bone biopsy needle was advanced into the left iliac bone. Multiple aspirates and one 11-gauge bone core was obtained and given to the lab. The needle was removed and Band-Aid applied. The patient tolerated the procedure well. Vital signs will be monitored on the floor. IMPRESSION: Bone marrow biopsy as above. Performed, dictated, and signed by Nasim Shaw PA-C; to be co-signed by Dr. Ramirez Rojas. Electronically signed by: Ramirez Rojas M.D. 12/19/2022 4:08 PM Duplex Scan Lower Extremity Artery 12/24/22 12:03 ULTRASOUND OF THE RIGHT LOWER EXTREMITY ARTERIAL CLINICAL HISTORY: Right foot pain. COMPARISON STUDY: No priors. TECHNIQUE: Real-time grayscale and color Doppler sonography of the arteries of the right lower extremity is performed from the inguinal crease to the foot. Ankle-brachial indices were not assessed due to the presence of deep venous thrombosis. FINDINGS: There is mild atherosclerotic plaque and irregularity seen throughout the arteries of the right lower extremity. There are triphasic arterial waveforms in the common femoral artery velocities measuring up to 65 cm/s. The profunda femoris artery is patent with velocities measuring up to 49 cm/s. There are triphasic arterial waveforms seen throughout the superficial, femoral and popliteal arteries. The velocities within the superficial femoral artery measure up to 82 cm/s and velocities in the popliteal artery measure up to 49 cm/s. There is three-vessel runoff to the calf. The calf arteries show normal arterial waveforms. Velocities in the calf arteries measure up to 81 cm/s. The dorsalis pedis artery is patent with velocities measuring up to 51 cm/s. IMPRESSION: There is no sonographic evidence of high-grade stenosis or focal vessel cut off throughout the arteries of the right lower extremity. Dictated: 12/24/2022 3:29 PM Transcribed: 12/24/2022 3:44 PM [facility] [id number] [email or web address] Electronically signed by: Steve Leos M.D. 12/24/2022 3:46 PM Venous Doppler Study 12/24/22 12:03 RIGHT LOWER EXTREMITY VENOUS DOPPLER HISTORY: right foot pain COMPARISON STUDY: None. FINDINGS: The right common femoral, superficial femoral, popliteal, anterior tibial veins are patent. The posterior tibial and peroneal veins are thrombosed. IMPRESSION: Right lower extremity DVT demonstrated by thrombosed posterior tibial and peroneal veins. ACT 112: Negative or not required by law. Electronically signed by: Garret Peters M.D. 12/24/2022 3:25 PM PG Care Time/CCT Total # of Minutes Spent Total Time Spent with Patient: Total time spent is greater than 50% in coordination of care (as documented) at patient's floor/unit and/or counseling patient: Coding Level of Care Code 08427 SUB INP/OBS CARE 2/35MIN Diagnoses Thrombocytopenia D69.6 Pulmonary embolism I26.99 Acute cor pulmonale presence: unspecified Chronicity: acute Pulmonary embolism type: unspecified Pancreatic carcinoma metastatic to liver C25.9; C78.7 (2) Pulmonary embolism Acute cor pulmonale presence: unspecified Chronicity: acute Pulmonary embolism type: unspecified Qualified Code(s): I26.99 - Other pulmonary embolism without acute cor pulmonale
--- NOTE | 2022-12-25 06:54 | Hospitalist Progress Note ---
Date of Service December 25, 2022 Assessment & Plan (1) DKA (diabetic ketoacidosis): Plan: Josh Wood is a 77 year-old male with PMH of DM2, HTN, prostate cancer, DVT and b/l PE on Eliquis, ZAID with CPAP, and recent diagnosis of metastatic cancer of the spine and liver with unknown primary who presented with DKA, severe thrombocytopenia, and multiple electrolyte derangements. 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 marrow failure, abrupt onset thrombocytopenia, and adequate red cell/white cell production. -Coagulation panel revealed: 14.6 PT, 1.4 INR, Fibrinogen 136 -Pt VSS with no signs of bleeding on exam- lower suspicion for DIC. No associated anemia, peripheral smear negative for schistocytes -Peripheral smear revealed: "anisopoikilocytosis. No schistocytes, tear drop cells. Neutrophilic predominant leukocytosis. Platelets decreased in number without clumping. Consistent with non-specific leukocytosis and thrombocytopenia." -Initially suspected HIT with peripheral destruction of platelets and initiated low-dose Argatroban however heparin dependent platelet antibody resulted negative so it was discontinued. pending CALVIN UFH low dose, high dose, and unfract. heparin values. Note: with further data, still considering PAOLA as possible etiology. Per Dr. Manuel, enoxaparin/fondaparinux/heparin now listed as possible allergies. -Appreciate hematology/oncology recs: -Completed 2 prior days of IVIG -Per Mar, ordered additional round of IVIG this afternoon -Dexamethasone 40mg x4 days, transitioned to 4mg daily -If signs of bleeding, transfuse platelets to 25-30k -(12/19) Plts 7, transfused 1 unit. repeat Plts (12/19) 30 -(12/20) Plts 23, repeat Plts (12/20) 39 -(12/21) Plts 45 -(12/22) Plts 41, repeat Plts (12/22) 39 -(14) Plts 40 -(15) Plts 30 -(16) Plts 29 -Restarted low dose argatroban (3/11) with target 1.5-2.0 ratio PTT -Due to increase in DVT, per Dr. Manuel- will increase target to 2.0-2.5 ratio PTT -Due to increased right foot pain this a.m., ordered R LE venous and arterial duplex -Right LE DVT, known from prior study- but appears more advanced on today's study -Per Mar, increased argatroban to 2-2.5 ratio PTT -Will reevaluate plan for home blood thinner as approaching time of discharge -Marrow biopsy 12/19: "no intrinsic hematologic abnormalities nor infiltration by his adenocarcinoma", suggestive of immunologic destruction of platelets as the mechanism for his thrombocytopenia DKA- resolved -Admission labs and clinical history consistent with DKA/HHS, likely triggered by steroid-induced hyperglycemia from recent IV + oral steroid therapy for metastatic cancer. Given urine ketones, more likely DKA than HHS -Held steroids and started on IV insulin drip. -Once AG normalized - Transitioned to SC insulin Severe electrolyte abnormalities, secondary to DKA vs. TLS - Mg 3.9 on admission; on admission no clinical signs of Mg toxicity; Mg decreased to 3.0. Trend Mg - Phosphorus 7.9 on admission; normalized to 3.7 3/9 am - K+ 6.4 on admission; EKG without significant ST change or arrhythmia, has remained sinus. Calcium gluconate on admission. K normalized 3/9 am - Na 123 on admission; likely pseudohyponatremia from hyperglycemia, serum osmolality 326 - Ca on admission 8.5 low- normal-> 8.4 - LDH 1911 - Given electrolyte abnormalities (hyperMg, hyperK, hypocalcemia, elevated LDH) and hyperuricemia and heavy tumor burden, initiated Allopurinol for tumor lysis Metastatic cancer, heavy tumor burden -Extensive metastasis to liver and spine with unknown primary source though potentially pancreas per previous imaging from last hospitalization -Following with [facility] oncology- receiving radiation and chemotherapy as outpatient -Pt reports significant pain/discomfort particularly in R UE -Appreciate Oncology recs -restarted dexamethasone at 40 mg PO daily for total 4 days, transitioned to 4mg -Pain currently controlled with q6h oxycodone, if pain worsens will consider switching to extended release formulation of narcotic -General surgery consulted for port-a-cath placement -tentatively "add-on" for tomorrow, although will need argatroban paused for 4 hours prior to procedure -will need platelets >50 to proceed Pulmonary embolism -Noted evidence of b/l PE with LE DVTs on last admission, at home on Eliquis -Held anticoagulation in setting of profound thrombocytopenia -Did receive dose of lovenox but none further due to persistent concern of heparin associated thrombocytopenia -Holding DOAC until platelet count rises and stays stable. Elevated troponin -Troponin 43 on admission->39->44.7. Stopped trending -EKG without acute ST change, or peaked T waves, pt without ACS symptoms -Likely demand ischemia from acute illness Transaminitis -AST 65, ALT 124 on admission; 12/18 AST 63, ALT 104 -Likely reactive to current acute illness/DKA in setting of known liver metastasis -Trend CMP BRIAN-resolved -Cr 1.64 on admission--> 12/18 PM .87 -Likely pre-renal cause- excessive volume depletion from urination 11/13 DKA; fluid resuscitation complete Severe ZAID on CPAP -BIPAP Hs Hypertension -Holding home antihypertensives for hypotension -Resume as able as BP tolerates DM2 -A1c 7.3% in 09/2022 -As above, exacerbation from steroid therapy leading to DKA/HHS and treatment as above HLD -Holding home statin given thrombocytopenia FEN: normal diet LINES/IV ACCESS - PIV DVT prophylaxis: SCDs, due to severe thrombocytopenia, argatroban Dispo: Med/Tele (2) Thrombocytopenia: (3) Metastatic cancer: (4) Pulmonary embolism: (5) Hypermagnesemia: (6) Elevated troponin: (7) BRIAN (acute kidney injury): (8) Hyperphosphatemia: (9) Acute hyperkalemia: (10) Transaminitis: (11) Leukocytosis: (12) Malignant neoplasm of spine: (13) Severe obstructive sleep apnea: (14) History of prostate cancer: (15) Hyponatremia: (16) Weakness: (17) Hypertension: (18) Diabetes mellitus, type 2: (19) Hyperlipidemia: Admission and Anticipated Discharge Date Admission Date: December 17, 2022 Supervising Physician Co-Signing Physician Notes I personally examined the patient and verified all rivera points of history and exam, discussed case, and agree with decision making with Dr Polk no new complaints. discussed port placement. discussed with surgery, put appreciated. he would like to get home as soon as possible but understands Vitals noted, in general he is awake and alert pleasant no distress. HEENT normocephalic atraumatic mucous membranes moist. Breathing unlabored no accessory muscle use good effort. Skin shows no rashes no pallor or icterus. Neuro without focal deficits. CBC, BMP, LFTs, PTT noted yet again. Metastatic cancerpoorly differentiated, primary probably pancreatic versus less likely gastriccomplicated by possible ITP and concomitant VTE (PE), along with hyperglycemic dehydration present on admissionfortunately overall stable now. Platelets 29IVIG again todaycontinue argatroban for nowwill need to work on plan for after hospitalization as well - thrombocytopenia creating a bit of a roadblock. Fortunately no bleeding thus far. consult surgery for port - since complexity with plt and anticoagulation may be more manageable as inpatient. In the meantime, continue pain control, continue to follow closely, continue insulinswith reduced steroid dosing, we should be able to start to see a regimen that fits better for going home (today once again on pace for about 30 total units). Hopefully home in the next few days as long as the situation continues to stay medically stable. 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 12/25: Patient seen and examined at bedside. He reports that his pain is manageable this morning, states his right foot pain is better today. Denies shortness of breath, chest pain, abdominal pain, nausea/vomiting. Review of Systems Review of Systems: As per above Physical Exam Constitutional: WD/WN, vitals as above Eyes: PERRL, conjunctivae normal, anicteric sclerae Neck: trachea midline, no thyromegaly Respiratory: normal respiratory effort, lungs clear to auscultation Cardiovascular: RRR, no murmur, no edema Gastrointestinal (Abdomen): normal bowel sounds, soft, nontender, no hepatosplenomegaly Skin: no rashes, warm and dry Psychiatric: A+Ox3, euthymic affect Results & Data Results & Data Vital Signs (Past 12 Hours) Vital Signs Temp Pulse Pulse Resp BP Pulse Ox O2 Del Method 12/25/22 03:48 36.7 C 62 16 114/69 100 Room Air 12/25/22 00:00 59 L 12/24/22 23:30 36.7 C 79 18 130/75 100 Room Air 12/24/22 20:59 36.4 C L 12/24/22 19:39 36.6 C 80 18 124/76 98 Room Air Resident Activity Tracking Resident Involvement: Resident Care Provided Care Provided: Adult [facility] (1) DKA (diabetic ketoacidosis) Diabetes mellitus complication detail: without coma Diabetes mellitus type: other specified (including SAL) Qualified Code(s): E13.10 - Other specified diabetes mellitus with ketoacidosis without coma (3) Metastatic cancer Area of secondary neoplastic involvement: unspecified site Qualified Code(s): C79.9 - Secondary malignant neoplasm of unspecified site (4) Pulmonary embolism Acute cor pulmonale presence: unspecified Chronicity: acute Pulmonary embolism type: unspecified Qualified Code(s): I26.99 - Other pulmonary embolism without acute cor pulmonale (17) Hypertension Hypertension type: essential hypertension Qualified Code(s): I10 - Essential (primary) hypertension (19) Hyperlipidemia Hyperlipidemia type: pure hypercholesterolemia Qualified Code(s): E78.00 - Pure hypercholesterolemia, unspecified; E78.0 - Pure hypercholesterolemia
[2022-12-25 07:51] LABS: Partial Thromboplastin Ratio 2.1
[2022-12-25 08:00] LABS: Partial Thromboplastin Time 58.7 Seconds (21.0-31.0)
[2022-12-25] MEDS: INSULIN ASPART PER UNIT CHARGE SC SCH ×4 (08:41→20:28)
[2022-12-25] MEDS: DULoxetine HCL 30 MG CAP PO SCH (08:45)
[2022-12-25] MEDS: PANTOprazole 40 MG TAB PO SCH (08:45)
[2022-12-25] MEDS: allopurinoL 300 MG TAB PO SCH (08:45)
[2022-12-25] MEDS: dexAMETHasone 4 MG TAB PO SCH (08:45)
[2022-12-25] MEDS: GABAPENTIN 100 MG CAP PO SCH ×3 (08:45→20:29)
[2022-12-25] MEDS: POLYETHYLENE (MIRALAX) 17 GM PACK PO SCH (08:50)
[2022-12-25] MEDS: oxyCODONE HCL IR 5 MG TAB (IMMEDIATE RELEASE) PO PRN ×2 (08:51→19:32)
[2022-12-25] MEDS ORDERED: LANTUS PER UNIT CHARGE SQ SCH (09:00)
[2022-12-25 13:21] LABS: Partial Thromboplastin Ratio 1.9
[2022-12-25 13:22] LABS: Partial Thromboplastin Time 52.1 Seconds (21.0-31.0)
--- NOTE | 2022-12-25 13:50 | Pharmacy Report ---
Pharmacy Argatroban Consult - Date of Service December 25, 2022 - Pharmacy Dosing Scope Pharmacy is consulted to initiate the use of Argatroban-IV dosing therapy in the setting of possible HIT/PAOLA pending work-up, order appropriate labs and adjust drug dose/frequency. - Subjective Regarding previous anticoagulation: Patient on day # 6 overall of Argatroban infusion (Day #2 of THERAPEUTIC Argatroban infusion for the treatment of LLE DVT) Goal PTT Ratio as determined by provider: 2.0 - 2.5 (range is 1.5-3). Pertinent PMH: Pertinent PMH: malignancy, Platelets < 50K - Objective Laboratory Results:: Last 24 Hours 12/24/22 12/25/22 12/25/22 21:53 02:19 02:19 Hgb 10.6 L Hct 31.8 L Plt Count 29 L* APTT 57.9 H* PTT Ratio 2.1 BUN 24 H Creatinine 0.82 12/25/22 12/25/22 12/25/22 02:19 05:50 12:15 Hgb Hct Plt Count APTT 60.6 H* 58.7 H* 52.1 H* PTT Ratio 2.2 2.1 1.9 BUN Creatinine Last 72 Hours 12/22/22 12/23/22 12/23/22 16:53 06:08 06:08 Plt Count 39 L 40 L Total Bilirubin 0.9 AST 127 H ALT 172 H 12/24/22 12/24/22 12/25/22 06:07 06:07 02:19 Plt Count 30 L 29 L* Total Bilirubin 1.1 H AST 143 H ALT 195 H 12/25/22 02:19 Plt Count Total Bilirubin 0.9 AST 129 H ALT 172 H - Assessment & Plan 12/25: * Day #6 of argatroban overall (Day #2 of therapeutic argatroban (goal PTT ratio 2.0-2.5, as specified by Dr. Manuel) for the treatment of DVT. * Argatroban titrated to 0.4 mcg/kg/min. PTT ratios were in range overnight and this morning; 2.2 and 2.1 respectively. * Afternoon PTT ratio came back below goal at 1.9. Argatroban infusion titrated up to 0.5 mcg/kg/min starting today at 1400. * Next PTT ratio is ordered to be drawn in 4 hours at 1800 this evening. 12/22: * Day #3 argatroban infusion * Argatroban infusion titrated to 0.375mcg/kg/min. Last 3 PTT ratios within goal range (1.6 (12/21 @2058), 1.7 (12/22 @ 0149), 1.7 (12/22 @0752) with no change to infusion rate since 12/21 @ 1640. Will obtain another aPTT at noon today given hepatic impairment and delayed time to steady state. If PTT ratio continues to be within goal range, will decrease monitoring frequency to q8h. * Goal PTT ratio 1.5-[address] Manuel's documentation this AM. 12/20 @ 1940: Discussed recent PTT ratio 1.3 @[address] Manuel. * With PLT slowing increasing to 39K, OK to change goal PTT Ratio 1.5-2.0 with next lab draw. * He will continue to follow up in the AM to determine if adjustments to goal PTT range are needed again. Labs: Baseline/Ongoing Labs: Per P&T approved Anticoagulation Safety, Laboratory Test for Anticoagulants We will continue to monitor this patient and make adjustments as needed. Thank you.
--- NOTE | 2022-12-25 15:40 | Pharmacy Report ---
Pharmacy Glycemic Short Note 2 - Date of Service December 25, 2022 - Glycemic Short BSG Results (Last 24 hours): 12/24/22 12/24/22 12/25/22 16:19 20:52 02:19 Glucose 177 H POC Glucose 208 H 147 H 12/25/22 12/25/22 07:30 11:20 Glucose POC Glucose 144 H 193 H OUTPATIENT ANTIDIABETIC REGIMEN: * Empagliflozin 25mg daily * Metformin 1gm BID * A1c = 7.3% 10/08/22 ASSESSMENT: 12/25: * Patient received total of 27 units of insulin yesterday; 10 units basal and 17 units bolus. * Basal dose was reduced to 10 units yesterday since fasting BSG was lower at 69 mg/dl. However elevated today to 144 mg/dl. Therefore increased basal dose to 12 units today AM. * Continues on Dexamethasone 4 mg PO daily which leads to elevated BSG around dinner time (208 mg/dl) but trended down to 147 mg/dl at HS. * Novolog parameters continued the same. 12/23: * BSGs within goal the last 24h- [id number]/dl. Pt received 32 units of basal and 64 units of bolus insulin yesterday. * Dexamethasone dose decreased from 40mg to 4mg daily starting today. Tolerating diet. * Will empirically reduce basal by ~ 50% this AM due to steroid reduction. Novolog parameters also loosened in anticipation of reduced prandial needs given steroid adjustment. Will reassess basal needs tomorrow. 12/22: * BSGs largely controlled within the lat 24h ([phone]/dl). Patient received 32 units of basal insulin and 45 units of bolus insulin yesterday. * Continues on dex 40mg PO daily and tolerating diet. * No changes to insulin today- continue 32 units daily of Lantus and Novolog 2.5. 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 Given patient's presentation with DKA possibly associated with outpt dexamethasone use will need to monitor patient closely and treat aggressively with SQ. Will escalate Novolog CF and CR doses to "high stress" and will possibly provide small dose of NPH with lunch today depending on the result 12/18 * Type 2 diabetic admitted with HAGMA, DKA, BRIAN, profound thrombocytopenia. Acute stressors in addition to outpt dexamethasone likely contributing change in glycemic control. * Initial chemistry: AG 22, Bicarb 16, GLU 807, Na 123 (corrected ~135) * Patient received fluid resuscitation as well as IV insulin infusion per DKA protocol * This AM AG acidosis has resolved, patient is tolerating diet. Per ICU rounds discussion, pt ready to transition to SQ at this time PLAN FOR INPATIENT GLYCEMIC CONTROL: * Hold outpatient oral diabetes medications * Basal insulin * Lantus 12 units SQ QAM * Bolus insulin * NovoLog per scale ACHS * Goal Range: Low 110 mg/dL - High 140 mg/dL * Correction Factor: 20 mg/dL/unit * Nutritional / Prandial insulin per carb ratio of 1 unit per 6 grams CHO consumed
--- NOTE | 2022-12-25 15:41 | Surgery Consultation ---
This case was discussed with the surgical PA. 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 Patient has a history of prostate ca, however workup thus far has been concerning for a metastatic pancreatic malignancy. Diagnosed with thrombocytopenia while here...unclear etiology...HIT vs ITP? Was on heparin last admission, then transitioned to eliquis as outpatient, but now due to thrombocytopenia he has been transitioned to argatroban in house. Today labs show Plt 29. Will discuss with hospitalist team regarding possible platelet transfusion/optimization prior to proceeding with port placement. Will likely need to hold argatroban prior to surgery as well. Pending plts may be able to proceed with port placement while he is currently admitted, however if unable to be performed tomorrow and stable for discharge over the wknd we could consider doing this for him as an outpatient. Will follow up with medicine team and my attending and look at OR schedule. i did go over the procedure in detail with the patient and his who understand the risks/benefits and are agreeable to proceeding when deemed safe to do so. (2) Thrombocytopenia: History of Present Illness Attending Physician: Addison Duff, DO History of Present Illness This is a pleasant 77y M with a PMH of DM2, HLD, HTN, prostate ca, ZAID, PE's and DVT, with concern for metastatic pancreatic cancer who presented to the [facility] on 12/17/22 after suffering from a near syncopal episode during his oncology appointment who was founded to have DKA and electrolyte abnormalities upon arrival. He has been admitted under the medical service with oncology consultation following. He was worked up early this month for RUE pain and found to have metastatic lesions to the bone and liver. Patient has a history of prostate ca, however workup thus far has been concerning for a pancreatic malignancy. Liver biopsy performed showed findings of metastatic carcinoma. Bone biopsy also performed. CT scan with evidence of lesions of the pancreas. He has since been following in cancer center for radiation. Patient admitted since 12/17 with above complaints and near syncopal episode. Diagnosed with thrombocytopenia while here...unclear etiology...HIT vs ITP? Has received some plt transfusions, in addition to being on steroids and now argatroban. Today we have been consulted for consideration of port placement recommended by Oncology for chemotherapy initiation in the near future. Patient denies any abdominal pain, nausea/vomiting, CT/SOB, kalina colored stools, jaundice. No history of chest surgery or prior port placement. --discussed with surgeon would prefer plt count to be >50 prior to surgical intervention and argatroban held at least 4 hours prior to procedure. tentatively added pt on schedule for 12/26 if able to proceed. NPO at midnight. Allergies Allergy/AdvReac Type Severity Reaction Status Date / Time typhoid vaccine Allergy Intermediate shaking Verified 12/17/22 18:59 enoxaparin Allergy Unknown Verified 12/20/22 14:48 fondaparinux Allergy Unknown Verified 12/20/22 14:48 heparin Allergy Unknown Verified 12/20/22 14:48 Home Medications Medication Instructions Recorded Confirmed Type ibuprofen 200 mg capsule 400 - 600 mg PO Q6H PRN Pain 12/05/19 12/17/22 History BiPap Machine #1 ea 02/22/20 12/17/22 Rx BiPap Supplies #1 ea 03/17/22 12/17/22 Rx metformin 1,000 mg tablet 1,000 mg PO BID #180 tabs 07/08/22 12/17/22 Rx tadalafil 20 mg tablet 20 mg PO UD PRN sexual activity 08/07/22 12/17/22 Rx #30 tabs blood sugar diagnostic (OneTouch #100 ea 08/18/22 12/17/22 Rx Verio test strips) lancets 30 gauge (OneTouch Delica #100 ea 08/18/22 12/17/22 Rx Lancets) lisinopril 10 1 tab PO HS #90 tabs 09/02/22 12/17/22 Rx mg-hydrochlorothiazide 12.5 mg tablet duloxetine 30 mg capsule,delayed 30 mg PO DAILY #90 caps 10/08/22 12/17/22 Rx release empagliflozin 25 mg tablet 25 mg PO DAILY #90 tabs 11/17/22 12/17/22 Rx gabapentin 100 mg capsule 100 mg PO TID #90 caps 12/08/22 12/17/22 Rx methocarbamol 750 mg tablet 750 mg PO Q8H PRN back spasm #15 12/08/22 12/17/22 Rx tabs atorvastatin 40 mg tablet 40 mg PO HS 12/10/22 12/17/22 History diclofenac sodium 1 % topical gel 4 g topical QID PRN Pain 12/10/22 12/17/22 History (Voltaren Arthritis Pain) apixaban 5 mg tablet (Eliquis) 5 mg PO BID #70 tabs 12/12/22 12/17/22 Rx oxycodone 5 mg tablet 5 mg PO Q6H PRN pain, severe #30 12/12/22 12/17/22 Rx tabs dexamethasone 4 mg tablet 4 mg PO TID #120 tabs 12/15/22 12/17/22 Rx Patient History Medical History Diabetes mellitus, type 2 DIET CONTROLLED Hearing difficulty History of colon polyps History of prostate cancer 2010--sx only Hyperlipidemia Hypertension Osteoarthritis Restless leg syndrome Sleep apnea BIPAP Temporomandibular joint disorder Trigger finger, left ring finger Surgical History History of carpal tunnel surgery of right wrist History of cataract surgery RT/LEFT Hx of colonoscopy 01/2021 repeat 3 yrs Hx of prostatectomy 2010 - Hx of vasectomy Family History Father Malignant neoplasm of colon Hypertension Family hx of colon cancer Sister Malignant neoplasm of colon Family hx of colon cancer Grandfather Myocardial infarction paternal Lung cancer maternal Other No family history of adverse response to anesthesia Denies family history of Ovarian cancer Prostate cancer Breast cancer Social History Smoking Status: Never smoker Second Hand Exposure: No (father smoked); Hx Alcohol Use: Yes Alcohol type: beer, wine and hard liquor Alcohol Intake Frequency Comment: daily Hx Substance Use: No Preferred Language: Thai Communication Ability: Effective Visual Impairment: Limited Hearing Ability: Use of Hearing Aid Photograph Tinter Required: No Beliefs That Will Affect Care: None marital status: Current Living Situation: Spouse current occupational status: retired How many Children do You have: 3 Feels Safe at Home: Yes Childhood Exposure to Second-Hand Smoke: Yes caffeine: Yes (rarely; drinks mostly decaf ) Dental Care, Regularly: No Physical Activity Frequency: 1-2 Times per Week Seatbelt Use: always Sunscreen Use: No Assistive Devices: BiPap and Cane Review of Systems Constitutional: no fever and no chills Respiratory: no dyspnea Cardiovascular: no chest pain Gastrointestinal: + constipation; no abdominal pain, no bloating, no nausea and no vomiting no kalina colored stool Physical Exam Physical Exam: awake/alert Constitutional: well developed and well nourished; no acute distress Respiratory: normal respiratory effort Cardiovascular: Rate/Rhythm: regular rhythm Gastrointestinal (Abdomen): Percussion/Palpation: abdomen soft; abdomen nontender Skin: no jaundice Results & Data Vital Signs (Past 12 Hours) Vital Signs Temp Pulse Pulse Resp BP BP Pulse Ox 12/25/22 15:10 36.5 C 59 L 17 128/69 98 12/25/22 15:07 65 12/25/22 11:18 36.5 C 66 18 121/68 98 12/25/22 07:49 56 L 12/25/22 07:23 36.4 C L 67 17 110/65 98 12/25/22 03:48 36.7 C 62 16 114/69 100 O2 Del Method 12/25/22 15:10 Room Air 12/25/22 15:07 12/25/22 11:18 Room Air 12/25/22 07:49 12/25/22 07:23 Room Air 12/25/22 03:48 Room Air Diagnostic Findings CHEST CT WITH CONTRAST, ABDOMEN AND PELVIS CT WITH INTRAVENOUS CONTRAST CT DOSE: 1035.36 mGy.cm HISTORY: ABNORMAL CERVICAL MRI-EVAL MALIGNANCY TECHNIQUE: Multiaxial CT images of the chest, abdomen, and pelvis were performed following the intravenous administration of contrast. A dose lowering technique was utilized adhering to the principles of ALARA. COMPARISON: Cervical spine MRI 12/09/2022. FINDINGS: Chest CT: The central airways are patent. No pneumothorax. No pleural effusions. There are numerable scattered subcentimeter pulmonary nodules which measure up to 8 mm in size. This is highly suspicious for pulmonary metastatic disease. Subtle right paravertebral soft tissue density at the C7 level corresponds to the recent cervical spine MRI. There is also concerning for metastatic disease. Normal esophagus. The thyroid gland enhances normally. Calcified right hilar and subcarinal lymph nodes. No mediastinal or hilar lymphadenopathy. No pericardial effusion. The heart is normal in size. Calcific granuloma within the right lower lobe. Small filling defect seen within the lower lobe subsegmental pulmonary arteries concerning for distal pulmonary emboli. The main pulmonary arteries are patent. There are a few subtle lytic lesions noted within the thoracic spine. Abdomen/pelvis CT: No pneumoperitoneum. No pneumatosis. A few subtle small lytic lesions seen within the lumbar spine and right iliac bone. Small fat-containing umbilical hernia. Small fat-containing right inguinal hernia. Innumerable scattered hypodense lesions seen throughout the liver consistent with metastatic disease. This includes a dominant hypodense lesion measuring 11 cm. The gallbladder is contracted. The main portal vein is patent. Partially necrotic and mildly enlarged periportal lymph nodes likely representing metastatic disease. Dominant lymph node measures 18 mm. The spleen and adrenal glands unremarkable. There is a 4 cm left renal cyst. No hydronephrosis. A cluster of hypodense/cystic lesions within the uncinate process of the pancreas measuring up to 5.2 cm. There is an additional multiloculated solid and cystic lesion within the tail the pancreas measuring 6 cm. The bladder is unremarkable. There is a single mildly enlarged right external iliac lymph node on image 316 measuring 10 mm. A few colonic diverticula. No evidence for acute diverticulitis. No bowel wall thickening or obstruction. Normal appendix. IMPRESSION: 1. Multiple scattered subcentimeter pulmonary nodules consistent with metastatic disease. 2. Multiple hypodense lesions seen throughout the liver with the largest measuring 11 cm. This also likely represents metastatic disease. 3. Subcentimeter scattered lytic lesions within the spine and pelvis which may represent metastatic disease. 4. Subtle right paravertebral soft tissue density at the C7 level which likely corresponds to the MRI finding and is concerning for metastatic disease. 5. Mildly enlarged and partially necrotic periportal and a right external iliac lymph node consistent with residual disease. 6. Cystic lesions within the uncinate process and tail of the pancreas . These are indeterminate but may represent separate cystic neoplasms of the pancreas rather than metastatic disease. 7. Probable small subsegmental bilateral lower lobe pulmonary emboli. ACT 112: Negative or not required by law. Electronically signed by: Garret Peters M.D. 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
--- NOTE | 2022-12-25 18:06 | Billing Data ---
Date of Service December 25, 2022 Coding Level of Care Code 66929 SUB INP/OBS CARE MIN
[2022-12-25 19:35] LABS: Partial Thromboplastin Time 55.7 Seconds (21.0-31.0)
[2022-12-26 01:30] LABS: Partial Thromboplastin Ratio 1.9
[2022-12-26 01:34] LABS: Partial Thromboplastin Time 53.3 Seconds (21.0-31.0)
[2022-12-26] MEDS ORDERED: PHARMACY ARGATROBAN RATE CHANGE ONE ×5 (02:00→21:45)
[2022-12-26 06:45] LABS: Basophils # (auto) 0.01 K/uL (0-0.2); Basophils % (auto) 0.1 %; Eosinophils # (auto) 0.05 K/uL (0-0.50); Eosinophils % (auto) 0.4 %; Hematocrit (blood only) 35.1 % (42.0-52.0); Hemoglobin 11.7 g/dl (14.0-18.0); Immature Granulocytes # (auto) 0.11 K/uL (0.01-0.20); Lymphocytes # (auto) 0.52 K/uL (1.2-3.4); Lymphocytes % (auto) 4.5 %; Mean Corpuscular Hemoglobin 33.3 pg (25.0-34.0); Mean Corpuscular Hgb Conc 33.3 g/dL (32.0-36.0); Monocytes # (auto) 0.74 K/uL (0.11-0.59); Monocytes % (auto) 6.4 %; Neutrophils % (auto) 87.6 %; Platelet Count 37 K/uL (130-400); RDW Coefficient of Variation 13.9 % (11.5-14.5); RDW Standard Deviation 50.5 fL (36.4-46.3); Red Blood Count 3.51 M/uL (4.70-6.10); White Blood Count 11.53 K/ul (4.8-10.8)
[2022-12-26 07:00] LABS: Albumin Globulin Ratio 0.5 (0.9-2); Albumin Level 2.4 gm/dl (3.4-5.0); BUN Creatinine Ratio 33.8 (10-20); Bilirubin,Total 0.9 mg/dl (0.2-1.0); Calcium 7.1 mg/dl (8.5-10.1); Creatinine Clr Calc Pharmacy 104.5 ml/min; Est GFR (African American) 106.4 ml/min; Est GFR (Non-African American) 91.8 ml/min; Globulin 4.7 gm/dl (2.5-4.0); Potassium 4.3 mmol/L (3.5-5.1); Total Protein 7.1 gm/dl (6.0-8.3)
--- NOTE | 2022-12-26 07:16 | Hospitalist Progress Note ---
Date of Service December 26, 2022 Assessment & Plan (1) Thrombocytopenia: Plan: Although moderate, the rise in platelet count overnight is quite encouraging as it more likely reflects the romiplostim which will have a durable impact rather than the transient impact of the previous steroid/immunoglobulin infusions Once he is over 50,000 can go to more "routine" anticoagulation with apixaban as discussed under the pulmonary embolism review Would want to see that he has shown sustained counts over 50,000 for 2 successive days before discharge (2) Pulmonary embolism: Plan: Fortunately no further pulmonary symptoms and he has right lower extremity distal DVT symptoms seem to be subsiding. Continue current dose of argatroban until platelets exceed 50,000 and can convert to apixaban at that point though for discharge purposes would assure that he can show maintenance of a count greater than 50,000 for at least 2 successive days. Given that we were giving low-dose argatroban to start, will give initial apixaban at the "loading" dose of 10 mg twice daily for 5 days before going to chronic dosing of 5 mg twice daily (3) Metastatic cancer: Plan: We will approach his metastatic pancreatic cancer and I am working on authorization for FOLFIRINOX. This to be given as an outpatient. If his platelets are adequate and he is still hospitalized, it would be convenient to place a Port-A-Cath but not critical and it should not limit his ability to be discharged. We can coordinate access as an outpatient if necessary Plan Cautiously optimistic that the overnight rise in platelets truly reflects romiplostim and a durable response that we will have to see this sustained As above, as soon as he is over 50,000 can convert to apixaban with an initial loading dose If he remains over 50,000 for 2 successive days and has no other new clinical changes can be discharged and we will follow-up as an outpatient I will be away from [place] until Thursday so we will "sign off" anticipating probable discharge over the weekend. I am making arrangements for a follow-up appointment in our offices next week, 01/01 at 8a. Please reconsult if additional issues arise during this hospitalization Admission and Anticipated Discharge Date Admission Date: December 17, 2022 Subjective Feels well, right leg symptoms have largely subsided and he has no new suggestions of either new thrombosis or new bleeding. Physical Exam Physical Exam: Vital signs stable. Lung and heart examinations are unremarkable Abdomen benign Right leg swelling minimal with minimal tenderness Results & Data Results & Data Vital Signs (Past 12 Hours) Vital Signs Temp Pulse Pulse Resp BP BP Pulse Ox 12/26/22 07:04 36.7 C 76 18 130/75 100 12/26/22 02:36 36.6 C 69 15 113/68 97 12/25/22 22:01 60 12/25/22 22:54 36.6 C 61 18 120/73 97 12/25/22 19:13 36.4 C L 96 H 16 103/63 97 O2 Del Method 12/26/22 07:04 Room Air 12/26/22 02:36 Room Air 12/25/22 22:01 12/25/22 22:54 Room Air 12/25/22 19:13 Room Air Laboratory Results Laboratory Results - last 24 hr 12/25/22 12/25/22 12/25/22 05:50 07:30 11:20 WBC RBC Hgb Hct MCV MCH MCHC RDW Std Deviation RDW Coeff of Micah Plt Count MPV Immature Gran % (Auto) Neut % (Auto) Lymph % (Auto) [place] % (Auto) Eos % (Auto) Baso % (Auto) Neut # (Auto) Lymph # (Auto) [place] # (Auto) Eos # (Auto) Baso # (Auto) Immature Gran # (Auto) APTT 58.7 H* PTT Ratio 2.1 Sodium Potassium Chloride Carbon Dioxide Anion Gap BUN Creatinine Est Cr Clr Drug Dosing Est GFR ( Amer) Est GFR (Non-Af Amer) BUN/Creatinine Ratio Glucose POC Glucose 144 H 193 H Calcium Total Bilirubin AST ALT Alkaline Phosphatase Total Protein Albumin Globulin Albumin/Globulin Ratio Hdez-TRK (IHC) FISH Oncology IHC Stain and Interp [facility] Pathology Test 12/25/22 12/25/22 12/25/22 12:15 16:20 18:13 WBC RBC Hgb Hct MCV MCH MCHC RDW Std Deviation RDW Coeff of Micah Plt Count MPV Immature Gran % (Auto) Neut % (Auto) Lymph % (Auto) [place] % (Auto) Eos % (Auto) Baso % (Auto) Neut # (Auto) Lymph # (Auto) [place] # (Auto) Eos # (Auto) Baso # (Auto) Immature Gran # (Auto) APTT 52.1 H* 55.7 H* PTT Ratio 1.9 2.0 Sodium Potassium Chloride Carbon Dioxide Anion Gap BUN Creatinine Est Cr Clr Drug Dosing Est GFR ( Amer) Est GFR (Non-Af Amer) BUN/Creatinine Ratio Glucose POC Glucose 236 H Calcium Total Bilirubin AST ALT Alkaline Phosphatase Total Protein Albumin Globulin Albumin/Globulin Ratio Hdez-TRK (IHC) FISH Oncology IHC Stain and Interp [facility] Pathology Test 12/25/22 12/25/22 12/26/22 20:11 Unknown 00:31 WBC RBC Hgb Hct MCV MCH MCHC RDW Std Deviation RDW Coeff of Micah Plt Count MPV Immature Gran % (Auto) Neut % (Auto) Lymph % (Auto) [place] % (Auto) Eos % (Auto) Baso % (Auto) Neut # (Auto) Lymph # (Auto) [place] # (Auto) Eos # (Auto) Baso # (Auto) Immature Gran # (Auto) APTT 53.3 H* PTT Ratio 1.9 Sodium Potassium Chloride Carbon Dioxide Anion Gap BUN Creatinine Est Cr Clr Drug Dosing Est GFR ( Amer) Est GFR (Non-Af Amer) BUN/Creatinine Ratio Glucose POC Glucose 272 H Calcium Total Bilirubin AST ALT Alkaline Phosphatase Total Protein Albumin Globulin Albumin/Globulin Ratio Hdez-TRK (IHC) Pending FISH Oncology Pending IHC Stain and Interp Pending [facility] Pathology Test Pending 12/26/22 12/26/22 12/26/22 06:21 06:21 06:21 WBC 11.53 H RBC 3.51 L Hgb 11.7 L Hct 35.1 L MCV 100.0 MCH 33.3 MCHC 33.3 RDW Std Deviation 50.5 H RDW Coeff of Micah 13.9 Plt Count 37 L MPV 12.0 Immature Gran % (Auto) 1.0 Neut % (Auto) 87.6 Lymph % (Auto) 4.5 [place] % (Auto) 6.4 Eos % (Auto) 0.4 Baso % (Auto) 0.1 Neut # (Auto) 10.10 H Lymph # (Auto) 0.52 L [place] # (Auto) 0.74 H Eos # (Auto) 0.05 Baso # (Auto) 0.01 Immature Gran # (Auto) 0.11 APTT Pending PTT Ratio Pending Sodium 134 L Potassium 4.3 Chloride 106 Carbon Dioxide 24 Anion Gap 4 BUN 24 H Creatinine 0.71 Est Cr Clr Drug Dosing 104.5 Est GFR ( Amer) 106.4 Est GFR (Non-Af Amer) 91.8 BUN/Creatinine Ratio 33.8 H Glucose 105 H POC Glucose Calcium 7.1 L Total Bilirubin 0.9 AST 129 H ALT 186 H Alkaline Phosphatase 572 H Total Protein 7.1 Albumin 2.4 L Globulin 4.7 H Albumin/Globulin Ratio 0.5 L Hdez-TRK (IHC) FISH Oncology IHC Stain and Interp Misc Pathology Test PG Care Time/CCT Total # of Minutes Spent Total Time Spent with Patient: Total time spent is greater than 50% in coordination of care (as documented) at patient's floor/unit and/or counseling patient: Coding Level of Care Code 61503 SUB INP/OBS CARE 11/05MIN Diagnoses Thrombocytopenia D69.6 Pulmonary embolism I26.99 Acute cor pulmonale presence: unspecified Chronicity: acute Pulmonary embolism type: unspecified Metastatic cancer C79.9 Area of secondary neoplastic involvement: unspecified site (2) Pulmonary embolism Acute cor pulmonale presence: unspecified Chronicity: acute Pulmonary embolism type: unspecified Qualified Code(s): I26.99 - Other pulmonary embolism without acute cor pulmonale (3) Metastatic cancer Area of secondary neoplastic involvement: unspecified site Qualified Code(s): C79.9 - Secondary malignant neoplasm of unspecified site
[2022-12-26 07:29] LABS: Partial Thromboplastin Ratio 2.1
[2022-12-26 07:30] LABS: Partial Thromboplastin Time 57.6 Seconds (21.0-31.0)
[2022-12-26] MEDS: GABAPENTIN 100 MG CAP PO SCH ×3 (08:12→21:02)
[2022-12-26] MEDS: allopurinoL 300 MG TAB PO SCH (08:12)
[2022-12-26] MEDS: DULoxetine HCL 30 MG CAP PO SCH (08:13)
[2022-12-26] MEDS: PANTOprazole 40 MG TAB PO SCH (08:13)
[2022-12-26] MEDS: POLYETHYLENE (MIRALAX) 17 GM PACK PO SCH (08:13)
[2022-12-26] MEDS: dexAMETHasone 4 MG TAB PO SCH (08:13)
[2022-12-26] MEDS: oxyCODONE HCL IR 5 MG TAB (IMMEDIATE RELEASE) PO PRN ×2 (08:18→16:31)
[2022-12-26] MEDS: INSULIN ASPART PER UNIT CHARGE SC SCH ×4 (08:38→20:12)
[2022-12-26] MEDS: LANTUS PER UNIT CHARGE SQ SCH (12:14)
--- NOTE | 2022-12-26 12:39 | Surgery Progress Note ---
I saw this patient on rounds today with the surgical PA where we discussed Dr. Manuel's suggestion of a PICC line vs port if the patient is high risk. I think a PICC would be a safer option if it is a viable option for this patient and would recommend consultation to the PICC team when ready. Please re-consult surgery if needed. 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 He is also on IV argatroban for his clot burden which will need to be held prior to any surgical procedure Discussed pt with Dr. Manuel who agreed if patient cannot safely undergo port placement this admission a PICC line can be considered. Sound like pt will be transitioned from argatroban to po eliquis once pts reach >50 If patient still here on Thursday we can maybe consider port placement if platelets at appropriate level and argatroban has been held...however otherwise he may certainly receive a PICC line in the interim and consider following up with us at some point as an outpatient to reconsider insertion No plans for Port placement over the wknd. [facility] covering if there are any questions/concerns Admission and Anticipated Discharge Date Admission Date: December 17, 2022 Subjective Patient feeling well. no complaints for me Physical Exam Physical Exam: awake/alert no distress Respiratory: normal respiratory effort Gastrointestinal (Abdomen): Inspection/Auscultation: abdomen not distended Percussion/Palpation: abdomen soft; abdomen nontender Results & Data Vital Signs (Past 12 Hours) Vital Signs Temp Pulse Pulse Resp BP Pulse Ox O2 Del Method 12/26/22 11:22 36.8 C 96 H 18 119/74 99 Room Air 12/26/22 08:00 69 12/26/22 07:04 36.7 C 76 18 130/75 100 Room Air 12/26/22 02:36 36.6 C 69 15 113/68 97 Room Air PG Care Time/CCT Total # of Minutes Spent Total Time Spent with Patient: Total time spent is greater than 50% in coordination of care (as documented) at patient's floor/unit and/or counseling patient: Coding Level of Care Code 52061 SUB INP/OBS CARE Diagnoses Pancreatic carcinoma metastatic to liver C25.9; C78.7
[2022-12-26 13:15] LABS: Partial Thromboplastin Time 54.2 Seconds (21.0-31.0)
[2022-12-26 15:12] LABS: Partial Thromboplastin Ratio 2.2
--- NOTE | 2022-12-26 15:12 | XRay Report ---
XR foot RT min 3V routine CLINICAL HISTORY: right foot pain, bony metastases COMPARISON: Right ankle radiographs February 19, 2022. FINDINGS: Alignment of the right foot is anatomic. Tarsometatarsal joints are intact. There is no fr acture. No osseous lesions are identified. Moderate posterior and plantar calcaneal spurring is prese nt. There is moderate mid foot osteoarthritis. IMPRESSION: 1. No fractures within the right foot. 2. No osseous lesions within the right foot by radiography. 3. Moderate mid foot osteoarthritis. 4. Posterior and plantar calcaneal spurring. ACT 112: Negative or not required by law. Electronically signed by: Maxim Kitchen M.D. 12/26/2022 3:11 PM
[2022-12-26 15:30] LABS: Partial Thromboplastin Time 60.6 Seconds (21.0-31.0)
--- NOTE | 2022-12-26 16:24 | Hospitalist Progress Note ---
Date of Service December 26, 2022 Assessment & Plan (1) DKA (diabetic ketoacidosis): Plan: Josh Wood is a 77 year-old male with PMH of DM2, HTN, prostate cancer, DVT and b/l PE on Eliquis, ZAID with CPAP, and recent diagnosis of metastatic cancer of the spine and liver with unknown primary who presented with DKA, severe thrombocytopenia, and multiple electrolyte derangements. 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 marrow failure, abrupt onset thrombocytopenia, and adequate red cell/white cell production. -Coagulation panel revealed: 14.6 PT, 1.4 INR, Fibrinogen 136 -Pt VSS with no signs of bleeding on exam- lower suspicion for DIC. No associated anemia, peripheral smear negative for schistocytes -Peripheral smear revealed: "anisopoikilocytosis. No schistocytes, tear drop cells. Neutrophilic predominant leukocytosis. Platelets decreased in number without clumping. Consistent with non-specific leukocytosis and thrombocytopenia." -Initially suspected HIT with peripheral destruction of platelets and initiated low-dose Argatroban however heparin dependent platelet antibody resulted negative so it was discontinued. pending CALVIN UFH low dose, high dose, and unfract. heparin values. Note: with further data, still considering PAOLA as possible etiology. Per Dr. Manuel, enoxaparin/fondaparinux/heparin now listed as possible allergies. -Appreciate hematology/oncology recs: -Completed 2 prior days of IVIG -Per Mar, ordered additional round of IVIG this afternoon -Dexamethasone 40mg x4 days, transitioned to 4mg daily -If signs of bleeding, transfuse platelets to 25-30k -(12/19) Plts 7, transfused 1 unit. repeat Plts (12/19) 30 -(12/20) Plts 23, repeat Plts (12/20) 39 -(12/21) Plts 45 -(12/22) Plts 41, repeat Plts (12/22) 39 -(14) Plts 40 -(15) Plts 30 -(16) Plts 29 -(12/26) Plts 37 -Restarted low dose argatroban (12/20) with target 1.5-2.0 ratio PTT -Due to increase in DVT, per Dr. Manuel- will increase target to 2.0-2.5 ratio PTT -Due to increased right foot pain this a.m., ordered R LE venous and arterial duplex -Right LE DVT, known from prior study- but appears more advanced on today's study -Per Mar, increased argatroban to 2-2.5 ratio PTT -Will reevaluate plan for home blood thinner as approaching time of discharge -Marrow biopsy 12/19: "no intrinsic hematologic abnormalities nor infiltration by his adenocarcinoma", suggestive of immunologic destruction of platelets as the mechanism for his thrombocytopenia DKA- resolved -Admission labs and clinical history consistent with DKA/HHS, likely triggered by steroid-induced hyperglycemia from recent IV + oral steroid therapy for metastatic cancer. Given urine ketones, more likely DKA than HHS -Held steroids and started on IV insulin drip. -Once AG normalized - Transitioned to SC insulin Severe electrolyte abnormalities, secondary to DKA vs. TLS - Mg 3.9 on admission; on admission no clinical signs of Mg toxicity; Mg decreased to 3.0. Trend Mg - Phosphorus 7.9 on admission; normalized to 3.7 3/9 am - K+ 6.4 on admission; EKG without significant ST change or arrhythmia, has remained sinus. Calcium gluconate on admission. K normalized 3/9 am - Na 123 on admission; likely pseudohyponatremia from hyperglycemia, serum osmolality 326 - Ca on admission 8.5 low- normal-> 8.4 - LDH 1911 - Given electrolyte abnormalities (hyperMg, hyperK, hypocalcemia, elevated LDH) and hyperuricemia and heavy tumor burden, initiated Allopurinol for tumor lysis Metastatic cancer, heavy tumor burden -Extensive metastasis to liver and spine with unknown primary source though potentially pancreas per previous imaging from last hospitalization -Following with [facility] oncology- receiving radiation and chemotherapy as outpatient -Pt reports significant pain/discomfort particularly in R posterior shoulder -Appreciate Oncology recs -restarted dexamethasone at 40 mg PO daily for total 4 days, now transitioned to 4mg -Pain currently controlled with q6h oxycodone, if pain worsens will consider switching to extended release formulation of narcotic -General surgery consulted for port-a-cath placement -Need platelets >50 to proceed, plus added complication of needing to stop argatroban prior to procedure -Given struggle to maintain platelet levels, may not be able to achieve this -Dr. Mar mccray with possibility of placing PICC line over port -Has had pain of left foot for past several days, often sharp pain at plantar surface -X-ray of left foot today without fracture or evidence of metastasis Pulmonary embolism -Noted evidence of b/l PE with LE DVTs on last admission, at home on Eliquis -Held anticoagulation in setting of profound thrombocytopenia -Did receive dose of Lovenox but none further due to persistent concern of h eparin associated thrombocytopenia -Holding DOAC until platelet count rises and stays stable. Elevated troponin -Troponin 43 on admission->39->44.7. Stopped trending -EKG without acute ST change, or peaked T waves, pt without ACS symptoms -Likely demand ischemia from acute illness Transaminitis -AST 65, ALT 124 on admission; 12/18 AST 63, ALT 104 -Likely reactive to current acute illness/DKA in setting of known liver metastasis -Trend CMP BRIAN-resolved -Cr 1.64 on admission--> 12/18 PM .87 -Likely pre-renal cause- excessive volume depletion from urination 2/2 DKA; fluid resuscitation complete Severe ZAID on CPAP -BIPAP Hs Hypertension -Holding home antihypertensives for hypotension -Resume as able as BP tolerates DM2 -A1c 7.3% in 09/2022 -As above, exacerbation from steroid therapy leading to DKA/HHS and treatment as above HLD -Holding home statin given thrombocytopenia FEN: normal diet LINES/IV ACCESS - PIV DVT prophylaxis: SCDs, due to severe thrombocytopenia, argatroban Dispo: Med/Tele (2) Thrombocytopenia: (3) Metastatic cancer: (4) Pulmonary embolism: (5) Hypermagnesemia: (6) Elevated troponin: (7) BRIAN (acute kidney injury): (8) Hyperphosphatemia: (9) Acute hyperkalemia: (10) Transaminitis: (11) Leukocytosis: (12) Malignant neoplasm of spine: (13) Severe obstructive sleep apnea: (14) History of prostate cancer: (15) Hyponatremia: (16) Weakness: (17) Hypertension: (18) Diabetes mellitus, type 2: (19) Hyperlipidemia: Admission and Anticipated Discharge Date Admission Date: December 17, 2022 Supervising Physician Co-Signing Physician Notes I personally examined the patient and verified all rivera points of history and exam, discussed case, and agree with decision making with Dr Polk Pain remains under reasonable control. Discussed current plan of treatment, and platelets rising to 37. CBC, basic metabolic panel reviewed, LFTs noted as well Vitals noted, in general he is awake and alert pleasant no distress. HEENT normocephalic atraumatic mucous membranes moist. Breathing unlabored no accessory muscle use good effort. Skin shows no rashes no pallor or icterus. Neuro without focal deficits. Metastatic cancerpoorly differentiated, primary probably pancreatic versus less likely gastriccomplicated by possible ITP and concomitant VTE (PE), along with hyperglycemic dehydration present on admissionfortunately overall stable now. Platelets 37continue argatroban for nowwill need to work on plan for after hospitalization as well - thrombocytopenia creating a bit of a roadblock, although rising. Fortunately no bleeding thus far. As far as IV access for chemotherapyif platelets get above 50, hopefully surgery can put a port in Thursday, if platelets stay lowPICC line for now, continue insulinswith reduced steroid dosing, we should be able to start to see a regimen that fits better for going home (has consistently settled into a pace for about 30 total units per day divided basal/bolus). Hopefully home in the next few days as long as the situation continues to stay medically stable. 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 12/26: Patient was seen and examined at bedside. No acute events overnight. He notes that his right foot still feels a bit cold and was painful overnight. Feels that the oxycodone is helping with the foot pain. He denies shortness of breath, chest pain, abdominal pain, nausea/vomiting. Review of Systems Review of Systems: As per above Physical Exam Constitutional: WD/WN, vitals as above Eyes: PERRL, conjunctivae normal, anicteric sclerae Neck: trachea midline, no thyromegaly Respiratory: normal respiratory effort, lungs clear to auscultation Cardiovascular: RRR, no murmur, no edema Gastrointestinal (Abdomen): normal bowel sounds, soft, nontender, no hepatosplenomegaly Musculoskeletal: Pain with palpation of plantar surface of right foot and heel Skin: no rashes, warm and dry Psychiatric: A+Ox3, euthymic affect Results & Data Results & Data Vital Signs (Past 12 Hours) Vital Signs Temp Pulse Pulse Resp BP Pulse Ox O2 Del Method 12/26/22 15:21 36.7 C 85 18 130/79 98 Room Air 12/26/22 11:22 36.8 C 96 H 18 119/74 99 Room Air 12/26/22 08:00 69 12/26/22 07:04 36.7 C 76 18 130/75 100 Room Air Resident Activity Tracking Resident Involvement: Resident Care Provided Care Provided: Adult Hospital Medicine (1) DKA (diabetic ketoacidosis) Diabetes mellitus complication detail: without coma Diabetes mellitus type: other specified (including SAL) Qualified Code(s): E13.10 - Other specified diabetes mellitus with ketoacidosis without coma (3) Metastatic cancer Area of secondary neoplastic involvement: unspecified site Qualified Code(s): C79.9 - Secondary malignant neoplasm of unspecified site (4) Pulmonary embolism Acute cor pulmonale presence: unspecified Chronicity: acute Pulmonary embolism type: unspecified Qualified Code(s): I26.99 - Other pulmonary embolism without acute cor pulmonale (17) Hypertension Hypertension type: essential hypertension Qualified Code(s): I10 - Essential (primary) hypertension (19) Hyperlipidemia Hyperlipidemia type: pure hypercholesterolemia Qualified Code(s): E78.00 - Pure hypercholesterolemia, unspecified; E78.0 - Pure hypercholesterolemia
--- NOTE | 2022-12-26 18:35 | Billing Data ---
Date of Service December 26, 2022 Coding Level of Care Code 62271 SUB INP/OBS CARE MIN
[2022-12-26 21:25] LABS: Partial Thromboplastin Ratio 2.1
[2022-12-26 21:32] LABS: Partial Thromboplastin Time 59.1 Seconds (21.0-31.0)
[2022-12-27] MEDS: oxyCODONE HCL IR 5 MG TAB (IMMEDIATE RELEASE) PO PRN ×4 (01:08→22:02)
[2022-12-27 02:34] LABS: Basophils # (auto) 0.02 K/uL (0-0.2); Basophils % (auto) 0.2 %; Eosinophils # (auto) 0.05 K/uL (0-0.50); Eosinophils % (auto) 0.4 %; Hematocrit (blood only) 36.2 % (42.0-52.0); Hemoglobin 12.3 g/dl (14.0-18.0); Immature Granulocytes # (auto) 0.14 K/uL (0.01-0.20); Immature Granulocytes % (auto) 1.1 %; Lymphocytes # (auto) 0.48 K/uL (1.2-3.4); Lymphocytes % (auto) 3.8 %; Mean Corpuscular Hemoglobin 33.9 pg (25.0-34.0); Mean Corpuscular Volume 99.7 fL (80.0-100.0); Mean Platelet Volume 12.5 fL (9.4-12.4); Monocytes # (auto) 0.82 K/uL (0.11-0.59); Monocytes % (auto) 6.6 %; Neutrophils % (auto) 87.9 %; Nucleated RBC # (auto) 0.02 K/uL (0-0.12); Nucleated RBC % (auto) 0.2 %; Platelet Count 39 K/uL (130-400); RDW Standard Deviation 50.2 fL (36.4-46.3); Red Blood Count 3.63 M/uL (4.70-6.10); White Blood Count 12.51 K/ul (4.8-10.8)
[2022-12-27 02:42] LABS: Albumin Globulin Ratio 0.6 (0.9-2); Albumin Level 2.5 gm/dl (3.4-5.0); BUN Creatinine Ratio 30.2 (10-20); Bilirubin,Total 0.9 mg/dl (0.2-1.0); Calcium 7.5 mg/dl (8.5-10.1); Creatinine Clr Calc Pharmacy 86.3 ml/min; Est GFR (African American) 98.3 ml/min; Est GFR (Non-African American) 84.8 ml/min; Globulin 4.4 gm/dl (2.5-4.0); Potassium 4.5 mmol/L (3.5-5.1); Total Protein 6.9 gm/dl (6.0-8.3)
[2022-12-27 03:45] LABS: Partial Thromboplastin Ratio 2.2
[2022-12-27 03:46] LABS: Partial Thromboplastin Time 60.4 Seconds (21.0-31.0)
[2022-12-27] MEDS ORDERED: PHARMACY ARGATROBAN RATE CHANGE ONE (04:30)
--- NOTE | 2022-12-27 06:47 | Hospitalist Progress Note ---
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 marrow failure, abrupt onset thrombocytopenia, and adequate red cell/white cell production. -Coagulation panel revealed: 14.6 PT, 1.4 INR, Fibrinogen 136 -Pt VSS with no signs of bleeding on exam- lower suspicion for DIC. No associated anemia, peripheral smear negative for schistocytes -Peripheral smear revealed: "anisopoikilocytosis. No schistocytes, tear drop cells. Neutrophilic predominant leukocytosis. Platelets decreased in number without clumping. Consistent with non-specific leukocytosis and thrombocytopenia." -Initially suspected HIT with peripheral destruction of platelets and initiated low-dose Argatroban however heparin dependent platelet antibody resulted negative so it was discontinued. pending CALVIN UFH low dose, high dose, and unfract. heparin values. Note: with further data, still considering PAOLA as possible etiology. Per Dr. Manuel, enoxaparin/fondaparinux/heparin now listed as possible allergies. -Appreciate hematology/oncology recs: -Completed 2 prior days of IVIG -Per Mar, ordered additional round of IVIG 12/24 -Dexamethasone 40mg x4 days, transitioned to 4mg daily -If signs of bleeding, transfuse platelets to 25-30k -Platelets 12/27= 35; no signs of bleeding to date -Restarted low dose argatroban (12/20) with target 1.5-2.0 ratio PTT -Due to increase in DVT, per Dr. Manuel- increase target to 2.0-2.5 ratio PTT -Due to increased right foot pain this a.m., ordered R LE venous and arterial duplex -Right LE DVT, known from prior study- but appears more advanced on today's study -Will reevaluate plan for home blood thinner as approaching time of discharge -Marrow biopsy 12/19: "no intrinsic hematologic abnormalities nor infiltration by his adenocarcinoma", suggestive of immunologic destruction of platelets as the mechanism for his thrombocytopenia - Continue to trend CBC DKA- resolved -Admission labs and clinical history consistent with DKA/HHS, likely triggered by steroid-induced hyperglycemia from recent IV + oral steroid therapy for metastatic cancer. Given urine ketones, more likely DKA than HHS -Held steroids and started on IV insulin drip. - Pharmacy Glycemic Consult -Once AG normalized - Transitioned to SC insulin Severe electrolyte abnormalities, secondary to DKA vs. TLS - Mg 3.9 on admission; on admission no clinical signs of Mg toxicity; Mg decreased to 3.0. Trend Mg - Phosphorus 7.9 on admission; normalized to 3.7 3/9 am - K+ 6.4 on admission; EKG without significant ST change or arrhythmia, has remained sinus. Calcium gluconate on admission. K normalized 3/9 am - Na 123 on admission; likely pseudohyponatremia from hyperglycemia, serum osmolality 326 - Ca on admission 8.5 low- normal-> 8.4 - LDH 1911 - Given electrolyte abnormalities (hyperMg, hyperK, hypocalcemia, elevated LDH) and hyperuricemia and heavy tumor burden, initiated Allopurinol for tumor lysis Metastatic cancer, heavy tumor burden -Extensive metastasis to liver and spine with unknown primary source though potentially pancreas per previous imaging from last hospitalization -Following with [facility] oncology- receiving radiation and chemotherapy as outpatient -Pt reports significant pain/discomfort particularly in R posterior shoulder -Appreciate Oncology recs -restarted dexamethasone at 40 mg PO daily for total 4 days, now transitioned to 4mg -Pain currently controlled with q6h oxycodone, if pain worsens will consider switching to extended release formulation of narcotic -General surgery consulted for port-a-cath placement -Need platelets >50 to proceed, plus added complication of needing to stop argatroban prior to procedure -Given struggle to maintain platelet levels, may not be able to achieve this -Dr. Mar mccray with possibility of placing PICC line over port -Has had pain of left foot for past several days, often sharp pain at plantar surface -X-ray of left foot without fracture or evidence of metastasis Pulmonary embolism -Noted evidence of b/l PE with LE DVTs on last admission, at home on Eliquis -Held anticoagulation in setting of profound thrombocytopenia -Did receive dose of Lovenox but none further due to persistent concern of heparin associated thrombocytopenia -Holding DOAC until platelet count rises and stays stable. Elevated troponin -Troponin 43 on admission->39->44.7. Stopped trending -EKG without acute ST change, or peaked T waves, pt without ACS symptoms -Likely demand ischemia from acute illness Transaminitis -Likely reactive to current acute illness/DKA in setting of known liver metastasis -Trend CMP BRIAN-resolved -Cr 1.64 on admission (BL= 0.8) -Likely pre-renal cause- excessive volume depletion from urination 2/2 DKA; fluid resuscitation complete Severe ZAID on CPAP -BIPAP Hs Hypertension -Holding home antihypertensives for hypotension -Resume as able as BP tolerates DM2 -A1c 7.3% in 09/2022 -As above, exacerbation from steroid therapy leading to DKA/HHS and treatment as above HLD -Holding home statin given thrombocytopenia FEN: normal diet LINES/IV ACCESS - PIV DVT prophylaxis: SCDs, due to severe thrombocytopenia, argatroban Dispo: Med/Tele (2) Thrombocytopenia: (3) Metastatic cancer: (4) Pulmonary embolism: (5) Hypermagnesemia: (6) Elevated troponin: (7) BRIAN (acute kidney injury): (8) Hyperphosphatemia: (9) Acute hyperkalemia: (10) Transaminitis: (11) Leukocytosis: (12) Malignant neoplasm of spine: (13) Severe obstructive sleep apnea: (14) History of prostate cancer: (15) Hyponatremia: (16) Weakness: (17) Hypertension: (18) Diabetes mellitus, type 2: (19) Hyperlipidemia: Admission and Anticipated Discharge Date Admission Date: December 17, 2022 Supervising Physician Co-Signing Physician Notes I personally examined the patient and verified all rivera points of history and exam, discussed case, and agree with decision making with Dr Polk Pain remains under reasonable control. Discussed current plan of treatment, as well as possible different options. CBC, BMP, LFTs noted Vitals noted, in general he is awake and alert pleasant no distress. HEENT normocephalic atraumatic mucous membranes moist. Breathing unlabored no accessory muscle use good effort. Skin shows no rashes no pallor or icterus. Neuro without focal deficits. Metastatic cancerpoorly differentiated, primary probably pancreatic versus less likely gastriccomplicated by possible ITP and concomitant VTE (PE), along with hyperglycemic dehydration present on admissionfortunately overall stable now. Plan outlined by hematology/oncology largely hinges on platelets rising above 50. While the Nplate given a few days ago may still take some affect, the patient, his , and myself had a very demi discussion about alternate planning should his platelets never get above 50. We discussed risk/benefits/importance of his value system in the decision makinghe is not very risk averse and largely his values prefer being able to have most of his quality of life days at home with his family, rather than in the hospital. To that end, we will follow his platelet count for the next 2 days or sofiguring that by 5 days after Nplate we will likely see a pretty significant effect if it is going to happen, and if it does not we may need to move to "Plan B". As it relates to IV access for chemotherapy"plan a" would be simply that his platelets are above 50 and he gets a port placed on Thursday with argatroban on hold. "Plan B" would be that surgery is able to place a port with platelets transfusing, with argatroban on holdand if this is not safe/feasible, then PICC line. (Given that he seems to have progressed clots on even partial dosing of argatroban, holding anticoagulation for any longer than absolutely necessary, as would happen if he needs to hold his Eliquis for a few days as an outpatient prior to outpatient port placement, seems needlessly risky). As it relates to anticoagulationhe largely "sits on the fence" of different decision making lines and the algorithm of treating VTE in a patient with thrombocytopenia. Given, however, that he has now been on full dosing of argatroban for several days without bleeding, and he is reliable for follow-up, and understands the risk/benefit as it relates to bleeding/clottingit seems probably most reasonable/favorable to do full dosing of Eliquis even if his platelets do not cross above 50. To that end, essentially building a "plan a" versus "Plan B" that is able to move to action steps over the next 2 days (allowing a little bit more time for the Nplate he has previously been given to have a chance to take effect). 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 Having pretty significant scapular pain this morning, improved with mediation. Denies chest pain, dyspnea, palpitations. States that he has been having consistent bowel movements. Eating ok. Review of Systems Review of Systems: As per above Physical Exam Physical Exam: Constitutional: well-appearing, no acute distress HEENT: NCAT, no conjunctival injection CV: regular rhythm, no murmur appreciated, extremities well-perfused Resp: CTABL, no wheezes/rales/rhonchi appreciated, no increased work of breathing GI: soft, nondistended, nontender, BS normoactive MSK: no gross deformities appreciated Skin: warm, dry, no rash appreciated Neuro: alert, oriented, no focal neurologic deficit appreciated Results & Data Results & Data Vital Signs (Past 12 Hours) Vital Signs Temp Pulse Pulse Resp BP Pulse Ox O2 Del Method 12/27/22 03:44 36.7 C 88 16 138/79 98 Room Air 12/26/22 22:00 70 12/26/22 22:15 36.5 C 71 20 122/63 98 Room Air 12/26/22 19:00 36.6 C 85 20 122/78 97 Room Air Resident Activity Tracking Resident Involvement: Resident Care Provided Care Provided: Adult Hospital Medicine (1) DKA (diabetic ketoacidosis) Diabetes mellitus complication detail: without coma Diabetes mellitus type: other specified (including SAL) Qualified Code(s): E13.10 - Other specified diabetes mellitus with ketoacidosis without coma (3) Metastatic cancer Area of secondary neoplastic involvement: unspecified site Qualified Code(s): C79.9 - Secondary malignant neoplasm of unspecified site (4) Pulmonary embolism Acute cor pulmonale presence: unspecified Chronicity: acute Pulmonary embolism type: unspecified Qualified Code(s): I26.99 - Other pulmonary embolism without acute cor pulmonale (17) Hypertension Hypertension type: essential hypertension Qualified Code(s): I10 - Essential (primary) hypertension (19) Hyperlipidemia Hyperlipidemia type: pure hypercholesterolemia Qualified Code(s): E78.00 - Pure hypercholesterolemia, unspecified; E78.0 - Pure hypercholesterolemia
[2022-12-27] MEDS: INSULIN ASPART PER UNIT CHARGE SC SCH ×4 (08:03→20:39)
[2022-12-27] MEDS: DULoxetine HCL 30 MG CAP PO SCH (08:04)
[2022-12-27] MEDS: LANTUS PER UNIT CHARGE SQ SCH (08:04)
[2022-12-27] MEDS: PANTOprazole 40 MG TAB PO SCH (08:04)
[2022-12-27] MEDS: GABAPENTIN 100 MG CAP PO SCH ×3 (08:04→20:11)
[2022-12-27] MEDS: POLYETHYLENE (MIRALAX) 17 GM PACK PO SCH (08:05)
[2022-12-27] MEDS: allopurinoL 300 MG TAB PO SCH (08:05)
[2022-12-27] MEDS: dexAMETHasone 4 MG TAB PO SCH (08:05)
[2022-12-27 10:18] LABS: Basophils # (auto) 0.02 K/uL (0-0.2); Basophils % (auto) 0.2 %; Eosinophils % (auto) 0.8 %; Hematocrit (blood only) 36.1 % (42.0-52.0); Immature Granulocytes # (auto) 0.11 K/uL (0.01-0.20); Immature Granulocytes % (auto) 0.9 %; Lymphocytes # (auto) 0.38 K/uL (1.2-3.4); Lymphocytes % (auto) 3.1 %; Mean Corpuscular Hemoglobin 32.9 pg (25.0-34.0); Mean Corpuscular Hgb Conc 33.2 g/dL (32.0-36.0); Mean Corpuscular Volume 98.9 fL (80.0-100.0); Mean Platelet Volume 12.8 fL (9.4-12.4); Monocytes # (auto) 0.68 K/uL (0.11-0.59); Monocytes % (auto) 5.5 %; Neutrophils # (auto) 11.02 K/uL (1.40-6.50); Neutrophils % (auto) 89.5 %; Platelet Count 35 K/uL (130-400); RDW Coefficient of Variation 13.9 % (11.5-14.5); RDW Standard Deviation 50.1 fL (36.4-46.3); Red Blood Count 3.65 M/uL (4.70-6.10); White Blood Count 12.31 K/ul (4.8-10.8)
[2022-12-27 10:47] LABS: Partial Thromboplastin Ratio 2.4
[2022-12-27 10:48] LABS: Partial Thromboplastin Time 65.8 Seconds (21.0-31.0)
--- NOTE | 2022-12-27 16:51 | Billing Data ---
Date of Service December 27, 2022 Coding Level of Care Code 16866 SUB INP/OBS CARE MIN
[2022-12-27 19:16] LABS: Partial Thromboplastin Ratio 2.3
[2022-12-27 19:20] LABS: Partial Thromboplastin Time 62.1 Seconds (21.0-31.0)
[2022-12-28 06:35] LABS: Hematocrit (blood only) 35.8 % (42.0-52.0); Hemoglobin 11.8 g/dl (14.0-18.0); Mean Corpuscular Hemoglobin 32.7 pg (25.0-34.0); Mean Corpuscular Volume 99.2 fL (80.0-100.0); Mean Platelet Volume 12.1 fL (9.4-12.4); Nucleated RBC # (auto) 0.02 K/uL (0-0.12); Nucleated RBC % (auto) 0.2 %; Platelet Count 27 K/uL (130-400); RDW Standard Deviation 51.4 fL (36.4-46.3); Red Blood Count 3.61 M/uL (4.70-6.10)
[2022-12-28 06:40] LABS: Albumin Globulin Ratio 0.7 (0.9-2); Albumin Level 2.5 gm/dl (3.4-5.0); BUN Creatinine Ratio 42.4 (10-20); Bilirubin,Total 1.1 mg/dl (0.2-1.0); Calcium 7.4 mg/dl (8.5-10.1); Creatinine Clr Calc Pharmacy 112.4 ml/min; Est GFR (African American) 109.6 ml/min; Est GFR (Non-African American) 94.6 ml/min; Globulin 3.8 gm/dl (2.5-4.0); Potassium 4.3 mmol/L (3.5-5.1); Total Protein 6.3 gm/dl (6.0-8.3)
--- NOTE | 2022-12-28 06:49 | Hospitalist Progress Note ---
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 marrow failure, abrupt onset thrombocytopenia, and adequate red cell/white cell production. Lower suspicion for DIC. No associated anemia. -Peripheral smear revealed: "anisopoikilocytosis. No schistocytes, tear drop cells. Neutrophilic predominant leukocytosis. Platelets decreased in number without clumping. Consistent with non-specific leukocytosis and thrombocytopenia ." -Marrow biopsy 12/19: "no intrinsic hematologic abnormalities nor infiltration by his adenocarcinoma", suggestive of immunologic destruction of platelets as the mechanism for his thrombocytopenia -Initially suspected HIT with peripheral destruction of platelets and initiated low-dose Argatroban however heparin dependent platelet antibody resulted negative. PAOLA still possible etiology Per Dr. Manuel, enoxaparin/fondaparinux/heparin now listed as possible allergies. - Restarted low dose argatroban (12/20) with target 1.5-2.0 ratio PTT -On lower dose argatroban had increased leg pain, repeat US showed further debelopment of DVT, per Dr. Manuel- increase target to 2.0-2.5 ratio PTT -Appreciate hematology/oncology recs: -Completed 3 doses of IVIG most recently 12/24 -Dexamethasone 40mg x4 days, transitioned to 4mg daily -If signs of bleeding, transfuse platelets to 25-30k -Platelets 12/27= 27; no signs of bleeding to date -Will reevaluate plan for home blood thinner as approaching time of discharge; balance between thrombocytopenia and bleeding risk vs hypercoagulability. Could consider Xarelto instead of Eliquis, as decreased percentage of hepatic me tabolism, given liver metastasis - Continue to trend CBC DKA- resolved -Admission labs and clinical history consistent with DKA/HHS, likely triggered by steroid-induced hyperglycemia from recent IV + oral steroid therapy for metastatic cancer. Given urine ketones, more likely DKA than HHS -Initially started on insulin drip; transitioned to SC insulin -Pharmacy Glycemic Consult Severe electrolyte abnormalities, secondary to DKA vs. TLS - Mg 3.9 on admission; on admission no clinical signs of Mg toxicity; Mg decreased to 3.0. Trend Mg - Phosphorus 7.9 on admission; normalized to 3.7 3/9 am - K+ 6.4 on admission; EKG without significant ST change or arrhythmia, has remained sinus. Calcium gluconate on admission. K normalized 3/9 am - Na 123 on admission; likely pseudohyponatremia from hyperglycemia, serum osmolality 326 - Ca on admission 8.5 low- normal-> 8.4 - LDH 1911 - Given electrolyte abnormalities (hyperMg, hyperK, hypocalcemia, elevated LDH) and hyperuricemia and heavy tumor burden, initiated Allopurinol for tumor lysis Metastatic cancer, heavy tumor burden -Extensive metastasis to liver and spine with unknown primary source though potentially pancreas per previous imaging from last hospitalization -Following with [facility] oncology- receiving radiation and chemotherapy as outpatien t -Pt reports significant pain/discomfort particularly in R posterior shoulder -Appreciate Oncology recs -restarted dexamethasone at 40 mg PO daily for total 4 days, now transitioned to 4mg -Pain currently controlled with q6h oxycodone, if pain worsens will consider switching to extended release formulation of narcotic -General surgery consulted for port-a-cath placement -Need platelets >50 to proceed, plus added complication of needing to stop argatroban prior to procedure -Given struggle to maintain platelet levels, may not be able to achieve this -Dr. Mar mccray with possibility of placing PICC line over port -Has had pain of left foot for past several days, often sharp pain at plantar surface -X-ray of left foot without fracture or evidence of metastasis Pulmonary embolism -Noted evidence of b/l PE with LE DVTs on last admission, at home on Eliquis -Held anticoagulation in setting of profound thrombocytopenia -Did receive dose of Lovenox but none further due to persistent concern of heparin associated thrombocytopenia -Holding DOAC until platelet count rises and stays stable. Could consider Xarelto instead of Eliquis, as decreased percentage of hepatic metabolism Elevated troponin -Troponin 43 on admission->39->44.7. Stopped trending -EKG without acute ST change, or peaked T waves, pt without ACS symptoms -Likely demand ischemia from acute illness Transaminitis -Likely reactive to current acute illness/DKA in setting of known liver metastasis -Trend CMP BRIAN-resolved -Cr 1.64 on admission (BL= 0.8) -Likely pre-renal cause- excessive volume depletion from urination 2/2 DKA; fluid resuscitation complete Severe ZAID on CPAP -BIPAP Hs Hypertension -Holding home antihypertensives for hypotension -Resume as able as BP tolerates DM2 -A1c 7.3% in 09/2022 -As above, exacerbation from steroid therapy leading to DKA/HHS and treatment as above HLD -Holding home statin given thrombocytopenia FEN: normal diet LINES/IV ACCESS - PIV DVT prophylaxis: SCDs, due to severe thrombocytopenia, argatroban Dispo: Med/Tele (2) Thrombocytopenia: (3) Metastatic cancer: (4) Pulmonary embolism: (5) Hypermagnesemia: (6) Elevated troponin: (7) BRIAN (acute kidney injury): (8) Hyperphosphatemia: (9) Acute hyperkalemia: (10) Transaminitis: (11) Leukocytosis: (12) Malignant neoplasm of spine: (13) Severe obstructive sleep apnea: (14) History of prostate cancer: (15) Hyponatremia: (16) Weakness: (17) Hypertension: (18) Diabetes mellitus, type 2: (19) Hyperlipidemia: Admission and Anticipated Discharge Date Admission Date: December 17, 2022 Supervising Physician Co-Signing Physician Notes I personally examined the patient and verified all rivera points of history and exam, discussed case, and agree with decision making with Dr Pate Pain remains under reasonable control. Discussed current plan of treatment, as well as possible different options. CBC, BMP, LFTs noted Vitals noted, in general he is awake and alert pleasant no distress. HEENT normocephalic atraumatic mucous membranes moist. Breathing unlabored no accessory muscle use good effort. Skin shows no rashes no pallor or icterus. Neuro without focal deficits. Metastatic cancerpoorly differentiated, primary probably pancreatic versus less likely gastriccomplicated by possible ITP and concomitant VTE (PE), along with hyperglycemic dehydration present on admissionfortunately overall stable now. Plan outlined by hematology/oncology largely hinges on platelets rising above 50. While the Nplate given a few days ago may still take some affect, the patient, his , and myself have had several very demi discussions about alternate planning should his platelets never get above 50. We discussed risk/benefits/importance of his value system in the decision makinghe is not very risk averse and largely his values prefer being able to have most of his quality of life days at home with his family, rather than in the hospital. Is aware of bleed risk but also understands that he has been on full dose argatroban without bleeding for last several days. To that end, we will follow his platelet count into tomorrowfiguring that by 5 days after Nplate we will likely see a pretty significant effect if it is going to happen, and if it does not we may need to move to "Plan B". - As it relates to IV access for chemotherapy"plan a" would be simply that his platelets are above 50 and he gets a port placed on Thursday with argatroban on hold. "Plan B" would be that surgery is able to place a port with platelets t ransfusing, with argatroban on holdand if this is not safe/feasible, then PICC line. (Given that he seems to have progressed clots on even partial dosing of argatroban, holding anticoagulation for any longer than absolutely necessary, as would happen if he needs to hold his Eliquis for a few days as an outpatient prior to outpatient port placement, seems needlessly risky). I have messaged surgery the conundrum in this respect and made patient NPO after midnight, platelets have been typed/crossed in the chance that they can proceed with port placement, if not, we have discussed PICC several times but have not yet filled out actual consent form) -As it relates to anticoagulationhe largely "sits on the fence" of different decision making lines and the algorithm of treating VTE in a patient with thrombocytopenia (see UpToDate pathway below). Given, however, that he has now been on full dosing of argatroban for several days without bleeding, and he is reliable for follow-up, and understands the risk/benefit as it relates to bleeding/clottingit seems probably most reasonable/favorable to do full dosing of DOAC even if his platelets do not cross above 50. Dr Pate reviewed metabo lism of DOACs and it may be favorable to change from eliquis to xarelto if possible simply because eliquis is more heavily hepatic metabolized and with liver metastases, a less liver-dependant DOAC may be a wiser choice. To that end, essentially building a "plan a" versus "Plan B" that is able to move to action steps over the next day or so pays deference to his highly complicated medical situation (that appear, unfortunately, to have no "right" answer) and pays deference to his lozano realization and understanding of his disease and likely overall prognosis along with his value system favoring time at home with family if at all possible. (would of course want to discuss this further with hematology but with clotting possibly worsening on partial dose argatroban, and no bleeding on full dosing, the main debate between full dose or partial dosing of DOAC seems to slightly favor full dosing - although definitely a reasonable argument could be made for partial dosing - and either way he'll need to be monitored closely as an outpatient either kemal bleeding (if full dosing) or clotting (if partial dosing). 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 Continues to have pain behind right scapula that is worse with movement. Otherwise no complaints, no events overnight. Appetite is ok. Goal of getting home as soon as possible. Review of Systems Review of Systems: As per above Physical Exam Physical Exam: Constitutional: well-appearing, no acute distress HEENT: NCAT, no conjunctival injection CV: regular rhythm, no murmur appreciated, extremities well-perfused Resp: CTABL, no wheezes/rales/rhonchi appreciated, no increased work of breathing MSK: no gross deformities appreciated Skin: warm, dry, no rash appreciated Neuro: alert, oriented, no focal neurologic deficit appreciated Results & Data Results & Data Vital Signs (Past 12 Hours) Vital Signs Temp Pulse Pulse Resp BP Pulse Ox O2 Del Method 12/27/22 21:56 81 12/28/22 02:42 36.7 C 87 18 121/75 97 Room Air 12/27/22 22:44 36.7 C 84 20 124/78 99 Room Air 12/27/22 19:23 36.7 C 78 20 129/79 96 Room Air Resident Activity Tracking Resident Involvement: Resident Care Provided Care Provided: Adult Hospital Medicine (1) DKA (diabetic ketoacidosis) Diabetes mellitus complication detail: without coma Diabetes mellitus type: other specified (including SAL) Qualified Code(s): E13.10 - Other specified diabetes mellitus with ketoacidosis without coma (3) Metastatic cancer Area of secondary neoplastic involvement: unspecified site Qualified Code(s): C79.9 - Secondary malignant neoplasm of unspecified site (4) Pulmonary embolism Acute cor pulmonale presence: unspecified Chronicity: acute Pulmonary embolism type: unspecified Qualified Code(s): I26.99 - Other pulmonary embolism without acute cor pulmonale (17) Hypertension Hypertension type: essential hypertension Qualified Code(s): I10 - Essential (primary) hypertension (19) Hyperlipidemia Hyperlipidemia type: pure hypercholesterolemia Qualified Code(s): E78.00 - Pure hypercholesterolemia, unspecified; E78.0 - Pure hypercholesterolemia
[2022-12-28 07:00] LABS: Partial Thromboplastin Ratio 2.5
[2022-12-28 07:03] LABS: Partial Thromboplastin Time 67.4 Seconds (21.0-31.0)
[2022-12-28 07:04] LABS: Basophils # (auto) 0.02 K/uL (0-0.2); Basophils % (auto) 0.2 %; Echinocytes 1+; Eosinophils # (auto) 0.07 K/uL (0-0.50); Eosinophils % (auto) 0.5 %; Immature Granulocytes % (auto) 0.8 %; Lymphocytes # (auto) 0.49 K/uL (1.2-3.4); Lymphocytes % (auto) 3.7 %; Monocytes # (auto) 0.77 K/uL (0.11-0.59); Monocytes % (auto) 5.9 %; Neutrophils # (auto) 11.65 K/uL (1.40-6.50); Neutrophils % (auto) 88.9 %; Polychromasia 1+
[2022-12-28] MEDS: POLYETHYLENE (MIRALAX) 17 GM PACK PO SCH (08:02)
[2022-12-28] MEDS: oxyCODONE HCL IR 5 MG TAB (IMMEDIATE RELEASE) PO PRN ×2 (08:02→20:48)
[2022-12-28] MEDS: GABAPENTIN 100 MG CAP PO SCH ×3 (08:03→20:48)
[2022-12-28] MEDS: PANTOprazole 40 MG TAB PO SCH (08:03)
[2022-12-28] MEDS: dexAMETHasone 4 MG TAB PO SCH (08:03)
[2022-12-28] MEDS: allopurinoL 300 MG TAB PO SCH (08:03)
[2022-12-28] MEDS: DULoxetine HCL 30 MG CAP PO SCH (08:03)
[2022-12-28] MEDS: INSULIN ASPART PER UNIT CHARGE SC SCH ×4 (09:14→21:11)
[2022-12-28] MEDS: LANTUS PER UNIT CHARGE SQ SCH (09:15)
--- NOTE | 2022-12-28 13:37 | Billing Data ---
Date of Service December 28, 2022 Coding Level of Care Code 50708 SUB INP/OBS CARE MIN
[2022-12-28 18:19] LABS: Partial Thromboplastin Ratio 2.3
[2022-12-28 18:24] LABS: Partial Thromboplastin Time 63.2 Seconds (21.0-31.0)
[2022-12-29] MEDS ORDERED: MoRPHine SULFATE 2 MG/ML CARP IV PRN (00:16)
[2022-12-29] MEDS ORDERED: ACETAMINOPHEN 1,000 MG/100 ML VIAL IV PRN (00:16)
--- NOTE | 2022-12-29 00:40 | Communication Note ---
Date of Service: December 29, 2022 Received a message from nursing regarding argatroban being placed on hold prior to port placement per today's progress note from the hospitalist team. Curr ently the medication was not put on hold at midnight or any scheduled time and is still running. Seems patient needs to have a platelet count greater than 50 per both hospitalist and surgical progress note in order for him to be a candidate for a port placement. As there is currently no scheduled procedure and patient currently does not seem to be a candidate given his platelet count being only at 27, I will continue the argatroban. If dayshift were to stop his argatroban immediately with the assumption that a port placement could be a possibility, per pharmacy it would take 4 to 6 hours for the argatroban to be nontherapeutic. After weighing the risks and benefits of the patient not being on anticoagulation given pulmonary embolism and metastatic disease, I feel without a certainty of port placement, patient should continue to be on anticoagulation.
[2022-12-29] MEDS ORDERED: MoRPHine SULFATE 2 MG/ML CARP ONE (00:49)
--- NOTE | 2022-12-29 06:48 | Hospitalist Progress Note ---
Date of Service December 29, 2022 Assessment & Plan (1) DKA (diabetic ketoacidosis): Plan: Mr. 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 He was given 1 unit on 12/19. Immature platelet fraction 21.1% (high). 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 Heparin dependent platelet antibody was neg. This does not r/o HIT as possible etiology. Per Dr. Manuel, enoxaparin/fondaparinux/heparin now listed as possible allergies. Patient was started on argatroban with a target ratio PTT of 1.5 to 2.0. Repeat US showed further development of DVT, increase target to 2.0 to 2.5 ratio PTT. Suspect peripheral destruction vs. marrow failure, abrupt onset thrombocytopenia, and adequate red cell/white cell production. Lower suspicion for DIC. No associated anemia. Work up: Peripheral smear "anisopoikilocytosis. No schistocytes, tear drop cells. Neutrophilic predominant leukocytosis. Platelets decreased in number without clumping. Consistent with non-specific leukocytosis and thrombocytopenia." Marrow biopsy 12/19: "no intrinsic hematologic abnormalities nor infiltration by his adenocarcinoma", suggestive of immunologic destruction of platelets as the mechanism for his thrombocytopenia Treatment: s/p 3 doses IVIG last dose 12/24 s/p Dexamethasone 40 mg x4 days; now on 4 mg QD given 175 mcg romiplostim SQ (bone marrow stimulant) 12/24, dosing Q7D Will reevaluate plan for home blood thinner as approaching time of discharge; balance between thrombocytopenia and bleeding risk vs hypercoagulability. Could consider Xarelto instead of Eliquis, as decreased percentage of hepatic metabolism, given liver metastasis Patient on Eliquis at home for known PE/DVT. He would warrant anticoagulation at home due to the risk of hypercoagulability in the setting of his cancer diagnosis. Patient was on half dosing of argatroban and had extension of his known clot and thus was put on full dosing. He has had no active bleeding. There is also a significant risk of bleeding with his profound thrombocytopenia. As platelets are less than 50K would start with half dosing of Eliquis until his platelets have recovered. Will treat this as continuation of anticoagulation and start at 2.5 mg [address]ID. Discussed with Dr. Manuel. Will have close follow up to monitor thrombocytopenia. [] Transfuse 25-30k if signs of bleeding. [] Platelets 35k [] AM CBC [] Heme/Onc on board - appreciate recs [] Continue argatroban - Xarelto at half vs full dose at time of d/c [] PICC line DKA- resolved Admission labs and clinical history consistent with DKA/HHS, likely triggered by steroid-induced hyperglycemia from recent IV + oral steroid therapy for metastatic cancer. Given urine ketones, more likely DKA than HHS. Initially started on insulin drip; transitioned to SC insulin. [] Pharmacy Glycemic Consult Severe electrolyte abnormalities, secondary to DKA vs. TLS - improved Electrolytes derangements present at the time of admission. Hypermagnesemia, hyperphosphatemia, hyperkalemia, hyponatremic, and hyperglycemic. Likely in the setting of DKA. No clinical signs of toxicity. Given calcium gluconate x1. Patient also started on allopurinol for presumed tumor lysis syndrome. Electrolyte derangements improved during hospital course. Metastatic cancer, heavy tumor burden Extensive metastasis to liver and spine with unknown primary source though potentially pancreas per previous imaging from last hospitalization. Follows with [facility] hem/onc and is undergoing chemotherapy/radiation outpatient. Onc was consulted during hospital stay - restarted dexamethasone, pain control with oxycodone, needed port-a-cath vs PICC. PICC preferred 2/2 platelet's <50. Patient has pain right posterior shoulder and left foot - imaging did not show mets. F/u hem/onc outpatient. Pulmonary embolism Patient found to have bilateral PE with LE DVTs at last admission. Eliquis at home. His anticoagulation was initially held as platelets <50. Received one dose of Lovenox. Could consider Xarelto instead of Eliquis as decreased percentage of hepatic metabolism. Elevated troponin Troponin 43 on admission, peak. EKG without acute ST change, or peaked T waves, pt without ACS symptoms. Likely demand ischemia from acute illness Transaminitis Likely reactive to current acute illness/DKA in setting of known liver metastasis. Monitored with QAM CMP BRIAN-resolved Cr 1.64 on admission (BL= 0.8). Likely pre-renal cause - excessive volume depletion from urination 2/2 DKA; fluid resuscitation complete Severe ZAID on CPAP BIPAP Hs Hypertension Holding home antihypertensives for hypotension. Resume as able as BP tolerates DM2 A1c 7.3% in 09/2022. As above, exacerbation from steroid therapy leading to DKA/HHS and treatment as above HLD Holding home statin given thrombocytopenia FEN: normal diet LINES/IV ACCESS - PIV DVT prophylaxis: SCDs, due to severe thrombocytopenia, argatroban Dispo: Med/Tele (2) Thrombocytopenia: (3) Metastatic cancer: (4) Pulmonary embolism: (5) Hypermagnesemia: (6) Elevated troponin: (7) BRIAN (acute kidney injury): (8) Hyperphosphatemia: (9) Acute hyperkalemia: (10) Transaminitis: (11) Leukocytosis: (12) Malignant neoplasm of spine: (13) Severe obstructive sleep apnea: (14) History of prostate cancer: (15) Hyponatremia: (16) Weakness: (17) Hypertension: (18) Diabetes mellitus, type 2: (19) Hyperlipidemia: Admission and Anticipated Discharge Date Admission Date: December 17, 2022 Supervising Physician Co-Signing Physician Notes 77 yr old male with metastatic cancer (likely pancreatic) on admission for DKA and thrombocytopenia. Subjective Overall doing well. Ready to go home. No complaints Review of Systems Review of Systems: As per above Physical Exam Physical Exam: Constitutional: well-appearing, no acute distress HEENT: NCAT, no conjunctival injection CV: extremities well-perfused Resp: no increased work of breathing MSK: no gross deformities appreciated Skin: warm, dry, no rash appreciated Neuro: alert, oriented, no focal neurologic deficit appreciated Results & Data Results & Data Vital Signs (Past 12 Hours) Vital Signs Temp Pulse Pulse Resp BP Pulse Ox O2 Del Method 12/29/22 03:24 36.7 C 88 18 134/83 95 Room Air 12/28/22 22:02 69 12/28/22 23:14 82 20 136/82 96 Room Air 12/28/22 19:14 36.5 C 85 20 143/76 H 97 Room Air Laboratory Results 12/29/22 12/29/22 12/29/22 Range/Units 07:38 06:54 06:54 WBC (4.8-10.8) K/ul RBC (4.70-6.10) M/uL Hgb (14.0-18.0) g/dl Hct (42.0-52.0) % MCV (80.0-100.0) fL MCH (25.0-34.0) pg MCHC (32.0-36.0) g/dL RDW Std Deviation (36.4-46.3) fL RDW Coeff of Micah (11.5-14.5) % Plt Count (130-400) K/uL MPV (9.4-12.4) fL Immature Gran % (Auto) % Neut % (Auto) % Lymph % (Auto) % [place] % (Auto) % Eos % (Auto) % Baso % (Auto) % Neut # (Auto) (1.40-6.50) K/uL Lymph # (Auto) (1.2-3.4) K/uL [place] # (Auto) (0.11-0.59) K/uL Eos # (Auto) (0-0.50) K/uL Baso # (Auto) (0-0.2) K/uL Immature Gran # (Auto) (0.01-0.20) K/uL Absolute Nucleated RBC (0-0.12) K/uL Nucleated RBC % (auto) % APTT 68.3 H* (21.0-31.0) Seconds PTT Ratio 2.5 Sodium 135 L (136-145) mmol/L Potassium 4.4 (3.5-5.1) mmol/L Chloride 105 (98-107) mmol/L Carbon Dioxide 21 (21-32) mmol/L Anion Gap 9 (3-11) BUN 31 H (6-23) mg/dl Creatinine 0.81 (0.6-1.4) mg/dl Est Cr Clr Drug Dosing 91.6 ml/min Est GFR ( Amer) 100.8 ml/min Est GFR (Non-Af Amer) 86.9 ml/min BUN/Creatinine Ratio 38.3 H (10-20) Glucose 158 H (70-99(Fasting)) mg/dl POC Glucose 149 H (70-99) mg/dl Calcium 7.7 L (8.5-10.1) mg/dl Magnesium 1.9 (1.7-2.4) mg/dl Total Bilirubin 1.2 H (0.2-1.0) mg/dl AST 137 H (13-39) U/L ALT 200 H (7-52) U/L Alkaline Phosphatase 804 H (34-104) U/L Total Protein 6.6 (6.0-8.3) gm/dl Albumin 2.7 L (3.4-5.0) gm/dl Globulin 3.9 (2.5-4.0) gm/dl Albumin/Globulin Ratio 0.7 L (0.9-2) 12/29/22 12/28/22 12/28/22 Range/Units 06:54 20:52 20:50 WBC 13.82 H (4.8-10.8) K/ul RBC 3.86 L (4.70-6.10) M/uL Hgb 12.7 L (14.0-18.0) g/dl Hct 38.0 L (42.0-52.0) % MCV 98.4 (80.0-100.0) fL MCH 32.9 (25.0-34.0) pg MCHC 33.4 (32.0-36.0) g/dL RDW Std Deviation 52.0 H (36.4-46.3) fL RDW Coeff of Micah 14.6 H (11.5-14.5) % Plt Count 35 L (130-400) K/uL MPV 13.3 H (9.4-12.4) fL Immature Gran % (Auto) 1.2 % Neut % (Auto) 88.1 % Lymph % (Auto) 4.0 % [place] % (Auto) 5.8 % Eos % (Auto) 0.8 % Baso % (Auto) 0.1 % Neut # (Auto) 12.18 H (1.40-6.50) K/uL Lymph # (Auto) 0.55 L (1.2-3.4) K/uL [place] # (Auto) 0.80 H (0.11-0.59) K/uL Eos # (Auto) 0.11 (0-0.50) K/uL Baso # (Auto) 0.02 (0-0.2) K/uL Immature Gran # (Auto) 0.16 (0.01-0.20) K/uL Absolute Nucleated RBC 0.02 (0-0.12) K/uL Nucleated RBC % (auto) 0.1 % APTT (21.0-31.0) Seconds PTT Ratio Sodium (136-145) mmol/L Potassium (3.5-5.1) mmol/L Chloride (98-107) mmol/L Carbon Dioxide (21-32) mmol/L Anion Gap (3-11) BUN (6-23) mg/dl Creatinine (0.6-1.4) mg/dl Est Cr Clr Drug Dosing ml/min Est GFR ( Amer) ml/min Est GFR (Non-Af Amer) ml/min BUN/Creatinine Ratio (10-20) Glucose (70-99(Fasting)) mg/dl POC Glucose 279 H 289 H (70-99) mg/dl Calcium (8.5-10.1) mg/dl Magnesium (1.7-2.4) mg/dl Total Bilirubin (0.2-1.0) mg/dl AST (13-39) U/L ALT (7-52) U/L Alkaline Phosphatase (34-104) U/L Total Protein (6.0-8.3) gm/dl Albumin (3.4-5.0) gm/dl Globulin (2.5-4.0) gm/dl Albumin/Globulin Ratio (0.9-2) 12/28/22 12/28/22 12/28/22 Range/Units 20:25 20:24 17:24 WBC (4.8-10.8) K/ul RBC (4.70-6.10) M/uL Hgb (14.0-18.0) g/dl Hct (42.0-52.0) % MCV (80.0-100.0) fL MCH (25.0-34.0) pg MCHC (32.0-36.0) g/dL RDW Std Deviation (36.4-46.3) fL RDW Coeff of Micah (11.5-14.5) % Plt Count (130-400) K/uL MPV (9.4-12.4) fL Immature Gran % (Auto) % Neut % (Auto) % Lymph % (Auto) % [place] % (Auto) % Eos % (Auto) % Baso % (Auto) % Neut # (Auto) (1.40-6.50) K/uL Lymph # (Auto) (1.2-3.4) K/uL [place] # (Auto) (0.11-0.59) K/uL Eos # (Auto) (0-0.50) K/uL Baso # (Auto) (0-0.2) K/uL Immature Gran # (Auto) (0.01-0.20) K/uL Absolute Nucleated RBC (0-0.12) K/uL Nucleated RBC % (auto) % APTT 63.2 H* (21.0-31.0) Seconds PTT Ratio 2.3 Sodium (136-145) mmol/L Potassium (3.5-5.1) mmol/L Chloride (98-107) mmol/L Carbon Dioxide (21-32) mmol/L Anion Gap (3-11) BUN (6-23) mg/dl Creatinine (0.6-1.4) mg/dl Est Cr Clr Drug Dosing ml/min Est GFR ( Amer) ml/min Est GFR (Non-Af Amer) ml/min BUN/Creatinine Ratio (10-20) Glucose (70-99(Fasting)) mg/dl POC Glucose 267 H 301 H* (70-99) mg/dl Calcium (8.5-10.1) mg/dl Magnesium (1.7-2.4) mg/dl Total Bilirubin (0.2-1.0) mg/dl AST (13-39) U/L ALT (7-52) U/L Alkaline Phosphatase (34-104) U/L Total Protein (6.0-8.3) gm/dl Albumin (3.4-5.0) gm/dl Globulin (2.5-4.0) gm/dl Albumin/Globulin Ratio (0.9-2) 12/28/22 12/28/22 Range/Units 16:28 11:34 WBC (4.8-10.8) K/ul RBC (4.70-6.10) M/uL Hgb (14.0-18.0) g/dl Hct (42.0-52.0) % MCV (80.0-100.0) fL MCH (25.0-34.0) pg MCHC (32.0-36.0) g/dL RDW Std Deviation (36.4-46.3) fL RDW Coeff of Micah (11.5-14.5) % Plt Count (130-400) K/uL MPV (9.4-12.4) fL Immature Gran % (Auto) % Neut % (Auto) % Lymph % (Auto) % [place] % (Auto) % Eos % (Auto) % Baso % (Auto) % Neut # (Auto) (1.40-6.50) K/uL Lymph # (Auto) (1.2-3.4) K/uL [place] # (Auto) (0.11-0.59) K/uL Eos # (Auto) (0-0.50) K/uL Baso # (Auto) (0-0.2) K/uL Immature Gran # (Auto) (0.01-0.20) K/uL Absolute Nucleated RBC (0-0.12) K/uL Nucleated RBC % (auto) % APTT (21.0-31.0) Seconds PTT Ratio Sodium (136-145) mmol/L Potassium (3.5-5.1) mmol/L Chloride (98-107) mmol/L Carbon Dioxide (21-32) mmol/L Anion Gap (3-11) BUN (6-23) mg/dl Creatinine (0.6-1.4) mg/dl Est Cr Clr Drug Dosing ml/min Est GFR ( Amer) ml/min Est GFR (Non-Af Amer) ml/min BUN/Creatinine Ratio (10-20) Glucose (70-99(Fasting)) mg/dl POC Glucose 228 H 182 H (70-99) mg/dl Calcium (8.5-10.1) mg/dl Magnesium (1.7-2.4) mg/dl Total Bilirubin (0.2-1.0) mg/dl AST (13-39) U/L ALT (7-52) U/L Alkaline Phosphatase (34-104) U/L Total Protein (6.0-8.3) gm/dl Albumin (3.4-5.0) gm/dl Globulin (2.5-4.0) gm/dl Albumin/Globulin Ratio (0.9-2) (1) DKA (diabetic ketoacidosis) Diabetes mellitus complication detail: without coma Diabetes mellitus type: other specified (including SAL) Qualified Code(s): E13.10 - Other specified diabetes mellitus with ketoacidosis without coma (3) Metastatic cancer Area of secondary neoplastic involvement: unspecified site Qualified Code(s): C79.9 - Secondary malignant neoplasm of unspecified site (4) Pulmonary embolism Acute cor pulmonale presence: unspecified Chronicity: acute Pulmonary emboli sm type: unspecified Qualified Code(s): I26.99 - Other pulmonary embolism without acute cor pulmonale (17) Hypertension Hypertension type: essential hypertension Qualified Code(s): I10 - Essential (primary) hypertension (19) Hyperlipidemia Hyperlipidemia type: pure hypercholesterolemia Qualified Code(s): E78.00 - Pure hypercholesterolemia, unspecified; E78.0 - Pure hypercholesterolemia
[2022-12-29 07:18] LABS: Basophils # (auto) 0.02 K/uL (0-0.2); Basophils % (auto) 0.1 %; Eosinophils # (auto) 0.11 K/uL (0-0.50); Eosinophils % (auto) 0.8 %; Hemoglobin 12.7 g/dl (14.0-18.0); Immature Granulocytes # (auto) 0.16 K/uL (0.01-0.20); Immature Granulocytes % (auto) 1.2 %; Lymphocytes # (auto) 0.55 K/uL (1.2-3.4); Mean Corpuscular Hemoglobin 32.9 pg (25.0-34.0); Mean Corpuscular Hgb Conc 33.4 g/dL (32.0-36.0); Mean Corpuscular Volume 98.4 fL (80.0-100.0); Mean Platelet Volume 13.3 fL (9.4-12.4); Monocytes % (auto) 5.8 %; Neutrophils # (auto) 12.18 K/uL (1.40-6.50); Neutrophils % (auto) 88.1 %; Nucleated RBC # (auto) 0.02 K/uL (0-0.12); Nucleated RBC % (auto) 0.1 %; Platelet Count 35 K/uL (130-400); RDW Coefficient of Variation 14.6 % (11.5-14.5); Red Blood Count 3.86 M/uL (4.70-6.10); White Blood Count 13.82 K/ul (4.8-10.8)
[2022-12-29 07:50] LABS: Albumin Globulin Ratio 0.7 (0.9-2); Albumin Level 2.7 gm/dl (3.4-5.0); BUN Creatinine Ratio 38.3 (10-20); Bilirubin,Total 1.2 mg/dl (0.2-1.0); Calcium 7.7 mg/dl (8.5-10.1); Creatinine Clr Calc Pharmacy 91.6 ml/min; Est GFR (African American) 100.8 ml/min; Est GFR (Non-African American) 86.9 ml/min; Globulin 3.9 gm/dl (2.5-4.0); Magnesium 1.9 mg/dl (1.7-2.4); Potassium 4.4 mmol/L (3.5-5.1); Total Protein 6.6 gm/dl (6.0-8.3)
[2022-12-29 08:03] LABS: Partial Thromboplastin Ratio 2.5
[2022-12-29 08:05] LABS: Partial Thromboplastin Time 68.3 Seconds (21.0-31.0)
[2022-12-29] MEDS: oxyCODONE HCL IR 5 MG TAB (IMMEDIATE RELEASE) PO PRN (09:57)
[2022-12-29] MEDS: PANTOprazole 40 MG TAB PO SCH (09:58)
[2022-12-29] MEDS: dexAMETHasone 4 MG TAB PO SCH (09:58)
[2022-12-29] MEDS: DULoxetine HCL 30 MG CAP PO SCH (09:58)
[2022-12-29] MEDS: allopurinoL 300 MG TAB PO SCH (09:58)
[2022-12-29] MEDS: GABAPENTIN 100 MG CAP PO SCH ×2 (09:58→14:20)
[2022-12-29] MEDS: POLYETHYLENE (MIRALAX) 17 GM PACK PO SCH (09:59)
[2022-12-29] MEDS: LANTUS PER UNIT CHARGE SQ SCH (10:00)
[2022-12-29] MEDS: INSULIN ASPART PER UNIT CHARGE SC SCH ×2 (10:00→11:57)
--- NOTE | 2022-12-29 10:57 | Communication Note ---
Date of Service: December 29, 2022 Discussed with my attending surgeon patient's complicated situation regarding his ongoing thrombocytopenia while also requiring being on anticoagulation for progressing DVT clots. He does not have room to be off anticoagulation for extended periods of time. Platelets 35 today. Given risks of placing port in his scenario would agree with going ahead with a PICC line for access for patient for chemotherapy. Discussed with Dr. Manuel last week and the hospitalist service this AM who are agreeable with this plan. No plans for mediport placement from our standpoint at this time. We will sign off, but please call if any questions/concerns.
--- NOTE | 2022-12-29 13:30 | Pharmacy Report ---
Pharmacy Glycemic Short Note 2 - Date of Service December 29, 2022 - Glycemic Short BSG Results (Last 24 hours): 12/28/22 12/28/22 12/28/22 16:28 20:24 20:25 Glucose POC Glucose 228 H 301 H* 267 H 12/28/22 12/28/22 12/29/22 20:50 20:52 06:54 Glucose 158 H POC Glucose 289 H 279 H 12/29/22 12/29/22 07:38 11:45 Glucose POC Glucose 149 H 238 H OUTPATIENT ANTIDIABETIC REGIMEN: * Empagliflozin 25mg daily * Metformin 1gm BID * A1c = 7.3% 10/08/22 ASSESSMENT: 12/29: * Dexamethasone 4mg PO QAM continued. * Across the past few days, fasting blood sugars have been below goal in the 80- 90mg/dL range. 5 units of Lantus were given yesterday, which yielded a AM BSG of 149 mg/dL. Will give a total daily dose of 10 units again today (5 units in AM, and 5 units PM- PM dose can be held if deemed clinically appropriate). Mealtime and HS BSG's have largely been above goal; will tighten NovoLog carb coverage from 5 to 4. 12/25: * Patient received total of 27 units of insulin yesterday; 10 units basal and 17 units bolus. * Basal dose was reduced to 10 units yesterday since fasting BSG was lower at 69 mg/dl. However elevated today to 144 mg/dl. Therefore increased basal dose to 12 units today AM. * Continues on Dexamethasone 4 mg PO daily which leads to elevated BSG around dinner time (208 mg/dl) but trended down to 147 mg/dl at HS. * Novolog parameters continued the same. 12/23: * BSGs within goal the last 24h- [phone]/dl. Pt received 32 units of basal and 64 units of bolus insulin yesterday. * Dexamethasone dose decreased from 40mg to 4mg daily starting today. Tolerating diet. * Will empirically reduce basal by ~ 50% this AM due to steroid reduction. Novolog parameters also loosened in anticipation of reduced prandial needs gi papa steroid adjustment. Will reassess basal needs tomorrow. 12/22: * BSGs largely controlled within the lat 24h ([phone]/dl). Patient received 32 units of basal insulin and 45 units of bolus insulin yesterday. * Continues on dex 40mg PO daily and tolerating diet. * No changes to insulin today- continue 32 units daily of Lantus and Novolog 09/12.5. 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 Given patient's presentation with DKA possibly associated with outpt dexamethasone use will need to monitor patient closely and treat aggressively with SQ. Will escalate Novolog CF and CR doses to "high stress" and will possibly provide small dose of NPH with lunch today depending on the result 12/18 * Type 2 diabetic admitted with HAGMA, DKA, BRIAN, profound thrombocytopenia. Acute stressors in addition to outpt dexamethasone likely contributing change in glycemic control. * Initial chemistry: AG 22, Bicarb 16, GLU 807, Na 123 (corrected ~135) * Patient received fluid resuscitation as well as IV insulin infusion per DKA protocol * This AM AG acidosis has resolved, patient is tolerating diet. Per ICU rounds discussion, pt ready to transition to SQ at this time PLAN FOR INPATIENT GLYCEMIC CONTROL: * Hold outpatient oral diabetes medications * Basal insulin * Lantus 5 units SQ QAM, 5 units SQ QPM * Bolus insulin * NovoLog per scale ACHS * Goal Range: Low 110 mg/dL - High 140 mg/dL * Correction Factor: 20 mg/dL/unit * Nutritional / Prandial insulin per carb ratio of 1 unit per 4 grams CHO consumed
--- NOTE | 2022-12-29 15:21 | Discharge Summary ---
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 Pt was admitted at [facility] from 12/10 to 12/12 for workup of suspected metastatic cancer. He was started on IV steroids and treatment initiated with palliative radiation of cervical spine. Since discharge, pt has continued oral steroids. Over past few days he reports more frequent urination, thirst and increased water intake along with progressive ambulatory dysfunction and dizziness starting yesterday, denies falls. Earlier today after chemotherapy appointment he was leaving the office and nearly fell to the ground due to sudden dizziness. He was then referred to the ER. Pt arrived to ER with BP 90s-120s/60s-70s, HR 100s-110s, afebrile. Initial labs significant for WBC 19, Plts 14, Na 123, K 6.4, AG 22, BUN 97, Cr 1.64, glucose 807, serum osmolality 347, phosphate 7.2, magnesium 3.9, AST 65, ALT 124, ALP 583, troponin 43, UA with ketones and glucose. ER MD discussed case with oncologist who recommended repeat CBC, peripheral smear and B12, folate. ER interventions include IVF repletion, calcium gluconate, insulin infusion. On my evaluation, pt notes feeling thirsty and states he has had progressive fatigue over past few days. He is hoarse of voice and says this began after his radiation treatments. Currently denies abdominal pain, chest pain, dyspnea or dizziness, blurry vision, or other acute complaints. Admission Exam Per Admitting Provider General: frail, tired-appearing elderly male, no acute distress, hoarse voice HEENT: PERRLA, EOMI, no JVD, dry mucous membranes, no conjunctival injection CV: Regular rhythm, tachycardic, normal S1 and S2, no murmurs Resp: CTAB, unlabored respirations Abd: soft, nontender, nondistended, no rebound or guarding MSK: frail, reduced muscle bulk of b/l UE and LE Neuro: AOx3, no focal motor or sensory deficits beyond baseline of RUE Skin: no rashes, warm and dry, no ecchymoses or easy bruising noted Ext: no peripheral edema, intact pedal pulses b/l Principal Diagnosis DKA Discharge Exam Constitutional: well-appearing, no acute distress HEENT: NCAT, no conjunctival injection CV: extremities well-perfused Resp: no increased work of breathing MSK: no gross deformities appreciated Skin: warm, dry, no rash appreciated Neuro: alert, oriented, no focal neurologic deficit appreciated Discharge Data Allergies Allergy/AdvReac Type Severity Reaction Status Date / Time typhoid vaccine Allergy Intermediate shaking Verified 12/17/22 18:59 enoxaparin Allergy Unknown Verified 12/20/22 14:48 fondaparinux Allergy Unknown Verified 12/20/22 14:48 heparin Allergy Unknown Verified 12/20/22 14:48 Consultations 12/17/22 20:31 ED Decision to Admit Stat 12/17/22 22:42 Consult Child Adolescent Psychiatrist Routine 12/17/22 22:57 Consult Hematology Routine 12/25/22 14:30 Consult General Surgery Routine Ordered Studies 12/19/22 08:30 IR bone marrow bx & asp Urgent 12/24/22 12:03 US arterial duplex LE RT Routine US venous doppler LE RT Routine Chest X-Ray 12/17/22 22:01 SINGLE VIEW CHEST CLINICAL HISTORY: Infection. FINDINGS: An AP, portable, upright chest radiograph is correlated with chest CT dated 12/10/2022. The cardiomediastinal silhouette is top normal for projection. There are numerous tiny pulmonary nodules consistent with the patient's known metastatic disease. This was much better assessed on the recent chest CT. Scarring/atelectasis is noted at the lung bases. No airspace consolidation or large pleural effusion is identified. No pneumothorax is seen. The skeletal structures are osteopenic. The bony thorax is grossly intact. Arthritic change is noted in the shoulders and spine. IMPRESSION: 1. No acute cardiopulmonary abnormality. 2. Numerous tiny pulmonary nodules are consistent with the patient's known metastatic disease. This was much better assessed on the recent chest CT. ACT 112: Negative or not required by law. Electronically signed by: Steve Leos M.D. 12/18/2022 7:32 AM Bone Marrow Biopsy w/ CT 12/19/22 08:30 CT-guided bone marrow biopsy INDICATION: Thrombocytopenia PROCEDURE: Procedure and risks were explained. Informed consent was obtained. A final timeout was completed. The patient was placed prone on the CT exam table. The left gluteal region was prepped and draped in sterile fashion. 1% buffered lidocaine was utilized for skin anesthesia. Utilizing CT guidance, an 11-gauge bone biopsy needle was advanced into the left iliac bone. Multiple aspirates and one 11-gauge bone core was obtained and given to the lab. The needle was removed and Band-Aid applied. The patient tolerated the procedure well. Vital signs will be monitored on the floor. IMPRESSION: Bone marrow biopsy as above. Performed, dictated, and signed by Nasim Shaw PA-C; to be co-signed by Dr. Ramirez Rojas. Electronically signed by: Ramirez Rojas M.D. 12/19/2022 4:08 PM Duplex Scan Lower Extremity Artery 12/24/22 12:03 ULTRASOUND OF THE RIGHT LOWER EXTREMITY ARTERIAL CLINICAL HISTORY: Right foot pain. COMPARISON STUDY: No priors. TECHNIQUE: Real-time grayscale and color Doppler sonography of the arteries of the right lower extremity is performed from the inguinal crease to the foot. Ankle-brachial indices were not assessed due to the presence of deep venous thrombosis. FINDINGS: There is mild atherosclerotic plaque and irregularity seen throughout the arteries of the right lower extremity. There are triphasic arterial waveforms in the common femoral artery velocities measuring up to 65 cm/s. The profunda femoris artery is patent with velocities measuring up to 49 cm/s. There are triphasic arterial waveforms seen throughout the superficial, femoral and popliteal arteries. The velocities within the superficial femoral artery measure up to 82 cm/s and velocities in the popliteal artery measure up to 49 cm/s. There is three-vessel runoff to the calf. The calf arteries show normal arterial waveforms. Velocities in the calf arteries measure up to 81 cm/s. The dorsalis pedis artery is patent with velocities measuring up to 51 cm/s. IMPRESSION: There is no sonographic evidence of high-grade stenosis or focal vessel cut off throughout the arteries of the right lower extremity. Venous Doppler Study 12/24/22 12:03 RIGHT LOWER EXTREMITY VENOUS DOPPLER HISTORY: right foot pain COMPARISON STUDY: None. FINDINGS: The right common femoral, superficial femoral, popliteal, anterior tibial veins are patent. The posterior tibial and peroneal veins are thrombosed. IMPRESSION: Right lower extremity DVT demonstrated by thrombosed posterior tibial and peroneal veins. Foot X-Ray 12/26/22 10:06 XR foot RT min 3V routine CLINICAL HISTORY: right foot pain, bony metastases COMPARISON: Right ankle radiographs February 19, 2022. FINDINGS: Alignment of the right foot is anatomic. Tarsometatarsal joints are intact. There is no fracture. No osseous lesions are identified. Moderate posterior and plantar calcaneal spurring is present. There is moderate mid foot osteoarthritis. IMPRESSION: 1. No fractures within the right foot. 2. No osseous lesions within the right foot by radiography. 3. Moderate mid foot osteoarthritis. 4. Posterior and plantar calcaneal spurring. 12/29/22 12/29/22 12/29/22 Range/Units 11:45 07:38 06:54 WBC (4.8-10.8) K/ul RBC (4.70-6.10) M/uL Hgb (14.0-18.0) g/dl Hct (42.0-52.0) % MCV (80.0-100.0) fL MCH (25.0-34.0) pg MCHC (32.0-36.0) g/dL RDW Std Deviation (36.4-46.3) fL RDW Coeff of Micah (11.5-14.5) % Plt Count (130-400) K/uL MPV (9.4-12.4) fL Immature Gran % (Auto) % Neut % (Auto) % Lymph % (Auto) % Pershing % (Auto) % Eos % (Auto) % Baso % (Auto) % Neut # (Auto) (1.40-6.50) K/uL Lymph # (Auto) (1.2-3.4) K/uL Pershing # (Auto) (0.11-0.59) K/uL Eos # (Auto) (0-0.50) K/uL Baso # (Auto) (0-0.2) K/uL Immature Gran # (Auto) (0.01-0.20) K/uL Absolute Nucleated RBC (0-0.12) K/uL Nucleated RBC % (auto) % APTT 68.3 H* (21.0-31.0) Seconds PTT Ratio 2.5 Sodium (136-145) mmol/L Potassium (3.5-5.1) mmol/L Chloride (98-107) mmol/L Carbon Dioxide (21-32) mmol/L Anion Gap (3-11) BUN (6-23) mg/dl Creatinine (0.6-1.4) mg/dl Est Cr Clr Drug Dosing ml/min Est GFR ( Amer) ml/min Est GFR (Non-Af Amer) ml/min BUN/Creatinine Ratio (10-20) Glucose (70-99(Fasting)) mg/dl POC Glucose 238 H 149 H (70-99) mg/dl Calcium (8.5-10.1) mg/dl Magnesium (1.7-2.4) mg/dl Total Bilirubin (0.2-1.0) mg/dl AST (13-39) U/L ALT (7-52) U/L Alkaline Phosphatase (34-104) U/L Total Protein (6.0-8.3) gm/dl Albumin (3.4-5.0) gm/dl Globulin (2.5-4.0) gm/dl Albumin/Globulin Ratio (0.9-2) 12/29/22 12/29/22 12/28/22 Range/Units 06:54 06:54 20:52 WBC 13.82 H (4.8-10.8) K/ul RBC 3.86 L (4.70-6.10) M/uL Hgb 12.7 L (14.0-18.0) g/dl Hct 38.0 L (42.0-52.0) % MCV 98.4 (80.0-100.0) fL MCH 32.9 (25.0-34.0) pg MCHC 33.4 (32.0-36.0) g/dL RDW Std Deviation 52.0 H (36.4-46.3) fL RDW Coeff of Micah 14.6 H (11.5-14.5) % Plt Count 35 L (130-400) K/uL MPV 13.3 H (9.4-12.4) fL Immature Gran % (Auto) 1.2 % Neut % (Auto) 88.1 % Lymph % (Auto) 4.0 % Pershing % (Auto) 5.8 % Eos % (Auto) 0.8 % Baso % (Auto) 0.1 % Neut # (Auto) 12.18 H (1.40-6.50) K/uL Lymph # (Auto) 0.55 L (1.2-3.4) K/uL Pershing # (Auto) 0.80 H (0.11-0.59) K/uL Eos # (Auto) 0.11 (0-0.50) K/uL Baso # (Auto) 0.02 (0-0.2) K/uL Immature Gran # (Auto) 0.16 (0.01-0.20) K/uL Absolute Nucleated RBC 0.02 (0-0.12) K/uL Nucleated RBC % (auto) 0.1 % APTT (21.0-31.0) Seconds PTT Ratio Sodium 135 L (136-145) mmol/L Potassium 4.4 (3.5-5.1) mmol/L Chloride 105 (98-107) mmol/L Carbon Dioxide 21 (21-32) mmol/L Anion Gap 9 (3-11) BUN 31 H (6-23) mg/dl Creatinine 0.81 (0.6-1.4) mg/dl Est Cr Clr Drug Dosing 91.6 ml/min Est GFR ( Amer) 100.8 ml/min Est GFR (Non-Af Amer) 86.9 ml/min BUN/Creatinine Ratio 38.3 H (10-20) Glucose 158 H (70-99(Fasting)) mg/dl POC Glucose 279 H (70-99) mg/dl Calcium 7.7 L (8.5-10.1) mg/dl Magnesium 1.9 (1.7-2.4) mg/dl Total Bilirubin 1.2 H (0.2-1.0) mg/dl AST 137 H (13-39) U/L ALT 200 H (7-52) U/L Alkaline Phosphatase 804 H (34-104) U/L Total Protein 6.6 (6.0-8.3) gm/dl Albumin 2.7 L (3.4-5.0) gm/dl Globulin 3.9 (2.5-4.0) gm/dl Albumin/Globulin Ratio 0.7 L (0.9-2) 12/28/22 12/28/22 12/28/22 Range/Units 20:50 20:25 20:24 WBC (4.8-10.8) K/ul RBC (4.70-6.10) M/uL Hgb (14.0-18.0) g/dl Hct (42.0-52.0) % MCV (80.0-100.0) fL MCH (25.0-34.0) pg MCHC (32.0-36.0) g/dL RDW Std Deviation (36.4-46.3) fL RDW Coeff of Micah (11.5-14.5) % Plt Count (130-400) K/uL MPV (9.4-12.4) fL Immature Gran % (Auto) % Neut % (Auto) % Lymph % (Auto) % Pershing % (Auto) % Eos % (Auto) % Baso % (Auto) % Neut # (Auto) (1.40-6.50) K/uL Lymph # (Auto) (1.2-3.4) K/uL Pershing # (Auto) (0.11-0.59) K/uL Eos # (Auto) (0-0.50) K/uL Baso # (Auto) (0-0.2) K/uL Immature Gran # (Auto) (0.01-0.20) K/uL Absolute Nucleated RBC (0-0.12) K/uL Nucleated RBC % (auto) % APTT (21.0-31.0) Seconds PTT Ratio Sodium (136-145) mmol/L Potassium (3.5-5.1) mmol/L Chloride (98-107) mmol/L Carbon Dioxide (21-32) mmol/L Anion Gap (3-11) BUN (6-23) mg/dl Creatinine (0.6-1.4) mg/dl Est Cr Clr Drug Dosing ml/min Est GFR ( Amer) ml/min Est GFR (Non-Af Amer) ml/min BUN/Creatinine Ratio (10-20) Glucose (70-99(Fasting)) mg/dl POC Glucose 289 H 267 H 301 H* (70-99) mg/dl Calcium (8.5-10.1) mg/dl Magnesium (1.7-2.4) mg/dl Total Bilirubin (0.2-1.0) mg/dl AST (13-39) U/L ALT (7-52) U/L Alkaline Phosphatase (34-104) U/L Total Protein (6.0-8.3) gm/dl Albumin (3.4-5.0) gm/dl Globulin (2.5-4.0) gm/dl Albumin/Globulin Ratio (0.9-2) 12/28/22 12/28/22 Range/Units 17:24 16:28 WBC (4.8-10.8) K/ul RBC (4.70-6.10) M/uL Hgb (14.0-18.0) g/dl Hct (42.0-52.0) % MCV (80.0-100.0) fL MCH (25.0-34.0) pg MCHC (32.0-36.0) g/dL RDW Std Deviation (36.4-46.3) fL RDW Coeff of Micah (11.5-14.5) % Plt Count (130-400) K/uL MPV (9.4-12.4) fL Immature Gran % (Auto) % Neut % (Auto) % Lymph % (Auto) % Pershing % (Auto) % Eos % (Auto) % Baso % (Auto) % Neut # (Auto) (1.40-6.50) K/uL Lymph # (Auto) (1.2-3.4) K/uL Pershing # (Auto) (0.11-0.59) K/uL Eos # (Auto) (0-0.50) K/uL Baso # (Auto) (0-0.2) K/uL Immature Gran # (Auto) (0.01-0.20) K/uL Absolute Nucleated RBC (0-0.12) K/uL Nucleated RBC % (auto) % APTT 63.2 H* (21.0-31.0) Seconds PTT Ratio 2.3 Sodium (136-145) mmol/L Potassium (3.5-5.1) mmol/L Chloride (98-107) mmol/L Carbon Dioxide (21-32) mmol/L Anion Gap (3-11) BUN (6-23) mg/dl Creatinine (0.6-1.4) mg/dl Est Cr Clr Drug Dosing ml/min Est GFR ( Amer) ml/min Est GFR (Non-Af Amer) ml/min BUN/Creatinine Ratio (10-20) Glucose (70-99(Fasting)) mg/dl POC Glucose 228 H (70-99) mg/dl Calcium (8.5-10.1) mg/dl Magnesium (1.7-2.4) mg/dl Total Bilirubin (0.2-1.0) mg/dl AST (13-39) U/L ALT (7-52) U/L Alkaline Phosphatase (34-104) U/L Total Protein (6.0-8.3) gm/dl Albumin (3.4-5.0) gm/dl Globulin (2.5-4.0) gm/dl Albumin/Globulin Ratio (0.9-2) Hospital Course (1) DKA (diabetic ketoacidosis): Mr. Wood is a 77 y/o male with a PMHx of [id number], HTN, prostate CA, DVT and b/l PE on Eliquis, ZAID with CPAP, metastatic cancer spine and liver with unknown primary source presented in DKA with severe thrombocytopenia and multiple electrolyte derangements now HDS and awaiting PICC line placement prior to discharge. 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 He was given 1 unit on 12/19. Immature platelet fraction 21.1% ( high). 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 Heparin dependent platelet antibody was neg. This does not r/o HIT as possible etiology. Per Dr. Manuel, enoxaparin/fondaparinux/heparin now listed as possible allergies. Patient was started on argatroban with a target ratio PTT of 1.5 to 2.0. Repeat US showed further development of DVT, increase target to 2.0 to 2.5 ratio PTT. Suspect peripheral destruction vs. marrow failure, abrupt onset thrombocytopenia, and adequate red cell/white cell production. Lower suspicion for DIC. No associated anemia. Work up: Peripheral smear "anisopoikilocytosis. No schistocytes, tear drop cells. Neutrophilic predominant leukocytosis. Platelets decreased in number without clumping. Consistent with non-specific leukocytosis and thrombocytopenia." Marrow biopsy 12/19: "no intrinsic hematologic abnormalities nor infiltration by his adenocarcinoma", suggestive of immunologic destruction of platelets as the mechanism for his thrombocytopenia Treatment: s/p 3 doses IVIG last dose 12/24 s/p Dexamethasone 40 mg x4 days; now on 4 mg QD given 175 mcg romiplostim SQ (bone marrow stimulant) 12/24, dosing Q7D Patient on Eliquis at home for known PE/DVT. He would warrant anticoagulation at home due to the risk of hypercoagulability in the setting of his cancer diagnosis. Patient was on half dosing of argatroban and had extension of his known clot and thus was put on full dosing. He has had no active bleeding. There is also a significant risk of bleeding with his profound thrombocytopenia. As platelets are less than 50K would start with half dosing of Eliquis until his platelets have recovered. Will treat this as continuation of anticoagulation and start at 2.[address] mg [address]ID. Discussed with Dr. Manuel. Will have close follow up to monitor thrombocytopenia QAM labs. DM2 with recent DKA Admission labs and clinical history consistent with DKA/HHS, likely triggered by steroid-induced hyperglycemia from recent IV + oral steroid therapy for metastatic cancer. Given urine ketones, more likely DKA than HHS. Initially started on insulin drip; transitioned to SC insulin. A1c 7.3% in 09/2022. Would rec insulin outpatient during steroid tx to avoid dehydration. 15 units NPH QAM with dexamethasone treatment. Severe electrolyte abnormalities, secondary to DKA vs. TLS - improved Electrolytes derangements present at the time of admission. Hypermagnesemia, hyperphosphatemia, hyperkalemia, hyponatremic, and hyperglycemic. Likely in the setting of DKA. No clinical signs of toxicity. Given calcium gluconate x1. Patient also started on allopurinol for presumed tumor lysis syndrome. Electrolyte derangements improved during hospital course. Metastatic cancer, heavy tumor burden Extensive metastasis to liver and spine with unknown primary source though potentially pancreas per previous imaging from last hospitalization. Follows with [facility] hem/onc and is undergoing chemotherapy/radiation outpatient. Patient has pain right posterior shoulder and left foot - imaging did not show mets. Onc was consulted during hospital stay - restarted dexamethasone, pain control with oxycodone, needed port-a-cath vs PICC. PICC preferred 2/2 platelet's <50. Patient will have PICC placed prior to discharge. F/u hem/onc outpatient. Pulmonary embolism Patient found to have bilateral PE with LE DVTs at last admission. Eliquis at home. His anticoagulation was initially held as platelets <50. Received one dose of Lovenox. Will d/c with decreased dose of Eliquis 2.5 mg BID until platelets stabilize. Elevated troponin Troponin 43 on admission, peak. EKG without acute ST change, or peaked T waves, pt without ACS symptoms. Likely demand ischemia from acute illness Transaminitis Likely reactive to current acute illness/DKA in setting of known liver metastasis. Monitored with QAM CMP BRIAN-resolved Cr 1.64 on admission (BL= 0.8). Likely pre-renal cause - excessive volume depletion from urination 2/2 DKA; fluid resuscitation complete Severe ZAID on CPAP BIPAP HS Hypertension Holding home antihypertensives for hypotension. Resume as able as BP tolerates HLD Holding home statin given thrombocytopenia, resume on discharge FEN: normal diet LINES/IV ACCESS - PIV DVT prophylaxis: SCDs, due to severe thrombocytopenia, argatroban Dispo: Med/Tele (2) Thrombocytopenia: (3) Metastatic cancer: (4) Pulmonary embolism: (5) Hypermagnesemia: (6) Elevated troponin: (7) BRIAN (acute kidney injury): (8) Hyperphosphatemia: (9) Acute hyperkalemia: (10) Transaminitis: (11) Leukocytosis: (12) Malignant neoplasm of spine: (13) Severe obstructive sleep apnea: (14) History of prostate cancer: (15) Hyponatremia: (16) Weakness: (17) Hypertension: (18) Diabetes mellitus, type 2: (19) Hyperlipidemia: Total Time Total Time Spent Total Time Spent (In Minutes): 35 minutes Discharge Plan Discharge Items Patient Disposition: Home - Self-Care Reason For Visit: HHS/DKA, Discharge Diagnosis: DKA Activity: Per Instructions section Non-emergency contact: Primary Care Provider and Oncologist Call non-emergency contact if: your pain is unusual for you and your temperature is above 101 Follow-up/Referrals: Luis Webster MD [Physician] - (You have a follow up appointment in Radiation Oncology on April 16, 2023 at 2:15pm. Please call [phone] if you need to change this appointment date/time. ) Richard Manuel MD [Physician] - 01/09/23 9:20 am Kiel Rome DO [Primary Care Provider] - 01/01/23 11:30 am Diet: Carb Consistent or DM2 Ambulatory Orders: Complete Blood Count no Diff (DAILY) Timeframe: 20221231 Location: Determined by Patient Ordered By: Ara Ruiz Complete Blood Count no Diff (DAILY) Timeframe: 20230101 Location: Determined by Patient Ordered By: Ara Ruiz Complete Blood Count no Diff (DAILY) Timeframe: 20230102 Location: Determined by Patient Ordered By: Ara Ruiz Complete Blood Count no Diff (DAILY) Timeframe: 20230103 Location: Determined by Patient Ordered By: Ara Ruiz Complete Blood Count no Diff (DAILY) Timeframe: 20230104 Location: Determined by Patient Ordered By: Ara Ruiz Complete Blood Count no Diff (DAILY) Timeframe: 20221231 Location: Determined by Patient Ordered By: Ara Ruiz Complete Blood Count no Diff (DAILY) Timeframe: 20230101 Location: Determined by Patient Ordered By: Ara Ruiz Complete Blood Count no Diff (DAILY) Timeframe: 20230102 Location: Determined by Patient Ordered By: Ara Ruiz Complete Blood Count no Diff (DAILY) Timeframe: 20230103 Location: Determined by Patient Ordered By: Ara Ruiz Complete Blood Count no Diff (DAILY) Timeframe: 20230104 Location: Determined by Patient Ordered By: Ara Ruiz Complete Blood Count no Diff (DAILY) Timeframe: 20230105 Location: Determined by Patient Ordered By: Ara Ruiz Complete Blood Count no Diff (DAILY) Timeframe: 20230106 Location: Determined by Patient Ordered By: Ara Ruiz Addtl Attending Provider Instructions: You were admitted to the hospital for electrolyte abnormalities and high blood sugar. You were treated with insulin which lowered your blood sugar and help to correct the electrolyte abnormalities. You blood sugars have been high in the setting of steroid use. We will give you insulin to use while taking this medication. It will also be critical you remain hydrated - aim for 2.5-3 L of fluid each day. Please check your blood sugars first thing in the morning when you wake up and record the values in a journal for your family doctor. If any of your values are <80 AND/OR if you have low blood sugar symptoms (lightheadedness, sweatiness, nausea, headache), please eat something sugary immediately (like a candy bar). Low blood sugar can be dangerous if not treated. If your levels are persistently low (<90), please call your PCP for advice and hold from administering the insulin. Go to the ER for any severe symptoms. A discharge summary will be sent to your primary care physician to ensure continuity of care. Please bring this discharge summary with you to your next office appointment so that your provider can review it at that time. Follow-up appointments: We have requested a follow-up appointment with your primary care physician within one week of discharge. Please call their office if you do not hear from them. We have requested a follow-up appointment with your oncologist within one week of discharge. Please call their office if you do not hear from them. Keep all your follow-up appointments as already scheduled. If you cannot make an appointment, notify your provider. Medications: Your medication list has been reviewed and reconciled upon discharge to ensure accuracy and continuity of care. An updated list of all your medications is included with your hospital discharge paperwork. Please review this list closely, and make note of any changes. We changed your dose of Eliquis at this time. Without your current platelet levels there is an increased risk of bleeding. Upon discussion with Dr. Manuel, he recommended 2.5 mg BID. We will want to monitor your platelets as well with daily labs. You can have those done here at the hospital. If you have any issues filling these prescriptions, please call [phone] and ask to leave a message for Dr. Ruiz. Take your medications as instructed; do not skip a dose of your medicines. Make sure all of your doctors know every medicine you are taking (including [id number] medicines, vitamins, and supplements). Call your primary care provider before taking any new medicines (including over- the- counter medicines, vitamins, and supplements), because some of these may interact with your current medications, or may make your symptoms worse. Tell your primary care provider if you cannot afford your medications. CONTACT YOUR PRIMARY CARE PROVIDER if you experience any of the following: Bleeding Confusion/Weakness Difficulty following your treatment plan, or difficulty taking medications CALL 911 OR GO TO THE EMERGENCY DEPARTMENT if you experience any of the following: Sudden, severe abdominal pain or nausea/vomiting Severe chest pain, or chest pain that radiates (moves) to your jaw or arm Sudden, severe shortness of breath or difficulty breathing Thank you for allowing us to participate in your care Pending Studies at Discharge: No Stand-Alone Forms: My [facility], Smoking Cessation Medications and DC Order Prescriptions: New Eliquis 2.5 mg Tablet 2.5 mg PO BID 30 Days Qty: 60 0RF Humulin N NPH Insulin KwikPen 100 unit/mL (3 mL) insulin pen 15 unit subcut QAM Qty: 15 0RF Rx Instructions: Take it at the same time every morning with the decadron Continued (DME) BiPap Machine Misc See Rx Instructions .ROUTE .MEDSUPPLY Qty: 1 0RF Rx Instructions: BIPAP MACHINE AND SUPPLIES; 19/15 CM WATER PRESSURE; DX: G47.33 OBSTRUCTIVE SLEEP APNEA; LENGTH OF NEED: 99YEARS (DME) BiPap Supplies Misc See Rx Instructions .Route Qty: 1 0RF Rx Instructions: As directed with Bi pap machine tadalafil 20 mg tablet 20 mg PO UD PRN (Reason: sexual activity) Qty: 30 3RF lisinopril-hydrochlorothiazide 10-12.5 mg tablet 1 tab PO HS Qty: 90 3RF empagliflozin 25 mg tablet 25 mg PO DAILY Qty: 90 3RF dexamethasone 4 mg tablet 4 mg PO TID Qty: 120 0RF Rx Instructions: 12/17/22--TID, 12/18/22 CHANGE TO BID, PER PT'S SPOUSE. metformin 1,000 mg tablet 1,000 mg PO BID Qty: 180 3RF duloxetine 30 mg capsule,delayed release(DR/EC) 30 mg PO DAILY Qty: 90 1RF (DME) lancets [OneTouch Delica Lancets] 30 gauge misc See Rx Instructions .Route Qty: 100 3RF Rx Instructions: TEST SUGAR ONCE DAILY; DX: E11.9 (DME) OneTouch Verio test strips Strip See Rx Instructions .Route Qty: 100 3RF Rx Instructions: TEST SUGAR ONCE DAILY; DX: E11.9 methocarbamol 750 mg tablet 750 mg PO Q8H PRN (Reason: back spasm) Qty: 15 1RF gabapentin 100 mg capsule 100 mg PO TID Qty: 90 2RF ibuprofen 200 mg Capsule 400 - 600 mg PO Q6H PRN (Reason: Pain) atorvastatin 40 mg tablet 40 mg PO HS diclofenac sodium [Voltaren Arthritis Pain] 1 % gel 4 g topical QID PRN (Reason: Pain) oxycodone 5 mg tablet 5 mg PO Q6H PRN (Reason: pain, severe) Qty: 30 0RF Discontinued Eliquis 5 mg tablet 5 mg PO BID Qty: 70 0RF Rx Instructions: STARTED 12/12/22---10mg (2 pills) po bid x 5 days, then 1 po bid Discharge Orders: Discharge Order (Routine); Ordered 12/29/22 Ordered By: Ara Ruiz Admission Data Admit Date/Time: 12/17/22 21:53 Attending Provider: Roopa Taylor Admit Provider: Alfredo Barrios Primary Care Provider: Kiel Rome Other Providers: Juan Miguel Edwards ; Steve Myles ; Kiel Francis ; Sam Tilley ; Austyn Bhakta ; Raciel Sousa ; Tu Lay ; Mahesh Merino ; Parker Solo ; Ronda Banerjee ; Sonia Simmons ; Tameka Kumar ; Richard Manuel ; Deandra Gray ; Refugio Sneed ; Valerio Peñaloza ; Kishor Monreal ; Riya Newton ; Naty,No Attending ; Stacy Tomas ; Addison Duff ; [facility] Other Interventions: Discharge Summary Assessment (RN) Last Done: 12/29/22 16:15 Supervising Physician Co-Signing Physician Notes 77-year-old male with presumed metastatic pancreatic cancer presenting with DKA and thrombocytopenia. Unfortunately Port-A-Cath was not able to be placed due to inability to bring up platelets, PICC line placed today. Patient resumed Eliquis on 2.5 mg twice daily dosing. On discharge, 15 units NPH provided in setting of dexamethasone due to elevated glucose levels. Patient has follow-up with oncology this week, will obtain daily labs to monitor for electrolyte and blood count abnormalities. Patient is are grateful for discharge, they are aware of increased risk of bleeding and will monitor for signs of bleeding. I personally examined the patient and verified all rivera points of history and exam, discussed case, and agree with decision making and plan documented by Dr. Ruiz. Roopa Taylor, DO Resident Activity Tracking Resident Involvement: Resident Care Provided Care Provided: Adult [facility]
--- NOTE | 2022-12-29 15:23 | Electrocardiogram Report ---
Test Reason : Blood Pressure : / mmHG Vent. Rate : 106 BPM Atrial Rate : 106 BPM P-R Int : 164 ms QRS Dur : 092 ms QT Int : 346 ms P-R-T Axes : 076 -83 027 degrees QTc Int : 459 ms Sinus tachycardia Left axis deviation Inferior-posterior infarct , age undetermined Abnormal ECG When compared with ECG of 17-DEC-2022 18:27, No significant change was found Confirmed by Shun Gonzlaez ([id number]) on 12/29/2022 3:23:15 PM Referred By: Richard Manuel Confirmed By:Matt Gonzalez
[2022-12-29] MEDS ORDERED: APIXABAN 2.5 MG TAB PO SCH (21:00)
[2022-12-29] MEDS ORDERED: LANTUS PER UNIT CHARGE SQ SCH (21:00)
--- NOTE | 2022-12-30 09:39 | Communication Note ---
Agree with documentation of Dr. Ruiz. Date of Service: December 30, 2022 Discussed and confirmed discharge dosing of dexamethasone 4 mg once a day as there was some confusion with dosing. Patient was previously on 4 mg TID prior to admission. Would recommend continuing at 4 mg once a day which was his dosing while inpatient. In addition sent insulin pen needles as these were not sent. Discussed with Dr. Taylor. Dr. Ruiz Resident Activity Tracking Resident Involvement: Resident Care Provided Care Provided: Adult Hospital Medicine
--- NOTE | 2023-01-20 11:37 | Hospitalist Progress Note ---
Date of Service December 29, 2022 Assessment & Plan Admission and Anticipated Discharge Date Admission Date: December 17, 2022 Results & Data Results & Data Vital Signs (Past 12 Hours) Vital Signs Temp Pulse Pulse Resp BP Pulse Ox O2 Del Method 12/29/22 09:16 Room Air 12/29/22 07:33 94 H 12/29/22 07:31 36.7 C 113 H 16 122/82 97 Room Air 12/29/22 03:24 36.7 C 88 18 134/83 95 Room Air 12/28/22 22:02 69 12/28/22 23:14 82 20 136/82 96 Room Air PG Care Time/CCT Total # of Minutes Spent Total Time Spent with Patient: Total time spent is greater than 50% in coordination of care (as documented) at patient's floor/unit and/or counseling patient: Coding Level of Care Code None Diagnoses
== END 2022-12-29 17:40 | disposition home health service (06) | DRG 637 ==
LOC: ED 17:45 → 1E 21:53 → SUATTDRO 21:53 → 1E 22:20 → 2S 12-19 12:51